=== PATIENT | female | born 1960 | race Caucasian/White ===

== ENCOUNTER → 2019-01-10 10:28 | Outpatient (CLI) | payer OTHER, SELFPAY ==
--- NOTE | 2019-01-10 10:30 | DI.RAD.S_ITS ---
PROCEDURE: XR LUMBAR SPINE 2-3V INDICATIONS: pain, numbness, tingling in l4-5 distribution TECHNIQUE: 3 views of the lumbar spine were acquired. COMPARISON: [facility], , XR LUMBAR SPINE 2 OR 3 VIEWS, 11/09/2017, 18:16. FINDINGS: Bones: 5 [id number] vertebrae are present. There is normal bony alignment. No vertebral body compression fractures. No suspicious bony lesions. There is degenerative disc disease throughout lumbar spine, most pronounced at T12-L1, L1-L2, L2-L3 and L3-L4. There is facet arthropathy at L4-L5 and L5-S1. Soft tissues: Overlying bowel gas pattern is normal. No suspicious soft tissue calcifications. IMPRESSION: Degenerative disc disease and facet arthropathy in lumbar spine. Dictated by: Shailesh Lazar M.D. on 01/10/2019 at 13:43 Approved by: Shailesh Lazar M.D. on 01/10/2019 at 13:46
== END ==
PROVIDERS: PCP Family Medicine; Visit Provider Physical Medicine & Rehabilitation
DX: M54.5 Low back pain (principal); M47.26 Other spondylosis with radiculopathy, lumbar region; M47.27 Other spondylosis with radiculopathy, lumbosacral region; M51.15 Intervertebral disc disorders with radiculopathy, thoracolumbar region; M51.16 Intervertebral disc disorders with radiculopathy, lumbar region; R20.0 Anesthesia of skin; R20.2 Paresthesia of skin
CPT/HCPCS: 72100

== ENCOUNTER → 2019-03-14 08:51 | Outpatient (CLI) | payer OTHER, SELFPAY ==
--- NOTE | 2019-03-14 08:52 | DI.RAD.S_ITS ---
PROCEDURE: XR KNEE RT 3V INDICATIONS: knee pain TECHNIQUE: A set of 3 views of the knee were acquired. COMPARISON: Located Within [facility], CR, XR KNEE LT 3V, 03/14/2019, 8:53. FINDINGS: Bones: No fractures or dislocations but there is severe right knee joint osteoarthritis virtually equivalent to that seen on the left same day. Nqlc-hq-[id number] articulation is present at the medial compartment. There is a possible intra-articular loose body at the superior margin of the patellofemoral joint seen on the lateral view.. No suspicious bony lesions. Soft tissues: No joint effusion. No suspicious soft tissue calcifications. IMPRESSION: Very severe medial compartment knee joint osteoarthritis, severe right knee joint osteoarthritis overall. Tricompartmental disease. Possible angular intra-articular loose body measuring up to approximately 1 point for centimeters seen on the lateral view at the upper margin of the patellofemoral joint. Dictated by: Mike Vázquez M.D. on 03/14/2019 at 9:41 Approved by: Mike Vázquez M.D. on 03/14/2019 at 9:43
--- NOTE | 2019-03-14 08:52 | DI.RAD.S_ITS ---
PROCEDURE: XR KNEE LT 3V INDICATIONS: knee pain TECHNIQUE: 3 views of the knee were acquired. COMPARISON: [facility], CR, XR KNEE STANDING BI, 03/14/2019, 9:08. [facility], CR, XR KNEE RT 3V, 03/14/2019, 9:01. [facility], CR, XR KNEE ARTHRITIC SERIES RT, 06/30/2018, 12:44. FINDINGS: Bones: No fractures or dislocations there is moderately severe patellofemoral joint and lateral compartment degenerative osteoarthritis and severe srjc-jf-rzpm articulation at the medial compartment, without visualized chronic or acute trauma. No suspicious bony lesions. Soft tissues: No joint effusion. No suspicious soft tissue calcifications. IMPRESSION: Overall there is quite severe knee joint osteoarthritis most pronounced at the medial compartment where ciil-fr-jeom articulation is present. No effusion or loose body seen. The degree of degenerative change is essentially equivalent to that on the left. Dictated by: Mike Vázquez M.D. on 03/14/2019 at 9:39 Approved by: Mike Vázquez M.D. on 03/14/2019 at 9:41
--- NOTE | 2019-03-14 08:52 | DI.RAD.S_ITS ---
PROCEDURE: XR KNEE STANDING BI INDICATIONS: knee pain TECHNIQUE: 4 views of the right knee, and 4 views of the left knee. COMPARISON: [facility], CR, XR KNEE RT 3V, 03/14/2019, 9:01. [facility], CR, XR KNEE LT 3V, 03/14/2019, 8:53. FINDINGS: Bones: No acute fractures or dislocations. Patellar alignment is mildly subluxed laterally on the sunrise view, bilaterally. No suspicious bony lesions but there is bilateral moderately severe knee joint osteoarthritis overall and severe medial compartment knee joint osteoarthritis at each knee to an equivalent agree with jmrw-ki-vnqy articulation. Joint spaces appear normal with weightbearing. Suspected intra-articular loose body at the superior margin of the right patellofemoral joint measures up to 1 point for centimeters in dimension craniocaudad. Soft tissues: No knee joint effusions. No suspicious soft tissue calcification. IMPRESSION: Moderately severe to severe knee joint osteoarthritis bilaterally most pronounced at the medial compartment of each knee were non-bone articulation is present. Suspected right suprapatellar fossa thin intra-articular loose body. No joint effusion is found, however. Dictated by: Mike Vázquez M.D. on 03/14/2019 at 9:59 Approved by: Mike Vázquez M.D. on 03/14/2019 at 10:01
== END ==
PROVIDERS: PCP Family Medicine; Visit Provider Registered Nurse
DX: M17.0 Bilateral primary osteoarthritis of knee (principal); M25.562 Pain in left knee; M25.561 Pain in right knee
CPT/HCPCS: 73562; 73565

== ENCOUNTER 2019-10-01 08:15 | Outpatient (RCR) | payer OTHER, SELFPAY ==
--- NOTE | 2019-02-05 14:52 | PT.OIE ---
Current Diagnoses Unilateral primary osteoarthritis, right knee (02/05/19) Unilateral primary osteoarthritis, left knee (02/05/19) Radiculopathy, lumbosacral region (02/05/19) Other abnormalities of gait and mobility (02/05/19) Abnormal posture (02/05/19) Weakness (02/05/19) Provider Visit Care Team Role Provider Type Kayleigh Magdaleno MD Primary Care Provider Non-Staff Specialty: Medical Address: [address] [place] [address], [id number] Email: COLEMAN Joseph Attending Provider Advanced Manager Medical Device Specialty: Pain Management Address: [address] [place] [address], [id number] Email: [email or web address] Physical Therapy Initial Evaluation PT-OP-A Visit Information Start: 02/05/19 08:10 Freq: Status: Active Protocol: Document 02/05/19 08:12 [facility] (Rec: 02/05/19 19:11 [facility] [id number]) Out-Patient Physical Therapy Visit Information Visit Information Visit Type Initial Evaluation Visit Start Time 08:15 Visit Stop Time 09:00 Total Visit Minutes 45 Visit Number 1 Number of TOOL WORKER Visits 0 PT-OP-B Current Condition Start: 02/05/19 08:10 Freq: Status: Active Protocol: Document 02/05/19 08:12 [facility] (Rec: 02/05/19 09:12 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 Pt reports when seeing a movie on the tuesday, she had bad back pain and then she had foot numbness. That Tuesday, she saw a chiropractor and that helped. Pt reports foot is numb and first 4 toes. Pt reports she gets shooting pain only through the foot . Pt reports it seems like when knees are bend and in PF. Prior Treatments and Tests Xrays on back and knees, shots in knees-cannot get surgery d /t weight Treatment Goals Patient/Caregiver Goals wants numbness to go away, be able to sit 1 hour, be able to walk with less pain PT-OP-C Subjective Start: 02/05/19 08:10 Freq: Status: Active Protocol: Document 02/05/19 08:12 [facility] (Rec: 02/05/19 09:12 [facility] [id number]) OP-PT Pain Assessment Location low back Pain Location Details LB & R foot and toes 1-4 Intensity 4 Scale Used Numeric (1 - 10) Description Shooting Tightness Description- Other pins & needles, searing Frequency Intermittent Radiating Location into foot & numbness Pain Aggravating Factors Sitting Other Pain Aggravating Factors bending knee, mowing on riding mower Other Pain Alleviating Factors reposition foot B knees Pain Location Details ant lat Intensity 2 Scale Used Numeric (1 - 10) Description Aching Description- Other worst 6/10 Frequency Intermittent Pain Duration a day or 2 Pain Aggravating Factors Walking Stair Climbing Bending Pain Alleviating Factors Cold PT-OP-G Mobility & Gait Start: 02/05/19 08:10 Freq: Status: Active Protocol: Document 02/05/19 08:12 [facility] (Rec: 02/05/19 09:12 [facility] [id number]) OP Gait Assessment Comments Gait Comments Pt amb with lat leaning side to side B with amb and amb with slow gait. PT-OP-J Posture/Palpation/Skin Start: 02/05/19 08:10 Freq: Status: Active Protocol: Document 02/05/19 08:12 [facility] (Rec: 02/05/19 09:12 [facility] [id number]) Posture Evaluation Jeri Postural Classification System Jeri Postural Classifications Anterior/Posterior Lumbar Protective Mechanism Left AP 3 Lumbar Protective Mechanism Right AP 2 Lumbar Protective Mechanism Left PA 3 Lumbar Protective Mechanism Right PA 1 PT-OP-K Range of Motion Start: 02/05/19 08:10 Freq: Status: Active Protocol: Document 02/05/19 08:12 [facility] (Rec: 02/05/19 09:12 [facility] [id number]) Lumbar Spine Range of Motion Lumbar Spine Active Degrees Flexion 60 Extension 22 Rotation Left 30 Rotation Right 29 Knee Goniometric Range of Motion Knee Right Flexion Active (degrees) 105 Extension Active (degrees) 6 Left Flexion Active (degrees) 101 Extension Active (degrees) 3 PT-OP-L Special Tests Start: 02/05/19 08:10 Freq: Status: Active Protocol: Document 02/05/19 08:12 [facility] (Rec: 02/05/19 09:12 [facility] [id number]) Special Tests Lumbar Spine Special Tests SLR Test Results WNL Slump Test Results neg B PT-OP-M Strength Start: 02/05/19 08:10 Freq: Status: Active Protocol: Document 02/05/19 08:12 [facility] (Rec: 02/05/19 09:12 [facility] [id number]) Hip Strength Hip Manual Muscle Testing Left Flexion (L2) 3+ Fair+ Extension (S1) 4- Good- Abduction 4- Good- External Rotation 4+ Good+ Internal Rotation 4 Good Right Flexion (L2) 4- Good- Extension (S1) 4 Good External Rotation 4- Good- Internal Rotation 4- Good- Knee Strength Knee Manual Muscle Testing Right Flexion (S2) 5 Normal Extension (L3) 4 Good Left Flexion (S2) 5 Normal Extension (L3) 4- Good- Ankle/Foot Strength Ankle and Foot Manual Muscle Testing Right Dorsiflexion (L4) 5 Normal Plantarflexion (S1) 5 Normal Inversion 4+ Good+ Eversion (S1) 4+ Good+ Left Dorsiflexion (L4) 5 Normal Plantarflexion (S1) 5 Normal Inversion 5 Normal Eversion (S1) 5 Normal PT-OP-Q Treatments Start: 02/05/19 08:10 Freq: Status: Active Protocol: Document 02/05/19 08:12 [facility] (Rec: 02/05/19 19:11 [facility] [id number]) Therapeutic Exercises Supine Exercises flex Supine Exercise Name marching altn w/TAbd contraction Side bilateral Reps/Minutes 10 bridge Side bilateral Reps/Minutes 10 Sidelying Exercises abd Sidelying Exercise Name hip Side bilateral Reps/Minutes 10 Comments cues for form PT-OP-T Assessment and Plan Start: 02/05/19 08:10 Freq: Status: Active Protocol: Document 02/05/19 08:12 [facility] (Rec: 02/05/19 19:11 [facility] [id number]) Physical Therapy Assessment Rehab Potential Rehabilitation Potential Good Evaluation Complexity Number of Personal Factors/Comorbidities 3 or More Number of Body Systems Impaired 4 or More Clinical Presentation at Evaluation Evolving Impairments Impairments Activity Tolerance Balance Functional Activities Functional Mobility Gait Pain Posture ROM Soft Tissue Mobility Strength Goals gait [facility] Goal (LTG) Pt will have improved gait mechanics allowing her to amb without pain during typical daily activties. LTG Duration 04/08/19 activity tolerance Custodial Goal (LTG) Pt will be able to sit for an hour without inc pain, allowing her to participate in full tutoring sessions without pain. LTG Duration 04/08/19 strength Short Term Goal (STG) Pt will be indep with HEP & gym program in order to work towards independence with strengthening program. STG Duration 03/08/19 [facility] Goal (LTG) Pt will have 5/5 LE strength and 3/5 LPM to show improvement in strength in order to allow her to return to typical activities without pain. LTG Duration 04/08/19 Assessment Summary Assessment Pt presents with chronic B knee pain and recent onset of LBP with R foot pain and numbness. Pt has largest complaint of foot pain that is limiting her and knees have limited her in her ability to walk, stand and sit for extended time. She is unable to participate in her daily activities without significant pain and would benefit from skilled PT in order to address her impairments and improve her activity tolerance. Physical Therapy Plan Frequency and Duration Frequency of Treatment 2x/Week Duration of Treatment 2 months Plan of Care Start Date 02/05/19 Plan of Care End Date 04/08/19 Therapeutic Interventions Therapeutic Interventions Aquatic Therapy Balance Training Gait Training Home Exercise Program Joint Mobilizations Manual Therapy Neuromuscular Re-education Patient/Caregiver Education Self-Care/Home Management Soft Tissue Mobilization Taping Therapeutic Activities Therapeutic Exercises Modalities Cold Pack/Ice Massage Electric Stimulation Hot Packs Infrared Therapy Iontophoresis Traction- Mechanical Ultrasound Next Visit Focus/Plan Next Note Type Treatment Note Next Visit Plan Advance core stability as tolerated & LE strength, STM to sciatic n pathway
--- NOTE | 2019-02-05 16:53 | PT.OPPOC ---
Current Diagnoses Unilateral primary osteoarthritis, right knee (02/05/19) Unilateral primary osteoarthritis, left knee (02/05/19) Radiculopathy, lumbosacral region (02/05/19) Other abnormalities of gait and mobility (02/05/19) Abnormal posture (02/05/19) Weakness (02/05/19) Provider Visit Care Team Role Provider Type Kayleigh Magdaleno MD Primary Care Provider Non-Staff Specialty: Medical Address: [address] [place] [address], [phone] Email: COLEMAN Jospeh Attending Provider Advanced House Father Specialty: Pain Management Address: [address] [place] [address], [id number] Email: [email or web address] Plan Of Care PT-OP-T Assessment and Plan Start: 02/05/19 08:10 Freq: Status: Active Protocol: Document 02/05/19 08:12 [facility] (Rec: 02/05/19 19:11 [facility] [id number]) Physical Therapy Assessment Rehab Potential Rehabilitation Potential Good Evaluation Complexity Number of Personal Factors/Comorbidities 3 or More Number of Body Systems Impaired 4 or More Clinical Presentation at Evaluation Evolving Impairments Impairments Activity Tolerance Balance Functional Activities Functional Mobility Gait Pain Posture ROM Soft Tissue Mobility Strength Goals gait Group Home Goal (LTG) Pt will have improved gait mechanics allowing her to amb without pain during typical daily activties. LTG Duration 04/08/19 activity tolerance Heat Treat Inspector Goal (LTG) Pt will be able to sit for an hour without inc pain, allowing her to participate in full tutoring sessions without pain. LTG Duration 04/08/19 strength Short Term Goal (STG) Pt will be indep with HEP & gym program in order to work towards independence with strengthening program. STG Duration 03/08/19 Heat Treat Inspector Goal (LTG) Pt will have 5/5 LE strength and 3/5 LPM to show improvement in strength in order to allow her to return to typical activities without pain. LTG Duration 04/08/19 Assessment Summary Assessment Pt presents with chronic B knee pain and recent onset of LBP with R foot pain and numbness. Pt has largest complaint of foot pain that is limiting her and knees have limited her in her ability to walk, stand and sit for extended time. She is unable to participate in her daily activities without significant pain and would benefit from skilled PT in order to address her impairments and improve her activity tolerance. Physical Therapy Plan Frequency and Duration Frequency of Treatment 2x/Week Duration of Treatment 2 months Plan of Care Start Date 02/05/19 Plan of Care End Date 04/08/19 Therapeutic Interventions Therapeutic Interventions Aquatic Therapy Balance Training Gait Training Home Exercise Program Joint Mobilizations Manual Therapy Neuromuscular Re-education Patient/Caregiver Education Self-Care/Home Management Soft Tissue Mobilization Taping Therapeutic Activities Therapeutic Exercises Modalities Cold Pack/Ice Massage Electric Stimulation Hot Packs Infrared Therapy Iontophoresis Traction- Mechanical Ultrasound Next Visit Focus/Plan Next Note Type Treatment Note Next Visit Plan Advance core stability as tolerated & LE strength, STM to sciatic n pathway Plan of Care Dates Plan of Care Start Date 02/05/19 Plan of Care End Date 04/08/19 Please Sign and Return: I have reviewed this Plan of Care and certify that the skilled therapy services above are required to meet the patient?s needs. Physician Signature Date Printed Name and Credentials Clinical Instructor Signature Printed Name and Credentials
--- NOTE | 2019-02-08 10:27 | PT.OTN ---
Current Diagnoses Unilateral primary osteoarthritis, right knee (02/08/19) Unilateral primary osteoarthritis, left knee (02/08/19) Radiculopathy, lumbosacral region (02/08/19) Other abnormalities of gait and mobility (02/08/19) Abnormal posture (02/08/19) Weakness (02/08/19) Physical Therapy Treatment Note PT-OP-A Visit Information Start: 02/05/19 08:10 Freq: Status: Active Protocol: Document 02/08/19 10:08 [facility] (Rec: 02/08/19 10:24 [facility] [id number]) Out-Patient Physical Therapy Visit Information Visit Information Visit Type Treatment Note Visit Start Time 09:45 Visit Stop Time 10:35 Total Visit Minutes 50 Visit Number 2 Number of EDUCATION AND TRAINING MANAGER Visits 0 PT-OP-B Current Condition Start: 02/05/19 08:10 Freq: Status: Active Protocol: Document 02/05/19 08:12 [facility] (Rec: 02/05/19 09:12 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 Pt reports when seeing a movie on the tuesday, she had bad back pain and then she had foot numbness. That Tuesday, she saw a chiropractor and that helped. Pt reports foot is numb and first 4 toes. Pt reports she gets shooting pain only through the foot . Pt reports it seems like when knees are bend and in PF. Prior Treatments and Tests Xrays on back and knees, shots in knees-cannot get surgery d /t weight Treatment Goals Patient/Caregiver Goals wants numbness to go away, be able to sit 1 hour, be able to walk with less pain PT-OP-C Subjective Start: 02/05/19 08:10 Freq: Status: Active Protocol: Document 02/08/19 10:08 [facility] (Rec: 02/08/19 10:24 [facility] [id number]) OP-PT Subjective Patient Comments Patient Comments pt reports doing exercises daily except yesterday. PT-OP-G Mobility & Gait Start: 02/05/19 08:10 Freq: Status: Active Protocol: Document 02/05/19 08:12 [facility] (Rec: 02/05/19 09:12 [facility] [id number]) OP Gait Assessment Comments Gait Comments Pt amb with lat leaning side to side B with amb and amb with slow gait. PT-OP-J Posture/Palpation/Skin Start: 02/05/19 08:10 Freq: Status: Active Protocol: Document 02/05/19 08:12 [facility] (Rec: 02/05/19 09:12 [facility] [id number]) Posture Evaluation Jeri Postural Classification System Jeri Postural Classifications Anterior/Posterior Lumbar Protective Mechanism Left AP 3 Lumbar Protective Mechanism Right AP 2 Lumbar Protective Mechanism Left PA 3 Lumbar Protective Mechanism Right PA 1 PT-OP-K Range of Motion Start: 02/05/19 08:10 Freq: Status: Active Protocol: Document 02/05/19 08:12 [facility] (Rec: 02/05/19 09:12 [facility] [id number]) Lumbar Spine Range of Motion Lumbar Spine Active Degrees Flexion 60 Extension 22 Rotation Left 30 Rotation Right 29 Knee Goniometric Range of Motion Knee Right Flexion Active (degrees) 105 Extension Active (degrees) 6 Left Flexion Active (degrees) 101 Extension Active (degrees) 3 PT-OP-L Special Tests Start: 02/05/19 08:10 Freq: Status: Active Protocol: Document 02/05/19 08:12 [facility] (Rec: 02/05/19 09:12 [facility] [id number]) Special Tests Lumbar Spine Special Tests SLR Test Results WNL Slump Test Results neg B PT-OP-M Strength Start: 02/05/19 08:10 Freq: Status: Active Protocol: Document 02/05/19 08:12 [facility] (Rec: 02/05/19 09:12 [facility] [id number]) Hip Strength Hip Manual Muscle Testing Left Flexion (L2) 3+ Fair+ Extension (S1) 4- Good- Abduction 4- Good- External Rotation 4+ Good+ Internal Rotation 4 Good Right Flexion (L2) 4- Good- Extension (S1) 4 Good External Rotation 4- Good- Internal Rotation 4- Good- Knee Strength Knee Manual Muscle Testing Right Flexion (S2) 5 Normal Extension (L3) 4 Good Left Flexion (S2) 5 Normal Extension (L3) 4- Good- Ankle/Foot Strength Ankle and Foot Manual Muscle Testing Right Dorsiflexion (L4) 5 Normal Plantarflexion (S1) 5 Normal Inversion 4+ Good+ Eversion (S1) 4+ Good+ Left Dorsiflexion (L4) 5 Normal Plantarflexion (S1) 5 Normal Inversion 5 Normal Eversion (S1) 5 Normal PT-OP-Q Treatments Start: 02/05/19 08:10 Freq: Status: Active Protocol: Document 02/08/19 10:08 [facility] (Rec: 02/08/19 10:24 [facility] [id number]) Cardio Equipment Recumbent Stepper (Sci-Fit) Duration (Minutes) 7 Resistance 3 Gym Equipment Cable Column (Body Solid) Hip Abduction Resistance 4 Reps/Time 3x15 Shuttle Recovery Bilateral Squats Resistance 100,125 Shuttle Recovery Platform Stable Reps/Time 2x20 Therapeutic Exercises Supine Exercises dying bugs Side bilateral Reps/Minutes 5x2 isometric Supine Exercise Name single limb flex Side bilateral Reps/Minutes 10 sec x2 flex Supine Exercise Name marching altn w/TAbd contraction Side bilateral Reps/Minutes 15 Comments arms in air bridge Supine Exercise Name arms in air Side bilateral Reps/Minutes 10 Sidelying Exercises abd Sidelying Exercise Name hip Side bilateral Reps/Minutes 15 Comments cues for form Standing Exercises hip ext Standing Exercise Name alt Side bilateral Reps/Minutes 10 PT-OP-R Modalities Start: 02/05/19 08:10 Freq: Status: Active Protocol: Document 02/08/19 10:08 [facility] (Rec: 02/08/19 10:26 [facility] [id number]) Hot Pack/Cold Pack Treatment Cold Pack Location B knees Patient Position Hooklying Treatment Duration (minutes) 10 PT-OP-T Assessment and Plan Start: 02/05/19 08:10 Freq: Status: Active Protocol: Document 02/08/19 10:08 [facility] (Rec: 02/08/19 10:24 [facility] [id number]) Physical Therapy Assessment Goals gait Timber Selector Goal (LTG) Pt will have improved gait mechanics allowing her to amb without pain during typical daily activties. LTG Duration 04/08/19 activity tolerance Timber Selector Goal (LTG) Pt will be able to sit for an hour without inc pain, allowing her to participate in full tutoring sessions without pain. LTG Duration 04/08/19 strength Short Term Goal (STG) Pt will be indep with HEP & gym program in order to work towards independence with strengthening program. STG Duration 03/08/19 Shelter Goal (LTG) Pt will have 5/5 LE strength and 3/5 LPM to show improvement in strength in order to allow her to return to typical activities without pain. LTG Duration 04/08/19 Assessment Summary Assessment Pt unable to set up into bike comfortably but was able to do stepper comfortably and leg press and hip abd exercise. She did well with home program with min cueing and tolerated exercising today well. CUeing required for hip abd in s/l. Physical Therapy Plan Frequency and Duration Frequency of Treatment 2x/Week Duration of Treatment 2 months Plan of Care Start Date 02/05/19 Plan of Care End Date 04/08/19 Next Visit Focus/Plan Next Note Type Treatment Note Next Visit Plan cont to progress hip and core strengthening for gym and HEP and work on STM
--- NOTE | 2019-02-19 13:00 | PT.OTN ---
Current Diagnoses Unilateral primary osteoarthritis, right knee (02/19/19) Unilateral primary osteoarthritis, left knee (02/19/19) Radiculopathy, lumbosacral region (02/19/19) Other abnormalities of gait and mobility (02/19/19) Abnormal posture (02/19/19) Weakness (02/19/19) Physical Therapy Treatment Note PT-OP-A Visit Information Start: 02/05/19 08:10 Freq: Status: Active Protocol: Document 02/21/19 07:24 [facility] (Rec: 02/21/19 07:33 [facility] [id number]) Out-Patient Physical Therapy Visit Information Visit Information Visit Type Aquatic Treatment Note Visit Start Time 13:00 Visit Stop Time 13:45 Total Visit Minutes 45 Visit Number 3 Number of FEED CRUSHER Visits 0 PT-OP-B Current Condition Start: 02/05/19 08:10 Freq: Status: Active Protocol: Document 02/05/19 08:12 [facility] (Rec: 02/05/19 09:12 [facility] [id number]) Current Condition History of Current Condition History of Current Condition Pt reports chronic knee pain of 3-4 years, 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 Pt reports when seeing a movie on the tuesday, she had bad back pain and then she had foot numbness. That Tuesday, she saw a chiropractor and that helped. Pt reports foot is numb and first 4 toes. Pt reports she gets shooting pain only through the foot . Pt reports it seems like when knees are bend and in PF. Prior Treatments and Tests Xrays on back and knees, shots in knees-cannot get surgery d /t weight Treatment Goals Patient/Caregiver Goals wants numbness to go away, be able to sit 1 hour, be able to walk with less pain PT-OP-C Subjective Start: 02/05/19 08:10 Freq: Status: Active Protocol: Document 02/21/19 07:24 [facility] (Rec: 02/21/19 07:33 [facility] [id number]) OP-PT Subjective Patient Comments Patient Comments No new c/o, excited to try aquatic exercise. Reports continued numbness in LE. PT-OP-G Mobility & Gait Start: 02/05/19 08:10 Freq: Status: Active Protocol: Document 02/05/19 08:12 [facility] (Rec: 02/05/19 09:12 [facility] [id number]) OP Gait Assessment Comments Gait Comments Pt amb with lat leaning side to side B with amb and amb with slow gait. PT-OP-J Posture/Palpation/Skin Start: 02/05/19 08:10 Freq: Status: Active Protocol: Document 02/05/19 08:12 [facility] (Rec: 02/05/19 09:12 [facility] [id number]) Posture Evaluation Jeri Postural Classification System Jeri Postural Classifications Anterior/Posterior Lumbar Protective Mechanism Left AP 3 Lumbar Protective Mechanism Right AP 2 Lumbar Protective Mechanism Left PA 3 Lumbar Protective Mechanism Right PA 1 PT-OP-K Range of Motion Start: 02/05/19 08:10 Freq: Status: Active Protocol: Document 02/05/19 08:12 [facility] (Rec: 02/05/19 09:12 [facility] [id number]) Lumbar Spine Range of Motion Lumbar Spine Active Degrees Flexion 60 Extension 22 Rotation Left 30 Rotation Right 29 Knee Goniometric Range of Motion Knee Right Flexion Active (degrees) 105 Extension Active (degrees) 6 Left Flexion Active (degrees) 101 Extension Active (degrees) 3 PT-OP-L Special Tests Start: 02/05/19 08:10 Freq: Status: Active Protocol: Document 02/05/19 08:12 [facility] (Rec: 02/05/19 09:12 [facility] [id number]) Special Tests Lumbar Spine Special Tests SLR Test Results WNL Slump Test Results neg B PT-OP-M Strength Start: 02/05/19 08:10 Freq: Status: Active Protocol: Document 02/05/19 08:12 [facility] (Rec: 02/05/19 09:12 [facility] [id number]) Hip Strength Hip Manual Muscle Testing Left Flexion (L2) 3+ Fair+ Extension (S1) 4- Good- Abduction 4- Good- External Rotation 4+ Good+ Internal Rotation 4 Good Right Flexion (L2) 4- Good- Extension (S1) 4 Good External Rotation 4- Good- Internal Rotation 4- Good- Knee Strength Knee Manual Muscle Testing Right Flexion (S2) 5 Normal Extension (L3) 4 Good Left Flexion (S2) 5 Normal Extension (L3) 4- Good- Ankle/Foot Strength Ankle and Foot Manual Muscle Testing Right Dorsiflexion (L4) 5 Normal Plantarflexion (S1) 5 Normal Inversion 4+ Good+ Eversion (S1) 4+ Good+ Left Dorsiflexion (L4) 5 Normal Plantarflexion (S1) 5 Normal Inversion 5 Normal Eversion (S1) 5 Normal PT-OP-Q Treatments Start: 02/05/19 08:10 Freq: Status: Active Protocol: Document 02/08/19 10:08 [facility] (Rec: 02/08/19 10:24 [facility] [id number]) Cardio Equipment Recumbent Stepper (Sci-Fit) Duration (Minutes) 7 Resistance 3 Gym Equipment Cable Column (Body Solid) Hip Abduction Resistance 4 Reps/Time 3x15 Shuttle Recovery Bilateral Squats Resistance 100,125 Shuttle Recovery Platform Stable Reps/Time 2x20 Therapeutic Exercises Supine Exercises dying bugs Side bilateral Reps/Minutes 5x2 isometric Supine Exercise Name single limb flex Side bilateral Reps/Minutes 10 sec x2 flex Supine Exercise Name marching altn w/TAbd contraction Side bilateral Reps/Minutes 15 Comments arms in air bridge Supine Exercise Name arms in air Side bilateral Reps/Minutes 10 Sidelying Exercises abd Sidelying Exercise Name hip Side bilateral Reps/Minutes 15 Comments cues for form Standing Exercises hip ext Standing Exercise Name alt Side bilateral Reps/Minutes 10 PT-OP-R Modalities Start: 02/05/19 08:10 Freq: Status: Active Protocol: Document 02/08/19 10:08 [facility] (Rec: 02/08/19 10:26 [facility] [id number]) Hot Pack/Cold Pack Treatment Cold Pack Location B knees Patient Position Hooklying Treatment Duration (minutes) 10 PT-OP-S Aquatic Treatment Start: 02/21/19 07:23 Freq: Status: Active Protocol: Document 02/21/19 07:24 [facility] (Rec: 02/21/19 07:33 [facility] [id number]) Aquatics Treatment Pool Entry/Exit Pool Entry/Exit Method Stairs Assistance Standby Assistance Water Walking september Water Level Chest Level Level of Assistance Verbal Cues Sideways Water Level Chest Level Level of Assistance Verbal Cues backward Water Level Chest Level Level of Assistance Verbal Cues forward Water Level Chest Level Level of Assistance Verbal Cues Lower Extremity Exercises hip circles Body Position Standing Reps/Duration 10x ea hip ab/ad Body Position Standing Reps/Duration 10x ea hip flex/ext Body Position Standing Reps/Duration 10xea Upper Extremity Exercises shoulder flex/ext Details radha together, alternating Body Position Standing Reps/Duration 10x ea shoulder hor ab/ad Details radha and unil with emphasis on core stab Body Position Standing Water Level Chest Level Reps/Duration 10x ea [place] Activities [place] Activities Bicycle Running Other Activities Deep water traction with 5# radha, [place] float, neck float Comments no flotation devices required except with traction PT-OP-T Assessment and Plan Start: 02/05/19 08:10 Freq: Status: Active Protocol: Document 02/21/19 07:24 [facility] (Rec: 02/21/19 07:33 [facility] [id number]) Physical Therapy Assessment Goals gait Chronometer Repairer Goal (LTG) Pt will have improved gait mechanics allowing her to amb without pain during typical daily activties. LTG Duration 04/08/19 activity tolerance Fdc Goal (LTG) Pt will be able to sit for an hour without inc pain, allowing her to participate in full tutoring sessions without pain. LTG Duration 04/08/19 strength Short Term Goal (STG) Pt will be indep with HEP & gym program in order to work towards independence with strengthening program. STG Duration 03/08/19 Fdc Goal (LTG) Pt will have 5/5 LE strength and 3/5 LPM to show improvement in strength in order to allow her to return to typical activities without pain. LTG Duration 04/08/19 Assessment Summary Assessment Good tolerance for aquatic exercises, required moderate cues for postural alignment and core stabilization. Reported sensation of tingling right foot instead of numbness following deep water traction. Physical Therapy Plan Frequency and Duration Frequency of Treatment 2x/Week Duration of Treatment 2 months Plan of Care Start Date 02/05/19 Plan of Care End Date 04/08/19 Therapeutic Interventions Therapeutic Interventions Aquatic Therapy Balance Training Gait Training Home Exercise Program Joint Mobilizations Manual Therapy Neuromuscular Re-education Patient/Caregiver Education Self-Care/Home Management Soft Tissue Mobilization Taping Therapeutic Activities Therapeutic Exercises Modalities Cold Pack/Ice Massage Electric Stimulation Hot Packs Infrared Therapy Iontophoresis Traction- Mechanical Ultrasound Next Visit Focus/Plan Next Note Type Treatment Note Next Visit Plan Progress aquatic exercise program with emphasis on core stabilization, general strengthening, deep water traction with possibly increased weight with deep water traction, add deep water stabilization ex
--- NOTE | 2019-02-21 15:00 | PT.OTN ---
Current Diagnoses Unilateral primary osteoarthritis, right knee (02/19/19) Unilateral primary osteoarthritis, left knee (02/19/19) Radiculopathy, lumbosacral region (02/19/19) Other abnormalities of gait and mobility (02/19/19) Abnormal posture (02/19/19) Weakness (02/19/19) Physical Therapy Treatment Note PT-OP-A Visit Information Start: 02/05/19 08:10 Freq: Status: Active Protocol: Document 02/21/19 11:30 [facility] (Rec: 02/21/19 15:00 [facility] [id number]) Out-Patient Physical Therapy Visit Information Visit Information Visit Type Aquatic Treatment Note Visit Start Time 11:30 Visit Stop Time 12:15 Total Visit Minutes 45 Visit Number 4 Number of GOVERNMENT AFFAIRS SPECIALIST Visits 1 PT-OP-B Current Condition Start: 02/05/19 08:10 Freq: Status: Active Protocol: Document 02/05/19 08:12 [facility] (Rec: 02/05/19 09:12 [facility] [id number]) Current Condition History of Current Condition History of Current Condition Pt reports chronic knee pain of 3-4 years, 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 Pt reports when seeing a movie on the tuesday, she had bad back pain and then she had foot numbness. That Tuesday, she saw a chiropractor and that helped. Pt reports foot is numb and first 4 toes. Pt reports she gets shooting pain only through the foot . Pt reports it seems like when knees are bend and in PF. Prior Treatments and Tests Xrays on back and knees, shots in knees-cannot get surgery d /t weight Treatment Goals Patient/Caregiver Goals wants numbness to go away, be able to sit 1 hour, be able to walk with less pain PT-OP-C Subjective Start: 02/05/19 08:10 Freq: Status: Active Protocol: Document 02/21/19 11:30 [facility] (Rec: 02/21/19 15:00 [facility] [id number]) OP-PT Subjective Patient Comments Patient Comments Pt states she feels aquatic therapy will help with her health issues. Enjoyed the first session and has no new complaints. PT-OP-G Mobility & Gait Start: 02/05/19 08:10 Freq: Status: Active Protocol: Document 02/05/19 08:12 [facility] (Rec: 02/05/19 09:12 [facility] [id number]) OP Gait Assessment Comments Gait Comments Pt amb with lat leaning side to side B with amb and amb with slow gait. PT-OP-J Posture/Palpation/Skin Start: 02/05/19 08:10 Freq: Status: Active Protocol: Document 02/05/19 08:12 [facility] (Rec: 02/05/19 09:12 [facility] [id number]) Posture Evaluation Jeri Postural Classification System Jeri Postural Classifications Anterior/Posterior Lumbar Protective Mechanism Left AP 3 Lumbar Protective Mechanism Right AP 2 Lumbar Protective Mechanism Left PA 3 Lumbar Protective Mechanism Right PA 1 PT-OP-K Range of Motion Start: 02/05/19 08:10 Freq: Status: Active Protocol: Document 02/05/19 08:12 [facility] (Rec: 02/05/19 09:12 [facility] [id number]) Lumbar Spine Range of Motion Lumbar Spine Active Degrees Flexion 60 Extension 22 Rotation Left 30 Rotation Right 29 Knee Goniometric Range of Motion Knee Right Flexion Active (degrees) 105 Extension Active (degrees) 6 Left Flexion Active (degrees) 101 Extension Active (degrees) 3 PT-OP-L Special Tests Start: 02/05/19 08:10 Freq: Status: Active Protocol: Document 02/05/19 08:12 [facility] (Rec: 02/05/19 09:12 [facility] [id number]) Special Tests Lumbar Spine Special Tests SLR Test Results WNL Slump Test Results neg B PT-OP-M Strength Start: 02/05/19 08:10 Freq: Status: Active Protocol: Document 02/05/19 08:12 [facility] (Rec: 02/05/19 09:12 [facility] [id number]) Hip Strength Hip Manual Muscle Testing Left Flexion (L2) 3+ Fair+ Extension (S1) 4- Good- Abduction 4- Good- External Rotation 4+ Good+ Internal Rotation 4 Good Right Flexion (L2) 4- Good- Extension (S1) 4 Good External Rotation 4- Good- Internal Rotation 4- Good- Knee Strength Knee Manual Muscle Testing Right Flexion (S2) 5 Normal Extension (L3) 4 Good Left Flexion (S2) 5 Normal Extension (L3) 4- Good- Ankle/Foot Strength Ankle and Foot Manual Muscle Testing Right Dorsiflexion (L4) 5 Normal Plantarflexion (S1) 5 Normal Inversion 4+ Good+ Eversion (S1) 4+ Good+ Left Dorsiflexion (L4) 5 Normal Plantarflexion (S1) 5 Normal Inversion 5 Normal Eversion (S1) 5 Normal PT-OP-Q Treatments Start: 02/05/19 08:10 Freq: Status: Active Protocol: Document 02/08/19 10:08 [facility] (Rec: 02/08/19 10:24 [facility] [id number]) Cardio Equipment Recumbent Stepper (Sci-Fit) Duration (Minutes) 7 Resistance 3 Gym Equipment Cable Column (Body Solid) Hip Abduction Resistance 4 Reps/Time 3x15 Shuttle Recovery Bilateral Squats Resistance 100,125 Shuttle Recovery Platform Stable Reps/Time 2x20 Therapeutic Exercises Supine Exercises dying bugs Side bilateral Reps/Minutes 5x2 isometric Supine Exercise Name single limb flex Side bilateral Reps/Minutes 10 sec x2 flex Supine Exercise Name marching altn w/TAbd contraction Side bilateral Reps/Minutes 15 Comments arms in air bridge Supine Exercise Name arms in air Side bilateral Reps/Minutes 10 Sidelying Exercises abd Sidelying Exercise Name hip Side bilateral Reps/Minutes 15 Comments cues for form Standing Exercises hip ext Standing Exercise Name alt Side bilateral Reps/Minutes 10 PT-OP-R Modalities Start: 02/05/19 08:10 Freq: Status: Active Protocol: Document 02/08/19 10:08 [facility] (Rec: 02/08/19 10:26 [facility] [id number]) Hot Pack/Cold Pack Treatment Cold Pack Location B knees Patient Position Hooklying Treatment Duration (minutes) 10 PT-OP-S Aquatic Treatment Start: 02/21/19 07:23 Freq: Status: Active Protocol: Document 02/21/19 11:30 (Rec: 02/21/19 15:00 [facility] [id number]) Aquatics Treatment Pool Entry/Exit Pool Entry/Exit Method Stairs Assistance Standby Assistance Water Walking september Water Level Chest Level Level of Assistance Verbal Cues Sideways Water Level Chest Level Level of Assistance Verbal Cues backward Water Level Chest Level Level of Assistance Verbal Cues forward Water Level Chest Level Level of Assistance Verbal Cues Lower Extremity Exercises hip circles Body Position Standing Reps/Duration 10x ea hip ab/ad Body Position Standing Reps/Duration 10x ea hip flex/ext Body Position Standing Reps/Duration 10xea Upper Extremity Exercises shoulder flex/ext Details radha together, alternating Body Position Standing Reps/Duration 10x ea shoulder hor ab/ad Details radha and unil with emphasis on core stab Body Position Standing Water Level Chest Level Reps/Duration 10x ea [place] Activities [place] Activities Bicycle Running Other Activities Deep water traction with 5# radha, [place] float, neck float Comments no flotation devices required except with traction PT-OP-T Assessment and Plan Start: 02/05/19 08:10 Freq: Status: Active Protocol: Document 02/21/19 11:30 [facility] (Rec: 02/21/19 15:00 [facility] [id number]) Physical Therapy Assessment Goals gait Halfway Goal (LTG) Pt will have improved gait mechanics allowing her to amb without pain during typical daily activties. LTG Duration 04/08/19 activity tolerance Racket Stringer Goal (LTG) Pt will be able to sit for an hour without inc pain, allowing her to participate in full tutoring sessions without pain. LTG Duration 04/08/19 strength Short Term Goal (STG) Pt will be indep with HEP & gym program in order to work towards independence with strengthening program. STG Duration 03/08/19 Halfway Goal (LTG) Pt will have 5/5 LE strength and 3/5 LPM to show improvement in strength in order to allow her to return to typical activities without pain. LTG Duration 04/08/19 Assessment Summary Assessment Good tolerance for aquatic exercises, required moderate cues for postural alignment and core stabilization. Physical Therapy Plan Frequency and Duration Frequency of Treatment 2x/Week Duration of Treatment 2 months Plan of Care Start Date 02/05/19 Plan of Care End Date 04/08/19 Therapeutic Interventions Therapeutic Interventions Aquatic Therapy Balance Training Gait Training Home Exercise Program Joint Mobilizations Manual Therapy Neuromuscular Re-education Patient/Caregiver Education Self-Care/Home Management Soft Tissue Mobilization Taping Therapeutic Activities Therapeutic Exercises Modalities Cold Pack/Ice Massage Electric Stimulation Hot Packs Infrared Therapy Iontophoresis Traction- Mechanical Ultrasound Next Visit Focus/Plan Next Note Type Treatment Note Next Visit Plan Progress aquatic exercise program with emphasis on core stabilization, general strengthening, deep water traction with possibly increased weight with deep water traction, add deep water stabilization ex
--- NOTE | 2019-02-28 14:56 | PT.OTN ---
Current Diagnoses Unilateral primary osteoarthritis, right knee (02/28/19) Unilateral primary osteoarthritis, left knee (02/28/19) Radiculopathy, lumbosacral region (02/28/19) Other abnormalities of gait and mobility (02/28/19) Abnormal posture (02/28/19) Weakness (02/28/19) Physical Therapy Treatment Note PT-OP-A Visit Information Start: 02/05/19 08:10 Freq: Status: Active Protocol: Document 02/28/19 11:30 LJ (Rec: 02/28/19 14:55 LJ [email or web address]) Out-Patient Physical Therapy Visit Information Visit Information Visit Type Aquatic Treatment Note Visit Start Time 11:30 Visit Stop Time 12:15 Total Visit Minutes 45 Visit Number 5 Number of SEASONAL CLERK Visits 2 PT-OP-B Current Condition Start: 02/05/19 08:10 Freq: Status: Active Protocol: Document 02/05/19 08:12 [facility] (Rec: 02/05/19 09:12 [facility] [id number]) Current Condition History of Current Condition History of Current Condition Pt reports chronic knee pain of 3-4 years, 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 Pt reports when seeing a movie on the tuesday, she had bad back pain and then she had foot numbness. That Tuesday, she saw a chiropractor and that helped. Pt reports foot is numb and first 4 toes. Pt reports she gets shooting pain only through the foot . Pt reports it seems like when knees are bend and in PF. Prior Treatments and Tests Xrays on back and knees, shots in knees-cannot get surgery d /t weight Treatment Goals Patient/Caregiver Goals wants numbness to go away, be able to sit 1 hour, be able to walk with less pain PT-OP-C Subjective Start: 02/05/19 08:10 Freq: Status: Active Protocol: Document 02/28/19 11:30 LJ (Rec: 02/28/19 14:55 LJ [email or web address]) OP-PT Subjective Patient Comments Patient Comments Pt still having neuropathy of Right foot. Had an MRI on lumbar region to ascertain status of pathology. PT-OP-G Mobility & Gait Start: 02/05/19 08:10 Freq: Status: Active Protocol: Document 02/05/19 08:12 [facility] (Rec: 02/05/19 09:12 [facility] [id number]) OP Gait Assessment Comments Gait Comments Pt amb with lat leaning side to side B with amb and amb with slow gait. PT-OP-J Posture/Palpation/Skin Start: 02/05/19 08:10 Freq: Status: Active Protocol: Document 02/05/19 08:12 [facility] (Rec: 02/05/19 09:12 [facility] [id number]) Posture Evaluation Jeri Postural Classification System Jeri Postural Classifications Anterior/Posterior Lumbar Protective Mechanism Left AP 3 Lumbar Protective Mechanism Right AP 2 Lumbar Protective Mechanism Left PA 3 Lumbar Protective Mechanism Right PA 1 PT-OP-K Range of Motion Start: 02/05/19 08:10 Freq: Status: Active Protocol: Document 02/05/19 08:12 [facility] (Rec: 02/05/19 09:12 [facility] [id number]) Lumbar Spine Range of Motion Lumbar Spine Active Degrees Flexion 60 Extension 22 Rotation Left 30 Rotation Right 29 Knee Goniometric Range of Motion Knee Right Flexion Active (degrees) 105 Extension Active (degrees) 6 Left Flexion Active (degrees) 101 Extension Active (degrees) 3 PT-OP-L Special Tests Start: 02/05/19 08:10 Freq: Status: Active Protocol: Document 02/05/19 08:12 [facility] (Rec: 02/05/19 09:12 [facility] [id number]) Special Tests Lumbar Spine Special Tests SLR Test Results WNL Slump Test Results neg B PT-OP-M Strength Start: 02/05/19 08:10 Freq: Status: Active Protocol: Document 02/05/19 08:12 [facility] (Rec: 02/05/19 09:12 [facility] [id number]) Hip Strength Hip Manual Muscle Testing Left Flexion (L2) 3+ Fair+ Extension (S1) 4- Good- Abduction 4- Good- External Rotation 4+ Good+ Internal Rotation 4 Good Right Flexion (L2) 4- Good- Extension (S1) 4 Good External Rotation 4- Good- Internal Rotation 4- Good- Knee Strength Knee Manual Muscle Testing Right Flexion (S2) 5 Normal Extension (L3) 4 Good Left Flexion (S2) 5 Normal Extension (L3) 4- Good- Ankle/Foot Strength Ankle and Foot Manual Muscle Testing Right Dorsiflexion (L4) 5 Normal Plantarflexion (S1) 5 Normal Inversion 4+ Good+ Eversion (S1) 4+ Good+ Left Dorsiflexion (L4) 5 Normal Plantarflexion (S1) 5 Normal Inversion 5 Normal Eversion (S1) 5 Normal PT-OP-Q Treatments Start: 02/05/19 08:10 Freq: Status: Active Protocol: Document 02/08/19 10:08 [facility] (Rec: 02/08/19 10:24 [facility] [id number]) Cardio Equipment Recumbent Stepper (Sci-Fit) Duration (Minutes) 7 Resistance 3 Gym Equipment Cable Column (Body Solid) Hip Abduction Resistance 4 Reps/Time 3x15 Shuttle Recovery Bilateral Squats Resistance 100,125 Shuttle Recovery Platform Stable Reps/Time 2x20 Therapeutic Exercises Supine Exercises dying bugs Side bilateral Reps/Minutes 5x2 isometric Supine Exercise Name single limb flex Side bilateral Reps/Minutes 10 sec x2 flex Supine Exercise Name marching altn w/TAbd contraction Side bilateral Reps/Minutes 15 Comments arms in air bridge Supine Exercise Name arms in air Side bilateral Reps/Minutes 10 Sidelying Exercises abd Sidelying Exercise Name hip Side bilateral Reps/Minutes 15 Comments cues for form Standing Exercises hip ext Standing Exercise Name alt Side bilateral Reps/Minutes 10 PT-OP-R Modalities Start: 02/05/19 08:10 Freq: Status: Active Protocol: Document 02/08/19 10:08 [facility] (Rec: 02/08/19 10:26 [facility] [id number]) Hot Pack/Cold Pack Treatment Cold Pack Location B knees Patient Position Hooklying Treatment Duration (minutes) 10 PT-OP-S Aquatic Treatment Start: 02/21/19 07:23 Freq: Status: Active Protocol: Document 02/28/19 11:30 LJ (Rec: 02/28/19 14:55 LJ [email or web address]) Aquatics Treatment Pool Entry/Exit Pool Entry/Exit Method Stairs Assistance Standby Assistance Water Walking toes and heels Water Level Chest Level Walking Equipment Ankle Weight- 5.0# Level of Assistance Verbal Cues march Water Level Chest Level Level of Assistance Verbal Cues Comments recrip hand to knee Sideways Water Level Chest Level Level of Assistance Verbal Cues backward Water Level Chest Level Level of Assistance Verbal Cues Comments recrip hand to knee forward Water Level Chest Level Level of Assistance Verbal Cues Comments recrip hand to knee Lower Extremity Stretches nerve flossing HS and glute Details right LE Body Position Standing Water Level Chest Level Equipment Small Noodle Reps/Duration 2 min Comments neutral, AB, AD Upper Extremity Exercises shoulder flex/ext Details radha together, alternating Body Position Standing Reps/Duration 10x ea shoulder hor ab/ad Details radha and unil with emphasis on core stab Body Position Standing Water Level Chest Level Reps/Duration 10x ea Bowden Activities Bowden Activities Bicycle Running Other Activities Deep water traction with 5# radha, [place] float, neck float 8 min Comments no flotation devices required except with traction Manual Techniques Aquatic Massage R calf and peroneals during HS stretch PT-OP-T Assessment and Plan Start: 02/05/19 08:10 Freq: Status: Active Protocol: Document 02/28/19 11:30 LJ (Rec: 02/28/19 14:55 LJ [email or web address]) Physical Therapy Assessment Rehab Potential Rehabilitation Potential Good Evaluation Complexity Number of Personal Factors/Comorbidities 3 or More Number of Body Systems Impaired 4 or More Clinical Presentation at Evaluation Evolving Impairments Impairments Activity Tolerance Balance Functional Activities Functional Mobility Gait Pain Posture ROM Soft Tissue Mobility Strength Goals gait Detention Goal (LTG) Pt will have improved gait mechanics allowing her to amb without pain during typical daily activties. LTG Duration 04/08/19 activity tolerance Detention Goal (LTG) Pt will be able to sit for an hour without inc pain, allowing her to participate in full tutoring sessions without pain. LTG Duration 04/08/19 strength Short Term Goal (STG) Pt will be indep with HEP & gym program in order to work towards independence with strengthening program. STG Duration 03/08/19 Detention Goal (LTG) Pt will have 5/5 LE strength and 3/5 LPM to show improvement in strength in order to allow her to return to typical activities without pain. LTG Duration 04/08/19 Assessment Summary Assessment Good tolerance for aquatic exercises, required moderate cues for postural alignment and core stabilization. Pt reported increased sensation and greater flexibility post massage. Physical Therapy Plan Frequency and Duration Frequency of Treatment 2x/Week Duration of Treatment 2 months Plan of Care Start Date 02/05/19 Plan of Care End Date 04/08/19 Therapeutic Interventions Therapeutic Interventions Aquatic Therapy Balance Training Gait Training Home Exercise Program Joint Mobilizations Manual Therapy Neuromuscular Re-education Patient/Caregiver Education Self-Care/Home Management Soft Tissue Mobilization Taping Therapeutic Activities Therapeutic Exercises Modalities Cold Pack/Ice Massage Electric Stimulation Hot Packs Infrared Therapy Iontophoresis Traction- Mechanical Ultrasound Next Visit Focus/Plan Next Note Type Treatment Note Next Visit Plan Continue aquatic exercise with deep water traction and massage of right foot and peroneals as needed.
--- NOTE | 2019-03-05 15:52 | PT.OTN ---
Current Diagnoses Unilateral primary osteoarthritis, right knee (03/05/19) Unilateral primary osteoarthritis, left knee (03/05/19) Radiculopathy, lumbosacral region (03/05/19) Other abnormalities of gait and mobility (03/05/19) Abnormal posture (03/05/19) Weakness (03/05/19) Physical Therapy Treatment Note PT-OP-A Visit Information Start: 02/05/19 08:10 Freq: Status: Active Protocol: Document 03/05/19 13:58 [facility] (Rec: 03/05/19 14:10 [facility] [email or web address]) Out-Patient Physical Therapy Visit Information Visit Information Visit Type Treatment Note Visit Start Time 08:15 Visit Stop Time 09:15 Total Visit Minutes 60 Visit Number 6 Number of PROCESS OWNER Visits 0 PT-OP-B Current Condition Start: 02/05/19 08:10 Freq: Status: Active Protocol: Document 02/05/19 08:12 [facility] (Rec: 02/05/19 09:12 [facility] [id number]) Current Condition History of Current Condition History of Current Condition Pt reports chronic knee pain of 3-4 years, 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 Pt reports when seeing a movie on the tuesday, she had bad back pain and then she had foot numbness. That Tuesday, she saw a chiropractor and that helped. Pt reports foot is numb and first 4 toes. Pt reports she gets shooting pain only through the foot . Pt reports it seems like when knees are bend and in PF. Prior Treatments and Tests Xrays on back and knees, shots in knees-cannot get surgery d /t weight Treatment Goals Patient/Caregiver Goals wants numbness to go away, be able to sit 1 hour, be able to walk with less pain PT-OP-C Subjective Start: 02/05/19 08:10 Freq: Status: Active Protocol: Document 03/05/19 13:58 [facility] (Rec: 03/05/19 14:10 [facility] [email or web address]) OP-PT Subjective Patient Comments Patient Comments Pt reports she is having a lot of foot and knee pain today. She is getting concerned that she has not seen significant changes in the numbness of her R foot. MRI of lumbar region done at [facility]. PT-OP-G Mobility & Gait Start: 02/05/19 08:10 Freq: Status: Active Protocol: Document 02/05/19 08:12 [facility] (Rec: 02/05/19 09:12 [facility] [id number]) OP Gait Assessment Comments Gait Comments Pt amb with lat leaning side to side B with amb and amb with slow gait. PT-OP-J Posture/Palpation/Skin Start: 02/05/19 08:10 Freq: Status: Active Protocol: Document 02/05/19 08:12 [facility] (Rec: 02/05/19 09:12 [facility] [id number]) Posture Evaluation Jeri Postural Classification System Jeri Postural Classifications Anterior/Posterior Lumbar Protective Mechanism Left AP 3 Lumbar Protective Mechanism Right AP 2 Lumbar Protective Mechanism Left PA 3 Lumbar Protective Mechanism Right PA 1 PT-OP-K Range of Motion Start: 02/05/19 08:10 Freq: Status: Active Protocol: Document 02/05/19 08:12 [facility] (Rec: 02/05/19 09:12 [facility] [id number]) Lumbar Spine Range of Motion Lumbar Spine Active Degrees Flexion 60 Extension 22 Rotation Left 30 Rotation Right 29 Knee Goniometric Range of Motion Knee Right Flexion Active (degrees) 105 Extension Active (degrees) 6 Left Flexion Active (degrees) 101 Extension Active (degrees) 3 PT-OP-L Special Tests Start: 02/05/19 08:10 Freq: Status: Active Protocol: Document 02/05/19 08:12 [facility] (Rec: 02/05/19 09:12 [facility] [id number]) Special Tests Lumbar Spine Special Tests SLR Test Results WNL Slump Test Results neg B PT-OP-M Strength Start: 02/05/19 08:10 Freq: Status: Active Protocol: Document 02/05/19 08:12 [facility] (Rec: 02/05/19 09:12 [facility] [id number]) Hip Strength Hip Manual Muscle Testing Left Flexion (L2) 3+ Fair+ Extension (S1) 4- Good- Abduction 4- Good- External Rotation 4+ Good+ Internal Rotation 4 Good Right Flexion (L2) 4- Good- Extension (S1) 4 Good External Rotation 4- Good- Internal Rotation 4- Good- Knee Strength Knee Manual Muscle Testing Right Flexion (S2) 5 Normal Extension (L3) 4 Good Left Flexion (S2) 5 Normal Extension (L3) 4- Good- Ankle/Foot Strength Ankle and Foot Manual Muscle Testing Right Dorsiflexion (L4) 5 Normal Plantarflexion (S1) 5 Normal Inversion 4+ Good+ Eversion (S1) 4+ Good+ Left Dorsiflexion (L4) 5 Normal Plantarflexion (S1) 5 Normal Inversion 5 Normal Eversion (S1) 5 Normal PT-OP-Q Treatments Start: 02/05/19 08:10 Freq: Status: Active Protocol: Document 03/05/19 13:58 [facility] (Rec: 03/05/19 14:10 AR [email or web address]) Therapeutic Exercises Supine Exercises HS stretch, dynamic Supine Exercise Name DF & inversion nerve glides Side right Reps/Minutes 15 reps dying bugs Side bilateral Reps/Minutes 10 reps isometric Supine Exercise Name single limb flex Side bilateral Reps/Minutes 4x 10 sec holds bridge Supine Exercise Name bridging Reps/Minutes 20 reps Sitting Exercises plantar fascia stretch Sitting Exercise Name plantar fascia stretch Side right Reps/Minutes 2x 30 sec holds Comments added to HEP, advised to use tennis ball at home, roll under foot ankle inversion stretch Sitting Exercise Name ankle inversion stretch Side right Reps/Minutes 3x30 sec holds Standing Exercises Gastroc/Soleus stretch Standing Exercise Name calf stretch Side right Reps/Minutes 2x30 sec holds hip ext Standing Exercise Name standing hip ext Side right Reps/Minutes 15 reps Manual Therapy Treatment Soft Tissue Mobilization Peroneals Body Location peroneals Mobilization Type Myofascial Release Rolling Sustained Pressure Trigger Point Release Intensity/Depth Moderate Body Position Supine Comments pt reported nerve symptoms into foot during massage, relieved after PT-OP-R Modalities Start: 02/05/19 08:10 Freq: Status: Active Protocol: Document 03/05/19 13:58 [facility] (Rec: 03/05/19 14:10 [facility] [email or web address]) Hot Pack/Cold Pack Treatment Cold Pack Location R leg, L/S Patient Position Hooklying Treatment Duration (minutes) 15 PT-OP-S Aquatic Treatment Start: 02/21/19 07:23 Freq: Status: Active Protocol: Document 02/28/19 11:30 LJ (Rec: 02/28/19 14:55 LJ [email or web address]) Aquatics Treatment Pool Entry/Exit Pool Entry/Exit Method Stairs Assistance Standby Assistance Water Walking toes and heels Water Level Chest Level Walking Equipment Ankle Weight- 5.0# Level of Assistance Verbal Cues [facility] Water Level Chest Level Level of Assistance Verbal Cues Comments recrip hand to knee Sideways Water Level Chest Level Level of Assistance Verbal Cues backward Water Level Chest Level Level of Assistance Verbal Cues Comments recrip hand to knee forward Water Level Chest Level Level of Assistance Verbal Cues Comments recrip hand to knee Lower Extremity Stretches nerve flossing HS and glute Details right LE Body Position Standing Water Level Chest Level Equipment Small Noodle Reps/Duration 2 min Comments neutral, AB, AD Upper Extremity Exercises shoulder flex/ext Details radha together, alternating Body Position Standing Reps/Duration 10x ea shoulder hor ab/ad Details radha and unil with emphasis on core stab Body Position Standing Water Level Chest Level Reps/Duration 10x ea [place] Activities Horton Activities Bicycle Running Other Activities Deep water traction with 5# radha, osage float, neck float 8 min Comments no flotation devices required except with traction Manual Techniques Aquatic Massage R calf and peroneals during HS stretch PT-OP-T Assessment and Plan Start: 02/05/19 08:10 Freq: Status: Active Protocol: Document 03/05/19 13:58 [facility] (Rec: 03/05/19 14:10 [facility] [email or web address]) Physical Therapy Assessment Goals gait Mineral Resources Inspector Goal (LTG) Pt will have improved gait mechanics allowing her to amb without pain during typical daily activties. LTG Duration 04/08/19 activity tolerance Mineral Resources Inspector Goal (LTG) Pt will be able to sit for an hour without inc pain, allowing her to participate in full tutoring sessions without pain. LTG Duration 04/08/19 strength Short Term Goal (STG) Pt will be indep with HEP & gym program in order to work towards independence with strengthening program. STG Duration 03/08/19 Care Home Goal (LTG) Pt will have 5/5 LE strength and 3/5 LPM to show improvement in strength in order to allow her to return to typical activities without pain. LTG Duration 04/08/19 Assessment Summary Assessment Pt presents with myofascial restrictions in lateral leg that may be contributing to neural symptoms in foot. Pt responded well to manual therapy and reported that pain was abolished but numbness was still present. Pt was educated on self massage and nerve gliding techniques to address possible distal nerve entrapment. Physical Therapy Plan Frequency and Duration Frequency of Treatment 2x/Week Duration of Treatment 2 months Plan of Care Start Date 02/05/19 Plan of Care End Date 04/08/19 Next Visit Focus/Plan Next Note Type Treatment Note Next Visit Plan cont to address peroneals manually. progress core stabilization exercises as necessary
--- NOTE | 2019-03-12 11:12 | PT.OTN ---
Current Diagnoses Unilateral primary osteoarthritis, right knee (03/12/19) Unilateral primary osteoarthritis, left knee (03/12/19) Radiculopathy, lumbosacral region (03/12/19) Other abnormalities of gait and mobility (03/12/19) Abnormal posture (03/12/19) Weakness (03/12/19) Physical Therapy Treatment Note PT-OP-A Visit Information Start: 02/05/19 08:10 Freq: Status: Active Protocol: Document 03/12/19 08:15 AR (Rec: 03/12/19 09:16 AR [email or web address]) Out-Patient Physical Therapy Visit Information Visit Information Visit Type Treatment Note Visit Start Time 08:15 Visit Stop Time 09:00 Total Visit Minutes 45 Visit Number 7 Number of AUTO AIR CONDITIONING APPRENTICE Visits 0 PT-OP-B Current Condition Start: 02/05/19 08:10 Freq: Status: Active Protocol: Document 02/05/19 08:12 [facility] (Rec: 02/05/19 09:12 [facility] [id number]) Current Condition History of Current Condition History of Current Condition Pt reports chronic knee pain of 3-4 years, 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 Pt reports when seeing a movie on the tuesday, she had bad back pain and then she had foot numbness. That Tuesday, she saw a chiropractor and that helped. Pt reports foot is numb and first 4 toes. Pt reports she gets shooting pain only through the foot . Pt reports it seems like when knees are bend and in PF. Prior Treatments and Tests Xrays on back and knees, shots in knees-cannot get surgery d /t weight Treatment Goals Patient/Caregiver Goals wants numbness to go away, be able to sit 1 hour, be able to walk with less pain PT-OP-C Subjective Start: 02/05/19 08:10 Freq: Status: Active Protocol: Document 03/12/19 08:15 AR (Rec: 03/12/19 09:16 AR [email or web address]) OP-PT Subjective Patient Comments Patient Comments Pt reports continued pain and numbness into foot. She is still having knee pain and did not want to start on the stepper. Pt reports that PT is helping and she had relief for multiple days after the last session, but she is still very concerned about the numbness. Pt is also seeing a chiropractor for manipulation and decompression every week. Pt was encouraged to discuss residential caregiver with those providers, as she was torn about the amount of decompression therapy she should be doing. PT-OP-G Mobility & Gait Start: 02/05/19 08:10 Freq: Status: Active Protocol: Document 02/05/19 08:12 [facility] (Rec: 02/05/19 09:12 [facility] [id number]) OP Gait Assessment Comments Gait Comments Pt amb with lat leaning side to side B with amb and amb with slow gait. PT-OP-J Posture/Palpation/Skin Start: 02/05/19 08:10 Freq: Status: Active Protocol: Document 02/05/19 08:12 [facility] (Rec: 02/05/19 09:12 [facility] [id number]) Posture Evaluation Jeri Postural Classification System Jeri Postural Classifications Anterior/Posterior Lumbar Protective Mechanism Left AP 3 Lumbar Protective Mechanism Right AP 2 Lumbar Protective Mechanism Left PA 3 Lumbar Protective Mechanism Right PA 1 PT-OP-K Range of Motion Start: 02/05/19 08:10 Freq: Status: Active Protocol: Document 02/05/19 08:12 [facility] (Rec: 02/05/19 09:12 [facility] [id number]) Lumbar Spine Range of Motion Lumbar Spine Active Degrees Flexion 60 Extension 22 Rotation Left 30 Rotation Right 29 Knee Goniometric Range of Motion Knee Right Flexion Active (degrees) 105 Extension Active (degrees) 6 Left Flexion Active (degrees) 101 Extension Active (degrees) 3 PT-OP-L Special Tests Start: 02/05/19 08:10 Freq: Status: Active Protocol: Document 02/05/19 08:12 [facility] (Rec: 02/05/19 09:12 [facility] [id number]) Special Tests Lumbar Spine Special Tests SLR Test Results WNL Slump Test Results neg B PT-OP-M Strength Start: 02/05/19 08:10 Freq: Status: Active Protocol: Document 02/05/19 08:12 [facility] (Rec: 02/05/19 09:12 [facility] [id number]) Hip Strength Hip Manual Muscle Testing Left Flexion (L2) 3+ Fair+ Extension (S1) 4- Good- Abduction 4- Good- External Rotation 4+ Good+ Internal Rotation 4 Good Right Flexion (L2) 4- Good- Extension (S1) 4 Good External Rotation 4- Good- Internal Rotation 4- Good- Knee Strength Knee Manual Muscle Testing Right Flexion (S2) 5 Normal Extension (L3) 4 Good Left Flexion (S2) 5 Normal Extension (L3) 4- Good- Ankle/Foot Strength Ankle and Foot Manual Muscle Testing Right Dorsiflexion (L4) 5 Normal Plantarflexion (S1) 5 Normal Inversion 4+ Good+ Eversion (S1) 4+ Good+ Left Dorsiflexion (L4) 5 Normal Plantarflexion (S1) 5 Normal Inversion 5 Normal Eversion (S1) 5 Normal PT-OP-Q Treatments Start: 02/05/19 08:10 Freq: Status: Active Protocol: Document 03/12/19 08:15 AR (Rec: 03/12/19 09:16 AR [email or web address]) Gym Equipment Shuttle Recovery Bilateral Squats Details B squats w core focus Resistance 75 lbs Reps/Time 2x20 reps Therapeutic Exercises Supine Exercises bridge feet on ball Supine Exercise Name knees in extension Side bilateral Reps/Minutes 2x15 reps Comments pt reported pain in foot gone (w knee ext and no pressure in foot) HS stretch, dynamic Supine Exercise Name 5 reps hip, knee, ankle flexion Side right Reps/Minutes 1 round, 5 reps each joint dying bugs Side bilateral Reps/Minutes 20 reps isometric Supine Exercise Name single limb flex Side bilateral Reps/Minutes 20x5 sec holds Comments with pt manual resistance bridge Supine Exercise Name bridging Reps/Minutes 20 reps Comments arms in air. pt reports pain in foot Manual Therapy Treatment Soft Tissue Mobilization medial HS Body Location medial HS Mobilization Type Strumming Sustained Pressure Intensity/Depth Deep Body Position Sidelying Comments pt reports pain in between 1st and 2nd toe, no pain when pressure removed. Peroneals Body Location peroneals Mobilization Type Strumming Sustained Pressure Intensity/Depth Deep Body Position Supine PT-OP-R Modalities Start: 02/05/19 08:10 Freq: Status: Active Protocol: Document 03/05/19 13:58 AR (Rec: 03/05/19 14:10 AR [email or web address]) Hot Pack/Cold Pack Treatment Cold Pack Location R leg, L/S Patient Position Hooklying Treatment Duration (minutes) 15 PT-OP-S Aquatic Treatment Start: 02/21/19 07:23 Freq: Status: Active Protocol: Document 02/28/19 11:30 LJ (Rec: 02/28/19 14:55 LJ [email or web address]) Aquatics Treatment Pool Entry/Exit Pool Entry/Exit Method Stairs Assistance Standby Assistance Water Walking toes and heels Water Level Chest Level Walking Equipment Ankle Weight- 5.0# Level of Assistance Verbal Cues march Water Level Chest Level Level of Assistance Verbal Cues Comments recrip hand to knee Sideways Water Level Chest Level Level of Assistance Verbal Cues backward Water Level Chest Level Level of Assistance Verbal Cues Comments recrip hand to knee forward Water Level Chest Level Level of Assistance Verbal Cues Comments recrip hand to knee Lower Extremity Stretches nerve flossing HS and glute Details right LE Body Position Standing Water Level Chest Level Equipment Small Noodle Reps/Duration 2 min Comments neutral, AB, AD Upper Extremity Exercises shoulder flex/ext Details radha together, alternating Body Position Standing Reps/Duration 10x ea shoulder hor ab/ad Details radha and unil with emphasis on core stab Body Position Standing Water Level Chest Level Reps/Duration 10x ea [place] Activities Whitetail Activities Bicycle Running Other Activities Deep water traction with 5# radha, [place] float, neck float 8 min Comments no flotation devices required except with traction Manual Techniques Aquatic Massage R calf and peroneals during HS stretch PT-OP-T Assessment and Plan Start: 02/05/19 08:10 Freq: Status: Active Protocol: Document 03/12/19 08:15 AR (Rec: 03/12/19 09:16 AR [email or web address]) Physical Therapy Assessment Goals gait Bias Machine Operator Helper Goal (LTG) Pt will have improved gait mechanics allowing her to amb without pain during typical daily activties. LTG Duration 04/08/19 activity tolerance Fci Goal (LTG) Pt will be able to sit for an hour without inc pain, allowing her to participate in full tutoring sessions without pain. LTG Duration 04/08/19 strength Short Term Goal (STG) Pt will be indep with HEP & gym program in order to work towards independence with strengthening program. STG Duration 03/08/19 Bias Machine Operator Helper Goal (LTG) Pt will have 5/5 LE strength and 3/5 LPM to show improvement in strength in order to allow her to return to typical activities without pain. LTG Duration 04/08/19 Assessment Summary Assessment Pt presents with myofascial restrictions along sciatic nerve pathway that are related to neural symptoms in R foot. Restrictions in medial HS responded well to manual therapy. Pt was educated on importance of movement for nerves and was encouraged to make a habit of going to the gym. Physical Therapy Plan Frequency and Duration Frequency of Treatment 2x/Week Duration of Treatment 2 months Plan of Care Start Date 02/05/19 Plan of Care End Date 04/08/19 Next Visit Focus/Plan Next Note Type Treatment Note Next Visit Plan address restrictions along sciatic n pathway manually. progress core stabilization
--- NOTE | 2019-03-14 19:10 | PT.OTN ---
Current Diagnoses Unilateral primary osteoarthritis, right knee (03/14/19) Unilateral primary osteoarthritis, left knee (03/14/19) Radiculopathy, lumbosacral region (03/14/19) Other abnormalities of gait and mobility (03/14/19) Abnormal posture (03/14/19) Weakness (03/14/19) Physical Therapy Treatment Note PT-OP-A Visit Information Start: 02/05/19 08:10 Freq: Status: Active Protocol: Document 03/14/19 18:52 AR (Rec: 03/14/19 19:05 AR [email or web address]) Out-Patient Physical Therapy Visit Information Visit Information Visit Type Treatment Note Visit Start Time 13:45 Visit Stop Time 14:30 Total Visit Minutes 45 Visit Number 8 Number of ELECTRONICS SPECIALIST Visits 0 PT-OP-B Current Condition Start: 02/05/19 08:10 Freq: Status: Active Protocol: Document 02/05/19 08:12 [facility] (Rec: 02/05/19 09:12 [facility] [id number]) Current Condition History of Current Condition History of Current Condition Pt reports chronic knee pain of 3-4 years, 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 Pt reports when seeing a movie on the tuesday, she had bad back pain and then she had foot numbness. That Tuesday, she saw a chiropractor and that helped. Pt reports foot is numb and first 4 toes. Pt reports she gets shooting pain only through the foot . Pt reports it seems like when knees are bend and in PF. Prior Treatments and Tests Xrays on back and knees, shots in knees-cannot get surgery d /t weight Treatment Goals Patient/Caregiver Goals wants numbness to go away, be able to sit 1 hour, be able to walk with less pain PT-OP-C Subjective Start: 02/05/19 08:10 Freq: Status: Active Protocol: Document 03/14/19 18:52 AR (Rec: 03/14/19 19:05 AR [email or web address]) OP-PT Subjective Patient Comments Patient Comments Pt reports her knee is hurting a lot today and her foot is still numb. She has not had any stabbing pain in her foot since her last visit, just tingling, numbness and some brief shooting pain. She saw her nurse practioner and is planning on getting a steroid shot into her R knee soon. PT-OP-G Mobility & Gait Start: 02/05/19 08:10 Freq: Status: Active Protocol: Document 02/05/19 08:12 [facility] (Rec: 02/05/19 09:12 [facility] [id number]) OP Gait Assessment Comments Gait Comments Pt amb with lat leaning side to side B with amb and amb with slow gait. PT-OP-J Posture/Palpation/Skin Start: 02/05/19 08:10 Freq: Status: Active Protocol: Document 02/05/19 08:12 [facility] (Rec: 02/05/19 09:12 [facility] [id number]) Posture Evaluation Jeri Postural Classification System Jeri Postural Classifications Anterior/Posterior Lumbar Protective Mechanism Left AP 3 Lumbar Protective Mechanism Right AP 2 Lumbar Protective Mechanism Left PA 3 Lumbar Protective Mechanism Right PA 1 PT-OP-K Range of Motion Start: 02/05/19 08:10 Freq: Status: Active Protocol: Document 02/05/19 08:12 [facility] (Rec: 02/05/19 09:12 [facility] [id number]) Lumbar Spine Range of Motion Lumbar Spine Active Degrees Flexion 60 Extension 22 Rotation Left 30 Rotation Right 29 Knee Goniometric Range of Motion Knee Right Flexion Active (degrees) 105 Extension Active (degrees) 6 Left Flexion Active (degrees) 101 Extension Active (degrees) 3 PT-OP-L Special Tests Start: 02/05/19 08:10 Freq: Status: Active Protocol: Document 02/05/19 08:12 [facility] (Rec: 02/05/19 09:12 [facility] [id number]) Special Tests Lumbar Spine Special Tests SLR Test Results WNL Slump Test Results neg B PT-OP-M Strength Start: 02/05/19 08:10 Freq: Status: Active Protocol: Document 02/05/19 08:12 [facility] (Rec: 02/05/19 09:12 [facility] [id number]) Hip Strength Hip Manual Muscle Testing Left Flexion (L2) 3+ Fair+ Extension (S1) 4- Good- Abduction 4- Good- External Rotation 4+ Good+ Internal Rotation 4 Good Right Flexion (L2) 4- Good- Extension (S1) 4 Good External Rotation 4- Good- Internal Rotation 4- Good- Knee Strength Knee Manual Muscle Testing Right Flexion (S2) 5 Normal Extension (L3) 4 Good Left Flexion (S2) 5 Normal Extension (L3) 4- Good- Ankle/Foot Strength Ankle and Foot Manual Muscle Testing Right Dorsiflexion (L4) 5 Normal Plantarflexion (S1) 5 Normal Inversion 4+ Good+ Eversion (S1) 4+ Good+ Left Dorsiflexion (L4) 5 Normal Plantarflexion (S1) 5 Normal Inversion 5 Normal Eversion (S1) 5 Normal PT-OP-Q Treatments Start: 02/05/19 08:10 Freq: Status: Active Protocol: Document 03/14/19 18:52 AR (Rec: 03/14/19 19:05 AR [email or web address]) Cardio Equipment Recumbent Elliptical (Sansan) Duration (Minutes) 5 Resistance 4 Other did not bother knees Therapeutic Exercises Supine Exercises bridge feet on ball Supine Exercise Name knees in extension Side bilateral Reps/Minutes 2x10 reps HS stretch, dynamic Supine Exercise Name 5 reps hip, knee, ankle flexion Side right Reps/Minutes 1 round, 5 reps each joint Comments reviewed HEP, prescribed 10x/ hr. pt did nto remember specifics of exercise. isometric Supine Exercise Name single limb flex Side bilateral Reps/Minutes 20x5 sec holds Comments with pt manual resistance Prone Exercises Prone press up Prone Exercise Name prone press up Reps/Minutes 2x10 reps Comments added to HEP. 10x/hr Sitting Exercises nerve flossing Sitting Exercise Name sciatic n flossing Side right Reps/Minutes 15 reps Comments added to HEP. 10x/every hr daily Manual Therapy Treatment Soft Tissue Mobilization medial HS Body Location medial & lateral HS Mobilization Type Strumming Sustained Pressure Intensity/Depth Deep Body Position Sidelying Comments pt reported nerve pain in foot with STM, relieved when pressure released Peroneals Body Location peroneals Mobilization Type Strumming Sustained Pressure Intensity/Depth Deep Body Position Supine Comments not tender today PT-OP-R Modalities Start: 02/05/19 08:10 Freq: Status: Active Protocol: Document 03/05/19 13:58 AR (Rec: 03/05/19 14:10 AR [email or web address]) Hot Pack/Cold Pack Treatment Cold Pack Location R leg, L/S Patient Position Hooklying Treatment Duration (minutes) 15 PT-OP-S Aquatic Treatment Start: 02/21/19 07:23 Freq: Status: Active Protocol: Document 02/28/19 11:30 LJ (Rec: 02/28/19 14:55 LJ [email or web address]) Aquatics Treatment Pool Entry/Exit Pool Entry/Exit Method Stairs Assistance Standby Assistance Water Walking toes and heels Water Level Chest Level Walking Equipment Ankle Weight- 5.0# Level of Assistance Verbal Cues march Water Level Chest Level Level of Assistance Verbal Cues Comments recrip hand to knee Sideways Water Level Chest Level Level of Assistance Verbal Cues backward Water Level Chest Level Level of Assistance Verbal Cues Comments recrip hand to knee forward Water Level Chest Level Level of Assistance Verbal Cues Comments recrip hand to knee Lower Extremity Stretches nerve flossing HS and glute Details right LE Body Position Standing Water Level Chest Level Equipment Small Noodle Reps/Duration 2 min Comments neutral, AB, AD Upper Extremity Exercises shoulder flex/ext Details radha together, alternating Body Position Standing Reps/Duration 10x ea shoulder hor ab/ad Details radha and unil with emphasis on core stab Body Position Standing Water Level Chest Level Reps/Duration 10x ea [place] Activities [place] Activities Bicycle Running Other Activities Deep water traction with 5# radha, match-e-be-[employer]ish [employer] float, neck float 8 min Comments no flotation devices required except with traction Manual Techniques Aquatic Massage R calf and peroneals during HS stretch PT-OP-T Assessment and Plan Start: 02/05/19 08:10 Freq: Status: Active Protocol: Document 03/14/19 18:52 AR (Rec: 03/14/19 19:05 AR [email or web address]) Physical Therapy Assessment Goals gait Graphic Design Assistant Goal (LTG) Pt will have improved gait mechanics allowing her to amb without pain during typical daily activties. LTG Duration 04/08/19 activity tolerance Graphic Design Assistant Goal (LTG) Pt will be able to sit for an hour without inc pain, allowing her to participate in full tutoring sessions without pain. LTG Duration 04/08/19 strength Short Term Goal (STG) Pt will be indep with HEP & gym program in order to work towards independence with strengthening program. STG Duration 03/08/19 Detention Goal (LTG) Pt will have 5/5 LE strength and 3/5 LPM to show improvement in strength in order to allow her to return to typical activities without pain. LTG Duration 04/08/19 Assessment Summary Assessment Pt presents with no pain in foot since last session but still has persistant numbness. Pt is responding well to manual therapy and nerve glides. Myofascial restrictions were found in posterior thigh and responded well to manual therapy. A small, superficial wound was noted in the skin folds in popliteal fossa and pt was notified to keep an eye on it. Physical Therapy Plan Frequency and Duration Frequency of Treatment 2x/Week Duration of Treatment 2 months Plan of Care Start Date 02/05/19 Plan of Care End Date 04/08/19 Next Visit Focus/Plan Next Note Type Treatment Note Next Visit Plan progress core stabilization. address gait mechanics in front of mirror
--- NOTE | 2019-03-19 18:07 | PT.OTN ---
Current Diagnoses Unilateral primary osteoarthritis, right knee (03/19/19) Unilateral primary osteoarthritis, left knee (03/19/19) Radiculopathy, lumbosacral region (03/19/19) Other abnormalities of gait and mobility (03/19/19) Abnormal posture (03/19/19) Weakness (03/19/19) Physical Therapy Treatment Note PT-OP-A Visit Information Start: 02/05/19 08:10 Freq: Status: Active Protocol: Document 03/19/19 09:00 AR (Rec: 03/19/19 10:57 AR [id number]) Out-Patient Physical Therapy Visit Information Visit Information Visit Type Treatment Note Visit Start Time 09:00 Visit Stop Time 09:55 Total Visit Minutes 55 Visit Number 9 Number of ASSEMBLY INSTRUCTIONS WRITER Visits 0 PT-OP-B Current Condition Start: 02/05/19 08:10 Freq: Status: Active Protocol: Document 02/05/19 08:12 [facility] (Rec: 02/05/19 09:12 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 Pt reports when seeing a movie on the tuesday, she had bad back pain and then she had foot numbness. That Tuesday, she saw a chiropractor and that helped. Pt reports foot is numb and first 4 toes. Pt reports she gets shooting pain only through the foot . Pt reports it seems like when knees are bend and in PF. Prior Treatments and Tests Xrays on back and knees, shots in knees-cannot get surgery d /t weight Treatment Goals Patient/Caregiver Goals wants numbness to go away, be able to sit 1 hour, be able to walk with less pain PT-OP-C Subjective Start: 02/05/19 08:10 Freq: Status: Active Protocol: Document 03/19/19 09:00 AR (Rec: 03/19/19 10:57 AR [id number]) OP-PT Subjective Patient Comments Patient Comments Pt reports she had done very well after treatment last week and decompression at the chiropractor on . She drove for 4 hours on Tuesday, however and she has been in a lot of pain since then. She has a trip to [place] on Apr 17 and is concerned about the long drive flaring up her foot. She states that she was able to perform exercises during her drive and that they are helpful. She is getting a cortisone shot in her L knee before therapy on Tue. PT-OP-G Mobility & Gait Start: 02/05/19 08:10 Freq: Status: Active Protocol: Document 02/05/19 08:12 [facility] (Rec: 02/05/19 09:12 [facility] [id number]) OP Gait Assessment Comments Gait Comments Pt amb with lat leaning side to side B with amb and amb with slow gait. PT-OP-J Posture/Palpation/Skin Start: 02/05/19 08:10 Freq: Status: Active Protocol: Document 02/05/19 08:12 [facility] (Rec: 02/05/19 09:12 [facility] [id number]) Posture Evaluation Jeri Postural Classification System Jeri Postural Classifications Anterior/Posterior Lumbar Protective Mechanism Left AP 3 Lumbar Protective Mechanism Right AP 2 Lumbar Protective Mechanism Left PA 3 Lumbar Protective Mechanism Right PA 1 PT-OP-K Range of Motion Start: 02/05/19 08:10 Freq: Status: Active Protocol: Document 02/05/19 08:12 [facility] (Rec: 02/05/19 09:12 [facility] [id number]) Lumbar Spine Range of Motion Lumbar Spine Active Degrees Flexion 60 Extension 22 Rotation Left 30 Rotation Right 29 Knee Goniometric Range of Motion Knee Right Flexion Active (degrees) 105 Extension Active (degrees) 6 Left Flexion Active (degrees) 101 Extension Active (degrees) 3 PT-OP-L Special Tests Start: 02/05/19 08:10 Freq: Status: Active Protocol: Document 02/05/19 08:12 [facility] (Rec: 02/05/19 09:12 [facility] [id number]) Special Tests Lumbar Spine Special Tests SLR Test Results WNL Slump Test Results neg B PT-OP-M Strength Start: 02/05/19 08:10 Freq: Status: Active Protocol: Document 02/05/19 08:12 [facility] (Rec: 02/05/19 09:12 [facility] [id number]) Hip Strength Hip Manual Muscle Testing Left Flexion (L2) 3+ Fair+ Extension (S1) 4- Good- Abduction 4- Good- External Rotation 4+ Good+ Internal Rotation 4 Good Right Flexion (L2) 4- Good- Extension (S1) 4 Good External Rotation 4- Good- Internal Rotation 4- Good- Knee Strength Knee Manual Muscle Testing Right Flexion (S2) 5 Normal Extension (L3) 4 Good Left Flexion (S2) 5 Normal Extension (L3) 4- Good- Ankle/Foot Strength Ankle and Foot Manual Muscle Testing Right Dorsiflexion (L4) 5 Normal Plantarflexion (S1) 5 Normal Inversion 4+ Good+ Eversion (S1) 4+ Good+ Left Dorsiflexion (L4) 5 Normal Plantarflexion (S1) 5 Normal Inversion 5 Normal Eversion (S1) 5 Normal PT-OP-Q Treatments Start: 02/05/19 08:10 Freq: Status: Active Protocol: Document 03/19/19 09:00 AR (Rec: 03/19/19 10:57 AR [id number]) Cardio Equipment Recumbent Elliptical (BiodMaicoin) Duration (Minutes) 6 Resistance 4 Other did not bother knees Therapeutic Exercises Supine Exercises HS stretch, dynamic Supine Exercise Name 5 reps hip, knee, ankle flexion Side right Reps/Minutes 1 round, 5 reps each joint Comments reviewed HEP, prescribed 10x/ hr. pt did nto remember specifics of exercise. Sitting Exercises nerve flossing Sitting Exercise Name sciatic n flossing Side right Reps/Minutes 15 reps Comments reviewed HEP. Therapeutic Activity Therapeutic Activity weight acceptance Name wt acceptance Reps/Minutes 10 min Comments began with gait in mirror, pt was aware of her large lateral lean and believes it has become a habit to offload L knee. pt unable to shift weight w/o pelvic rotation and lateral trunk movement Manual Therapy Treatment Soft Tissue Mobilization Lateral gastroc Body Location lateral gastroc Mobilization Type Myofascial Release Sustained Pressure Intensity/Depth Deep Body Position Prone PT-OP-R Modalities Start: 02/05/19 08:10 Freq: Status: Active Protocol: Document 03/19/19 09:00 AR (Rec: 03/19/19 10:57 AR [id number]) Hot Pack/Cold Pack Treatment Cold Pack Location R leg, Patient Position Hooklying Treatment Duration (minutes) 10 PT-OP-S Aquatic Treatment Start: 02/21/19 07:23 Freq: Status: Active Protocol: Document 02/28/19 11:30 LJ (Rec: 02/28/19 14:55 LJ [email or web address]) Aquatics Treatment Pool Entry/Exit Pool Entry/Exit Method Stairs Assistance Standby Assistance Water Walking toes and heels Water Level Chest Level Walking Equipment Ankle Weight- 5.0# Level of Assistance Verbal Cues march Water Level Chest Level Level of Assistance Verbal Cues Comments recrip hand to knee Sideways Water Level Chest Level Level of Assistance Verbal Cues backward Water Level Chest Level Level of Assistance Verbal Cues Comments recrip hand to knee forward Water Level Chest Level Level of Assistance Verbal Cues Comments recrip hand to knee Lower Extremity Stretches nerve flossing HS and glute Details right LE Body Position Standing Water Level Chest Level Equipment Small Noodle Reps/Duration 2 min Comments neutral, AB, AD Upper Extremity Exercises shoulder flex/ext Details radha together, alternating Body Position Standing Reps/Duration 10x ea shoulder hor ab/ad Details radha and unil with emphasis on core stab Body Position Standing Water Level Chest Level Reps/Duration 10x ea [place] Activities [place] Activities Bicycle Running Other Activities Deep water traction with 5# radha, redding float, neck float 8 min Comments no flotation devices required except with traction Manual Techniques Aquatic Massage R calf and peroneals during HS stretch PT-OP-T Assessment and Plan Start: 02/05/19 08:10 Freq: Status: Active Protocol: Document 03/19/19 09:00 AR (Rec: 03/19/19 10:57 AR [email or web address]) Physical Therapy Assessment Goals gait Retirement Goal (LTG) Pt will have improved gait mechanics allowing her to amb without pain during typical daily activties. LTG Duration 04/08/19 activity tolerance Central [employer]uler Goal (LTG) Pt will be able to sit for an hour without inc pain, allowing her to participate in full tutoring sessions without pain. LTG Duration 04/08/19 strength Short Term Goal (STG) Pt will be indep with HEP & gym program in order to work towards independence with strengthening program. STG Duration 03/08/19 Retirement Goal (LTG) Pt will have 5/5 LE strength and 3/5 LPM to show improvement in strength in order to allow her to return to typical activities without pain. LTG Duration 04/08/19 Assessment Summary Assessment Pt presents with inc pain in foot as well as typical numb sensation. Pt is still responding well to manual therapy and prescibed exercises. Pt presents with significant gait deviations which may be contributing to L /S instability and knee pain. Pt was unable to accept weight onto R LE w/o lateral trunk shift and pelvic rotation. PT to continue to address gait deviations. Physical Therapy Plan Frequency and Duration Frequency of Treatment 2x/Week Duration of Treatment 2 months Plan of Care Start Date 02/05/19 Plan of Care End Date 04/08/19 Next Visit Focus/Plan Next Note Type Treatment Note Next Visit Plan wt acceptance. review LE stretches as appropriate to address HS and gastroc tightness
--- NOTE | 2019-03-21 15:51 | PT.OTN ---
Current Diagnoses Unilateral primary osteoarthritis, right knee (03/21/19) Unilateral primary osteoarthritis, left knee (03/21/19) Radiculopathy, lumbosacral region (03/21/19) Other abnormalities of gait and mobility (03/21/19) Abnormal posture (03/21/19) Weakness (03/21/19) Physical Therapy Treatment Note PT-OP-A Visit Information Start: 02/05/19 08:10 Freq: Status: Active Protocol: Document 03/21/19 13:51 AR (Rec: 03/21/19 14:03 AR [id number]) Out-Patient Physical Therapy Visit Information Visit Information Visit Type Treatment Note Visit Start Time 09:45 Visit Stop Time 10:40 Total Visit Minutes 55 Visit Number 10 Number of TERRITORY OUTSIDE SALES MANAGER Visits 0 PT-OP-B Current Condition Start: 02/05/19 08:10 Freq: Status: Active Protocol: Document 02/05/19 08:12 [facility] (Rec: 02/05/19 09:12 [facility] [id number]) Current Condition History of Current Condition History of Current Condition Pt reports chronic knee pain of 3-4 years, 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 Pt reports when seeing a movie on the tuesday, she had bad back pain and then she had foot numbness. That Tuesday, she saw a chiropractor and that helped. Pt reports foot is numb and first 4 toes. Pt reports she gets shooting pain only through the foot . Pt reports it seems like when knees are bend and in PF. Prior Treatments and Tests Xrays on back and knees, shots in knees-cannot get surgery d /t weight Treatment Goals Patient/Caregiver Goals wants numbness to go away, be able to sit 1 hour, be able to walk with less pain PT-OP-C Subjective Start: 02/05/19 08:10 Freq: Status: Active Protocol: Document 03/21/19 13:51 AR (Rec: 03/21/19 14:03 AR [id number]) OP-PT Subjective Patient Comments Patient Comments Pt did not get a cortisone shot into her L knee today as nurse practioner did not reccommend it unless pain was severely impacting her life. Pt has been compliant with HEP . Foot has still been numb and some pain in sole of foot. PT-OP-G Mobility & Gait Start: 02/05/19 08:10 Freq: Status: Active Protocol: Document 02/05/19 08:12 [facility] (Rec: 02/05/19 09:12 [facility] [id number]) OP Gait Assessment Comments Gait Comments Pt amb with lat leaning side to side B with amb and amb with slow gait. PT-OP-J Posture/Palpation/Skin Start: 02/05/19 08:10 Freq: Status: Active Protocol: Document 02/05/19 08:12 [facility] (Rec: 02/05/19 09:12 [facility] [id number]) Posture Evaluation Jeri Postural Classification System Jeri Postural Classifications Anterior/Posterior Lumbar Protective Mechanism Left AP 3 Lumbar Protective Mechanism Right AP 2 Lumbar Protective Mechanism Left PA 3 Lumbar Protective Mechanism Right PA 1 PT-OP-K Range of Motion Start: 02/05/19 08:10 Freq: Status: Active Protocol: Document 02/05/19 08:12 [facility] (Rec: 02/05/19 09:12 [facility] [id number]) Lumbar Spine Range of Motion Lumbar Spine Active Degrees Flexion 60 Extension 22 Rotation Left 30 Rotation Right 29 Knee Goniometric Range of Motion Knee Right Flexion Active (degrees) 105 Extension Active (degrees) 6 Left Flexion Active (degrees) 101 Extension Active (degrees) 3 PT-OP-L Special Tests Start: 02/05/19 08:10 Freq: Status: Active Protocol: Document 02/05/19 08:12 [facility] (Rec: 02/05/19 09:12 [facility] [id number]) Special Tests Lumbar Spine Special Tests SLR Test Results WNL Slump Test Results neg B PT-OP-M Strength Start: 02/05/19 08:10 Freq: Status: Active Protocol: Document 02/05/19 08:12 [facility] (Rec: 02/05/19 09:12 [facility] [id number]) Hip Strength Hip Manual Muscle Testing Left Flexion (L2) 3+ Fair+ Extension (S1) 4- Good- Abduction 4- Good- External Rotation 4+ Good+ Internal Rotation 4 Good Right Flexion (L2) 4- Good- Extension (S1) 4 Good External Rotation 4- Good- Internal Rotation 4- Good- Knee Strength Knee Manual Muscle Testing Right Flexion (S2) 5 Normal Extension (L3) 4 Good Left Flexion (S2) 5 Normal Extension (L3) 4- Good- Ankle/Foot Strength Ankle and Foot Manual Muscle Testing Right Dorsiflexion (L4) 5 Normal Plantarflexion (S1) 5 Normal Inversion 4+ Good+ Eversion (S1) 4+ Good+ Left Dorsiflexion (L4) 5 Normal Plantarflexion (S1) 5 Normal Inversion 5 Normal Eversion (S1) 5 Normal PT-OP-Q Treatments Start: 02/05/19 08:10 Freq: Status: Active Protocol: Document 03/21/19 13:51 AR (Rec: 03/21/19 14:03 AR [id number]) Cardio Equipment Recumbent Elliptical (BiodBrandkids) Duration (Minutes) 6 Resistance 4 Other bothered L knee Therapeutic Exercises Supine Exercises HS & gastroc stretch Supine Exercise Name supine HS and gastroc stretch Side bilateral Equipment Used strap Reps/Minutes 2x30 sec holds bridge w glute squeeze Supine Exercise Name focus on glute squeeze Side bilateral Reps/Minutes 10 reps Comments pain in big toe resolved HS curl on ball Supine Exercise Name supine HS curl, feet on ball Side bilateral Resistance none Equipment Used red tball Reps/Minutes 15 reps Comments caused pain in big toe Standing Exercises Gastroc/Soleus stretch Standing Exercise Name calf stretch Side right Reps/Minutes 30 sec Comments painful in knees when WB Therapeutic Activity Therapeutic Activity weight acceptance Name wt acceptance Reps/Minutes 10 min Comments pt able to accept weight onto L LE with less trunk lean. max manual and verbal cueing for dec pelvic rotation and trunk lean Manual Therapy Treatment Soft Tissue Mobilization TL junction Body Location parapsinals Mobilization Type Myofascial Release Sustained Pressure Intensity/Depth Moderate Body Position Sidelying Peroneals Body Location peroneals Mobilization Type Strumming Sustained Pressure Intensity/Depth Deep Body Position Supine PT-OP-R Modalities Start: 02/05/19 08:10 Freq: Status: Active Protocol: Document 03/21/19 13:51 AR (Rec: 03/21/19 14:17 AR [id number]) Hot Pack/Cold Pack Treatment Cold Pack Location R leg, Patient Position Sidelying Treatment Duration (minutes) 15 PT-OP-S Aquatic Treatment Start: 02/21/19 07:23 Freq: Status: Active Protocol: Document 02/28/19 11:30 LJ (Rec: 02/28/19 14:55 LJ [email or web address]) Aquatics Treatment Pool Entry/Exit Pool Entry/Exit Method Stairs Assistance Standby Assistance Water Walking toes and heels Water Level Chest Level Walking Equipment Ankle Weight- 5.0# Level of Assistance Verbal Cues march Water Level Chest Level Level of Assistance Verbal Cues Comments recrip hand to knee Sideways Water Level Chest Level Level of Assistance Verbal Cues backward Water Level Chest Level Level of Assistance Verbal Cues Comments recrip hand to knee forward Water Level Chest Level Level of Assistance Verbal Cues Comments recrip hand to knee Lower Extremity Stretches nerve flossing HS and glute Details right LE Body Position Standing Water Level Chest Level Equipment Small Noodle Reps/Duration 2 min Comments neutral, AB, AD Upper Extremity Exercises shoulder flex/ext Details radha together, alternating Body Position Standing Reps/Duration 10x ea shoulder hor ab/ad Details radha and unil with emphasis on core stab Body Position Standing Water Level Chest Level Reps/Duration 10x ea [place] Activities [place] Activities Bicycle Running Other Activities Deep water traction with 5# radha, [place] float, neck float 8 min Comments no flotation devices required except with traction Manual Techniques Aquatic Massage R calf and peroneals during HS stretch PT-OP-T Assessment and Plan Start: 02/05/19 08:10 Freq: Status: Active Protocol: Document 03/21/19 13:51 AR (Rec: 03/21/19 14:17 AR [id number]) Physical Therapy Assessment Goals gait [facility] Goal (LTG) Pt will have improved gait mechanics allowing her to amb without pain during typical daily activties. LTG Duration 04/08/19 activity tolerance [facility] Goal (LTG) Pt will be able to sit for an hour without inc pain, allowing her to participate in full tutoring sessions without pain. LTG Duration 04/08/19 strength Short Term Goal (STG) Pt will be indep with HEP & gym program in order to work towards independence with strengthening program. STG Duration 03/08/19 [facility] Goal (LTG) Pt will have 5/5 LE strength and 3/5 LPM to show improvement in strength in order to allow her to return to typical activities without pain. LTG Duration 04/08/19 Assessment Summary Assessment Pt's presents with R foot numbness and some pain across the bottom of her foot. Pt has been more aware of her gait deviations but still presents with large lateral trunk lean, salomon when weightbearing on LLE (lean to L). Therapy focused on weight acceptance and pt was able to accept weight into LLE w/o large trunk lean with use of counter for support. Activation of HS during exercises inc pain in foot/ toes so pt was cued to activate glutes which resolved pain. Physical Therapy Plan Frequency and Duration Frequency of Treatment 2x/Week Duration of Treatment 2 months Plan of Care Start Date 02/05/19 Plan of Care End Date 04/08/19 Next Visit Focus/Plan Next Note Type Treatment Note Next Visit Plan cont wt acceptance and progress to gait if appropriate. review home management techniques for HS tightness
--- NOTE | 2019-03-26 11:14 | PT.OTN ---
Current Diagnoses Unilateral primary osteoarthritis, right knee (03/26/19) Unilateral primary osteoarthritis, left knee (03/26/19) Radiculopathy, lumbosacral region (03/26/19) Other abnormalities of gait and mobility (03/26/19) Abnormal posture (03/26/19) Weakness (03/26/19) Physical Therapy Treatment Note PT-OP-A Visit Information Start: 02/05/19 08:10 Freq: Status: Active Protocol: Document 03/26/19 10:00 AR (Rec: 03/26/19 10:16 AR [id number]) Out-Patient Physical Therapy Visit Information Visit Information Visit Type Treatment Note Visit Start Time 09:00 Visit Stop Time 09:43 Total Visit Minutes 43 Visit Number 11 Number of CAR HIKER Visits 0 PT-OP-B Current Condition Start: 02/05/19 08:10 Freq: Status: Active Protocol: Document 02/05/19 08:12 [facility] (Rec: 02/05/19 09:12 [facility] [id number]) Current Condition History of Current Condition History of Current Condition Pt reports chronic knee pain of 3-4 years, 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 Pt reports when seeing a movie on the tuesday, she had bad back pain and then she had foot numbness. That Tuesday, she saw a chiropractor and that helped. Pt reports foot is numb and first 4 toes. Pt reports she gets shooting pain only through the foot . Pt reports it seems like when knees are bend and in PF. Prior Treatments and Tests Xrays on back and knees, shots in knees-cannot get surgery d /t weight Treatment Goals Patient/Caregiver Goals wants numbness to go away, be able to sit 1 hour, be able to walk with less pain PT-OP-C Subjective Start: 02/05/19 08:10 Freq: Status: Active Protocol: Document 03/26/19 10:00 AR (Rec: 03/26/19 10:16 AR [id number]) OP-PT Subjective Patient Comments Patient Comments Pt had a lot of pain in her foot this weekend and was not able to do a lot w/o pain. Self manual release was helpful for pain, but no exercises were helpful. Pt reported decompression makes her feel as if she's had a BM. She also reported a hx of bowel and bladder incontinence which she has had for some time (not related to decompression and occured before neural symptoms.) PT-OP-G Mobility & Gait Start: 02/05/19 08:10 Freq: Status: Active Protocol: Document 02/05/19 08:12 [facility] (Rec: 02/05/19 09:12 [facility] [id number]) OP Gait Assessment Comments Gait Comments Pt amb with lat leaning side to side B with amb and amb with slow gait. PT-OP-J Posture/Palpation/Skin Start: 02/05/19 08:10 Freq: Status: Active Protocol: Document 02/05/19 08:12 [facility] (Rec: 02/05/19 09:12 [facility] [id number]) Posture Evaluation Jeri Postural Classification System Jeri Postural Classifications Anterior/Posterior Lumbar Protective Mechanism Left AP 3 Lumbar Protective Mechanism Right AP 2 Lumbar Protective Mechanism Left PA 3 Lumbar Protective Mechanism Right PA 1 PT-OP-K Range of Motion Start: 02/05/19 08:10 Freq: Status: Active Protocol: Document 02/05/19 08:12 [facility] (Rec: 02/05/19 09:12 [facility] [id number]) Lumbar Spine Range of Motion Lumbar Spine Active Degrees Flexion 60 Extension 22 Rotation Left 30 Rotation Right 29 Knee Goniometric Range of Motion Knee Right Flexion Active (degrees) 105 Extension Active (degrees) 6 Left Flexion Active (degrees) 101 Extension Active (degrees) 3 PT-OP-L Special Tests Start: 02/05/19 08:10 Freq: Status: Active Protocol: Document 02/05/19 08:12 [facility] (Rec: 02/05/19 09:12 [facility] [id number]) Special Tests Lumbar Spine Special Tests SLR Test Results WNL Slump Test Results neg B PT-OP-M Strength Start: 02/05/19 08:10 Freq: Status: Active Protocol: Document 02/05/19 08:12 [facility] (Rec: 02/05/19 09:12 [facility] [id number]) Hip Strength Hip Manual Muscle Testing Left Flexion (L2) 3+ Fair+ Extension (S1) 4- Good- Abduction 4- Good- External Rotation 4+ Good+ Internal Rotation 4 Good Right Flexion (L2) 4- Good- Extension (S1) 4 Good External Rotation 4- Good- Internal Rotation 4- Good- Knee Strength Knee Manual Muscle Testing Right Flexion (S2) 5 Normal Extension (L3) 4 Good Left Flexion (S2) 5 Normal Extension (L3) 4- Good- Ankle/Foot Strength Ankle and Foot Manual Muscle Testing Right Dorsiflexion (L4) 5 Normal Plantarflexion (S1) 5 Normal Inversion 4+ Good+ Eversion (S1) 4+ Good+ Left Dorsiflexion (L4) 5 Normal Plantarflexion (S1) 5 Normal Inversion 5 Normal Eversion (S1) 5 Normal PT-OP-Q Treatments Start: 02/05/19 08:10 Freq: Status: Active Protocol: Document 03/26/19 10:00 AR (Rec: 03/26/19 10:16 AR [email or web address]) Therapeutic Exercises Supine Exercises HS curl on ball Supine Exercise Name supine HS curl, feet on ball Side bilateral Resistance none Equipment Used red tball Reps/Minutes 15 reps Comments pain in L knee Sitting Exercises LAQ Sitting Exercise Name LAQ Side bilateral Resistance 1# Equipment Used ankle weights Reps/Minutes 2x10 reps each leg Comments cueing for trunk stability. arms across chest marches Sitting Exercise Name seated marches Side bilateral Reps/Minutes 2x10 reps each leg Comments cueing for trunk stability Therapeutic Activity Therapeutic Activity weight acceptance Name wt acceptance Reps/Minutes 6 min Comments pt able to accept weight onto L LE with less trunk lean than R. unable to progress to step w RLE w/o trunk lean. max manual and verbal cueing for dec pelvic rotation and trunk lean Manual Therapy Treatment Soft Tissue Mobilization Lateral gastroc Body Location lateral gastroc Mobilization Type Myofascial Release Sustained Pressure Intensity/Depth Deep Body Position Sidelying Comments with DF/PF medial HS Body Location medial & lateral HS Mobilization Type Strumming Sustained Pressure Intensity/Depth Deep Body Position Sidelying Self-Care/Home Management Treatment Education Other Education pt described urge incontinence and was encouraged to discuss pelvic floor PT with PCP. education on pelvic floor anatomy and it's relation to core stability w/spine model PT-OP-R Modalities Start: 02/05/19 08:10 Freq: Status: Active Protocol: Document 03/21/19 13:51 AR (Rec: 03/21/19 14:17 AR [id number]) Hot Pack/Cold Pack Treatment Cold Pack Location R leg, Patient Position Sidelying Treatment Duration (minutes) 15 PT-OP-S Aquatic Treatment Start: 02/21/19 07:23 Freq: Status: Active Protocol: Document 02/28/19 11:30 LJ (Rec: 02/28/19 14:55 LJ [id number]) Aquatics Treatment Pool Entry/Exit Pool Entry/Exit Method Stairs Assistance Standby Assistance Water Walking toes and heels Water Level Chest Level Walking Equipment Ankle Weight- 5.0# Level of Assistance Verbal Cues march Water Level Chest Level Level of Assistance Verbal Cues Comments recrip hand to knee Sideways Water Level Chest Level Level of Assistance Verbal Cues backward Water Level Chest Level Level of Assistance Verbal Cues Comments recrip hand to knee forward Water Level Chest Level Level of Assistance Verbal Cues Comments recrip hand to knee Lower Extremity Stretches nerve flossing HS and glute Details right LE Body Position Standing Water Level Chest Level Equipment Small Noodle Reps/Duration 2 min Comments neutral, AB, AD Upper Extremity Exercises shoulder flex/ext Details radha together, alternating Body Position Standing Reps/Duration 10x ea shoulder hor ab/ad Details radha and unil with emphasis on core stab Body Position Standing Water Level Chest Level Reps/Duration 10x ea [place] Activities [place] Activities Bicycle Running Other Activities Deep water traction with 5# radha, [place] float, neck float 8 min Comments no flotation devices required except with traction Manual Techniques Aquatic Massage R calf and peroneals during HS stretch PT-OP-T Assessment and Plan Start: 02/05/19 08:10 Freq: Status: Active Protocol: Document 03/26/19 10:00 AR (Rec: 03/26/19 10:16 AR [email or web address]) Physical Therapy Assessment Goals gait Pul[employer] D[employer] Firer Goal (LTG) Pt will have improved gait mechanics allowing her to amb without pain during typical daily activties. LTG Duration 04/08/19 activity tolerance Retirement Goal (LTG) Pt will be able to sit for an hour without inc pain, allowing her to participate in full tutoring sessions without pain. LTG Duration 04/08/19 strength Short Term Goal (STG) Pt will be indep with HEP & gym program in order to work towards independence with strengthening program. STG Duration 03/08/19 Retirement Goal (LTG) Pt will have 5/5 LE strength and 3/5 LPM to show improvement in strength in order to allow her to return to typical activities without pain. LTG Duration 04/08/19 Assessment Summary Assessment Treatment focused on core stability during LE movement/ strengthening and pt was challenged by seated exercises . Pt's neural symptoms continue to be consistant with myofascial restrictions along posterior LE and dec core stability. Bowel and bladder incontinence do not seem to be related to neural symptoms and imaging does not show cauda equina compression. Physical Therapy Plan Frequency and Duration Frequency of Treatment 2x/Week Duration of Treatment 2 months Plan of Care Start Date 02/05/19 Plan of Care End Date 04/08/19 Next Visit Focus/Plan Next Note Type Treatment Note Next Visit Plan inc core and LE strengthing in non WB positions. incorporate squats and lunges if not irritating to L knee.
--- NOTE | 2019-03-28 10:49 | PT.OTN ---
Current Diagnoses Unilateral primary osteoarthritis, right knee (03/28/19) Unilateral primary osteoarthritis, left knee (03/28/19) Radiculopathy, lumbosacral region (03/28/19) Other abnormalities of gait and mobility (03/28/19) Abnormal posture (03/28/19) Weakness (03/28/19) Physical Therapy Treatment Note PT-OP-A Visit Information Start: 02/05/19 08:10 Freq: Status: Active Protocol: Document 03/28/19 09:00 AR (Rec: 03/28/19 10:12 AR [id number]) Out-Patient Physical Therapy Visit Information Visit Information Visit Type Treatment Note Visit Start Time 09:00 Visit Stop Time 09:44 Total Visit Minutes 44 Visit Number 12 Number of [employer] TECHNICIAN Visits 0 PT-OP-B Current Condition Start: 02/05/19 08:10 Freq: Status: Active Protocol: Document 02/05/19 08:12 [facility] (Rec: 02/05/19 09:12 [facility] [id number]) Current Condition History of Current Condition History of Current Condition Pt reports chronic knee pain of 3-4 years, 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 Pt reports when seeing a movie on the tuesday, she had bad back pain and then she had foot numbness. That Tuesday, she saw a chiropractor and that helped. Pt reports foot is numb and first 4 toes. Pt reports she gets shooting pain only through the foot . Pt reports it seems like when knees are bend and in PF. Prior Treatments and Tests Xrays on back and knees, shots in knees-cannot get surgery d /t weight Treatment Goals Patient/Caregiver Goals wants numbness to go away, be able to sit 1 hour, be able to walk with less pain PT-OP-C Subjective Start: 02/05/19 08:10 Freq: Status: Active Protocol: Document 03/28/19 09:00 AR (Rec: 03/28/19 10:12 AR [id number]) OP-PT Subjective Patient Comments Patient Comments Pt's foot continues to be numb and occassionally have shooting pains. She plans on going to the pool this afternoon and did some walking in her back yard this morning . Her back yard is a little uneven so she has a fear of falling when walking in it. She reported having bruises from chiropractic treatment yesterday. Lidocaine patch was very helpful for knee and she was able to sleep through the night. PT-OP-G Mobility & Gait Start: 02/05/19 08:10 Freq: Status: Active Protocol: Document 02/05/19 08:12 [facility] (Rec: 02/05/19 09:12 [facility] [id number]) OP Gait Assessment Comments Gait Comments Pt amb with lat leaning side to side B with amb and amb with slow gait. PT-OP-J Posture/Palpation/Skin Start: 02/05/19 08:10 Freq: Status: Active Protocol: Document 02/05/19 08:12 [facility] (Rec: 02/05/19 09:12 [facility] [id number]) Posture Evaluation Jeri Postural Classification System Jeri Postural Classifications Anterior/Posterior Lumbar Protective Mechanism Left AP 3 Lumbar Protective Mechanism Right AP 2 Lumbar Protective Mechanism Left PA 3 Lumbar Protective Mechanism Right PA 1 PT-OP-K Range of Motion Start: 02/05/19 08:10 Freq: Status: Active Protocol: Document 02/05/19 08:12 [facility] (Rec: 02/05/19 09:12 [facility] [id number]) Lumbar Spine Range of Motion Lumbar Spine Active Degrees Flexion 60 Extension 22 Rotation Left 30 Rotation Right 29 Knee Goniometric Range of Motion Knee Right Flexion Active (degrees) 105 Extension Active (degrees) 6 Left Flexion Active (degrees) 101 Extension Active (degrees) 3 PT-OP-L Special Tests Start: 02/05/19 08:10 Freq: Status: Active Protocol: Document 02/05/19 08:12 [facility] (Rec: 02/05/19 09:12 [facility] [id number]) Special Tests Lumbar Spine Special Tests SLR Test Results WNL Slump Test Results neg B PT-OP-M Strength Start: 02/05/19 08:10 Freq: Status: Active Protocol: Document 02/05/19 08:12 [facility] (Rec: 02/05/19 09:12 [facility] [id number]) Hip Strength Hip Manual Muscle Testing Left Flexion (L2) 3+ Fair+ Extension (S1) 4- Good- Abduction 4- Good- External Rotation 4+ Good+ Internal Rotation 4 Good Right Flexion (L2) 4- Good- Extension (S1) 4 Good External Rotation 4- Good- Internal Rotation 4- Good- Knee Strength Knee Manual Muscle Testing Right Flexion (S2) 5 Normal Extension (L3) 4 Good Left Flexion (S2) 5 Normal Extension (L3) 4- Good- Ankle/Foot Strength Ankle and Foot Manual Muscle Testing Right Dorsiflexion (L4) 5 Normal Plantarflexion (S1) 5 Normal Inversion 4+ Good+ Eversion (S1) 4+ Good+ Left Dorsiflexion (L4) 5 Normal Plantarflexion (S1) 5 Normal Inversion 5 Normal Eversion (S1) 5 Normal PT-OP-Q Treatments Start: 02/05/19 08:10 Freq: Status: Active Protocol: Document 03/28/19 09:00 AR (Rec: 03/28/19 10:12 AR [id number]) Cardio Equipment Recumbent Elliptical (BiodiScreen Vision) Duration (Minutes) 7 Resistance 5 Other able to tolerate longer duration & inc resistance Gym Equipment Shuttle Recovery Bilateral Squats Details bilateral squats Resistance 50# Shuttle Recovery Platform Stable Reps/Time 2x20 reps Therapeutic Exercises Supine Exercises L/S rotation Supine Exercise Name with feet on tball Side bilateral Equipment Used orange tball Reps/Minutes 2x30 sec holds bridge Supine Exercise Name bridge w arms up Side bilateral Resistance none Reps/Minutes 2x15 reps Comments pt reported compliance with HEP Sidelying Exercises abd Sidelying Exercise Name hip abd Side bilateral Reps/Minutes 15 ea Comments reviewed form (HEP) Standing Exercises lunge Standing Exercise Name lunge Side right Equipment Used railing Reps/Minutes 10 reps Comments heavy cueing needed. not able to acheive proper form. pain in knees lateral stepping Standing Exercise Name lateral stepping Side bilateral Equipment Used railing Reps/Minutes 2x10 ft Comments heavy verbal and manual cueing for avoiding trunk lean Manual Therapy Treatment Soft Tissue Mobilization TL junction Body Location R parapsinals Mobilization Type Myofascial Release,Sustained Pressure Intensity/Depth Moderate Body Position Prone Joint Mobilizations [place]lium Direction caudal glide Body Position Prone Comments with knee bends Sacrum Direction caudal, lat gapping on L Body Position Prone Comments with knee bends PT-OP-R Modalities Start: 02/05/19 08:10 Freq: Status: Active Protocol: Document 03/21/19 13:51 AR (Rec: 03/21/19 14:17 AR [id number]) Hot Pack/Cold Pack Treatment Cold Pack Location R leg, Patient Position Sidelying Treatment Duration (minutes) 15 PT-OP-S Aquatic Treatment Start: 02/21/19 07:23 Freq: Status: Active Protocol: Document 02/28/19 11:30 LJ (Rec: 02/28/19 14:55 LJ [id number]) Aquatics Treatment Pool Entry/Exit Pool Entry/Exit Method Stairs Assistance Standby Assistance Water Walking toes and heels Water Level Chest Level Walking Equipment Ankle Weight- 5.0# Level of Assistance Verbal Cues march Water Level Chest Level Level of Assistance Verbal Cues Comments recrip hand to knee Sideways Water Level Chest Level Level of Assistance Verbal Cues backward Water Level Chest Level Level of Assistance Verbal Cues Comments recrip hand to knee forward Water Level Chest Level Level of Assistance Verbal Cues Comments recrip hand to knee Lower Extremity Stretches nerve flossing HS and glute Details right LE Body Position Standing Water Level Chest Level Equipment Small Noodle Reps/Duration 2 min Comments neutral, AB, AD Upper Extremity Exercises shoulder flex/ext Details radha together, alternating Body Position Standing Reps/Duration 10x ea shoulder hor ab/ad Details radha and unil with emphasis on core stab Body Position Standing Water Level Chest Level Reps/Duration 10x ea [place] Activities [place] Activities Bicycle,Running Other Activities Deep water traction with 5# radha, [place] float, neck float 8 min Comments no flotation devices required except with traction Manual Techniques Aquatic Massage R calf and peroneals during HS stretch PT-OP-T Assessment and Plan Start: 02/05/19 08:10 Freq: Status: Active Protocol: Document 03/28/19 09:00 AR (Rec: 03/28/19 10:12 AR [id number]) Physical Therapy Assessment Goals gait Education Intern Goal (LTG) Pt will have improved gait mechanics allowing her to amb without pain during typical daily activties. LTG Duration 04/08/19 activity tolerance Mcc Goal (LTG) Pt will be able to sit for an hour without inc pain, allowing her to participate in full tutoring sessions without pain. LTG Duration 04/08/19 strength Short Term Goal (STG) Pt will be indep with HEP & gym program in order to work towards independence with strengthening program. STG Duration 03/08/19 Mcc Goal (LTG) Pt will have 5/5 LE strength and 3/5 LPM to show improvement in strength in order to allow her to return to typical activities without pain. LTG Duration 04/08/19 Assessment Summary Assessment Pt presents with inc L/S lordosis and is unable to acheive L/S flexion without heavy cueing. Manual theray and exercises targeted flexion and core exercises to inc foramenal space and spinal stability. LE strengthening done in non-WB or modified WB position (shuttle squats) so as to avoid inc pressure on knees. Pt was unable to perform lunges with proper form and w/o pain in knees. Physical Therapy Plan Frequency and Duration Frequency of Treatment 2x/Week Duration of Treatment 2 months Plan of Care Start Date 02/05/19 Plan of Care End Date 04/08/19 Next Visit Focus/Plan Next Note Type Treatment Note Next Visit Plan inc core and LE strengthing in non WB positions. stretching for hip mobility. cont to address myofascial restrictions in L/S
--- NOTE | 2019-04-04 15:28 | PT.OTN ---
Current Diagnoses Unilateral primary osteoarthritis, right knee (04/04/19) Unilateral primary osteoarthritis, left knee (04/04/19) Radiculopathy, lumbosacral region (04/04/19) Other abnormalities of gait and mobility (04/04/19) Abnormal posture (04/04/19) Weakness (04/04/19) Physical Therapy Treatment Note PT-OP-A Visit Information Start: 02/05/19 08:10 Freq: Status: Active Protocol: Document 04/04/19 13:32 AR (Rec: 04/04/19 13:44 AR [id number]) Out-Patient Physical Therapy Visit Information Visit Information Visit Type Treatment Note Visit Start Time 10:30 Visit Stop Time 11:14 Total Visit Minutes 44 Visit Number 13 Number of KETTLE SKIMMER Visits 0 PT-OP-B Current Condition Start: 02/05/19 08:10 Freq: Status: Active Protocol: Document 02/05/19 08:12 [facility] (Rec: 02/05/19 09:12 [facility] [id number]) Current Condition History of Current Condition History of Current Condition Pt reports chronic knee pain of 3-4 years, 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 Pt reports when seeing a movie on the tuesday, she had bad back pain and then she had foot numbness. That Tuesday, she saw a chiropractor and that helped. Pt reports foot is numb and first 4 toes. Pt reports she gets shooting pain only through the foot . Pt reports it seems like when knees are bend and in PF. Prior Treatments and Tests Xrays on back and knees, shots in knees-cannot get surgery d /t weight Treatment Goals Patient/Caregiver Goals wants numbness to go away, be able to sit 1 hour, be able to walk with less pain PT-OP-C Subjective Start: 02/05/19 08:10 Freq: Status: Active Protocol: Document 04/04/19 13:32 AR (Rec: 04/04/19 13:44 AR [id number]) OP-PT Subjective Patient Comments Patient Comments My toes are starting to wake up! Pt reported her toes were warm last night around 3am when she woke up and then she began to get more sensation in them. She is now able to bend and wiggle them more. She has stopped doing prone press up exercise. PT-OP-G Mobility & Gait Start: 02/05/19 08:10 Freq: Status: Active Protocol: Document 02/05/19 08:12 [facility] (Rec: 02/05/19 09:12 [facility] [id number]) OP Gait Assessment Comments Gait Comments Pt amb with lat leaning side to side B with amb and amb with slow gait. PT-OP-J Posture/Palpation/Skin Start: 02/05/19 08:10 Freq: Status: Active Protocol: Document 02/05/19 08:12 [facility] (Rec: 02/05/19 09:12 [facility] [id number]) Posture Evaluation Jeri Postural Classification System Jeri Postural Classifications Anterior/Posterior Lumbar Protective Mechanism Left AP 3 Lumbar Protective Mechanism Right AP 2 Lumbar Protective Mechanism Left PA 3 Lumbar Protective Mechanism Right PA 1 PT-OP-K Range of Motion Start: 02/05/19 08:10 Freq: Status: Active Protocol: Document 02/05/19 08:12 [facility] (Rec: 02/05/19 09:12 [facility] [id number]) Lumbar Spine Range of Motion Lumbar Spine Active Degrees Flexion 60 Extension 22 Rotation Left 30 Rotation Right 29 Knee Goniometric Range of Motion Knee Right Flexion Active (degrees) 105 Extension Active (degrees) 6 Left Flexion Active (degrees) 101 Extension Active (degrees) 3 PT-OP-L Special Tests Start: 02/05/19 08:10 Freq: Status: Active Protocol: Document 02/05/19 08:12 [facility] (Rec: 02/05/19 09:12 [facility] [id number]) Special Tests Lumbar Spine Special Tests SLR Test Results WNL Slump Test Results neg B PT-OP-M Strength Start: 02/05/19 08:10 Freq: Status: Active Protocol: Document 02/05/19 08:12 [facility] (Rec: 02/05/19 09:12 [facility] [id number]) Hip Strength Hip Manual Muscle Testing Left Flexion (L2) 3+ Fair+ Extension (S1) 4- Good- Abduction 4- Good- External Rotation 4+ Good+ Internal Rotation 4 Good Right Flexion (L2) 4- Good- Extension (S1) 4 Good External Rotation 4- Good- Internal Rotation 4- Good- Knee Strength Knee Manual Muscle Testing Right Flexion (S2) 5 Normal Extension (L3) 4 Good Left Flexion (S2) 5 Normal Extension (L3) 4- Good- Ankle/Foot Strength Ankle and Foot Manual Muscle Testing Right Dorsiflexion (L4) 5 Normal Plantarflexion (S1) 5 Normal Inversion 4+ Good+ Eversion (S1) 4+ Good+ Left Dorsiflexion (L4) 5 Normal Plantarflexion (S1) 5 Normal Inversion 5 Normal Eversion (S1) 5 Normal PT-OP-Q Treatments Start: 02/05/19 08:10 Freq: Status: Active Protocol: Document 04/04/19 13:32 AR (Rec: 04/04/19 13:44 AR [id number]) Cardio Equipment Recumbent Stepper (Sci-Fit) Duration (Minutes) 8 Resistance 3 Other 45+ mph Therapeutic Exercises Supine Exercises HS curl on ball Supine Exercise Name supine HS curl, feet on ball for L/S flexion Side bilateral Resistance none Equipment Used red tball Reps/Minutes 20 reps Sidelying Exercises clamshells Sidelying Exercise Name clamshells Side bilateral Reps/Minutes 15 ea abd Sidelying Exercise Name hip abd Side bilateral Reps/Minutes 15 ea Comments reviewed form (HEP) Sitting Exercises L/S flexion Sitting Exercise Name L/S flexion Reps/Minutes 3x30 sec holds Comments added to HEP Standing Exercises lunge Standing Exercise Name lunge Side right Equipment Used railing Reps/Minutes 10 reps Comments not able to acheive proper form. pain in knees. exercise stopped early Manual Therapy Treatment Soft Tissue Mobilization TL junction Body Location R parapsinals Mobilization Type Myofascial Release,Sustained Pressure Intensity/Depth Moderate Body Position Sidelying Comments pt reported her back hurt after mowing recently. felt better after manual therapy Other Other Manual Treatments desensitization - pillow case and towel at varying pressures added to HEP PT-OP-R Modalities Start: 02/05/19 08:10 Freq: Status: Active Protocol: Document 03/21/19 13:51 AR (Rec: 03/21/19 14:17 AR [id number]) Hot Pack/Cold Pack Treatment Cold Pack Location R leg, Patient Position Sidelying Treatment Duration (minutes) 15 PT-OP-S Aquatic Treatment Start: 02/21/19 07:23 Freq: Status: Active Protocol: Document 02/28/19 11:30 LJ (Rec: 02/28/19 14:55 LJ [id number]) Aquatics Treatment Pool Entry/Exit Pool Entry/Exit Method Stairs Assistance Standby Assistance Water Walking toes and heels Water Level Chest Level Walking Equipment Ankle Weight- 5.0# Level of Assistance Verbal Cues march Water Level Chest Level Level of Assistance Verbal Cues Comments recrip hand to knee Sideways Water Level Chest Level Level of Assistance Verbal Cues backward Water Level Chest Level Level of Assistance Verbal Cues Comments recrip hand to knee forward Water Level Chest Level Level of Assistance Verbal Cues Comments recrip hand to knee Lower Extremity Stretches nerve flossing HS and glute Details right LE Body Position Standing Water Level Chest Level Equipment Small Noodle Reps/Duration 2 min Comments neutral, AB, AD Upper Extremity Exercises shoulder flex/ext Details radha together, alternating Body Position Standing Reps/Duration 10x ea shoulder hor ab/ad Details radha and unil with emphasis on core stab Body Position Standing Water Level Chest Level Reps/Duration 10x ea [place] Activities [place] Activities Bicycle,Running Other Activities Deep water traction with 5# radha, [place] float, neck float 8 min Comments no flotation devices required except with traction Manual Techniques Aquatic Massage R calf and peroneals during HS stretch PT-OP-T Assessment and Plan Start: 02/05/19 08:10 Freq: Status: Active Protocol: Document 04/04/19 13:32 AR (Rec: 04/04/19 13:44 AR [id number]) Physical Therapy Assessment Goals gait [facility] Goal (LTG) Pt will have improved gait mechanics allowing her to amb without pain during typical daily activties. LTG Duration 04/08/19 activity tolerance Coke Burner Goal (LTG) Pt will be able to sit for an hour without inc pain, allowing her to participate in full tutoring sessions without pain. LTG Duration 04/08/19 strength Short Term Goal (STG) Pt will be indep with HEP & gym program in order to work towards independence with strengthening program. STG Duration 03/08/19 Coke Burner Goal (LTG) Pt will have 5/5 LE strength and 3/5 LPM to show improvement in strength in order to allow her to return to typical activities without pain. LTG Duration 04/08/19 Assessment Summary Assessment Pt responded well to manual therapy. Exercises today focus on pelvic stability and L/S flexion. Pt was educated to stop bridges and other L/S extension exerices at home, as they seem to be inc her symptoms. Pt was not able to tolerate standing exercises d/ t knee pain. Physical Therapy Plan Frequency and Duration Frequency of Treatment 2x/Week Duration of Treatment 2 months Plan of Care Start Date 02/05/19 Plan of Care End Date 04/08/19 Next Visit Focus/Plan Next Note Type Progress Note Next Visit Plan core ex in non-WB. inc L/S flexion ex.
--- NOTE | 2019-04-06 15:47 | PT.OTN ---
Current Diagnoses Unilateral primary osteoarthritis, right knee (04/06/19) Unilateral primary osteoarthritis, left knee (04/06/19) Radiculopathy, lumbosacral region (04/06/19) Other abnormalities of gait and mobility (04/06/19) Abnormal posture (04/06/19) Weakness (04/06/19) Physical Therapy Treatment Note PT-OP-A Visit Information Start: 02/05/19 08:10 Freq: Status: Active Protocol: Document 04/06/19 12:30 LJ (Rec: 04/06/19 15:47 LJ [id number]) Out-Patient Physical Therapy Visit Information Visit Information Visit Type Progress Note Visit Start Time 12:30 Visit Stop Time 13:15 Total Visit Minutes 45 Visit Number 14 Number of [employer] DEVELOPER Visits 1 PT-OP-B Current Condition Start: 02/05/19 08:10 Freq: Status: Active Protocol: Document 02/05/19 08:12 [facility] (Rec: 02/05/19 09:12 [facility] [id number]) Current Condition History of Current Condition History of Current Condition Pt reports chronic knee pain of 3-4 years, 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 Pt reports when seeing a movie on the tuesday, she had bad back pain and then she had foot numbness. That Tuesday, she saw a chiropractor and that helped. Pt reports foot is numb and first 4 toes. Pt reports she gets shooting pain only through the foot . Pt reports it seems like when knees are bend and in PF. Prior Treatments and Tests Xrays on back and knees, shots in knees-cannot get surgery d /t weight Treatment Goals Patient/Caregiver Goals wants numbness to go away, be able to sit 1 hour, be able to walk with less pain PT-OP-C Subjective Start: 02/05/19 08:10 Freq: Status: Active Protocol: Document 04/06/19 12:30 LJ (Rec: 04/06/19 15:47 LJ [id number]) OP-PT Subjective Patient Comments Patient Comments Pt able to move 1st and 2nd toe nearly normally and the other toes are beginning to move more. Able to flex and extend toes and wiggle them. PT-OP-G Mobility & Gait Start: 02/05/19 08:10 Freq: Status: Active Protocol: Document 02/05/19 08:12 [facility] (Rec: 02/05/19 09:12 [facility] [id number]) OP Gait Assessment Comments Gait Comments Pt amb with lat leaning side to side B with amb and amb with slow gait. PT-OP-J Posture/Palpation/Skin Start: 02/05/19 08:10 Freq: Status: Active Protocol: Document 02/05/19 08:12 [facility] (Rec: 02/05/19 09:12 [facility] [id number]) Posture Evaluation [facility] Postural Classification System Jeri Postural Classifications Anterior/Posterior Lumbar Protective Mechanism Left AP 3 Lumbar Protective Mechanism Right AP 2 Lumbar Protective Mechanism Left PA 3 Lumbar Protective Mechanism Right PA 1 PT-OP-K Range of Motion Start: 02/05/19 08:10 Freq: Status: Active Protocol: Document 02/05/19 08:12 [facility] (Rec: 02/05/19 09:12 [facility] [id number]) Lumbar Spine Range of Motion Lumbar Spine Active Degrees Flexion 60 Extension 22 Rotation Left 30 Rotation Right 29 Knee Goniometric Range of Motion Knee Right Flexion Active (degrees) 105 Extension Active (degrees) 6 Left Flexion Active (degrees) 101 Extension Active (degrees) 3 PT-OP-L Special Tests Start: 02/05/19 08:10 Freq: Status: Active Protocol: Document 02/05/19 08:12 [facility] (Rec: 02/05/19 09:12 [facility] [id number]) Special Tests Lumbar Spine Special Tests SLR Test Results WNL Slump Test Results neg B PT-OP-M Strength Start: 02/05/19 08:10 Freq: Status: Active Protocol: Document 02/05/19 08:12 [facility] (Rec: 02/05/19 09:12 [facility] [id number]) Hip Strength Hip Manual Muscle Testing Left Flexion (L2) 3+ Fair+ Extension (S1) 4- Good- Abduction 4- Good- External Rotation 4+ Good+ Internal Rotation 4 Good Right Flexion (L2) 4- Good- Extension (S1) 4 Good External Rotation 4- Good- Internal Rotation 4- Good- Knee Strength Knee Manual Muscle Testing Right Flexion (S2) 5 Normal Extension (L3) 4 Good Left Flexion (S2) 5 Normal Extension (L3) 4- Good- Ankle/Foot Strength Ankle and Foot Manual Muscle Testing Right Dorsiflexion (L4) 5 Normal Plantarflexion (S1) 5 Normal Inversion 4+ Good+ Eversion (S1) 4+ Good+ Left Dorsiflexion (L4) 5 Normal Plantarflexion (S1) 5 Normal Inversion 5 Normal Eversion (S1) 5 Normal PT-OP-Q Treatments Start: 02/05/19 08:10 Freq: Status: Active Protocol: Document 04/04/19 13:32 AR (Rec: 04/04/19 13:44 AR [id number]) Cardio Equipment Recumbent Stepper (Sci-Fit) Duration (Minutes) 8 Resistance 3 Other 45+ mph Therapeutic Exercises Supine Exercises HS curl on ball Supine Exercise Name supine HS curl, feet on ball for L/S flexion Side bilateral Resistance none Equipment Used red tball Reps/Minutes 20 reps Sidelying Exercises clamshells Sidelying Exercise Name clamshells Side bilateral Reps/Minutes 15 ea abd Sidelying Exercise Name hip abd Side bilateral Reps/Minutes 15 ea Comments reviewed form (HEP) Sitting Exercises L/S flexion Sitting Exercise Name L/S flexion Reps/Minutes 3x30 sec holds Comments added to HEP Standing Exercises lunge Standing Exercise Name lunge Side right Equipment Used railing Reps/Minutes 10 reps Comments not able to acheive proper form. pain in knees. exercise stopped early Manual Therapy Treatment Soft Tissue Mobilization TL junction Body Location R parapsinals Mobilization Type Myofascial Release,Sustained Pressure Intensity/Depth Moderate Body Position Sidelying Comments pt reported her back hurt after mowing recently. felt better after manual therapy Other Other Manual Treatments desensitization - pillow case and towel at varying pressures added to HEP PT-OP-R Modalities Start: 02/05/19 08:10 Freq: Status: Active Protocol: Document 03/21/19 13:51 AR (Rec: 03/21/19 14:17 AR [id number]) Hot Pack/Cold Pack Treatment Cold Pack Location R leg, Patient Position Sidelying Treatment Duration (minutes) 15 PT-OP-S Aquatic Treatment Start: 02/21/19 07:23 Freq: Status: Active Protocol: Document 04/06/19 12:30 LJ (Rec: 04/06/19 15:47 LJ [email or web address]) Aquatics Treatment Pool Entry/Exit Pool Entry/Exit Method Stairs Assistance Standby Assistance Water Walking toes and heels Water Level Chest Level Walking Equipment Ankle Weight- 5.0# Level of Assistance Verbal Cues march Water Level Chest Level Level of Assistance Verbal Cues Comments recrip hand to knee Sideways Water Level Chest Level Level of Assistance Verbal Cues backward Water Level Chest Level Level of Assistance Verbal Cues Comments recrip hand to knee forward Water Level Chest Level Level of Assistance Verbal Cues Comments recrip hand to knee Lower Extremity Exercises HS curls Body Position Standing Water Level Chest Level Equipment Ankle Weight- 5.0# hip circles Body Position Standing Reps/Duration 10x ea hip ab/ad Body Position Standing Reps/Duration 10x ea hip flex/ext Body Position Standing Reps/Duration 10xea Lower Extremity Stretches nerve flossing HS and glute Details right LE Body Position Standing Water Level Chest Level Equipment Small Noodle Reps/Duration 2 min Comments neutral, AB, AD Upper Extremity Exercises shoulder flex/ext Details radha together, alternating Body Position Standing Reps/Duration 10x ea shoulder hor ab/ad Details radha and unil with emphasis on core stab Body Position Standing Water Level Chest Level Reps/Duration 10x ea [place] Activities [place] Activities Bicycle,Running Other Activities Deep water traction with 5# radha, [place] float, neck float 8 min Comments no flotation devices required except with traction PT-OP-T Assessment and Plan Start: 02/05/19 08:10 Freq: Status: Active Protocol: Document 04/06/19 12:30 LJ (Rec: 04/06/19 15:47 LJ [email or web address]) Physical Therapy Assessment Goals gait [employer] Work[employer] Goal (LTG) Pt will have improved gait mechanics allowing her to amb without pain during typical daily activties. LTG Duration 04/08/19 activity tolerance General Lithographic Worker Goal (LTG) Pt will be able to sit for an hour without inc pain, allowing her to participate in full tutoring sessions without pain. LTG Duration 04/08/19 strength Short Term Goal (STG) Pt will be indep with HEP & gym program in order to work towards independence with strengthening program. STG Duration 03/08/19 Shelter Goal (LTG) Pt will have 5/5 LE strength and 3/5 LPM to show improvement in strength in order to allow her to return to typical activities without pain. LTG Duration 04/08/19 Assessment Summary Assessment Pt tolerated therapy well with no complaints of pain. Physical Therapy Plan Frequency and Duration Frequency of Treatment 2x/Week Duration of Treatment 2 months Plan of Care Start Date 02/05/19 Plan of Care End Date 04/08/19 Next Visit Focus/Plan Next Note Type Treatment Note Next Visit Plan Progress core strengthening and intensity as tolerated
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
--- NOTE | 2019-04-11 16:14 | PT.OPPOC ---
Current Diagnoses Unilateral primary osteoarthritis, right knee (04/11/19) Unilateral primary osteoarthritis, left knee (04/11/19) Radiculopathy, lumbosacral region (04/11/19) Other abnormalities of gait and mobility (04/11/19) Abnormal posture (04/11/19) Weakness (04/11/19) Visit Care Team Role Provider Type Kayleigh Magdaleno MD Primary Care Provider Non-Staff Specialty: Medical Address: [address] [place] [address], [id number] Email: COLEMAN Joseph Attending Provider [employer] Certified Network Associate Specialty: Pain Management Address: [address] [place] [address], [id number] Email: [email or web address] Plan Of Care PT-OP-T Assessment and Plan Start: 02/05/19 08:10 Freq: Status: Active Protocol: Document 04/11/19 09:45 [facility] (Rec: 04/11/19 12:08 AR [id number]) Physical Therapy Assessment Goals gait [facility] Goal (LTG) Pt will have improved gait mechanics allowing her to amb without pain during typical daily activties. 04/11/19: improving, pt able to dec trunk lean when focusing on it LTG Duration 06/11/2019 activity tolerance Evaluation Assistant Goal (LTG) Pt will be able to sit for an hour without inc pain, allowing her to participate in full tutoring sessions without pain. 04/11/19: progress, pt able to sit 30 minutes w/o inc pain LTG Duration 06/11/2019 strength Short Term Goal (STG) Pt will be indep with HEP & gym program in order to work towards independence with strengthening program. 04/11/19: progressing, pt has been compliant with HEP and going to pool instead of gym STG Duration 05/11/2019 Evaluation Assistant Goal (LTG) Pt will have 5/5 LE strength and 3/5 LPM to show improvement in strength in order to allow her to return to typical activities without pain. 04/11/19: improving, pt's ankle and knee strength have improved to nearly 5/5. LPM 1/ 5. LTG Duration 06/11/2019 Assessment Summary Assessment Pt's strength has improved and pt reports positive changes in foot pain and numbness. LPM has not progressed but this may be d/t inability to work on core strengthening in weight bearing position d/t knee pain. Therapy to continue to work on gait mechanics as well as balance activities to engage core. Physical Therapy Plan Frequency and Duration Frequency of Treatment 2x/Week Duration of Treatment 2 months Plan of Care Start Date 04/11/19 Plan of Care End Date 06/11/19 Therapeutic Interventions Therapeutic Interventions Aquatic Therapy,Balance Training,Gait Training,Home Exercise Program,Joint Mobilizations,Manual Therapy, Neuromuscular Re-education, Patient/Caregiver Education, Self-Care/Home Management,Soft Tissue Mobilization,Taping, Therapeutic Activities, Therapeutic Exercises Modalities Biofeedback,Cold Pack/Ice Massage,Electric Stimulation, Hot Packs,Infrared Therapy, Iontophoresis,Traction- Mechanical,Ultrasound Next Visit Focus/Plan Next Note Type Treatment Note Next Visit Plan review glute exercises. balance ex for core (seated on tball, unstable surface, SLS, tandem). seated stretch for QL, review bugs and check L/S posture. squats on shuttle. Plan of Care Dates Plan of Care Start Date 04/11/19 Plan of Care End Date 06/11/19 Please Sign and Return: I have reviewed this Plan of Care and certify that the skilled therapy services above are required to meet the patient?s needs. Physician Signature Date Printed Name and Credentials Clinical Instructor Signature Printed Name and Credentials
--- NOTE | 2019-04-16 14:59 | PT.OTN ---
Current Diagnoses Unilateral primary osteoarthritis, right knee (04/16/19) Unilateral primary osteoarthritis, left knee (04/16/19) Radiculopathy, lumbosacral region (04/16/19) Other abnormalities of gait and mobility (04/16/19) Abnormal posture (04/16/19) Weakness (04/16/19) Physical Therapy Treatment Note PT-OP-A Visit Information Start: 02/05/19 08:10 Freq: Status: Active Protocol: Document 04/16/19 14:54 [facility] (Rec: 04/16/19 14:59 [facility] [id number]) Out-Patient Physical Therapy Visit Information Visit Information Visit Type Treatment Note Visit Start Time 11:45 Visit Stop Time 12:30 Total Visit Minutes 45 Visit Number 17 Number of USER ACCEPTANCE TESTER Visits 0 PT-OP-B Current Condition Start: 02/05/19 08:10 Freq: Status: Active Protocol: Document 02/05/19 08:12 [facility] (Rec: 02/05/19 09:12 [facility] [id number]) Current Condition History of Current Condition History of Current Condition Pt reports chronic knee pain of 3-4 years, 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 Pt reports when seeing a movie on the tuesday, she had bad back pain and then she had foot numbness. That Tuesday, she saw a chiropractor and that helped. Pt reports foot is numb and first 4 toes. Pt reports she gets shooting pain only through the foot . Pt reports it seems like when knees are bend and in PF. Prior Treatments and Tests Xrays on back and knees, shots in knees-cannot get surgery d /t weight Treatment Goals Patient/Caregiver Goals wants numbness to go away, be able to sit 1 hour, be able to walk with less pain PT-OP-C Subjective Start: 02/05/19 08:10 Freq: Status: Active Protocol: Document 04/16/19 14:54 [facility] (Rec: 04/16/19 14:59 [facility] [id number]) OP-PT Subjective Patient Comments Patient Comments Patient reports foot very sore over the past few days, not sure why. Overall has been feeling better. PT-OP-G Mobility & Gait Start: 02/05/19 08:10 Freq: Status: Active Protocol: Document 02/05/19 08:12 [facility] (Rec: 02/05/19 09:12 [facility] [id number]) OP Gait Assessment Comments Gait Comments Pt amb with lat leaning side to side B with amb and amb with slow gait. PT-OP-J Posture/Palpation/Skin Start: 02/05/19 08:10 Freq: Status: Active Protocol: Document 04/11/19 09:45 [facility] (Rec: 04/11/19 10:07 [facility] [id number]) Posture Evaluation [facility] Postural Classification System Lumbar Protective Mechanism Left AP 1 Lumbar Protective Mechanism Right AP 1 Lumbar Protective Mechanism Left PA 2 Lumbar Protective Mechanism Right PA 1 PT-OP-K Range of Motion Start: 02/05/19 08:10 Freq: Status: Active Protocol: Document 02/05/19 08:12 [facility] (Rec: 02/05/19 09:12 [facility] [id number]) Lumbar Spine Range of Motion Lumbar Spine Active Degrees Flexion 60 Extension 22 Rotation Left 30 Rotation Right 29 Knee Goniometric Range of Motion Knee Right Flexion Active (degrees) 105 Extension Active (degrees) 6 Left Flexion Active (degrees) 101 Extension Active (degrees) 3 PT-OP-L Special Tests Start: 02/05/19 08:10 Freq: Status: Active Protocol: Document 02/05/19 08:12 [facility] (Rec: 02/05/19 09:12 [facility] [id number]) Special Tests Lumbar Spine Special Tests SLR Test Results WNL Slump Test Results neg B PT-OP-M Strength Start: 02/05/19 08:10 Freq: Status: Active Protocol: Document 04/11/19 09:45 [facility] (Rec: 04/11/19 10:07 [facility] [id number]) Hip Strength Hip Manual Muscle Testing Left Flexion (L2) 4 Good Extension (S1) 4 Good Abduction 5 Normal External Rotation 4- Good- Internal Rotation 4 Good Right Flexion (L2) 4 Good Extension (S1) 4- Good- Abduction 4+ Good+ External Rotation 4- Good- Internal Rotation 4 Good Knee Strength Knee Manual Muscle Testing Right Flexion (S2) 4+ Good+ Extension (L3) 4+ Good+ Left Flexion (S2) 5 Normal Extension (L3) 4+ Good+ Ankle/Foot Strength Ankle and Foot Manual Muscle Testing Right Inversion 5 Normal Eversion (S1) 5 Normal PT-OP-Q Treatments Start: 02/05/19 08:10 Freq: Status: Active Protocol: Document 04/11/19 09:45 [facility] (Rec: 04/11/19 12:08 [facility] [id number]) Cardio Equipment Recumbent Elliptical (Biodex) Duration (Minutes) 6 Resistance 5 Seat Position 5 Therapeutic Exercises Sidelying Exercises QL stretch Sidelying Exercise Name QL stretch, 1/2 foam roll under side, shoulder abd Side right Reps/Minutes 30 sec hold Comments added to HEP as needed Sitting Exercises glute sets Sitting Exercise Name glute sets, B, unilateral and alternating Side bilateral Reps/Minutes 6 min Comments added to HEP. pt educated on relevance to gait cycle Standing Exercises TKE Standing Exercise Name TKE Side right Resistance L2 Equipment Used theraband Reps/Minutes 15 reps Comments pt unable to get glut activation Therapeutic Activity Therapeutic Activity lifting Name lifting technique Reps/Minutes 5 min Comments pt ed on hip hinge and knee flexion but she had pain in L knee with flexion. may be appropriate to teach lift technique if pt able to demonstrate proper hip hinge rather than lumbar flexion Manual Therapy Treatment Soft Tissue Mobilization QL, paraspinals Body Location R QL, paraspinals Mobilization Type Rolling,Strumming,Sustained Pressure Intensity/Depth Deep Body Position Sidelying Comments pt shown stretch to perform at home to help LBP PT-OP-R Modalities Start: 02/05/19 08:10 Freq: Status: Active Protocol: Document 03/21/19 13:51 [facility] (Rec: 03/21/19 14:17 [facility] [id number]) Hot Pack/Cold Pack Treatment Cold Pack Location R leg, Patient Position Sidelying Treatment Duration (minutes) 15 PT-OP-S Aquatic Treatment Start: 02/21/19 07:23 Freq: Status: Active Protocol: Document 04/16/19 14:54 [facility] (Rec: 04/16/19 14:59 [facility] [id number]) Aquatics Treatment Pool Entry/Exit Pool Entry/Exit Method Stairs Assistance Independent Water Walking toes and heels Water Level Chest Level Walking Equipment Ankle Weight- 2.5# Level of Assistance Verbal Cues march Water Level Chest Level Walking Equipment Ankle Weight- 2.5# Level of Assistance Verbal Cues Comments recrip hand to knee Sideways Water Level Chest Level Walking Equipment Ankle Weight- 2.5# Level of Assistance Verbal Cues backward Water Level Chest Level Walking Equipment Ankle Weight- 2.5# Level of Assistance Verbal Cues Comments recrip hand to knee forward Water Level Chest Level Walking Equipment Ankle Weight- 2.5# Level of Assistance Verbal Cues Comments recrip hand to knee Lower Extremity Exercises heel raise, toe raise Body Position Standing Reps/Duration 10xea HS curls Body Position Standing Water Level Chest Level Equipment Ankle Weight- 2.5# hip circles Body Position Standing Reps/Duration 10x ea hip ab/ad Body Position Standing Reps/Duration 10x ea hip flex/ext Body Position Standing Reps/Duration 10xea Lower Extremity Stretches nerve flossing HS and glute Details right LE Body Position Standing Water Level Chest Level Equipment Small Noodle Reps/Duration 2 min Comments neutral, AB, AD Upper Extremity Exercises shoulder flex/ext Details radha together, alternating Body Position Standing Reps/Duration 10x ea shoulder hor ab/ad Details radha and unil with emphasis on core stab Body Position Standing Water Level Chest Level Reps/Duration 10x ea [place] Activities [place] Activities Bicycle,Running Other Activities 10 min Comments no flotation devices required PT-OP-T Assessment and Plan Start: 02/05/19 08:10 Freq: Status: Active Protocol: Document 04/16/19 14:54 [facility] (Rec: 04/16/19 14:59 [facility] [id number]) Physical Therapy Assessment Goals gait Elevator Conductor Goal (LTG) Pt will have improved gait mechanics allowing her to amb without pain during typical daily activties. 04/11/19: improving, pt able to dec trunk lean when focusing on it LTG Duration 06/11/2019 activity tolerance Shelter Goal (LTG) Pt will be able to sit for an hour without inc pain, allowing her to participate in full tutoring sessions without pain. 04/11/19: progress, pt able to sit 30 minutes w/o inc pain LTG Duration 06/11/2019 strength Short Term Goal (STG) Pt will be indep with HEP & gym program in order to work towards independence with strengthening program. 04/11/19: progressing, pt has been compliant with HEP and going to pool instead of gym STG Duration 05/11/2019 Shelter Goal (LTG) Pt will have 5/5 LE strength and 3/5 LPM to show improvement in strength in order to allow her to return to typical activities without pain. 04/11/19: improving, pt's ankle and knee strength have improved to nearly 5/5. LPM 1/ 5. LTG Duration 06/11/2019 Physical Therapy Plan Frequency and Duration Frequency of Treatment 2x/Week Duration of Treatment 2 months Plan of Care Start Date 04/11/19 Plan of Care End Date 06/11/19 Therapeutic Interventions Therapeutic Interventions Aquatic Therapy,Balance Training,Gait Training,Home Exercise Program,Joint Mobilizations,Manual Therapy, Neuromuscular Re-education, Patient/Caregiver Education, Self-Care/Home Management,Soft Tissue Mobilization,Taping, Therapeutic Activities, Therapeutic Exercises Modalities Biofeedback,Cold Pack/Ice Massage,Electric Stimulation, Hot Packs,Infrared Therapy, Iontophoresis,Traction- Mechanical,Ultrasound Next Visit Focus/Plan Next Note Type Treatment Note Next Visit Plan Progress aquatic ex as tolerated with emphasis on postural alignment and core stab. Deep water traction.
--- NOTE | 2019-04-17 17:45 | PT.OTN ---
Current Diagnoses Unilateral primary osteoarthritis, right knee (04/17/19) Unilateral primary osteoarthritis, left knee (04/17/19) Radiculopathy, lumbosacral region (04/17/19) Other abnormalities of gait and mobility (04/17/19) Abnormal posture (04/17/19) Weakness (04/17/19) Physical Therapy Treatment Note PT-OP-A Visit Information Start: 02/05/19 08:10 Freq: Status: Active Protocol: Document 04/17/19 10:30 [facility] (Rec: 04/17/19 12:07 [facility] [id number]) Out-Patient Physical Therapy Visit Information Visit Information Visit Type Treatment Note Visit Start Time 10:30 Visit Stop Time 11:28 Total Visit Minutes 57 Visit Number 18 Number of ASSIGNMENT EDITOR Visits 0 PT-OP-B Current Condition Start: 02/05/19 08:10 Freq: Status: Active Protocol: Document 02/05/19 08:12 [facility] (Rec: 02/05/19 09:12 [facility] [id number]) Current Condition History of Current Condition History of Current Condition Pt reports chronic knee pain of 3-4 years, 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 Pt reports when seeing a movie on the tuesday, she had bad back pain and then she had foot numbness. That Tuesday, she saw a chiropractor and that helped. Pt reports foot is numb and first 4 toes. Pt reports she gets shooting pain only through the foot . Pt reports it seems like when knees are bend and in PF. Prior Treatments and Tests Xrays on back and knees, shots in knees-cannot get surgery d /t weight Treatment Goals Patient/Caregiver Goals wants numbness to go away, be able to sit 1 hour, be able to walk with less pain PT-OP-C Subjective Start: 02/05/19 08:10 Freq: Status: Active Protocol: Document 04/17/19 10:30 [facility] (Rec: 04/17/19 12:07 [facility] [id number]) OP-PT Subjective Patient Comments Patient Comments Pt reports she had a lot of relief after being in the pool last week for about a day after. However, she had a lot of foot pain this weekend after doing laundry and her neighbors moving out of town. Pt acknowledges the effect of stress on her pain. PT-OP-G Mobility & Gait Start: 02/05/19 08:10 Freq: Status: Active Protocol: Document 02/05/19 08:12 [facility] (Rec: 02/05/19 09:12 [facility] [id number]) OP Gait Assessment Comments Gait Comments Pt amb with lat leaning side to side B with amb and amb with slow gait. PT-OP-J Posture/Palpation/Skin Start: 02/05/19 08:10 Freq: Status: Active Protocol: Document 04/11/19 09:45 [facility] (Rec: 04/11/19 10:07 [facility] [id number]) Posture Evaluation [facility] Postural Classification System Lumbar Protective Mechanism Left AP 1 Lumbar Protective Mechanism Right AP 1 Lumbar Protective Mechanism Left PA 2 Lumbar Protective Mechanism Right PA 1 PT-OP-K Range of Motion Start: 02/05/19 08:10 Freq: Status: Active Protocol: Document 02/05/19 08:12 [facility] (Rec: 02/05/19 09:12 [facility] [id number]) Lumbar Spine Range of Motion Lumbar Spine Active Degrees Flexion 60 Extension 22 Rotation Left 30 Rotation Right 29 Knee Goniometric Range of Motion Knee Right Flexion Active (degrees) 105 Extension Active (degrees) 6 Left Flexion Active (degrees) 101 Extension Active (degrees) 3 PT-OP-L Special Tests Start: 02/05/19 08:10 Freq: Status: Active Protocol: Document 02/05/19 08:12 [facility] (Rec: 02/05/19 09:12 [facility] [id number]) Special Tests Lumbar Spine Special Tests SLR Test Results WNL Slump Test Results neg B PT-OP-M Strength Start: 02/05/19 08:10 Freq: Status: Active Protocol: Document 04/11/19 09:45 [facility] (Rec: 04/11/19 10:07 [facility] [id number]) Hip Strength Hip Manual Muscle Testing Left Flexion (L2) 4 Good Extension (S1) 4 Good Abduction 5 Normal External Rotation 4- Good- Internal Rotation 4 Good Right Flexion (L2) 4 Good Extension (S1) 4- Good- Abduction 4+ Good+ External Rotation 4- Good- Internal Rotation 4 Good Knee Strength Knee Manual Muscle Testing Right Flexion (S2) 4+ Good+ Extension (L3) 4+ Good+ Left Flexion (S2) 5 Normal Extension (L3) 4+ Good+ Ankle/Foot Strength Ankle and Foot Manual Muscle Testing Right Inversion 5 Normal Eversion (S1) 5 Normal PT-OP-Q Treatments Start: 02/05/19 08:10 Freq: Status: Active Protocol: Document 04/17/19 10:30 [facility] (Rec: 04/17/19 12:07 [facility] [id number]) Cardio Equipment Recumbent Elliptical (Biodex) Duration (Minutes) 6 Resistance 6 Seat Position 5 Gym Equipment Shuttle Recovery Bilateral Squats Details B squat w ball between knees Resistance 75# Shuttle Recovery Platform Stable Reps/Time 2x15 reps Therapeutic Exercises Sitting Exercises glute sets Sitting Exercise Name alternating Side bilateral Standing Exercises lumbar decompression stretch Standing Exercise Name lumbar flexion with grabbing counter Reps/Minutes 2x30 sec Comments also ed on kneeling decompression position to do at home on bed Therapeutic Activity Therapeutic Activity lifting Name lifting technique Reps/Minutes 4 min Comments pt edu on hip hinge w/o lumbar flexion. pt was able to achieve today Gait Training Gait Activity gait Description wt shift and gait Device Used none Level of Assistance SBA Surface level Treatment Focus glute max engagement during push off Manual Therapy Treatment Soft Tissue Mobilization QL, paraspinals Body Location R QL, paraspinals Mobilization Type Rolling,Strumming,Sustained Pressure Intensity/Depth Deep Body Position Sidelying Neuro Re-Education Treatment Balance Activities seated on tball Details w marches, LAQ, trunk rotation Surface orange tball Equipment gait belt, seated next to low table Reps/Duration 6 min Comments pt was unable to maintain core stability with marches. PT-OP-R Modalities Start: 02/05/19 08:10 Freq: Status: Active Protocol: Document 04/17/19 10:30 [facility] (Rec: 04/17/19 17:32 [facility] [email or web address]) Hot Pack/Cold Pack Treatment Cold Pack Location Lumbar spine Patient Position Sidelying Treatment Duration (minutes) 15 PT-OP-S Aquatic Treatment Start: 02/21/19 07:23 Freq: Status: Active Protocol: Document 04/16/19 14:54 [facility] (Rec: 04/16/19 14:59 [facility] [id number]) Aquatics Treatment Pool Entry/Exit Pool Entry/Exit Method Stairs Assistance Independent Water Walking toes and heels Water Level Chest Level Walking Equipment Ankle Weight- 2.5# Level of Assistance Verbal Cues march Water Level Chest Level Walking Equipment Ankle Weight- 2.5# Level of Assistance Verbal Cues Comments recrip hand to knee Sideways Water Level Chest Level Walking Equipment Ankle Weight- 2.5# Level of Assistance Verbal Cues backward Water Level Chest Level Walking Equipment Ankle Weight- 2.5# Level of Assistance Verbal Cues Comments recrip hand to knee forward Water Level Chest Level Walking Equipment Ankle Weight- 2.5# Level of Assistance Verbal Cues Comments recrip hand to knee Lower Extremity Exercises heel raise, toe raise Body Position Standing Reps/Duration 10xea HS curls Body Position Standing Water Level Chest Level Equipment Ankle Weight- 2.5# hip circles Body Position Standing Reps/Duration 10x ea hip ab/ad Body Position Standing Reps/Duration 10x ea hip flex/ext Body Position Standing Reps/Duration 10xea Lower Extremity Stretches nerve flossing HS and glute Details right LE Body Position Standing Water Level Chest Level Equipment Small Noodle Reps/Duration 2 min Comments neutral, AB, AD Upper Extremity Exercises shoulder flex/ext Details radha together, alternating Body Position Standing Reps/Duration 10x ea shoulder hor ab/ad Details radha and unil with emphasis on core stab Body Position Standing Water Level Chest Level Reps/Duration 10x ea [place] Activities [place] Activities Bicycle,Running Other Activities 10 min Comments no flotation devices required PT-OP-T Assessment and Plan Start: 02/05/19 08:10 Freq: Status: Active Protocol: Document 04/17/19 10:30 [facility] (Rec: 04/17/19 12:07 [facility] [email or web address]) Physical Therapy Assessment Goals gait Fci Goal (LTG) Pt will have improved gait mechanics allowing her to amb without pain during typical daily activties. 04/11/19: improving, pt able to dec trunk lean when focusing on it LTG Duration 06/11/2019 activity tolerance Mail Room Clerk Goal (LTG) Pt will be able to sit for an hour without inc pain, allowing her to participate in full tutoring sessions without pain. 04/11/19: progress, pt able to sit 30 minutes w/o inc pain LTG Duration 06/11/2019 strength Short Term Goal (STG) Pt will be indep with HEP & gym program in order to work towards independence with strengthening program. 04/11/19: progressing, pt has been compliant with HEP and going to pool instead of gym STG Duration 05/11/2019 Mail Room Clerk Goal (LTG) Pt will have 5/5 LE strength and 3/5 LPM to show improvement in strength in order to allow her to return to typical activities without pain. 04/11/19: improving, pt's ankle and knee strength have improved to nearly 5/5. LPM 1/ 5. LTG Duration 06/11/2019 Assessment Summary Assessment Adding ball bt knees during squats decreased knee pain. Pt was able to demonstrate alternating glute squeezing, which was progressed to weight shifting with appropriate glute activation for push off. Pt was more challenged by R glute max activation with weight shifting, but was able to achieve after isometric contraction on stagger stance. Pt had trouble transitioning to gait training with correct glute activation and still had lateral trunk leaning. Pt also reported knee pain during amb which may be impacting mechanics. Pt was given a self -decompression stretch for lumbar spine as she has not been able to schedule an appt with her chiropractor recently . Physical Therapy Plan Frequency and Duration Frequency of Treatment 2x/Week Duration of Treatment 2 months Plan of Care Start Date 04/11/19 Plan of Care End Date 06/11/19 Next Visit Focus/Plan Next Note Type Treatment Note Next Visit Plan cont to incorportate balance ex for core stability. gait training w appropriate glute activation. review lifting mechanics
--- NOTE | 2019-04-23 12:30 | PT.OTN ---
Current Diagnoses Unilateral primary osteoarthritis, right knee (04/23/19) Unilateral primary osteoarthritis, left knee (04/23/19) Radiculopathy, lumbosacral region (04/23/19) Other abnormalities of gait and mobility (04/23/19) Abnormal posture (04/23/19) Weakness (04/23/19) Physical Therapy Treatment Note PT-OP-A Visit Information Start: 02/05/19 08:10 Freq: Status: Active Protocol: Document 04/23/19 11:45 [facility] (Rec: 04/23/19 15:38 [facility] [id number]) Out-Patient Physical Therapy Visit Information Visit Information Visit Type Aquatic Treatment Note Visit Start Time 11:45 Visit Stop Time 12:30 Total Visit Minutes 45 Visit Number 19 Number of RELEASE COORDINATOR Visits 1 PT-OP-B Current Condition Start: 02/05/19 08:10 Freq: Status: Active Protocol: Document 02/05/19 08:12 [facility] (Rec: 02/05/19 09:12 [facility] [id number]) Current Condition History of Current Condition History of Current Condition Pt reports chronic knee pain of 3-4 years, 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 Pt reports when seeing a movie on the tuesday, she had bad back pain and then she had foot numbness. That Tuesday, she saw a chiropractor and that helped. Pt reports foot is numb and first 4 toes. Pt reports she gets shooting pain only through the foot . Pt reports it seems like when knees are bend and in PF. Prior Treatments and Tests Xrays on back and knees, shots in knees-cannot get surgery d /t weight Treatment Goals Patient/Caregiver Goals wants numbness to go away, be able to sit 1 hour, be able to walk with less pain PT-OP-C Subjective Start: 02/05/19 08:10 Freq: Status: Active Protocol: Document 04/23/19 11:45 [facility] (Rec: 04/23/19 15:38 [facility] [id number]) OP-PT Subjective Patient Comments Patient Comments Pt reports continuous pain in foot with shooting pains into big toe. PT-OP-G Mobility & Gait Start: 02/05/19 08:10 Freq: Status: Active Protocol: Document 02/05/19 08:12 [facility] (Rec: 02/05/19 09:12 [facility] [id number]) OP Gait Assessment Comments Gait Comments Pt amb with lat leaning side to side B with amb and amb with slow gait. PT-OP-J Posture/Palpation/Skin Start: 02/05/19 08:10 Freq: Status: Active Protocol: Document 04/11/19 09:45 [facility] (Rec: 04/11/19 10:07 [facility] [id number]) Posture Evaluation [facility] Postural Classification System Lumbar Protective Mechanism Left AP 1 Lumbar Protective Mechanism Right AP 1 Lumbar Protective Mechanism Left PA 2 Lumbar Protective Mechanism Right PA 1 PT-OP-K Range of Motion Start: 02/05/19 08:10 Freq: Status: Active Protocol: Document 02/05/19 08:12 [facility] (Rec: 02/05/19 09:12 [facility] [id number]) Lumbar Spine Range of Motion Lumbar Spine Active Degrees Flexion 60 Extension 22 Rotation Left 30 Rotation Right 29 Knee Goniometric Range of Motion Knee Right Flexion Active (degrees) 105 Extension Active (degrees) 6 Left Flexion Active (degrees) 101 Extension Active (degrees) 3 PT-OP-L Special Tests Start: 02/05/19 08:10 Freq: Status: Active Protocol: Document 02/05/19 08:12 [facility] (Rec: 02/05/19 09:12 [facility] [id number]) Special Tests Lumbar Spine Special Tests SLR Test Results WNL Slump Test Results neg B PT-OP-M Strength Start: 02/05/19 08:10 Freq: Status: Active Protocol: Document 04/11/19 09:45 [facility] (Rec: 04/11/19 10:07 [facility] [id number]) Hip Strength Hip Manual Muscle Testing Left Flexion (L2) 4 Good Extension (S1) 4 Good Abduction 5 Normal External Rotation 4- Good- Internal Rotation 4 Good Right Flexion (L2) 4 Good Extension (S1) 4- Good- Abduction 4+ Good+ External Rotation 4- Good- Internal Rotation 4 Good Knee Strength Knee Manual Muscle Testing Right Flexion (S2) 4+ Good+ Extension (L3) 4+ Good+ Left Flexion (S2) 5 Normal Extension (L3) 4+ Good+ Ankle/Foot Strength Ankle and Foot Manual Muscle Testing Right Inversion 5 Normal Eversion (S1) 5 Normal PT-OP-Q Treatments Start: 02/05/19 08:10 Freq: Status: Active Protocol: Document 04/17/19 10:30 [facility] (Rec: 04/17/19 12:07 [facility] [id number]) Cardio Equipment Recumbent Elliptical (Biodex) Duration (Minutes) 6 Resistance 6 Seat Position 5 Gym Equipment Shuttle Recovery Bilateral Squats Details B squat w ball between knees Resistance 75# Shuttle Recovery Platform Stable Reps/Time 2x15 reps Therapeutic Exercises Sitting Exercises glute sets Sitting Exercise Name alternating Side bilateral Standing Exercises lumbar decompression stretch Standing Exercise Name lumbar flexion with grabbing counter Reps/Minutes 2x30 sec Comments also ed on kneeling decompression position to do at home on bed Therapeutic Activity Therapeutic Activity lifting Name lifting technique Reps/Minutes 4 min Comments pt edu on hip hinge w/o lumbar flexion. pt was able to achieve today Gait Training Gait Activity gait Description wt shift and gait Device Used none Level of Assistance SBA Surface level Treatment Focus glute max engagement during push off Manual Therapy Treatment Soft Tissue Mobilization QL, paraspinals Body Location R QL, paraspinals Mobilization Type Rolling,Strumming,Sustained Pressure Intensity/Depth Deep Body Position Sidelying Neuro Re-Education Treatment Balance Activities seated on tball Details w marches, LAQ, trunk rotation Surface orange tball Equipment gait belt, seated next to low table Reps/Duration 6 min Comments pt was unable to maintain core stability with marches. PT-OP-R Modalities Start: 02/05/19 08:10 Freq: Status: Active Protocol: Document 04/17/19 10:30 [facility] (Rec: 04/17/19 17:32 [facility] [id number]) Hot Pack/Cold Pack Treatment Cold Pack Location Lumbar spine Patient Position Sidelying Treatment Duration (minutes) 15 PT-OP-S Aquatic Treatment Start: 02/21/19 07:23 Freq: Status: Active Protocol: Document 04/23/19 11:45 [facility] (Rec: 04/23/19 15:38 [facility] [id number]) Aquatics Treatment Lower Extremity Exercises heel raise, toe raise Body Position Standing Reps/Duration 10xea HS curls Body Position Standing Water Level Chest Level Equipment Ankle Weight- 2.5# hip circles Body Position Standing Reps/Duration 10x ea hip ab/ad Body Position Standing Reps/Duration 10x ea hip flex/ext Body Position Standing Reps/Duration 10xea Upper Extremity Exercises shoulder flex/ext Details radha together, alternating Body Position Standing Reps/Duration 10x ea shoulder hor ab/ad Details radha and unil with emphasis on core stab Body Position Standing Water Level Chest Level Reps/Duration 10x ea [place] Activities Brooks Activities Bicycle,Running Other Activities 10 min Comments no flotation devices required for bicycle and running. Deep water traction with lg blue float and #5 wts. 10 minutes. PT-OP-T Assessment and Plan Start: 02/05/19 08:10 Freq: Status: Active Protocol: Document 04/23/19 11:45 [facility] (Rec: 04/23/19 15:38 [facility] [id number]) Physical Therapy Assessment Goals gait Wood Cabinet Finisher Goal (LTG) Pt will have improved gait mechanics allowing her to amb without pain during typical daily activties. 04/11/19: improving, pt able to dec trunk lean when focusing on it LTG Duration 06/11/2019 activity tolerance Correction Goal (LTG) Pt will be able to sit for an hour without inc pain, allowing her to participate in full tutoring sessions without pain. 04/11/19: progress, pt able to sit 30 minutes w/o inc pain LTG Duration 06/11/2019 strength Short Term Goal (STG) Pt will be indep with HEP & gym program in order to work towards independence with strengthening program. 04/11/19: progressing, pt has been compliant with HEP and going to pool instead of gym STG Duration 05/11/2019 Correction Goal (LTG) Pt will have 5/5 LE strength and 3/5 LPM to show improvement in strength in order to allow her to return to typical activities without pain. 04/11/19: improving, pt's ankle and knee strength have improved to nearly 5/5. LPM 1/ 5. LTG Duration 06/11/2019 Assessment Summary Assessment Pt able to perform SLS w/o support on LLE during hip exercises but unable to on RLE needing to hold onto pool edge. Pt needs cues for core activation and posture. Pt tolerated deep water traction well with #5 wts. Physical Therapy Plan Frequency and Duration Frequency of Treatment 2x/Week Duration of Treatment 2 months Plan of Care Start Date 04/11/19 Plan of Care End Date 06/11/19 Next Visit Focus/Plan Next Visit Plan Progress aquatic ex as tolerated with emphasis on postural alignment and core stab.
--- NOTE | 2019-04-25 12:03 | PT.OTN ---
Current Diagnoses Unilateral primary osteoarthritis, right knee (04/23/19) Unilateral primary osteoarthritis, left knee (04/23/19) Radiculopathy, lumbosacral region (04/23/19) Other abnormalities of gait and mobility (04/23/19) Abnormal posture (04/23/19) Weakness (04/23/19) Physical Therapy Treatment Note PT-OP-A Visit Information Start: 02/05/19 08:10 Freq: Status: Active Protocol: Document 04/25/19 11:23 [facility] (Rec: 04/25/19 12:03 [facility] [id number]) Out-Patient Physical Therapy Visit Information Visit Information Visit Type Treatment Note Visit Start Time 11:18 Visit Stop Time 11:59 Total Visit Minutes 41 Visit Number 20 Number of HISTOLOGICAL ILLUSTRATOR Visits 0 PT-OP-B Current Condition Start: 02/05/19 08:10 Freq: Status: Active Protocol: Document 02/05/19 08:12 [facility] (Rec: 02/05/19 09:12 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 Pt reports when seeing a movie on the tuesday, she had bad back pain and then she had foot numbness. That Tuesday, she saw a chiropractor and that helped. Pt reports foot is numb and first 4 toes. Pt reports she gets shooting pain only through the foot . Pt reports it seems like when knees are bend and in PF. Prior Treatments and Tests Xrays on back and knees, shots in knees-cannot get surgery d /t weight Treatment Goals Patient/Caregiver Goals wants numbness to go away, be able to sit 1 hour, be able to walk with less pain PT-OP-C Subjective Start: 02/05/19 08:10 Freq: Status: Active Protocol: Document 04/25/19 11:23 [facility] (Rec: 04/25/19 12:03 [facility] [id number]) OP-PT Subjective Patient Comments Patient Comments Pt reports shooting pain in foot which improved with chiro worked med on calf. Reports aggrevated her back when pulling on a hose last week PT-OP-G Mobility & Gait Start: 02/05/19 08:10 Freq: Status: Active Protocol: Document 02/05/19 08:12 [facility] (Rec: 02/05/19 09:12 [facility] [id number]) OP Gait Assessment Comments Gait Comments Pt amb with lat leaning side to side B with amb and amb with slow gait. PT-OP-J Posture/Palpation/Skin Start: 02/05/19 08:10 Freq: Status: Active Protocol: Document 04/11/19 09:45 [facility] (Rec: 04/11/19 10:07 [facility] [id number]) Posture Evaluation [facility] Postural Classification System Lumbar Protective Mechanism Left AP 1 Lumbar Protective Mechanism Right AP 1 Lumbar Protective Mechanism Left PA 2 Lumbar Protective Mechanism Right PA 1 PT-OP-K Range of Motion Start: 02/05/19 08:10 Freq: Status: Active Protocol: Document 02/05/19 08:12 [facility] (Rec: 02/05/19 09:12 [facility] [id number]) Lumbar Spine Range of Motion Lumbar Spine Active Degrees Flexion 60 Extension 22 Rotation Left 30 Rotation Right 29 Knee Goniometric Range of Motion Knee Right Flexion Active (degrees) 105 Extension Active (degrees) 6 Left Flexion Active (degrees) 101 Extension Active (degrees) 3 PT-OP-L Special Tests Start: 02/05/19 08:10 Freq: Status: Active Protocol: Document 02/05/19 08:12 [facility] (Rec: 02/05/19 09:12 [facility] [id number]) Special Tests Lumbar Spine Special Tests SLR Test Results WNL Slump Test Results neg B PT-OP-M Strength Start: 02/05/19 08:10 Freq: Status: Active Protocol: Document 04/11/19 09:45 [facility] (Rec: 04/11/19 10:07 [facility] [id number]) Hip Strength Hip Manual Muscle Testing Left Flexion (L2) 4 Good Extension (S1) 4 Good Abduction 5 Normal External Rotation 4- Good- Internal Rotation 4 Good Right Flexion (L2) 4 Good Extension (S1) 4- Good- Abduction 4+ Good+ External Rotation 4- Good- Internal Rotation 4 Good Knee Strength Knee Manual Muscle Testing Right Flexion (S2) 4+ Good+ Extension (L3) 4+ Good+ Left Flexion (S2) 5 Normal Extension (L3) 4+ Good+ Ankle/Foot Strength Ankle and Foot Manual Muscle Testing Right Inversion 5 Normal Eversion (S1) 5 Normal PT-OP-Q Treatments Start: 02/05/19 08:10 Freq: Status: Active Protocol: Document 04/25/19 11:23 [facility] (Rec: 04/25/19 12:03 [facility] [id number]) Cardio Equipment Recumbent Elliptical (Biodex) Duration (Minutes) 6 Resistance 6 Seat Position 5 Gym Equipment Shuttle Recovery Bilateral Squats Details B squat w ball between knees Resistance 100# Shuttle Recovery Platform Stable Reps/Time 2x15 reps Therapeutic Exercises Standing Exercises abd Standing Exercise Name hip Side bilateral Reps/Minutes 15 Comments focus on core, glutes and quads Manual Therapy Treatment Soft Tissue Mobilization piriformis Body Location R Mobilization Type Sustained Pressure Comments w/sciaitic n glide QL, paraspinals Body Location R QL, paraspinals Mobilization Type Rolling,Strumming,Sustained Pressure Intensity/Depth Moderate Body Position Sidelying Lateral gastroc Body Location lat and med gastroc Comments w/n glide medial HS Body Location med & lat HS Mobilization Type Rolling,Strumming Comments w/ kne flex & ext PT-OP-R Modalities Start: 02/05/19 08:10 Freq: Status: Active Protocol: Document 04/17/19 10:30 [facility] (Rec: 04/17/19 17:32 [facility] [id number]) Hot Pack/Cold Pack Treatment Cold Pack Location Lumbar spine Patient Position Sidelying Treatment Duration (minutes) 15 PT-OP-S Aquatic Treatment Start: 02/21/19 07:23 Freq: Status: Active Protocol: Document 04/23/19 11:45 [facility] (Rec: 04/23/19 15:38 [facility] [id number]) Aquatics Treatment Lower Extremity Exercises heel raise, toe raise Body Position Standing Reps/Duration 10xea HS curls Body Position Standing Water Level Chest Level Equipment Ankle Weight- 2.5# hip circles Body Position Standing Reps/Duration 10x ea hip ab/ad Body Position Standing Reps/Duration 10x ea hip flex/ext Body Position Standing Reps/Duration 10xea Upper Extremity Exercises shoulder flex/ext Details radha together, alternating Body Position Standing Reps/Duration 10x ea shoulder hor ab/ad Details radha and unil with emphasis on core stab Body Position Standing Water Level Chest Level Reps/Duration 10x ea [place] Activities [place] Activities Bicycle,Running Other Activities 10 min Comments no flotation devices required for bicycle and running. Deep water traction with lg blue float and #5 wts. 10 minutes. PT-OP-T Assessment and Plan Start: 02/05/19 08:10 Freq: Status: Active Protocol: Document 04/25/19 11:23 [facility] (Rec: 04/25/19 12:03 [facility] [id number]) Physical Therapy Assessment Goals gait Osteopathic Medicine Teacher Goal (LTG) Pt will have improved gait mechanics allowing her to amb without pain during typical daily activties. 04/11/19: improving, pt able to dec trunk lean when focusing on it LTG Duration 06/11/2019 activity tolerance Osteopathic Medicine Teacher Goal (LTG) Pt will be able to sit for an hour without inc pain, allowing her to participate in full tutoring sessions without pain. 04/11/19: progress, pt able to sit 30 minutes w/o inc pain LTG Duration 06/11/2019 strength Short Term Goal (STG) Pt will be indep with HEP & gym program in order to work towards independence with strengthening program. 04/11/19: progressing, pt has been compliant with HEP and going to pool instead of gym STG Duration 05/11/2019 Penitentiary Goal (LTG) Pt will have 5/5 LE strength and 3/5 LPM to show improvement in strength in order to allow her to return to typical activities without pain. 04/11/19: improving, pt's ankle and knee strength have improved to nearly 5/5. LPM 1/ 5. LTG Duration 06/11/2019 Assessment Summary Assessment Pt able to inc in wt with leg press and was able to do standing abd but required significant cueing for stability. Improved foot symptoms with n glides with STM Physical Therapy Plan Frequency and Duration Frequency of Treatment 2x/Week Duration of Treatment 2 months Plan of Care Start Date 04/11/19 Plan of Care End Date 06/11/19 Next Visit Focus/Plan Next Note Type Treatment Note Next Visit Plan cont to incorportate balance ex for core stability. gait training w appropriate glute activation. review lifting mechanics
--- NOTE | 2019-04-30 12:34 | PT.OTN ---
Current Diagnoses Unilateral primary osteoarthritis, right knee (04/30/19) Unilateral primary osteoarthritis, left knee (04/30/19) Radiculopathy, lumbosacral region (04/30/19) Other abnormalities of gait and mobility (04/30/19) Abnormal posture (04/30/19) Weakness (04/30/19) Physical Therapy Treatment Note PT-OP-A Visit Information Start: 02/05/19 08:10 Freq: Status: Active Protocol: Document 04/30/19 11:45 [facility] (Rec: 04/30/19 14:28 [facility] [id number]) Out-Patient Physical Therapy Visit Information Visit Information Visit Type Aquatic Treatment Note Visit Start Time 11:45 Visit Stop Time 12:34 Total Visit Minutes 49 Visit Number 21 Number of TESTER ROCKET ENGINE Visits 1 PT-OP-B Current Condition Start: 02/05/19 08:10 Freq: Status: Active Protocol: Document 02/05/19 08:12 [facility] (Rec: 02/05/19 09:12 [facility] [id number]) Current Condition History of Current Condition History of Current Condition Pt reports chronic knee pain of 3-4 years, 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 Pt reports when seeing a movie on the tuesday, she had bad back pain and then she had foot numbness. That Tuesday, she saw a chiropractor and that helped. Pt reports foot is numb and first 4 toes. Pt reports she gets shooting pain only through the foot . Pt reports it seems like when knees are bend and in PF. 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 PT-OP-G Mobility & Gait Start: 02/05/19 08:10 Freq: Status: Active Protocol: Document 02/05/19 08:12 [facility] (Rec: 02/05/19 09:12 [facility] [id number]) OP Gait Assessment Comments Gait Comments Pt amb with lat leaning side to side B with amb and amb with slow gait. PT-OP-J Posture/Palpation/Skin Start: 02/05/19 08:10 Freq: Status: Active Protocol: Document 04/11/19 09:45 [facility] (Rec: 04/11/19 10:07 [facility] [id number]) Posture Evaluation [facility] Postural Classification System Lumbar Protective Mechanism Left AP 1 Lumbar Protective Mechanism Right AP 1 Lumbar Protective Mechanism Left PA 2 Lumbar Protective Mechanism Right PA 1 PT-OP-K Range of Motion Start: 02/05/19 08:10 Freq: Status: Active Protocol: Document 02/05/19 08:12 [facility] (Rec: 02/05/19 09:12 [facility] [id number]) Lumbar Spine Range of Motion Lumbar Spine Active Degrees Flexion 60 Extension 22 Rotation Left 30 Rotation Right 29 Knee Goniometric Range of Motion Knee Right Flexion Active (degrees) 105 Extension Active (degrees) 6 Left Flexion Active (degrees) 101 Extension Active (degrees) 3 PT-OP-L Special Tests Start: 02/05/19 08:10 Freq: Status: Active Protocol: Document 02/05/19 08:12 [facility] (Rec: 02/05/19 09:12 [facility] [id number]) Special Tests Lumbar Spine Special Tests SLR Test Results WNL Slump Test Results neg B PT-OP-M Strength Start: 02/05/19 08:10 Freq: Status: Active Protocol: Document 04/11/19 09:45 [facility] (Rec: 04/11/19 10:07 [facility] [id number]) Hip Strength Hip Manual Muscle Testing Left Flexion (L2) 4 Good Extension (S1) 4 Good Abduction 5 Normal External Rotation 4- Good- Internal Rotation 4 Good Right Flexion (L2) 4 Good Extension (S1) 4- Good- Abduction 4+ Good+ External Rotation 4- Good- Internal Rotation 4 Good Knee Strength Knee Manual Muscle Testing Right Flexion (S2) 4+ Good+ Extension (L3) 4+ Good+ Left Flexion (S2) 5 Normal Extension (L3) 4+ Good+ Ankle/Foot Strength Ankle and Foot Manual Muscle Testing Right Inversion 5 Normal Eversion (S1) 5 Normal PT-OP-Q Treatments Start: 02/05/19 08:10 Freq: Status: Active Protocol: Document 04/25/19 11:23 [facility] (Rec: 04/25/19 12:03 [facility] [id number]) Cardio Equipment Recumbent Elliptical (Biodex) Duration (Minutes) 6 Resistance 6 Seat Position 5 Gym Equipment Shuttle Recovery Bilateral Squats Details B squat w ball between knees Resistance 100# Shuttle Recovery Platform Stable Reps/Time 2x15 reps Therapeutic Exercises Standing Exercises abd Standing Exercise Name hip Side bilateral Reps/Minutes 15 Comments focus on core, glutes and quads Manual Therapy Treatment Soft Tissue Mobilization piriformis Body Location R Mobilization Type Sustained Pressure Comments w/sciaitic n glide QL, paraspinals Body Location R QL, paraspinals Mobilization Type Rolling,Strumming,Sustained Pressure Intensity/Depth Moderate Body Position Sidelying Lateral gastroc Body Location lat and med gastroc Comments w/n glide medial HS Body Location med & lat HS Mobilization Type Rolling,Strumming Comments w/ kne flex & ext PT-OP-R Modalities Start: 02/05/19 08:10 Freq: Status: Active Protocol: Document 04/17/19 10:30 [facility] (Rec: 04/17/19 17:32 [facility] [id number]) Hot Pack/Cold Pack Treatment Cold Pack Location Lumbar spine Patient Position Sidelying Treatment Duration (minutes) 15 PT-OP-S Aquatic Treatment Start: 02/21/19 07:23 Freq: Status: Active Protocol: Document 04/30/19 11:45 [facility] (Rec: 04/30/19 14:28 [facility] [id number]) Aquatics Treatment Pool Entry/Exit Pool Entry/Exit Method Stairs Assistance Independent Water Walking toes and heels Water Level Chest Level Walking Equipment Ankle Weight- 2.5# Level of Assistance Verbal Cues march Water Level Chest Level Walking Equipment Ankle Weight- 2.5# Level of Assistance Verbal Cues Comments recrip hand to knee Sideways Water Level Chest Level Walking Equipment Ankle Weight- 2.5# Level of Assistance Verbal Cues backward Water Level Chest Level Walking Equipment Ankle Weight- 2.5# Level of Assistance Verbal Cues Comments recrip hand to knee forward Water Level Chest Level Walking Equipment Ankle Weight- 2.5# Level of Assistance Verbal Cues Comments recrip hand to knee Lower Extremity Exercises heel raise, toe raise Body Position Standing Reps/Duration 10xea HS curls Body Position Standing Water Level Chest Level Equipment Ankle Weight- 2.5# hip circles Body Position Standing Reps/Duration 10x ea hip ab/ad Body Position Standing Reps/Duration 10x ea hip flex/ext Body Position Standing Reps/Duration 10xea Balance SLS Body Position Standing Water Level Chest Level Equipment large ankle float to stand on Reps/Duration 2 Comments also used waves and pertubation [place] Activities [place] Activities Bicycle,Bicycle Backwards, Cross Country,Running Other Activities 10 min Comments no flotation devices required for bicycle and running. Deep water traction with lg blue float and #5 wts. 10 minutes. Other Wall Core stabilization Details wall angels, sh ext/flx, horizontal, clapping, heel/toe taps Body Position back against wall w/knees at 90 degrees Comments cues for core activation PT-OP-T Assessment and Plan Start: 02/05/19 08:10 Freq: Status: Active Protocol: Document 04/30/19 11:45 [facility] (Rec: 04/30/19 14:28 [facility] [id number]) Physical Therapy Assessment Assessment Summary Assessment Pt progressed SLS able to perform w/o wall assist and able to stand on large float. Physical Therapy Plan Frequency and Duration Frequency of Treatment 2x/Week Duration of Treatment 2 months Plan of Care Start Date 04/11/19 Plan of Care End Date 06/11/19 Next Visit Focus/Plan Next Note Type Treatment Note Next Visit Plan Progress core stabilization and balance per POC.
--- NOTE | 2019-05-09 18:57 | PT.OTN ---
Current Diagnoses Radiculopathy, lumbosacral region (05/09/19) Other abnormalities of gait and mobility (05/09/19) Abnormal posture (05/09/19) Weakness (05/09/19) Physical Therapy Treatment Note PT-OP-A Visit Information Start: 02/05/19 08:10 Freq: Status: Active Protocol: Document 05/09/19 16:07 [facility] (Rec: 05/09/19 18:57 [facility] [id number]) Out-Patient Physical Therapy Visit Information Visit Information Visit Type Treatment Note Visit Start Time 16:00 Visit Stop Time 16:43 Total Visit Minutes 43 Visit Number 22 Number of BRIDGE MANAGER Visits 0 PT-OP-B Current Condition Start: 02/05/19 08:10 Freq: Status: Active Protocol: Document 02/05/19 08:12 [facility] (Rec: 02/05/19 09:12 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 Pt reports when seeing a movie on the tuesday, she had bad back pain and then she had foot numbness. That Tuesday, she saw a chiropractor and that helped. Pt reports foot is numb and first 4 toes. Pt reports she gets shooting pain only through the foot . Pt reports it seems like when knees are bend and in PF. Prior Treatments and Tests Xrays on back and knees, shots in knees-cannot get surgery d /t weight Treatment Goals Patient/Caregiver Goals wants numbness to go away, be able to sit 1 hour, be able to walk with less pain PT-OP-C Subjective Start: 02/05/19 08:10 Freq: Status: Active Protocol: Document 05/09/19 16:07 [facility] (Rec: 05/09/19 18:57 [facility] [id number]) OP-PT Subjective Patient Comments Patient Comments Pt reports at decompression last Tuesday and was feeling good. She went to a movie in [place] on Tuesday and since then she has been feeling awful. PT-OP-G Mobility & Gait Start: 02/05/19 08:10 Freq: Status: Active Protocol: Document 02/05/19 08:12 [facility] (Rec: 02/05/19 09:12 [facility] [id number]) OP Gait Assessment Comments Gait Comments Pt amb with lat leaning side to side B with amb and amb with slow gait. PT-OP-J Posture/Palpation/Skin Start: 02/05/19 08:10 Freq: Status: Active Protocol: Document 04/11/19 09:45 [facility] (Rec: 04/11/19 10:07 [facility] [id number]) Posture Evaluation [facility] Postural Classification System Lumbar Protective Mechanism Left AP 1 Lumbar Protective Mechanism Right AP 1 Lumbar Protective Mechanism Left PA 2 Lumbar Protective Mechanism Right PA 1 PT-OP-K Range of Motion Start: 02/05/19 08:10 Freq: Status: Active Protocol: Document 02/05/19 08:12 [facility] (Rec: 02/05/19 09:12 [facility] [id number]) Lumbar Spine Range of Motion Lumbar Spine Active Degrees Flexion 60 Extension 22 Rotation Left 30 Rotation Right 29 Knee Goniometric Range of Motion Knee Right Flexion Active (degrees) 105 Extension Active (degrees) 6 Left Flexion Active (degrees) 101 Extension Active (degrees) 3 PT-OP-L Special Tests Start: 02/05/19 08:10 Freq: Status: Active Protocol: Document 02/05/19 08:12 [facility] (Rec: 02/05/19 09:12 [facility] [id number]) Special Tests Lumbar Spine Special Tests SLR Test Results WNL Slump Test Results neg B PT-OP-M Strength Start: 02/05/19 08:10 Freq: Status: Active Protocol: Document 04/11/19 09:45 [facility] (Rec: 04/11/19 10:07 [facility] [id number]) Hip Strength Hip Manual Muscle Testing Left Flexion (L2) 4 Good Extension (S1) 4 Good Abduction 5 Normal External Rotation 4- Good- Internal Rotation 4 Good Right Flexion (L2) 4 Good Extension (S1) 4- Good- Abduction 4+ Good+ External Rotation 4- Good- Internal Rotation 4 Good Knee Strength Knee Manual Muscle Testing Right Flexion (S2) 4+ Good+ Extension (L3) 4+ Good+ Left Flexion (S2) 5 Normal Extension (L3) 4+ Good+ Ankle/Foot Strength Ankle and Foot Manual Muscle Testing Right Inversion 5 Normal Eversion (S1) 5 Normal PT-OP-Q Treatments Start: 02/05/19 08:10 Freq: Status: Active Protocol: Document 05/09/19 16:07 [facility] (Rec: 05/09/19 18:57 [facility] [id number]) Cardio Equipment Recumbent Elliptical (Biodex) Duration (Minutes) 5 Resistance 6 Seat Position 5 Therapeutic Exercises Supine Exercises L/S rotation Supine Exercise Name LTR Side bilateral Reps/Minutes 8 Comments focus on semental control flex Supine Exercise Name TAbd contraciton with march & SLR Side bilateral Reps/Minutes 10 ea Sitting Exercises stretch Sitting Exercise Name HS w/ankle pumps Side right Reps/Minutes 30 sec x2 plantar fascia stretch Side right Reps/Minutes 30 sec Standing Exercises Gastroc/Soleus stretch Side right Reps/Minutes 30 sec Gait Training Gait Activity wt shifts Description wt shifts along rail with mirror Comments progressed to wt acceptance to step Manual Therapy Treatment Soft Tissue Mobilization QL, paraspinals Body Location R QL, paraspinals Mobilization Type Rolling,Strumming,Sustained Pressure Intensity/Depth Moderate Body Position Sidelying Lateral gastroc Body Location lat and med gastroc Comments w/n glide Joint Mobilizations Tibfib Joint R proximal Direction PA FM Neuro Re-Education Treatment Other Activities PNF Details post depression Comments rhythmic intiation & COI w/ pelvis R PT-OP-R Modalities Start: 02/05/19 08:10 Freq: Status: Active Protocol: Document 04/17/19 10:30 [facility] (Rec: 04/17/19 17:32 [facility] [id number]) Hot Pack/Cold Pack Treatment Cold Pack Location Lumbar spine Patient Position Sidelying Treatment Duration (minutes) 15 PT-OP-S Aquatic Treatment Start: 02/21/19 07:23 Freq: Status: Active Protocol: Document 04/30/19 11:45 [facility] (Rec: 04/30/19 14:28 [facility] [id number]) Aquatics Treatment Pool Entry/Exit Pool Entry/Exit Method Stairs Assistance Independent Water Walking toes and heels Water Level Chest Level Walking Equipment Ankle Weight- 2.5# Level of Assistance Verbal Cues march Water Level Chest Level Walking Equipment Ankle Weight- 2.5# Level of Assistance Verbal Cues Comments recrip hand to knee Sideways Water Level Chest Level Walking Equipment Ankle Weight- 2.5# Level of Assistance Verbal Cues backward Water Level Chest Level Walking Equipment Ankle Weight- 2.5# Level of Assistance Verbal Cues Comments recrip hand to knee forward Water Level Chest Level Walking Equipment Ankle Weight- 2.5# Level of Assistance Verbal Cues Comments recrip hand to knee Lower Extremity Exercises heel raise, toe raise Body Position Standing Reps/Duration 10xea HS curls Body Position Standing Water Level Chest Level Equipment Ankle Weight- 2.5# hip circles Body Position Standing Reps/Duration 10x ea hip ab/ad Body Position Standing Reps/Duration 10x ea hip flex/ext Body Position Standing Reps/Duration 10xea Balance SLS Body Position Standing Water Level Chest Level Equipment large ankle float to stand on Reps/Duration 2 Comments also used waves and pertubation [place] Activities [place] Activities Bicycle,Bicycle Backwards, Cross [place],Running Other Activities 10 min Comments no flotation devices required for bicycle and running. Deep water traction with lg blue float and #5 wts. 10 minutes. Other Wall Core stabilization Details wall angels, sh ext/flx, horizontal, clapping, heel/toe taps Body Position back against wall w/knees at 90 degrees Comments cues for core activation PT-OP-T Assessment and Plan Start: 02/05/19 08:10 Freq: Status: Active Protocol: Document 05/09/19 16:07 [facility] (Rec: 05/09/19 18:57 [facility] [id number]) Physical Therapy Assessment Goals gait [facility] Goal (LTG) Pt will have improved gait mechanics allowing her to amb without pain during typical daily activties. 04/11/19: improving, pt able to dec trunk lean when focusing on it LTG Duration 06/11/2019 activity tolerance [facility] Goal (LTG) Pt will be able to sit for an hour without inc pain, allowing her to participate in full tutoring sessions without pain. 04/11/19: progress, pt able to sit 30 minutes w/o inc pain LTG Duration 06/11/2019 strength Short Term Goal (STG) Pt will be indep with HEP & gym program in order to work towards independence with strengthening program. 04/11/19: progressing, pt has been compliant with HEP and going to pool instead of gym STG Duration 05/11/2019 [employer] Goal (LTG) Pt will have 5/5 LE strength and 3/5 LPM to show improvement in strength in order to allow her to return to typical activities without pain. 04/11/19: improving, pt's ankle and knee strength have improved to nearly 5/5. LPM 1/ 5. LTG Duration 06/11/2019 Assessment Summary Assessment Pt reported improvement with session. Pt encouraged on importance of going to the gym and given goal of 2x/week and was instructed on need to stretch daily and do her core exercises Physical Therapy Plan Frequency and Duration Frequency of Treatment 2x/Week Duration of Treatment 2 months Plan of Care Start Date 04/11/19 Plan of Care End Date 06/11/19 Next Visit Focus/Plan Next Note Type Treatment Note Next Visit Plan PNF post depression, glute contraciton in staggered stance
--- NOTE | 2019-05-11 14:54 | PT.OTN ---
Current Diagnoses Radiculopathy, lumbosacral region (05/11/19) Other abnormalities of gait and mobility (05/11/19) Abnormal posture (05/11/19) Weakness (05/11/19) Physical Therapy Treatment Note PT-OP-A Visit Information Start: 02/05/19 08:10 Freq: Status: Active Protocol: Document 05/11/19 12:30 LJ (Rec: 05/11/19 14:54 LJ [id number]) Out-Patient Physical Therapy Visit Information Visit Information Visit Type Aquatic Treatment Note Visit Start Time 12:30 Visit Stop Time 13:20 Total Visit Minutes 50 Visit Number 23 Number of INDUSTRIAL ACCOUNTANT Visits 1 PT-OP-B Current Condition Start: 02/05/19 08:10 Freq: Status: Active Protocol: Document 02/05/19 08:12 [facility] (Rec: 02/05/19 09:12 [facility] [id number]) Current Condition History of Current Condition History of Current Condition Pt reports chronic knee pain of 3-4 years, 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 Pt reports when seeing a movie on the tuesday, she had bad back pain and then she had foot numbness. That Tuesday, she saw a chiropractor and that helped. Pt reports foot is numb and first 4 toes. Pt reports she gets shooting pain only through the foot . Pt reports it seems like when knees are bend and in PF. Prior Treatments and Tests Xrays on back and knees, shots in knees-cannot get surgery d /t weight Treatment Goals Patient/Caregiver Goals wants numbness to go away, be able to sit 1 hour, be able to walk with less pain PT-OP-C Subjective Start: 02/05/19 08:10 Freq: Status: Active Protocol: Document 05/11/19 12:30 LJ (Rec: 05/11/19 14:54 LJ [id number]) OP-PT Subjective Patient Comments Patient Comments Pt states she went to the pool in and did exercises. Also states whe is feeling better after last PT treatment. States she has no back pain right now. The bottom of her foot feels tight. PT-OP-G Mobility & Gait Start: 02/05/19 08:10 Freq: Status: Active Protocol: Document 02/05/19 08:12 [facility] (Rec: 02/05/19 09:12 [facility] [id number]) OP Gait Assessment Comments Gait Comments Pt amb with lat leaning side to side B with amb and amb with slow gait. PT-OP-J Posture/Palpation/Skin Start: 02/05/19 08:10 Freq: Status: Active Protocol: Document 04/11/19 09:45 [facility] (Rec: 04/11/19 10:07 [facility] [id number]) Posture Evaluation [facility] Postural Classification System Lumbar Protective Mechanism Left AP 1 Lumbar Protective Mechanism Right AP 1 Lumbar Protective Mechanism Left PA 2 Lumbar Protective Mechanism Right PA 1 PT-OP-K Range of Motion Start: 02/05/19 08:10 Freq: Status: Active Protocol: Document 02/05/19 08:12 [facility] (Rec: 02/05/19 09:12 [facility] [id number]) Lumbar Spine Range of Motion Lumbar Spine Active Degrees Flexion 60 Extension 22 Rotation Left 30 Rotation Right 29 Knee Goniometric Range of Motion Knee Right Flexion Active (degrees) 105 Extension Active (degrees) 6 Left Flexion Active (degrees) 101 Extension Active (degrees) 3 PT-OP-L Special Tests Start: 02/05/19 08:10 Freq: Status: Active Protocol: Document 02/05/19 08:12 [facility] (Rec: 02/05/19 09:12 [facility] [id number]) Special Tests Lumbar Spine Special Tests SLR Test Results WNL Slump Test Results neg B PT-OP-M Strength Start: 02/05/19 08:10 Freq: Status: Active Protocol: Document 04/11/19 09:45 [facility] (Rec: 04/11/19 10:07 [facility] [id number]) Hip Strength Hip Manual Muscle Testing Left Flexion (L2) 4 Good Extension (S1) 4 Good Abduction 5 Normal External Rotation 4- Good- Internal Rotation 4 Good Right Flexion (L2) 4 Good Extension (S1) 4- Good- Abduction 4+ Good+ External Rotation 4- Good- Internal Rotation 4 Good Knee Strength Knee Manual Muscle Testing Right Flexion (S2) 4+ Good+ Extension (L3) 4+ Good+ Left Flexion (S2) 5 Normal Extension (L3) 4+ Good+ Ankle/Foot Strength Ankle and Foot Manual Muscle Testing Right Inversion 5 Normal Eversion (S1) 5 Normal PT-OP-Q Treatments Start: 02/05/19 08:10 Freq: Status: Active Protocol: Document 05/09/19 16:07 LR (Rec: 05/09/19 18:57 [facility] [id number]) Cardio Equipment Recumbent Elliptical (Biodex) Duration (Minutes) 5 Resistance 6 Seat Position 5 Therapeutic Exercises Supine Exercises L/S rotation Supine Exercise Name LTR Side bilateral Reps/Minutes 8 Comments focus on semental control flex Supine Exercise Name TAbd contraciton with march & SLR Side bilateral Reps/Minutes 10 ea Sitting Exercises stretch Sitting Exercise Name HS w/ankle pumps Side right Reps/Minutes 30 sec x2 plantar fascia stretch Side right Reps/Minutes 30 sec Standing Exercises Gastroc/Soleus stretch Side right Reps/Minutes 30 sec Gait Training Gait Activity wt shifts Description wt shifts along rail with mirror Comments progressed to wt acceptance to step Manual Therapy Treatment Soft Tissue Mobilization QL, paraspinals Body Location R QL, paraspinals Mobilization Type Rolling,Strumming,Sustained Pressure Intensity/Depth Moderate Body Position Sidelying Lateral gastroc Body Location lat and med gastroc Comments w/n glide Joint Mobilizations Tibfib Joint R proximal Direction PA FM Neuro Re-Education Treatment Other Activities PNF Details post depression Comments rhythmic intiation & COI w/ pelvis R PT-OP-R Modalities Start: 02/05/19 08:10 Freq: Status: Active Protocol: Document 04/17/19 10:30 AR (Rec: 04/17/19 17:32 AR [id number]) Hot Pack/Cold Pack Treatment Cold Pack Location Lumbar spine Patient Position Sidelying Treatment Duration (minutes) 15 PT-OP-S Aquatic Treatment Start: 02/21/19 07:23 Freq: Status: Active Protocol: Document 05/11/19 12:30 LJ (Rec: 05/11/19 14:54 LJ [id number]) Aquatics Treatment Pool Entry/Exit Pool Entry/Exit Method Stairs Assistance Independent Water Walking soldier september w/trunk rotation Water Level Chest Level Level of Assistance Verbal Cues toes and heels Water Level Chest Level Walking Equipment Ankle Weight- 2.5# Level of Assistance Verbal Cues march Water Level Chest Level Walking Equipment Ankle Weight- 2.5# Level of Assistance Verbal Cues Comments recrip hand to knee Sideways Water Level Chest Level Walking Equipment Ankle Weight- 2.5# Level of Assistance Verbal Cues backward Water Level Chest Level Walking Equipment Ankle Weight- 2.5# Level of Assistance Verbal Cues Comments recrip hand to knee forward Water Level Chest Level Walking Equipment Ankle Weight- 2.5# Level of Assistance Verbal Cues Comments recrip hand to knee Lower Extremity Exercises heel raise, toe raise Body Position Standing Reps/Duration 10xea HS curls Body Position Standing Water Level Chest Level Equipment Ankle Weight- 2.5# hip circles Body Position Standing Reps/Duration 10x ea hip ab/ad Body Position Standing Reps/Duration 10x ea Lower Extremity Stretches ball rolling with right foot Details standing on ball Equipment tennis ball Reps/Duration 2 min quads Details at wall Body Position Standing Water Level Chest Level Equipment Small Noodle Reps/Duration 2x45 HC, HS Details at wall Body Position Standing Water Level Chest Level Equipment Small Noodle Reps/Duration 2x45 Upper Extremity Exercises forward walking with UE paddles Reps/Duration 30 m shoulder flex/ext Details radha together, alternating Body Position Sitting Equipment UE paddles Reps/Duration 10x ea Comments braced at wall shoulder hor ab/ad Details radha and unil with emphasis on core stab Body Position Sitting Water Level Chest Level Equipment UE paddles Reps/Duration 10x ea Comments braced at wall [place] [facility] [place] Activities Bicycle,Bicycle Backwards, Cross Country,Running Other Activities 10 min Comments no flotation devices required for bicycle and running. Deep water traction with lg blue float and #5 wts. 10 minutes. PT-OP-T Assessment and Plan Start: 02/05/19 08:10 Freq: Status: Active Protocol: Document 05/11/19 12:30 MOHAN (Rec: 05/11/19 14:54 MOHAN [id number]) Physical Therapy Assessment Goals gait Analytical Chemist Goal (LTG) Pt will have improved gait mechanics allowing her to amb without pain during typical daily activties. 04/11/19: improving, pt able to dec trunk lean when focusing on it LTG Duration 06/11/2019 activity tolerance Analytical Chemist Goal (LTG) Pt will be able to sit for an hour without inc pain, allowing her to participate in full tutoring sessions without pain. 04/11/19: progress, pt able to sit 30 minutes w/o inc pain LTG Duration 06/11/2019 strength Short Term Goal (STG) Pt will be indep with HEP & gym program in order to work towards independence with strengthening program. 04/11/19: progressing, pt has been compliant with HEP and going to pool instead of gym STG Duration 05/11/2019 Correction Goal (LTG) Pt will have 5/5 LE strength and 3/5 LPM to show improvement in strength in order to allow her to return to typical activities without pain. 04/11/19: improving, pt's ankle and knee strength have improved to nearly 5/5. LPM 1/ 5. LTG Duration 06/11/2019 Assessment Summary Assessment Pt had a productive session w/ o complaints of pain or fatigue. She is improving with endurance. Physical Therapy Plan Frequency and Duration Frequency of Treatment 2x/Week Duration of Treatment 2 months Plan of Care Start Date 04/11/19 Plan of Care End Date 06/11/19 Next Visit Focus/Plan Next Note Type Treatment Note Next Visit Plan Progress exercises with resistance and increase in inensity as tolerated.
--- NOTE | 2019-05-14 16:01 | PT.OTN ---
Current Diagnoses Radiculopathy, lumbosacral region (05/14/19) Other abnormalities of gait and mobility (05/14/19) Abnormal posture (05/14/19) Weakness (05/14/19) Physical Therapy Treatment Note PT-OP-A Visit Information Start: 02/05/19 08:10 Freq: Status: Active Protocol: Document 05/14/19 15:44 [facility] (Rec: 05/14/19 16:01 [facility] [id number]) Out-Patient Physical Therapy Visit Information Visit Information Visit Type Treatment Note Visit Start Time 14:34 Visit Stop Time 15:12 Total Visit Minutes 38 Visit Number 24 Number of ACCOUNTS ADJUSTABLE CLERK Visits 0 PT-OP-B Current Condition Start: 02/05/19 08:10 Freq: Status: Active Protocol: Document 02/05/19 08:12 [facility] (Rec: 02/05/19 09:12 [facility] [id number]) Current Condition History of Current Condition History of Current Condition Pt reports chronic knee pain of 3-4 years, 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 Pt reports when seeing a movie on the tuesday, she had bad back pain and then she had foot numbness. That Tuesday, she saw a chiropractor and that helped. Pt reports foot is numb and first 4 toes. Pt reports she gets shooting pain only through the foot . Pt reports it seems like when knees are bend and in PF. Prior Treatments and Tests Xrays on back and knees, shots in knees-cannot get surgery d /t weight Treatment Goals Patient/Caregiver Goals wants numbness to go away, be able to sit 1 hour, be able to walk with less pain PT-OP-C Subjective Start: 02/05/19 08:10 Freq: Status: Active Protocol: Document 05/14/19 15:44 [facility] (Rec: 05/14/19 16:01 [facility] [id number]) OP-PT Subjective Patient Comments Patient Comments Pt reports she did go ot the pool once this weekend. PT-OP-G Mobility & Gait Start: 02/05/19 08:10 Freq: Status: Active Protocol: Document 02/05/19 08:12 [facility] (Rec: 02/05/19 09:12 [facility] [id number]) OP Gait Assessment Comments Gait Comments Pt amb with lat leaning side to side B with amb and amb with slow gait. PT-OP-J Posture/Palpation/Skin Start: 02/05/19 08:10 Freq: Status: Active Protocol: Document 04/11/19 09:45 [facility] (Rec: 04/11/19 10:07 [facility] [id number]) Posture Evaluation [facility] Postural Classification System Lumbar Protective Mechanism Left AP 1 Lumbar Protective Mechanism Right AP 1 Lumbar Protective Mechanism Left PA 2 Lumbar Protective Mechanism Right PA 1 PT-OP-K Range of Motion Start: 02/05/19 08:10 Freq: Status: Active Protocol: Document 02/05/19 08:12 [facility] (Rec: 02/05/19 09:12 [facility] [id number]) Lumbar Spine Range of Motion Lumbar Spine Active Degrees Flexion 60 Extension 22 Rotation Left 30 Rotation Right 29 Knee Goniometric Range of Motion Knee Right Flexion Active (degrees) 105 Extension Active (degrees) 6 Left Flexion Active (degrees) 101 Extension Active (degrees) 3 PT-OP-L Special Tests Start: 02/05/19 08:10 Freq: Status: Active Protocol: Document 02/05/19 08:12 [facility] (Rec: 02/05/19 09:12 [facility] [id number]) Special Tests Lumbar Spine Special Tests SLR Test Results WNL Slump Test Results neg B PT-OP-M Strength Start: 02/05/19 08:10 Freq: Status: Active Protocol: Document 04/11/19 09:45 [facility] (Rec: 04/11/19 10:07 [facility] [id number]) Hip Strength Hip Manual Muscle Testing Left Flexion (L2) 4 Good Extension (S1) 4 Good Abduction 5 Normal External Rotation 4- Good- Internal Rotation 4 Good Right Flexion (L2) 4 Good Extension (S1) 4- Good- Abduction 4+ Good+ External Rotation 4- Good- Internal Rotation 4 Good Knee Strength Knee Manual Muscle Testing Right Flexion (S2) 4+ Good+ Extension (L3) 4+ Good+ Left Flexion (S2) 5 Normal Extension (L3) 4+ Good+ Ankle/Foot Strength Ankle and Foot Manual Muscle Testing Right Inversion 5 Normal Eversion (S1) 5 Normal PT-OP-Q Treatments Start: 02/05/19 08:10 Freq: Status: Active Protocol: Document 05/14/19 15:44 [facility] (Rec: 05/14/19 16:01 [facility] [id number]) Therapeutic Exercises Sitting Exercises stretch Sitting Exercise Name calf Side right Reps/Minutes 30 sec Standing Exercises lateral stepping Side bilateral Reps/Minutes 25ft Comments focus on core & dec lat leaning Therapeutic Activity Therapeutic Activity posture Name standing Comments wt even btwn feet, unlock knees, slight post tilt Manual Therapy Treatment Soft Tissue Mobilization piriformis Body Location R Mobilization Type Sustained Pressure Body Position Sidelying Lateral gastroc Body Location lat and med gastroc Comments w/n glide PT-OP-R Modalities Start: 02/05/19 08:10 Freq: Status: Active Protocol: Document 04/17/19 10:30 AR (Rec: 04/17/19 17:32 AR [id number]) Hot Pack/Cold Pack Treatment Cold Pack Location Lumbar spine Patient Position Sidelying Treatment Duration (minutes) 15 PT-OP-S Aquatic Treatment Start: 02/21/19 07:23 Freq: Status: Active Protocol: Document 05/11/19 12:30 LJ (Rec: 05/11/19 14:54 LJ [id number]) Aquatics Treatment Pool Entry/Exit Pool Entry/Exit Method Stairs Assistance Independent Water Walking soldier september w/trunk rotation Water Level Chest Level Level of Assistance Verbal Cues toes and heels Water Level Chest Level Walking Equipment Ankle Weight- 2.5# Level of Assistance Verbal Cues march Water Level Chest Level Walking Equipment Ankle Weight- 2.5# Level of Assistance Verbal Cues Comments recrip hand to knee Sideways Water Level Chest Level Walking Equipment Ankle Weight- 2.5# Level of Assistance Verbal Cues backward Water Level Chest Level Walking Equipment Ankle Weight- 2.5# Level of Assistance Verbal Cues Comments recrip hand to knee forward Water Level Chest Level Walking Equipment Ankle Weight- 2.5# Level of Assistance Verbal Cues Comments recrip hand to knee Lower Extremity Exercises heel raise, toe raise Body Position Standing Reps/Duration 10xea HS curls Body Position Standing Water Level Chest Level Equipment Ankle Weight- 2.5# hip circles Body Position Standing Reps/Duration 10x ea hip ab/ad Body Position Standing Reps/Duration 10x ea Lower Extremity Stretches ball rolling with right foot Details standing on ball Equipment tennis ball Reps/Duration 2 min quads Details at wall Body Position Standing Water Level Chest Level Equipment Small Noodle Reps/Duration 2x45 HC, HS Details at wall Body Position Standing Water Level Chest Level Equipment Small Noodle Reps/Duration 2x45 Upper Extremity Exercises forward walking with UE paddles Reps/Duration 30 m shoulder flex/ext Details radha together, alternating Body Position Sitting Equipment UE paddles Reps/Duration 10x ea Comments braced at wall shoulder hor ab/ad Details radha and unil with emphasis on core stab Body Position Sitting Water Level Chest Level Equipment UE paddles Reps/Duration 10x ea Comments braced at wall [place] Activities [place] Activities Bicycle,Bicycle Backwards, Cross Country,Running Other Activities 10 min Comments no flotation devices required for bicycle and running. Deep water traction with lg blue float and #5 wts. 10 minutes. PT-OP-T Assessment and Plan Start: 02/05/19 08:10 Freq: Status: Active Protocol: Document 05/14/19 15:44 [facility] (Rec: 05/14/19 16:01 [facility] [id number]) Physical Therapy Assessment Goals gait Nursing Home Goal (LTG) Pt will have improved gait mechanics allowing her to amb without pain during typical daily activties. 04/11/19: improving, pt able to dec trunk lean when focusing on it LTG Duration 06/11/2019 activity tolerance Prepress Stripper Goal (LTG) Pt will be able to sit for an hour without inc pain, allowing her to participate in full tutoring sessions without pain. 04/11/19: progress, pt able to sit 30 minutes w/o inc pain LTG Duration 06/11/2019 strength Short Term Goal (STG) Pt will be indep with HEP & gym program in order to work towards independence with strengthening program. 04/11/19: progressing, pt has been compliant with HEP and going to pool instead of gym STG Duration 05/11/2019 Nursing Home Goal (LTG) Pt will have 5/5 LE strength and 3/5 LPM to show improvement in strength in order to allow her to return to typical activities without pain. 04/11/19: improving, pt's ankle and knee strength have improved to nearly 5/5. LPM 1/ 5. LTG Duration 06/11/2019 Assessment Summary Assessment Pt reported improved sensation in big toe and 2nd toe especially. Pt educated on importane of good posturae and pt verbailized understanding of posture. Physical Therapy Plan Frequency and Duration Frequency of Treatment 2x/Week Duration of Treatment 2 months Plan of Care Start Date 04/11/19 Plan of Care End Date 06/11/19 Next Visit Focus/Plan Next Note Type Treatment Note Next Visit Plan PNF post depression, glute contraciton in staggered stance
--- NOTE | 2019-05-18 14:18 | PT.OTN ---
Current Diagnoses Radiculopathy, lumbosacral region (05/14/19) Other abnormalities of gait and mobility (05/14/19) Abnormal posture (05/14/19) Weakness (05/14/19) Physical Therapy Treatment Note PT-OP-A Visit Information Start: 02/05/19 08:10 Freq: Status: Active Protocol: Document 05/18/19 12:33 LJ (Rec: 05/18/19 14:18 LJ [id number]) Out-Patient Physical Therapy Visit Information Visit Information Visit Type Aquatic Treatment Note Visit Start Time 12:33 Visit Stop Time 13:15 Total Visit Minutes 42 Visit Number 25 Number of TUBING OILER Visits 1 PT-OP-B Current Condition Start: 02/05/19 08:10 Freq: Status: Active Protocol: Document 02/05/19 08:12 [facility] (Rec: 02/05/19 09:12 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 Pt reports when seeing a movie on the tuesday, she had bad back pain and then she had foot numbness. That Tuesday, she saw a chiropractor and that helped. Pt reports foot is numb and first 4 toes. Pt reports she gets shooting pain only through the foot . Pt reports it seems like when knees are bend and in PF. Prior Treatments and Tests Xrays on back and knees, shots in knees-cannot get surgery d /t weight Treatment Goals Patient/Caregiver Goals wants numbness to go away, be able to sit 1 hour, be able to walk with less pain PT-OP-C Subjective Start: 02/05/19 08:10 Freq: Status: Active Protocol: Document 05/18/19 12:33 LJ (Rec: 05/18/19 14:18 LJ [id number]) OP-PT Subjective Patient Comments Patient Comments Pt reports that her foot is feeling less tense after last PT session. She has some feeling back in medial side of midfoot PT-OP-G Mobility & Gait Start: 02/05/19 08:10 Freq: Status: Active Protocol: Document 02/05/19 08:12 [facility] (Rec: 02/05/19 09:12 [facility] [id number]) OP Gait Assessment Comments Gait Comments Pt amb with lat leaning side to side B with amb and amb with slow gait. PT-OP-J Posture/Palpation/Skin Start: 02/05/19 08:10 Freq: Status: Active Protocol: Document 04/11/19 09:45 [facility] (Rec: 04/11/19 10:07 [facility] [id number]) Posture Evaluation [facility] Postural Classification System Lumbar Protective Mechanism Left AP 1 Lumbar Protective Mechanism Right AP 1 Lumbar Protective Mechanism Left PA 2 Lumbar Protective Mechanism Right PA 1 PT-OP-K Range of Motion Start: 02/05/19 08:10 Freq: Status: Active Protocol: Document 02/05/19 08:12 [facility] (Rec: 02/05/19 09:12 [facility] [id number]) Lumbar Spine Range of Motion Lumbar Spine Active Degrees Flexion 60 Extension 22 Rotation Left 30 Rotation Right 29 Knee Goniometric Range of Motion Knee Right Flexion Active (degrees) 105 Extension Active (degrees) 6 Left Flexion Active (degrees) 101 Extension Active (degrees) 3 PT-OP-L Special Tests Start: 02/05/19 08:10 Freq: Status: Active Protocol: Document 02/05/19 08:12 [facility] (Rec: 02/05/19 09:12 [facility] [id number]) Special Tests Lumbar Spine Special Tests SLR Test Results WNL Slump Test Results neg B PT-OP-M Strength Start: 02/05/19 08:10 Freq: Status: Active Protocol: Document 04/11/19 09:45 [facility] (Rec: 04/11/19 10:07 [facility] [id number]) Hip Strength Hip Manual Muscle Testing Left Flexion (L2) 4 Good Extension (S1) 4 Good Abduction 5 Normal External Rotation 4- Good- Internal Rotation 4 Good Right Flexion (L2) 4 Good Extension (S1) 4- Good- Abduction 4+ Good+ External Rotation 4- Good- Internal Rotation 4 Good Knee Strength Knee Manual Muscle Testing Right Flexion (S2) 4+ Good+ Extension (L3) 4+ Good+ Left Flexion (S2) 5 Normal Extension (L3) 4+ Good+ Ankle/Foot Strength Ankle and Foot Manual Muscle Testing Right Inversion 5 Normal Eversion (S1) 5 Normal PT-OP-Q Treatments Start: 02/05/19 08:10 Freq: Status: Active Protocol: Document 05/14/19 15:44 [facility] (Rec: 05/14/19 16:01 [facility] [id number]) Therapeutic Exercises Sitting Exercises stretch Sitting Exercise Name calf Side right Reps/Minutes 30 sec Standing Exercises lateral stepping Side bilateral Reps/Minutes 25ft Comments focus on core & dec lat leaning Therapeutic Activity Therapeutic Activity posture Name standing Comments wt even btwn feet, unlock knees, slight post tilt Manual Therapy Treatment Soft Tissue Mobilization piriformis Body Location R Mobilization Type Sustained Pressure Body Position Sidelying Lateral gastroc Body Location lat and med gastroc Comments w/n glide PT-OP-R Modalities Start: 02/05/19 08:10 Freq: Status: Active Protocol: Document 04/17/19 10:30 AR (Rec: 04/17/19 17:32 AR [id number]) Hot Pack/Cold Pack Treatment Cold Pack Location Lumbar spine Patient Position Sidelying Treatment Duration (minutes) 15 PT-OP-S Aquatic Treatment Start: 02/21/19 07:23 Freq: Status: Active Protocol: Document 05/18/19 12:33 LJ (Rec: 05/18/19 14:18 LJ [id number]) Aquatics Treatment Pool Entry/Exit Pool Entry/Exit Method Stairs Assistance Independent Lower Extremity Exercises heel raise, toe raise Body Position Standing Reps/Duration 10xea HS curls Body Position Standing Water Level Chest Level Equipment Ankle Weight- 2.5# hip circles Body Position Standing Reps/Duration 10x ea hip ab/ad Body Position Standing Reps/Duration 10x ea hip flex/ext Body Position Standing Reps/Duration 10xea Lower Extremity Stretches HC, HS Details at wall Body Position Standing Water Level Chest Level Equipment Large Noodle Reps/Duration 2x45 nerve flossing HS and glute Details right LE Body Position Standing Water Level Chest Level Equipment Large Noodle Reps/Duration 2 min Comments neutral, AB, AD Upper Extremity Exercises shoulder flex/ext Details radha together, alternating Body Position Sitting Reps/Duration 10x ea Comments braced at wall shoulder hor ab/ad Details radha and unil with emphasis on core stab Body Position Sitting Water Level Chest Level Reps/Duration 10x ea Comments braced at wall [place] Activities [place] Activities Bicycle,[place] Other Activities 10 min Comments no flotation devices required for bicycle and running. Deep water traction with lg blue float and #5 wts. 10 minutes. PT-OP-T Assessment and Plan Start: 02/05/19 08:10 Freq: Status: Active Protocol: Document 05/18/19 12:33 LJ (Rec: 05/18/19 14:18 LJ [id number]) Physical Therapy Assessment Goals gait Guest Service Representative Goal (LTG) Pt will have improved gait mechanics allowing her to amb without pain during typical daily activties. 04/11/19: improving, pt able to dec trunk lean when focusing on it LTG Duration 06/11/2019 activity tolerance [facility] Goal (LTG) Pt will be able to sit for an hour without inc pain, allowing her to participate in full tutoring sessions without pain. 04/11/19: progress, pt able to sit 30 minutes w/o inc pain LTG Duration 06/11/2019 strength Short Term Goal (STG) Pt will be indep with HEP & gym program in order to work towards independence with strengthening program. 04/11/19: progressing, pt has been compliant with HEP and going to pool instead of gym STG Duration 05/11/2019 Guest Service Representative Goal (LTG) Pt will have 5/5 LE strength and 3/5 LPM to show improvement in strength in order to allow her to return to typical activities without pain. 04/11/19: improving, pt's ankle and knee strength have improved to nearly 5/5. LPM 1/ 5. LTG Duration 06/11/2019 Assessment Summary Assessment Pt reports less pain and more feeling in toes after PT. Combination of land and water apparently working to keep pt on path to recovery. Pt tolerates exercises and stretches well and is ready to increase intensity of deep water exercises. Physical Therapy Plan Frequency and Duration Frequency of Treatment 2x/Week Duration of Treatment 2 months Plan of Care Start Date 04/11/19 Plan of Care End Date 06/11/19 Next Visit Focus/Plan Next Visit Plan Progress exercises with resistance and increase in intensity as tolerated.
--- NOTE | 2019-05-21 11:17 | PT.OTN ---
Current Diagnoses Radiculopathy, lumbosacral region (05/21/19) Other abnormalities of gait and mobility (05/21/19) Abnormal posture (05/21/19) Weakness (05/21/19) Physical Therapy Treatment Note PT-OP-A Visit Information Start: 02/05/19 08:10 Freq: Status: Active Protocol: Document 05/21/19 09:00 [facility] (Rec: 05/21/19 11:17 [facility] [id number]) Out-Patient Physical Therapy Visit Information Visit Information Visit Type Treatment Note Visit Start Time 09:00 Visit Stop Time 09:40 Total Visit Minutes 40 Visit Number 26 Number of FARM HELPER Visits 0 PT-OP-B Current Condition Start: 02/05/19 08:10 Freq: Status: Active Protocol: Document 02/05/19 08:12 [facility] (Rec: 02/05/19 09:12 [facility] [id number]) Current Condition History of Current Condition History of Current Condition Pt reports chronic knee pain of 3-4 years, 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 Pt reports when seeing a movie on the tuesday, she had bad back pain and then she had foot numbness. That Tuesday, she saw a chiropractor and that helped. Pt reports foot is numb and first 4 toes. Pt reports she gets shooting pain only through the foot . Pt reports it seems like when knees are bend and in PF. Prior Treatments and Tests Xrays on back and knees, shots in knees-cannot get surgery d /t weight Treatment Goals Patient/Caregiver Goals wants numbness to go away, be able to sit 1 hour, be able to walk with less pain PT-OP-C Subjective Start: 02/05/19 08:10 Freq: Status: Active Protocol: Document 05/21/19 09:00 [facility] (Rec: 05/21/19 11:17 [facility] [id number]) OP-PT Subjective Patient Comments Patient Comments Pt reports going to the gym 2x ove the weekend. Pt reports pain has not been good this weekend. Numbness to her heel now. Pt had flu and shingles shot this weekend. Back and hips have been feeling good. After decompression her foot felt better for only a short time. PT-OP-G Mobility & Gait Start: 02/05/19 08:10 Freq: Status: Active Protocol: Document 02/05/19 08:12 [facility] (Rec: 02/05/19 09:12 [facility] [id number]) OP Gait Assessment Comments Gait Comments Pt amb with lat leaning side to side B with amb and amb with slow gait. PT-OP-J Posture/Palpation/Skin Start: 02/05/19 08:10 Freq: Status: Active Protocol: Document 04/11/19 09:45 [facility] (Rec: 04/11/19 10:07 [facility] [id number]) Posture Evaluation [facility] Postural Classification System Lumbar Protective Mechanism Left AP 1 Lumbar Protective Mechanism Right AP 1 Lumbar Protective Mechanism Left PA 2 Lumbar Protective Mechanism Right PA 1 PT-OP-K Range of Motion Start: 02/05/19 08:10 Freq: Status: Active Protocol: Document 02/05/19 08:12 [facility] (Rec: 02/05/19 09:12 [facility] [id number]) Lumbar Spine Range of Motion Lumbar Spine Active Degrees Flexion 60 Extension 22 Rotation Left 30 Rotation Right 29 Knee Goniometric Range of Motion Knee Right Flexion Active (degrees) 105 Extension Active (degrees) 6 Left Flexion Active (degrees) 101 Extension Active (degrees) 3 PT-OP-L Special Tests Start: 02/05/19 08:10 Freq: Status: Active Protocol: Document 02/05/19 08:12 [facility] (Rec: 02/05/19 09:12 [facility] [id number]) Special Tests Lumbar Spine Special Tests SLR Test Results WNL Slump Test Results neg B PT-OP-M Strength Start: 02/05/19 08:10 Freq: Status: Active Protocol: Document 04/11/19 09:45 [facility] (Rec: 04/11/19 10:07 [facility] [id number]) Hip Strength Hip Manual Muscle Testing Left Flexion (L2) 4 Good Extension (S1) 4 Good Abduction 5 Normal External Rotation 4- Good- Internal Rotation 4 Good Right Flexion (L2) 4 Good Extension (S1) 4- Good- Abduction 4+ Good+ External Rotation 4- Good- Internal Rotation 4 Good Knee Strength Knee Manual Muscle Testing Right Flexion (S2) 4+ Good+ Extension (L3) 4+ Good+ Left Flexion (S2) 5 Normal Extension (L3) 4+ Good+ Ankle/Foot Strength Ankle and Foot Manual Muscle Testing Right Inversion 5 Normal Eversion (S1) 5 Normal PT-OP-Q Treatments Start: 02/05/19 08:10 Freq: Status: Active Protocol: Document 05/21/19 09:00 [facility] (Rec: 05/21/19 11:17 [facility] [id number]) Cardio Equipment Recumbent Elliptical (Biodex) Duration (Minutes) 5 Resistance 7 Therapeutic Exercises Standing Exercises wt shift Standing Exercise Name glute squeeze w/post leg w/wt shift Side bilateral Reps/Minutes 10 heel raises Side bilateral Reps/Minutes 15 Manual Therapy Treatment Soft Tissue Mobilization Lateral gastroc Body Location lat and med gastroc Comments w/n glide medial HS Body Location lat HS border Mobilization Type Strumming Intensity/Depth Moderate Body Position Sidelying Neuro Re-Education Treatment Other Activities PNF Details post depression Comments rhythmic initiation, combo of isotonics with pelvic girdle progressed to also working into LE patterns PT-OP-R Modalities Start: 02/05/19 08:10 Freq: Status: Active Protocol: Document 05/21/19 09:00 [facility] (Rec: 05/21/19 11:17 [facility] [id number]) Hot Pack/Cold Pack Treatment Cold Pack Location lumbar spine & R calf Patient Position Hooklying Treatment Duration (minutes) 10 PT-OP-S Aquatic Treatment Start: 02/21/19 07:23 Freq: Status: Active Protocol: Document 05/18/19 12:33 [facility] (Rec: 05/18/19 14:18 [id number]) Aquatics Treatment Pool Entry/Exit Pool Entry/Exit Method Stairs Assistance Independent Lower Extremity Exercises heel raise, toe raise Body Position Standing Reps/Duration 10xea HS curls Body Position Standing Water Level Chest Level Equipment Ankle Weight- 2.5# hip circles Body Position Standing Reps/Duration 10x ea hip ab/ad Body Position Standing Reps/Duration 10x ea hip flex/ext Body Position Standing Reps/Duration 10xea Lower Extremity Stretches HC, HS Details at wall Body Position Standing Water Level Chest Level Equipment Large Noodle Reps/Duration 2x45 nerve flossing HS and glute Details right LE Body Position Standing Water Level Chest Level Equipment Large Noodle Reps/Duration 2 min Comments neutral, AB, AD Upper Extremity Exercises shoulder flex/ext Details radha together, alternating Body Position Sitting Reps/Duration 10x ea Comments braced at wall shoulder hor ab/ad Details radha and unil with emphasis on core stab Body Position Sitting Water Level Chest Level Reps/Duration 10x ea Comments braced at wall [place] Activities [place] Activities Bicycle,[place] Other Activities 10 min Comments no flotation devices required for bicycle and running. Deep water traction with lg blue float and #5 wts. 10 minutes. PT-OP-T Assessment and Plan Start: 02/05/19 08:10 Freq: Status: Active Protocol: Document 05/21/19 09:00 [facility] (Rec: 05/21/19 11:17 [facility] [id number]) Physical Therapy Assessment Goals gait Metallurgical Specialist Goal (LTG) Pt will have improved gait mechanics allowing her to amb without pain during typical daily activties. 04/11/19: improving, pt able to dec trunk lean when focusing on it LTG Duration 06/11/2019 activity tolerance Metallurgical Specialist Goal (LTG) Pt will be able to sit for an hour without inc pain, allowing her to participate in full tutoring sessions without pain. 04/11/19: progress, pt able to sit 30 minutes w/o inc pain LTG Duration 06/11/2019 strength Short Term Goal (STG) Pt will be indep with HEP & gym program in order to work towards independence with strengthening program. 04/11/19: progressing, pt has been compliant with HEP and going to pool instead of gym STG Duration 05/11/2019 Metallurgical Specialist Goal (LTG) Pt will have 5/5 LE strength and 3/5 LPM to show improvement in strength in order to allow her to return to typical activities without pain. 04/11/19: improving, pt's ankle and knee strength have improved to nearly 5/5. LPM 1/ 5. LTG Duration 06/11/2019 Assessment Summary Assessment Pt able to do wt shift with focus on glute squeeze with no knee painw hen cued not to lock knees. Pt able to do heel raises without knee painw ehn cued not to lock knees. Pt was able to feel pain in foot during STM of HS and calf which improved with inc soft tissue work. Physical Therapy Plan Frequency and Duration Frequency of Treatment 2x/Week Duration of Treatment 2 months Plan of Care Start Date 04/11/19 Plan of Care End Date 06/11/19 Next Visit Focus/Plan Next Note Type Treatment Note Next Visit Plan cont to work on push off
--- NOTE | 2019-05-28 14:01 | PT.OTN ---
Current Diagnoses Radiculopathy, lumbosacral region (05/28/19) Other abnormalities of gait and mobility (05/28/19) Abnormal posture (05/28/19) Weakness (05/28/19) Physical Therapy Treatment Note PT-OP-A Visit Information Start: 02/05/19 08:10 Freq: Status: Active Protocol: Document 05/28/19 09:00 MT (Rec: 05/28/19 13:27 MT [id number]) Out-Patient Physical Therapy Visit Information Visit Information Visit Type Treatment Note Visit Start Time 09:00 Visit Stop Time 10:02 Total Visit Minutes 62 Visit Number 27 Number of ACCOUNT GROUP SUPERVISOR Visits 0 PT-OP-B Current Condition Start: 02/05/19 08:10 Freq: Status: Active Protocol: Document 02/05/19 08:12 [facility] (Rec: 02/05/19 09:12 [facility] [id number]) Current Condition History of Current Condition History of Current Condition Pt reports chronic knee pain of 3-4 years, 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 Pt reports when seeing a movie on the tuesday, she had bad back pain and then she had foot numbness. That Tuesday, she saw a chiropractor and that helped. Pt reports foot is numb and first 4 toes. Pt reports she gets shooting pain only through the foot . Pt reports it seems like when knees are bend and in PF. Prior Treatments and Tests Xrays on back and knees, shots in knees-cannot get surgery d /t weight Treatment Goals Patient/Caregiver Goals wants numbness to go away, be able to sit 1 hour, be able to walk with less pain PT-OP-C Subjective Start: 02/05/19 08:10 Freq: Status: Active Protocol: Document 05/28/19 09:00 MT (Rec: 05/28/19 13:27 MT [id number]) OP-PT Subjective Patient Comments Patient Comments Pt reports that she was only able to get to the gym once over the weekend. She reported that her low back had experienced some soreness. She reported that she still had some pain and shootring down to her R foot but that it was not as severe as it can be and she did a lot of self- nerve gliding to alleviate it. PT-OP-G Mobility & Gait Start: 02/05/19 08:10 Freq: Status: Active Protocol: Document 02/05/19 08:12 [facility] (Rec: 02/05/19 09:12 [facility] [id number]) OP Gait Assessment Comments Gait Comments Pt amb with lat leaning side to side B with amb and amb with slow gait. PT-OP-J Posture/Palpation/Skin Start: 02/05/19 08:10 Freq: Status: Active Protocol: Document 04/11/19 09:45 [facility] (Rec: 04/11/19 10:07 [facility] [id number]) Posture Evaluation [facility] Postural Classification System Lumbar Protective Mechanism Left AP 1 Lumbar Protective Mechanism Right AP 1 Lumbar Protective Mechanism Left PA 2 Lumbar Protective Mechanism Right PA 1 PT-OP-K Range of Motion Start: 02/05/19 08:10 Freq: Status: Active Protocol: Document 02/05/19 08:12 [facility] (Rec: 02/05/19 09:12 [facility] [id number]) Lumbar Spine Range of Motion Lumbar Spine Active Degrees Flexion 60 Extension 22 Rotation Left 30 Rotation Right 29 Knee Goniometric Range of Motion Knee Right Flexion Active (degrees) 105 Extension Active (degrees) 6 Left Flexion Active (degrees) 101 Extension Active (degrees) 3 PT-OP-L Special Tests Start: 02/05/19 08:10 Freq: Status: Active Protocol: Document 02/05/19 08:12 [facility] (Rec: 02/05/19 09:12 [facility] [id number]) Special Tests Lumbar Spine Special Tests SLR Test Results WNL Slump Test Results neg B PT-OP-M Strength Start: 02/05/19 08:10 Freq: Status: Active Protocol: Document 04/11/19 09:45 [facility] (Rec: 04/11/19 10:07 [facility] [id number]) Hip Strength Hip Manual Muscle Testing Left Flexion (L2) 4 Good Extension (S1) 4 Good Abduction 5 Normal External Rotation 4- Good- Internal Rotation 4 Good Right Flexion (L2) 4 Good Extension (S1) 4- Good- Abduction 4+ Good+ External Rotation 4- Good- Internal Rotation 4 Good Knee Strength Knee Manual Muscle Testing Right Flexion (S2) 4+ Good+ Extension (L3) 4+ Good+ Left Flexion (S2) 5 Normal Extension (L3) 4+ Good+ Ankle/Foot Strength Ankle and Foot Manual Muscle Testing Right Inversion 5 Normal Eversion (S1) 5 Normal PT-OP-Q Treatments Start: 02/05/19 08:10 Freq: Status: Active Protocol: Document 05/28/19 09:00 MT (Rec: 05/28/19 13:27 MT [id number]) Cardio Equipment Recumbent Elliptical (Biodex) Duration (Minutes) 6 Resistance 6 Seat Position 3 Therapeutic Exercises Supine Exercises HS & gastroc stretch Supine Exercise Name supine nerve glide Side right Reps/Minutes 5 Comments helps to alleviate pt back stiffness and leg symptoms Standing Exercises wt shift Side bilateral heel raises Side bilateral Reps/Minutes 15 Comments cueing for avoiding back extension and locking knees Gastroc/Soleus stretch Standing Exercise Name calf stretch on slanted platform Side bilateral Reps/Minutes 30 seconds per side Gait Training Gait Activity wt shifts Description glut aqueeze with post leg w/ wt shift and progression to stepping forward Level of Assistance sup Surface firm even Distance/Duration 20 steps each side x 2 sets Comments use of mirror and VC to avoid lateral trunk lean to put weight onto leg and to avoid knee locking Manual Therapy Treatment Soft Tissue Mobilization piriformis Body Location R piriformis/glut Mobilization Type Strumming,Sustained Pressure Intensity/Depth Moderate Body Position Sidelying Lateral gastroc Body Location lat and med gastroc Mobilization Type Myofascial Release,Rolling, Strumming,Sustained Pressure Intensity/Depth Moderate Body Position Sidelying Comments w/ ankle pumps for n glide medial HS Body Location lat HS Mobilization Type Strumming,Sustained Pressure Intensity/Depth Moderate Body Position Sidelying Comments w ankle pumps for n glide PT-OP-R Modalities Start: 02/05/19 08:10 Freq: Status: Active Protocol: Document 05/28/19 09:00 MT (Rec: 05/28/19 13:27 MT [id number]) Hot Pack/Cold Pack Treatment Cold Pack Location lumbar spine & R calf Patient Position Hooklying Treatment Duration (minutes) 15 Patient Tolerance Good PT-OP-S Aquatic Treatment Start: 02/21/19 07:23 Freq: Status: Active Protocol: Document 05/18/19 12:33 LJ (Rec: 05/18/19 14:18 LJ [id number]) Aquatics Treatment Pool Entry/Exit Pool Entry/Exit Method Stairs Assistance Independent Lower Extremity Exercises heel raise, toe raise Body Position Standing Reps/Duration 10xea HS curls Body Position Standing Water Level Chest Level Equipment Ankle Weight- 2.5# hip circles Body Position Standing Reps/Duration 10x ea hip ab/ad Body Position Standing Reps/Duration 10x ea hip flex/ext Body Position Standing Reps/Duration 10xea Lower Extremity Stretches HC, HS Details at wall Body Position Standing Water Level Chest Level Equipment Large Noodle Reps/Duration 2x45 nerve flossing HS and glute Details right LE Body Position Standing Water Level Chest Level Equipment Large Noodle Reps/Duration 2 min Comments neutral, AB, AD Upper Extremity Exercises shoulder flex/ext Details radha together, alternating Body Position Sitting Reps/Duration 10x ea Comments braced at wall shoulder hor ab/ad Details radha and unil with emphasis on core stab Body Position Sitting Water Level Chest Level Reps/Duration 10x ea Comments braced at wall [place] Activities Bicycle,[place] Other Activities 10 min Comments no flotation devices required for bicycle and running. Deep water traction with lg blue float and #5 wts. 10 minutes. PT-OP-T Assessment and Plan Start: 02/05/19 08:10 Freq: Status: Active Protocol: Document 05/28/19 09:00 MT (Rec: 05/28/19 13:27 MT [id number]) Physical Therapy Assessment Goals gait Half-Way Goal (LTG) Pt will have improved gait mechanics allowing her to amb without pain during typical daily activties. 04/11/19: improving, pt able to dec trunk lean when focusing on it LTG Duration 06/11/2019 activity tolerance Process Coach Goal (LTG) Pt will be able to sit for an hour without inc pain, allowing her to participate in full tutoring sessions without pain. 04/11/19: progress, pt able to sit 30 minutes w/o inc pain LTG Duration 06/11/2019 strength Short Term Goal (STG) Pt will be indep with HEP & gym program in order to work towards independence with strengthening program. 04/11/19: progressing, pt has been compliant with HEP and going to pool instead of gym STG Duration 05/11/2019 Half-Way Goal (LTG) Pt will have 5/5 LE strength and 3/5 LPM to show improvement in strength in order to allow her to return to typical activities without pain. 04/11/19: improving, pt's ankle and knee strength have improved to nearly 5/5. LPM 1/ 5. LTG Duration 06/11/2019 Assessment Summary Assessment Pt was able to perform the weight shifting exercise with much better form today. She experienced no knee pain or popping when she activated her glute on the weight accepted limb and avoid locking out her R knee. Pt responded well to STM of R piriformis, HS, and calf with improved symptom relief down to her foot and increased tissue mobility. Physical Therapy Plan Next Visit Focus/Plan Next Note Type Treatment Note Next Visit Plan continue to work on weight shift and puish off and translation into pt's gait using mirror for visual feedback.
--- NOTE | 2019-05-31 14:33 | PT.OTN ---
Current Diagnoses Radiculopathy, lumbosacral region (05/31/19) Other abnormalities of gait and mobility (05/31/19) Abnormal posture (05/31/19) Weakness (05/31/19) Physical Therapy Treatment Note PT-OP-A Visit Information Start: 02/05/19 08:10 Freq: Status: Active Protocol: Document 05/31/19 13:51 [facility] (Rec: 05/31/19 14:33 [facility] [id number]) Out-Patient Physical Therapy Visit Information Visit Information Visit Type Treatment Note Visit Start Time 13:48 Visit Stop Time 14:28 Total Visit Minutes 40 Visit Number 28 Number of CAR PICK UP DRIVER Visits 0 PT-OP-B Current Condition Start: 02/05/19 08:10 Freq: Status: Active Protocol: Document 02/05/19 08:12 [facility] (Rec: 02/05/19 09:12 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 Pt reports when seeing a movie on the tuesday, she had bad back pain and then she had foot numbness. That Tuesday, she saw a chiropractor and that helped. Pt reports foot is numb and first 4 toes. Pt reports she gets shooting pain only through the foot . Pt reports it seems like when knees are bend and in PF. Prior Treatments and Tests Xrays on back and knees, shots in knees-cannot get surgery d /t weight Treatment Goals Patient/Caregiver Goals wants numbness to go away, be able to sit 1 hour, be able to walk with less pain PT-OP-C Subjective Start: 02/05/19 08:10 Freq: Status: Active Protocol: Document 05/31/19 13:51 [facility] (Rec: 05/31/19 14:33 [facility] [id number]) OP-PT Subjective Patient Comments Patient Comments Foot and back are better. Notes yesterday at choir her foot was bad. Patient Reported Progress Improving PT-OP-G Mobility & Gait Start: 02/05/19 08:10 Freq: Status: Active Protocol: Document 02/05/19 08:12 [facility] (Rec: 02/05/19 09:12 [facility] [id number]) OP Gait Assessment Comments Gait Comments Pt amb with lat leaning side to side B with amb and amb with slow gait. PT-OP-J Posture/Palpation/Skin Start: 02/05/19 08:10 Freq: Status: Active Protocol: Document 04/11/19 09:45 [facility] (Rec: 04/11/19 10:07 [facility] [id number]) Posture Evaluation [facility] Postural Classification System Lumbar Protective Mechanism Left AP 1 Lumbar Protective Mechanism Right AP 1 Lumbar Protective Mechanism Left PA 2 Lumbar Protective Mechanism Right PA 1 PT-OP-K Range of Motion Start: 02/05/19 08:10 Freq: Status: Active Protocol: Document 02/05/19 08:12 [facility] (Rec: 02/05/19 09:12 [facility] [id number]) Lumbar Spine Range of Motion Lumbar Spine Active Degrees Flexion 60 Extension 22 Rotation Left 30 Rotation Right 29 Knee Goniometric Range of Motion Knee Right Flexion Active (degrees) 105 Extension Active (degrees) 6 Left Flexion Active (degrees) 101 Extension Active (degrees) 3 PT-OP-L Special Tests Start: 02/05/19 08:10 Freq: Status: Active Protocol: Document 02/05/19 08:12 [facility] (Rec: 02/05/19 09:12 [facility] [id number]) Special Tests Lumbar Spine Special Tests SLR Test Results WNL Slump Test Results neg B PT-OP-M Strength Start: 02/05/19 08:10 Freq: Status: Active Protocol: Document 04/11/19 09:45 [facility] (Rec: 04/11/19 10:07 [facility] [id number]) Hip Strength Hip Manual Muscle Testing Left Flexion (L2) 4 Good Extension (S1) 4 Good Abduction 5 Normal External Rotation 4- Good- Internal Rotation 4 Good Right Flexion (L2) 4 Good Extension (S1) 4- Good- Abduction 4+ Good+ External Rotation 4- Good- Internal Rotation 4 Good Knee Strength Knee Manual Muscle Testing Right Flexion (S2) 4+ Good+ Extension (L3) 4+ Good+ Left Flexion (S2) 5 Normal Extension (L3) 4+ Good+ Ankle/Foot Strength Ankle and Foot Manual Muscle Testing Right Inversion 5 Normal Eversion (S1) 5 Normal PT-OP-Q Treatments Start: 02/05/19 08:10 Freq: Status: Active Protocol: Document 05/31/19 13:51 LR (Rec: 05/31/19 14:33 [facility] [id number]) Cardio Equipment Recumbent Elliptical (Biodex) Duration (Minutes) 5 Resistance 7 Seat Position 3 Therapeutic Exercises Supine Exercises core Supine Exercise Name heel slides & BKFO & march Side bilateral Reps/Minutes 15 Comments focus on TAbd engagment dying bugs Supine Exercise Name bent knee Side bilateral Reps/Minutes 10 Gait Training Gait Activity wt shifts Description glut aqueeze with post leg w/ wt shift and progression to stepping forward Level of Assistance sup Surface firm even Comments use of mirror and VC to avoid lateral trunk lean to put weight onto leg and to avoid knee locking progressed to walking in mirror Manual Therapy Treatment Soft Tissue Mobilization piriformis Body Location R piriformis/glut Mobilization Type Strumming,Sustained Pressure Intensity/Depth Moderate Body Position Sidelying Lateral gastroc Body Location lat and med gastroc Mobilization Type Myofascial Release,Rolling, Strumming,Sustained Pressure Intensity/Depth Moderate Body Position Sidelying Comments w/ ankle pumps for n glide PT-OP-R Modalities Start: 02/05/19 08:10 Freq: Status: Active Protocol: Document 05/28/19 09:00 MT (Rec: 05/28/19 13:27 MT [id number]) Hot Pack/Cold Pack Treatment Cold Pack Location lumbar spine & R calf Patient Position Hooklying Treatment Duration (minutes) 15 Patient Tolerance Good PT-OP-S Aquatic Treatment Start: 02/21/19 07:23 Freq: Status: Active Protocol: Document 05/18/19 12:33 LJ (Rec: 05/18/19 14:18 LJ [id number]) Aquatics Treatment Pool Entry/Exit Pool Entry/Exit Method Stairs Assistance Independent Lower Extremity Exercises heel raise, toe raise Body Position Standing Reps/Duration 10xea HS curls Body Position Standing Water Level Chest Level Equipment Ankle Weight- 2.5# hip circles Body Position Standing Reps/Duration 10x ea hip ab/ad Body Position Standing Reps/Duration 10x ea hip flex/ext Body Position Standing Reps/Duration 10xea Lower Extremity Stretches HC, HS Details at wall Body Position Standing Water Level Chest Level Equipment Large Noodle Reps/Duration 2x45 nerve flossing HS and glute Details right LE Body Position Standing Water Level Chest Level Equipment Large Noodle Reps/Duration 2 min Comments neutral, AB, AD Upper Extremity Exercises shoulder flex/ext Details radha together, alternating Body Position Sitting Reps/Duration 10x ea Comments braced at wall shoulder hor ab/ad Details radha and unil with emphasis on core stab Body Position Sitting Water Level Chest Level Reps/Duration 10x ea Comments braced at wall [place] Activities [place] Activities Bicycle,[place] Other Activities 10 min Comments no flotation devices required for bicycle and running. Deep water traction with lg blue float and #5 wts. 10 minutes. PT-OP-T Assessment and Plan Start: 02/05/19 08:10 Freq: Status: Active Protocol: Document 05/31/19 13:51 [facility] (Rec: 05/31/19 14:33 [facility] [id number]) Physical Therapy Assessment Goals gait Intermediate Goal (LTG) Pt will have improved gait mechanics allowing her to amb without pain during typical daily activties. 04/11/19: improving, pt able to dec trunk lean when focusing on it LTG Duration 06/11/2019 activity tolerance Intermediate Goal (LTG) Pt will be able to sit for an hour without inc pain, allowing her to participate in full tutoring sessions without pain. 04/11/19: progress, pt able to sit 30 minutes w/o inc pain LTG Duration 06/11/2019 strength Short Term Goal (STG) Pt will be indep with HEP & gym program in order to work towards independence with strengthening program. 04/11/19: progressing, pt has been compliant with HEP and going to pool instead of gym STG Duration 05/11/2019 Sales Planner Goal (LTG) Pt will have 5/5 LE strength and 3/5 LPM to show improvement in strength in order to allow her to return to typical activities without pain. 04/11/19: improving, pt's ankle and knee strength have improved to nearly 5/5. LPM 1/ 5. LTG Duration 06/11/2019 Assessment Summary Assessment Pt did much better with gait pattern today and was able to progress to amb further towards a mirror with improved form. Significant difficulty with core exercises. Physical Therapy Plan Frequency and Duration Frequency of Treatment 2x/Week Duration of Treatment 2 months Plan of Care Start Date 04/11/19 Plan of Care End Date 06/11/19 Next Visit Focus/Plan Next Note Type Treatment Note Next Visit Plan cont to work on core and gait
--- NOTE | 2019-06-05 15:46 | PT.OTN ---
Current Diagnoses Radiculopathy, lumbosacral region (06/05/19) Other abnormalities of gait and mobility (06/05/19) Abnormal posture (06/05/19) Weakness (06/05/19) Physical Therapy Treatment Note PT-OP-A Visit Information Start: 02/05/19 08:10 Freq: Status: Active Protocol: Document 06/05/19 09:00 MT (Rec: 06/05/19 11:31 MT [id number]) Out-Patient Physical Therapy Visit Information Visit Information Visit Type Treatment Note Visit Start Time 09:00 Visit Stop Time 09:55 Total Visit Minutes 55 Visit Number 29 Number of CARPENTRY SPECIALIST Visits 0 PT-OP-B Current Condition Start: 02/05/19 08:10 Freq: Status: Active Protocol: Document 02/05/19 08:12 [facility] (Rec: 02/05/19 09:12 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 Pt reports when seeing a movie on the tuesday, she had bad back pain and then she had foot numbness. That Tuesday, she saw a chiropractor and that helped. Pt reports foot is numb and first 4 toes. Pt reports she gets shooting pain only through the foot . Pt reports it seems like when knees are bend and in PF. Prior Treatments and Tests Xrays on back and knees, shots in knees-cannot get surgery d /t weight Treatment Goals Patient/Caregiver Goals wants numbness to go away, be able to sit 1 hour, be able to walk with less pain PT-OP-C Subjective Start: 02/05/19 08:10 Freq: Status: Active Protocol: Document 06/05/19 09:00 MT (Rec: 06/05/19 11:31 MT [id number]) OP-PT Subjective Patient Comments Patient Comments pt reports that she was able to do pool therapy yesterday and was able to participate in deep water activities. She did not do much of her core exercises for her HEP. SHe also made it to the gym 3 times this last week. Patient Reported Progress Improving PT-OP-G Mobility & Gait Start: 02/05/19 08:10 Freq: Status: Active Protocol: Document 02/05/19 08:12 [facility] (Rec: 02/05/19 09:12 [facility] [id number]) OP Gait Assessment Comments Gait Comments Pt amb with lat leaning side to side B with amb and amb with slow gait. PT-OP-J Posture/Palpation/Skin Start: 02/05/19 08:10 Freq: Status: Active Protocol: Document 04/11/19 09:45 [facility] (Rec: 04/11/19 10:07 [facility] [id number]) Posture Evaluation [facility] Postural Classification System Lumbar Protective Mechanism Left AP 1 Lumbar Protective Mechanism Right AP 1 Lumbar Protective Mechanism Left PA 2 Lumbar Protective Mechanism Right PA 1 PT-OP-K Range of Motion Start: 02/05/19 08:10 Freq: Status: Active Protocol: Document 02/05/19 08:12 [facility] (Rec: 02/05/19 09:12 [facility] [id number]) Lumbar Spine Range of Motion Lumbar Spine Active Degrees Flexion 60 Extension 22 Rotation Left 30 Rotation Right 29 Knee Goniometric Range of Motion Knee Right Flexion Active (degrees) 105 Extension Active (degrees) 6 Left Flexion Active (degrees) 101 Extension Active (degrees) 3 PT-OP-L Special Tests Start: 02/05/19 08:10 Freq: Status: Active Protocol: Document 02/05/19 08:12 [facility] (Rec: 02/05/19 09:12 [facility] [id number]) Special Tests Lumbar Spine Special Tests SLR Test Results WNL Slump Test Results neg B PT-OP-M Strength Start: 02/05/19 08:10 Freq: Status: Active Protocol: Document 04/11/19 09:45 [facility] (Rec: 04/11/19 10:07 [facility] [id number]) Hip Strength Hip Manual Muscle Testing Left Flexion (L2) 4 Good Extension (S1) 4 Good Abduction 5 Normal External Rotation 4- Good- Internal Rotation 4 Good Right Flexion (L2) 4 Good Extension (S1) 4- Good- Abduction 4+ Good+ External Rotation 4- Good- Internal Rotation 4 Good Knee Strength Knee Manual Muscle Testing Right Flexion (S2) 4+ Good+ Extension (L3) 4+ Good+ Left Flexion (S2) 5 Normal Extension (L3) 4+ Good+ Ankle/Foot Strength Ankle and Foot Manual Muscle Testing Right Inversion 5 Normal Eversion (S1) 5 Normal PT-OP-Q Treatments Start: 02/05/19 08:10 Freq: Status: Active Protocol: Document 06/05/19 09:00 MT (Rec: 06/05/19 11:31 MT [id number]) Cardio Equipment Recumbent Elliptical (Biodex) Duration (Minutes) 5 Resistance 7 Seat Position 3 Gym Equipment Sport Cord red Exercise Details walking Cord/Resistance red Reps/Duration 10 Comments focused on push off and forwaqrd momentum to avoid lateral leaning and cueing to avoid locking out knees into extension. Use of mirror for visual cueing. Therapeutic Exercises Supine Exercises core Supine Exercise Name heel slides & BKFO & march Side bilateral Reps/Minutes 15 Comments focus on TAbd engagment L/S rotation Supine Exercise Name trunk and LE rotation Side bilateral Reps/Minutes 15 Comments core and segmental spine activation dying bugs Supine Exercise Name bent knee Side bilateral Reps/Minutes 10 Standing Exercises TKE Standing Exercise Name TKE Side bilateral Resistance L1 Reps/Minutes 20 each side Comments cueing to avoid pelvis rotation compensation Gastroc/Soleus stretch Standing Exercise Name calf stretch on slanted platform Side bilateral Reps/Minutes 30 seconds per side Gait Training Gait Activity wt shifts Description glut aqueeze with post leg w/ wt shift and progression to stepping forward Level of Assistance sup Surface firm even Distance/Duration 20 steps each side Comments use of mirror and VC to avoid lateral trunk lean to put weight onto leg and to avoid knee locking progressed to walking in mirror Manual Therapy Treatment Soft Tissue Mobilization lateral HS/IT Body Location R Mobilization Type Myofascial Release, Oscillations,Rolling,Strumming ,Sustained Pressure Intensity/Depth Deep Body Position Sidelying Comments pt performing R ankle pumps during technique for nerve glide PT-OP-R Modalities Start: 02/05/19 08:10 Freq: Status: Active Protocol: Document 06/05/19 09:00 MT (Rec: 06/05/19 11:31 MT [id number]) Hot Pack/Cold Pack Treatment Cold Pack Location R lateral/posterior thigh Patient Position Sidelying Treatment Duration (minutes) 10 Patient Tolerance Good PT-OP-S Aquatic Treatment Start: 02/21/19 07:23 Freq: Status: Active Protocol: Document 05/18/19 12:33 LJ (Rec: 05/18/19 14:18 LJ [id number]) Aquatics Treatment Pool Entry/Exit Pool Entry/Exit Method Stairs Assistance Independent Lower Extremity Exercises heel raise, toe raise Body Position Standing Reps/Duration 10xea HS curls Body Position Standing Water Level Chest Level Equipment Ankle Weight- 2.5# hip circles Body Position Standing Reps/Duration 10x ea hip ab/ad Body Position Standing Reps/Duration 10x ea hip flex/ext Body Position Standing Reps/Duration 10xea Lower Extremity Stretches HC, HS Details at wall Body Position Standing Water Level Chest Level Equipment Large Noodle Reps/Duration 2x45 nerve flossing HS and glute Details right LE Body Position Standing Water Level Chest Level Equipment Large Noodle Reps/Duration 2 min Comments neutral, AB, AD Upper Extremity Exercises shoulder flex/ext Details radha together, alternating Body Position Sitting Reps/Duration 10x ea Comments braced at wall shoulder hor ab/ad Details radha and unil with emphasis on core stab Body Position Sitting Water Level Chest Level Reps/Duration 10x ea Comments braced at wall [place] Activities [place] Activities Bicycle,[place] Other Activities 10 min Comments no flotation devices required for bicycle and running. Deep water traction with lg blue float and #5 wts. 10 minutes. PT-OP-T Assessment and Plan Start: 02/05/19 08:10 Freq: Status: Active Protocol: Document 06/05/19 09:00 MT (Rec: 06/05/19 11:31 MT [id number]) Physical Therapy Assessment Goals gait Mcfp Goal (LTG) Pt will have improved gait mechanics allowing her to amb without pain during typical daily activties. 04/11/19: improving, pt able to dec trunk lean when focusing on it LTG Duration 06/11/2019 activity tolerance Farm Service Consultant Goal (LTG) Pt will be able to sit for an hour without inc pain, allowing her to participate in full tutoring sessions without pain. 04/11/19: progress, pt able to sit 30 minutes w/o inc pain LTG Duration 06/11/2019 strength Short Term Goal (STG) Pt will be indep with HEP & gym program in order to work towards independence with strengthening program. 04/11/19: progressing, pt has been compliant with HEP and going to pool instead of gym STG Duration 05/11/2019 Farm Service Consultant Goal (LTG) Pt will have 5/5 LE strength and 3/5 LPM to show improvement in strength in order to allow her to return to typical activities without pain. 04/11/19: improving, pt's ankle and knee strength have improved to nearly 5/5. LPM 1/ . LTG Duration 06/11/2019 Assessment Summary Assessment Pt demonstrated better gait with increased push off and less lateral leaning when walking into and around gym, but was unable to maintain corrections when not consciously focusing on walking. She did much better with her weight shift exercises focused on weight acceptance onto her stance leg . She was able to tolerate walking with the sport cord to emphasize forward momentum and push off. SHe was able to maintain the corrections after the sport cord for some time. She required frequent cueing with her gait activities to avoid locking her knees into full extension. Her IT band/lateral hamstring were very tight and caused a pulling snesatino in her neck and toe. STM was applied to the area. AFter STM, there was much greater tissue mobility and decreased reported pain. Pt continued to require cueing for her core exercises. Physical Therapy Plan Frequency and Duration Frequency of Treatment 2x/Week Duration of Treatment 2 months Plan of Care Start Date 04/11/19 Plan of Care End Date 06/11/19 Next Visit Focus/Plan Next Note Type Progress Note Next Visit Plan continue to work on core exercises and gait focused on push off and avoiding lateral leaning/knee lock out
--- NOTE | 2019-06-07 16:26 | PT.OTN ---
Current Diagnoses Radiculopathy, lumbosacral region (06/07/19) Other abnormalities of gait and mobility (06/07/19) Abnormal posture (06/07/19) Weakness (06/07/19) Physical Therapy Treatment Note PT-OP-A Visit Information Start: 02/05/19 08:10 Freq: Status: Active Protocol: Document 06/07/19 09:09 [facility] (Rec: 06/07/19 16:26 [facility] [id number]) Out-Patient Physical Therapy Visit Information Visit Information Visit Start Time 09:00 Visit Stop Time 09:41 Total Visit Minutes 41 Visit Number 30 Number of PUFF IRONER Visits 0 PT-OP-B Current Condition Start: 02/05/19 08:10 Freq: Status: Active Protocol: Document 02/05/19 08:12 [facility] (Rec: 02/05/19 09:12 [facility] [id number]) Current Condition History of Current Condition History of Current Condition Pt reports chronic knee pain of 3-4 years, 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 Pt reports when seeing a movie on the tuesday, she had bad back pain and then she had foot numbness. That Tuesday, she saw a chiropractor and that helped. Pt reports foot is numb and first 4 toes. Pt reports she gets shooting pain only through the foot . Pt reports it seems like when knees are bend and in PF. Prior Treatments and Tests Xrays on back and knees, shots in knees-cannot get surgery d /t weight Treatment Goals Patient/Caregiver Goals wants numbness to go away, be able to sit 1 hour, be able to walk with less pain PT-OP-C Subjective Start: 02/05/19 08:10 Freq: Status: Active Protocol: Document 06/07/19 09:09 [facility] (Rec: 06/07/19 16:26 [facility] [id number]) OP-PT Subjective Patient Comments Patient Comments Pt reports she felt better after decompression but heel hurts again. She left another message with pain medicine MD PT-OP-G Mobility & Gait Start: 02/05/19 08:10 Freq: Status: Active Protocol: Document 02/05/19 08:12 [facility] (Rec: 02/05/19 09:12 [facility] [id number]) OP Gait Assessment Comments Gait Comments Pt amb with lat leaning side to side B with amb and amb with slow gait. PT-OP-J Posture/Palpation/Skin Start: 02/05/19 08:10 Freq: Status: Active Protocol: Document 04/11/19 09:45 [facility] (Rec: 04/11/19 10:07 [facility] [id number]) Posture Evaluation [facility] Postural Classification System Lumbar Protective Mechanism Left AP 1 Lumbar Protective Mechanism Right AP 1 Lumbar Protective Mechanism Left PA 2 Lumbar Protective Mechanism Right PA 1 PT-OP-K Range of Motion Start: 02/05/19 08:10 Freq: Status: Active Protocol: Document 02/05/19 08:12 [facility] (Rec: 02/05/19 09:12 [facility] [id number]) Lumbar Spine Range of Motion Lumbar Spine Active Degrees Flexion 60 Extension 22 Rotation Left 30 Rotation Right 29 Knee Goniometric Range of Motion Knee Right Flexion Active (degrees) 105 Extension Active (degrees) 6 Left Flexion Active (degrees) 101 Extension Active (degrees) 3 PT-OP-L Special Tests Start: 02/05/19 08:10 Freq: Status: Active Protocol: Document 02/05/19 08:12 [facility] (Rec: 02/05/19 09:12 [facility] [id number]) Special Tests Lumbar Spine Special Tests SLR Test Results WNL Slump Test Results neg B PT-OP-M Strength Start: 02/05/19 08:10 Freq: Status: Active Protocol: Document 06/07/19 09:09 [facility] (Rec: 06/07/19 16:26 [facility] [id number]) Hip Strength Hip Manual Muscle Testing Left Flexion (L2) 5 Normal Extension (S1) 4- Good- Abduction 4- Good- External Rotation 5 Normal Internal Rotation 5 Normal Right Flexion (L2) 5 Normal Extension (S1) 4- Good- Abduction 4 Good External Rotation 4 Good Internal Rotation 4+ Good+ Knee Strength Knee Manual Muscle Testing Right Flexion (S2) 5 Normal Extension (L3) 4+ Good+ Left Flexion (S2) 5 Normal Extension (L3) 4+ Good+ Ankle/Foot Strength Ankle and Foot Manual Muscle Testing Right Dorsiflexion (L4) 5 Normal Plantarflexion (S1) 5 Normal Inversion 5 Normal Eversion (S1) 5 Normal Comments seated PF testing B Left Dorsiflexion (L4) 5 Normal Plantarflexion (S1) 5 Normal Inversion 5 Normal Toe Strength Toe Manual Muscle Testing Left Great Toe Flexion 5 Normal Extension 4 Good Right Great Toe Flexion 3+ Fair+ Extension 4- Good- PT-OP-Q Treatments Start: 02/05/19 08:10 Freq: Status: Active Protocol: Document 06/07/19 09:09 [facility] (Rec: 06/07/19 16:26 [facility] [id number]) Therapeutic Exercises Prone Exercises ext Prone Exercise Name tried alt ext but pain so worked on alt glute squeeze Side bilateral Reps/Minutes 15 Comments 2 pillows under abdomen Sitting Exercises foot strength Sitting Exercise Name towel scrunches & marble pickup Other Exercises nanda pose Reps/Minutes 30 sec Manual Therapy Treatment Soft Tissue Mobilization hip flexor Body Location R Mobilization Type Sustained Pressure PT-OP-R Modalities Start: 02/05/19 08:10 Freq: Status: Active Protocol: Document 06/05/19 09:00 MT (Rec: 06/05/19 11:31 MT [id number]) Hot Pack/Cold Pack Treatment Cold Pack Location R lateral/posterior thigh Patient Position Sidelying Treatment Duration (minutes) 10 Patient Tolerance Good PT-OP-S Aquatic Treatment Start: 02/21/19 07:23 Freq: Status: Active Protocol: Document 05/18/19 12:33 LJ (Rec: 05/18/19 14:18 LJ [id number]) Aquatics Treatment Pool Entry/Exit Pool Entry/Exit Method Stairs Assistance Independent Lower Extremity Exercises heel raise, toe raise Body Position Standing Reps/Duration 10xea HS curls Body Position Standing Water Level Chest Level Equipment Ankle Weight- 2.5# hip circles Body Position Standing Reps/Duration 10x ea hip ab/ad Body Position Standing Reps/Duration 10x ea hip flex/ext Body Position Standing Reps/Duration 10xea Lower Extremity Stretches HC, HS Details at wall Body Position Standing Water Level Chest Level Equipment Large Noodle Reps/Duration 2x45 nerve flossing HS and glute Details right LE Body Position Standing Water Level Chest Level Equipment Large Noodle Reps/Duration 2 min Comments neutral, AB, AD Upper Extremity Exercises shoulder flex/ext Details radha together, alternating Body Position Sitting Reps/Duration 10x ea Comments braced at wall shoulder hor ab/ad Details radha and unil with emphasis on core stab Body Position Sitting Water Level Chest Level Reps/Duration 10x ea Comments braced at wall Jesse Activities Jesse Activities Bicycle,Cross [place] Other Activities 10 min Comments no flotation devices required for bicycle and running. Deep water traction with lg blue float and #5 wts. 10 minutes. PT-OP-T Assessment and Plan Start: 02/05/19 08:10 Freq: Status: Active Protocol: Document 06/07/19 09:09 [facility] (Rec: 06/07/19 16:26 [facility] [id number]) Physical Therapy Assessment Goals lifting Silk Trimmer Goal (LTG) Pt will have improved lifting mechanics in order to dec strain on LB LTG Duration 08/07/19 gait Silk Trimmer Goal (LTG) Pt will have improved gait mechanics allowing her to amb without pain during typical daily activties. 04/11/19: improving, pt able to dec trunk lean when focusing on it 06/07- improved w/ cont work and cueing, knees can be limiting towards this LTG Duration 08/07/19 activity tolerance Detention Goal (LTG) Pt will be able to sit for an hour without inc pain, allowing her to participate in full tutoring sessions without pain. 04/11/19: progress, pt able to sit 30 minutes w/o inc pain 06/07-Pt able to sit fulll sessions at this time but feels stiff after. Improved LTG Duration 08/07/19 strength Short Term Goal (STG) Pt will be indep with HEP & gym program in order to work towards independence with strengthening program. 04/11/19: progressing, pt has been compliant with HEP and going to pool instead of gym STG Duration achieved Silk Trimmer Goal (LTG) Pt will have 5/5 LE strength and 3/5 LPM to show improvement in strength in order to allow her to return to typical activities without pain. 04/11/19: improving, pt's ankle and knee strength have improved to nearly 5/5. LPM / 5. 06/07-significantly improved, toe strength limited. Improved LPM today LTG Duration 06/11/2019 Assessment Summary Assessment Pt is making slow but steady progress. She has improved ability to sit, improved gait and improved LE and core stability. With evaluation today, it was noted that pt has signfiicantly dec foot strength although ankle strength has improved. Physical Therapy Plan Frequency and Duration Frequency of Treatment 1-2x/week Duration of Treatment 2 months Plan of Care Start Date 06/07/19 Plan of Care End Date 08/07/19 Therapeutic Interventions Therapeutic Interventions Aquatic Therapy,Balance Training,Gait Training,Home Exercise Program,Joint Mobilizations,Manual Therapy, Neuromuscular Re-education, Patient/Caregiver Education, Self-Care/Home Management,Soft Tissue Mobilization,Taping, Therapeutic Activities, Therapeutic Exercises Modalities Biofeedback,Cold Pack/Ice Massage,Electric Stimulation, Hot Packs,Infrared Therapy, Iontophoresis,Traction- Mechanical,Ultrasound Next Visit Focus/Plan Next Note Type Treatment Note Next Visit Plan continue to work on core exercises and gait focused on push off and avoiding lateral leaning/knee lock out; foot stability exercises
--- NOTE | 2019-06-07 16:26 | PT.OPPOC ---
Current Diagnoses Radiculopathy, lumbosacral region (06/07/19) Other abnormalities of gait and mobility (06/07/19) Abnormal posture (06/07/19) Weakness (06/07/19) Visit Care Team Role Provider Type Kayleigh Magdaleno MD Primary Care Provider Non-Staff Specialty: Medical Address: [address] [place] [address], [place], [address] Email: COLEMAN Joseph Attending Provider Advanced Recoater Specialty: Pain Management Address: [address] [place] [address], [id number] Email: [email or web address] Plan Of Care PT-OP-T Assessment and Plan Start: 02/05/19 08:10 Freq: Status: Active Protocol: Document 06/07/19 09:09 [facility] (Rec: 06/07/19 16:26 [facility] [id number]) Physical Therapy Assessment Goals lifting Sheet Metal Worker Apprentice Goal (LTG) Pt will have improved lifting mechanics in order to dec strain on LB LTG Duration 08/07/19 gait Sheet Metal Worker Apprentice Goal (LTG) Pt will have improved gait mechanics allowing her to amb without pain during typical daily activties. 04/11/19: improving, pt able to dec trunk lean when focusing on it 06/07- improved w/ cont work and cueing, knees can be limiting towards this LTG Duration 08/07/19 activity tolerance Sheet Metal Worker Apprentice Goal (LTG) Pt will be able to sit for an hour without inc pain, allowing her to participate in full tutoring sessions without pain. 04/11/19: progress, pt able to sit 30 minutes w/o inc pain 06/07-Pt able to sit fulll sessions at this time but feels stiff after. Improved LTG Duration 08/07/19 strength Short Term Goal (STG) Pt will be indep with HEP & gym program in order to work towards independence with strengthening program. 04/11/19: progressing, pt has been compliant with HEP and going to pool instead of gym STG Duration achieved Sheet Metal Worker Apprentice Goal (LTG) Pt will have 5/5 LE strength and 3/5 LPM to show improvement in strength in order to allow her to return to typical activities without pain. 04/11/19: improving, pt's ankle and knee strength have improved to nearly 5/5. LPM 08/05. 06/07-significantly improved, toe strength limited. Improved LPM today LTG Duration 06/11/2019 Assessment Summary Assessment Pt is making slow but steady progress. She has improved ability to sit, improved gait and improved LE and core stability. With evaluation today, it was noted that pt has signfiicantly dec foot strength although ankle strength has improved. Physical Therapy Plan Frequency and Duration Frequency of Treatment 1-2x/week Duration of Treatment 2 months Plan of Care Start Date 06/07/19 Plan of Care End Date 08/07/19 Therapeutic Interventions Therapeutic Interventions Aquatic Therapy,Balance Training,Gait Training,Home Exercise Program,Joint Mobilizations,Manual Therapy, Neuromuscular Re-education, Patient/Caregiver Education, Self-Care/Home Management,Soft Tissue Mobilization,Taping, Therapeutic Activities, Therapeutic Exercises Modalities Biofeedback,Cold Pack/Ice Massage,Electric Stimulation, Hot Packs,Infrared Therapy, Iontophoresis,Traction- Mechanical,Ultrasound Next Visit Focus/Plan Next Note Type Treatment Note Next Visit Plan continue to work on core exercises and gait focused on push off and avoiding lateral leaning/knee lock out; foot stability exercises Plan of Care Dates Plan of Care Start Date 06/07/19 Plan of Care End Date 08/07/19
--- NOTE | 2019-06-11 18:41 | PT.OTN ---
Current Diagnoses Radiculopathy, lumbosacral region (06/11/19) Other abnormalities of gait and mobility (06/11/19) Abnormal posture (06/11/19) Weakness (06/11/19) Physical Therapy Treatment Note PT-OP-A Visit Information Start: 02/05/19 08:10 Freq: Status: Active Protocol: Document 06/11/19 09:00 MT (Rec: 06/11/19 11:14 MT [id number]) Out-Patient Physical Therapy Visit Information Visit Information Visit Type Treatment Note Visit Start Time 09:00 Visit Stop Time 09:47 Total Visit Minutes 47 Visit Number 31 Number of GOLF CART MAKER Visits 0 PT-OP-B Current Condition Start: 02/05/19 08:10 Freq: Status: Active Protocol: Document 02/05/19 08:12 [facility] (Rec: 02/05/19 09:12 [facility] [id number]) Current Condition History of Current Condition History of Current Condition Pt reports chronic knee pain of 3-4 years, 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 Pt reports when seeing a movie on the tuesday, she had bad back pain and then she had foot numbness. That Tuesday, she saw a chiropractor and that helped. Pt reports foot is numb and first 4 toes. Pt reports she gets shooting pain only through the foot . Pt reports it seems like when knees are bend and in PF. Prior Treatments and Tests Xrays on back and knees, shots in knees-cannot get surgery d /t weight Treatment Goals Patient/Caregiver Goals wants numbness to go away, be able to sit 1 hour, be able to walk with less pain PT-OP-C Subjective Start: 02/05/19 08:10 Freq: Status: Active Protocol: Document 06/11/19 09:00 MT (Rec: 06/11/19 11:14 MT [id number]) OP-PT Subjective Patient Comments Patient Comments Pt reported that she has not been able to make it to the gym or the pool and was not compliant with her exercises since the last session. She reports less overall symptoms shooting down through her leg. SHe reported that she has been having increased pain in the arch of her R foot. PT-OP-G Mobility & Gait Start: 02/05/19 08:10 Freq: Status: Active Protocol: Document 02/05/19 08:12 [facility] (Rec: 02/05/19 09:12 [facility] [id number]) OP Gait Assessment Comments Gait Comments Pt amb with lat leaning side to side B with amb and amb with slow gait. PT-OP-J Posture/Palpation/Skin Start: 02/05/19 08:10 Freq: Status: Active Protocol: Document 04/11/19 09:45 [facility] (Rec: 04/11/19 10:07 [facility] [id number]) Posture Evaluation [facility] Postural Classification System Lumbar Protective Mechanism Left AP 1 Lumbar Protective Mechanism Right AP 1 Lumbar Protective Mechanism Left PA 2 Lumbar Protective Mechanism Right PA 1 PT-OP-K Range of Motion Start: 02/05/19 08:10 Freq: Status: Active Protocol: Document 02/05/19 08:12 [facility] (Rec: 02/05/19 09:12 [facility] [id number]) Lumbar Spine Range of Motion Lumbar Spine Active Degrees Flexion 60 Extension 22 Rotation Left 30 Rotation Right 29 Knee Goniometric Range of Motion Knee Right Flexion Active (degrees) 105 Extension Active (degrees) 6 Left Flexion Active (degrees) 101 Extension Active (degrees) 3 PT-OP-L Special Tests Start: 02/05/19 08:10 Freq: Status: Active Protocol: Document 02/05/19 08:12 [facility] (Rec: 02/05/19 09:12 [facility] [id number]) Special Tests Lumbar Spine Special Tests SLR Test Results WNL Slump Test Results neg B PT-OP-M Strength Start: 02/05/19 08:10 Freq: Status: Active Protocol: Document 06/07/19 09:09 [facility] (Rec: 06/07/19 16:26 [facility] [id number]) Hip Strength Hip Manual Muscle Testing Left Flexion (L2) 5 Normal Extension (S1) 4- Good- Abduction 4- Good- External Rotation 5 Normal Internal Rotation 5 Normal Right Flexion (L2) 5 Normal Extension (S1) 4- Good- Abduction 4 Good External Rotation 4 Good Internal Rotation 4+ Good+ Knee Strength Knee Manual Muscle Testing Right Flexion (S2) 5 Normal Extension (L3) 4+ Good+ Left Flexion (S2) 5 Normal Extension (L3) 4+ Good+ Ankle/Foot Strength Ankle and Foot Manual Muscle Testing Right Dorsiflexion (L4) 5 Normal Plantarflexion (S1) 5 Normal Inversion 5 Normal Eversion (S1) 5 Normal Comments seated PF testing B Left Dorsiflexion (L4) 5 Normal Plantarflexion (S1) 5 Normal Inversion 5 Normal Toe Strength Toe Manual Muscle Testing Left Great Toe Flexion 5 Normal Extension 4 Good Right Great Toe Flexion 3+ Fair+ Extension 4- Good- PT-OP-Q Treatments Start: 02/05/19 08:10 Freq: Status: Active Protocol: Document 06/11/19 09:00 MT (Rec: 06/11/19 11:14 MT [id number]) Cardio Equipment Recumbent Stepper (Sci-Fit) Duration (Minutes) 6 Resistance 5 Gym Equipment Sport Cord red Exercise Details walking Cord/Resistance red Reps/Duration 10 Comments focused on push off and forwaqrd momentum to avoid lateral leaning and cueing to avoid locking out knees into extension. Use of mirror for visual cueing. Therapeutic Exercises Supine Exercises core Supine Exercise Name heel slides & SLR Side bilateral Reps/Minutes 15 Comments focus on TAbd engagment L/S rotation Supine Exercise Name trunk and LE rotation Side bilateral Reps/Minutes 15 Comments core and segmental spine activation dying bugs Supine Exercise Name bent knee Side bilateral Reps/Minutes 10 Sitting Exercises foot strength Sitting Exercise Name towel scrunch Side right Comments attempted on linoleum floor for less friction: still difficult for pt Standing Exercises TKE Standing Exercise Name TKE Side bilateral Resistance L1 Reps/Minutes 20 each side Comments cueing to avoid pelvis rotation compensation Gait Training Gait Activity wt shifts Description glut aqueeze with post leg w/ wt shift and progression to stepping forward Level of Assistance sup Surface firm even Distance/Duration 20 steps each side Comments use of mirror and VC to avoid lateral trunk lean to put weight onto leg and to avoid knee locking progressed to walking in mirror Manual Therapy Treatment Soft Tissue Mobilization foot Body Location R foot, medial arch Mobilization Type Myofascial Release,Rolling, Strumming,Sustained Pressure Intensity/Depth Moderate Body Position Sidelying Comments with pt performing ankle pumps and toe extension PT-OP-R Modalities Start: 02/05/19 08:10 Freq: Status: Active Protocol: Document 06/05/19 09:00 MT (Rec: 06/05/19 11:31 MT [id number]) Hot Pack/Cold Pack Treatment Cold Pack Location R lateral/posterior thigh Patient Position Sidelying Treatment Duration (minutes) 10 Patient Tolerance Good PT-OP-S Aquatic Treatment Start: 02/21/19 07:23 Freq: Status: Active Protocol: Document 05/18/19 12:33 LJ (Rec: 05/18/19 14:18 LJ [id number]) Aquatics Treatment Pool Entry/Exit Pool Entry/Exit Method Stairs Assistance Independent Lower Extremity Exercises heel raise, toe raise Body Position Standing Reps/Duration 10xea HS curls Body Position Standing Water Level Chest Level Equipment Ankle Weight- 2.5# hip circles Body Position Standing Reps/Duration 10x ea hip ab/ad Body Position Standing Reps/Duration 10x ea hip flex/ext Body Position Standing Reps/Duration 10xea Lower Extremity Stretches HC, HS Details at wall Body Position Standing Water Level Chest Level Equipment Large Noodle Reps/Duration 2x45 nerve flossing HS and glute Details right LE Body Position Standing Water Level Chest Level Equipment Large Noodle Reps/Duration 2 min Comments neutral, AB, AD Upper Extremity Exercises shoulder flex/ext Details radha together, alternating Body Position Sitting Reps/Duration 10x ea Comments braced at wall shoulder hor ab/ad Details radha and unil with emphasis on core stab Body Position Sitting Water Level Chest Level Reps/Duration 10x ea Comments braced at wall [place] Activities [place] Activities Bicycle,[place] Other Activities 10 min Comments no flotation devices required for bicycle and running. Deep water traction with lg blue float and #5 wts. 10 minutes. PT-OP-T Assessment and Plan Start: 02/05/19 08:10 Freq: Status: Active Protocol: Document 06/11/19 09:00 MT (Rec: 06/11/19 11:14 MT [id number]) Physical Therapy Assessment Goals lifting Skilled Nursing Goal (LTG) Pt will have improved lifting mechanics in order to dec strain on LB LTG Duration 08/07/19 gait Skilled Nursing Goal (LTG) Pt will have improved gait mechanics allowing her to amb without pain during typical daily activties. 04/11/19: improving, pt able to dec trunk lean when focusing on it 06/07- improved w/ cont work and cueing, knees can be limiting towards this LTG Duration 08/07/19 activity tolerance Skilled Nursing Goal (LTG) Pt will be able to sit for an hour without inc pain, allowing her to participate in full tutoring sessions without pain. 04/11/19: progress, pt able to sit 30 minutes w/o inc pain 06/07-Pt able to sit fulll sessions at this time but feels stiff after. Improved LTG Duration 08/07/19 strength Short Term Goal (STG) Pt will be indep with HEP & gym program in order to work towards independence with strengthening program. 04/11/19: progressing, pt has been compliant with HEP and going to pool instead of gym STG Duration achieved Grocery Stock Clerk Goal (LTG) Pt will have 5/5 LE strength and 3/5 LPM to show improvement in strength in order to allow her to return to typical activities without pain. 04/11/19: improving, pt's ankle and knee strength have improved to nearly 5/5. LPM 08/05. 06/07-significantly improved, toe strength limited. Improved LPM today LTG Duration 06/11/2019 Assessment Summary Assessment Pt is making slow but steady progress. She is improving the motion of her gait, but continues to require cueing with avoiding locking out her knees into extension and avoid lateral lean for weight acceptance onto stance leg. Pt reported that she has not been compliant with HEP, so reviewed core exercises with her and discussed importance of adhering to HEP and general exercise for progress. Attempted towel scrunches with R foot on linoleum floor to make it easier. Pt continued to sturggle with this exercise but was able to get some movement. Pt enocuraged to use dog toys at home for foot strength. Pt reported pain and stiffness in R foot arch. STM was applied to arch up through 1st and 2nd toes. Pt reported decreased pain and stiffness following STM. Physical Therapy Plan Frequency and Duration Frequency of Treatment 1-2x/week Duration of Treatment 2 months Plan of Care Start Date 06/07/19 Plan of Care End Date 08/07/19 Next Visit Focus/Plan Next Note Type Treatment Note Next Visit Plan continue to work on and progress core strengthening, work on push off and weight acceptance for gait to avoiud lateral lean and knee lock out , foot stability exercises
--- NOTE | 2019-06-18 13:11 | PT.OTN ---
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 (Rec: 02/05/19 09:12 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 Pt reports when seeing a movie on the tuesday, she had bad back pain and then she had foot numbness. That Tuesday, she saw a chiropractor and that helped. Pt reports foot is numb and first 4 toes. Pt reports she gets shooting pain only through the foot . Pt reports it seems like when knees are bend and in PF. Prior Treatments and Tests Xrays on back and knees, shots in knees-cannot get surgery d /t weight Treatment Goals Patient/Caregiver Goals wants numbness to go away, be able to sit 1 hour, be able to walk with less pain PT-OP-C Subjective Start: 02/05/19 08:10 Freq: Status: Active Protocol: Document 06/18/19 09:01 MT (Rec: 06/18/19 10:58 MT [id number]) OP-PT Subjective Patient Comments Patient Comments Pt reported that she has been compliant with her HEP. She is still struggling with picking up objects with her feet. She was made it to the pool twice this last week. She reports that her symptoms are feeling about the same. PT-OP-G Mobility & Gait Start: 02/05/19 08:10 Freq: Status: Active Protocol: Document 02/05/19 08:12 [facility] (Rec: 02/05/19 09:12 [facility] [id number]) OP Gait Assessment Comments Gait Comments Pt amb with lat leaning side to side B with amb and amb with slow gait. PT-OP-J Posture/Palpation/Skin Start: 02/05/19 08:10 Freq: Status: Active Protocol: Document 04/11/19 09:45 [facility] (Rec: 04/11/19 10:07 [facility] [id number]) Posture Evaluation [facility] Postural Classification System Lumbar Protective Mechanism Left AP 1 Lumbar Protective Mechanism Right AP 1 Lumbar Protective Mechanism Left PA 2 Lumbar Protective Mechanism Right PA 1 PT-OP-K Range of Motion Start: 02/05/19 08:10 Freq: Status: Active Protocol: Document 02/05/19 08:12 [facility] (Rec: 02/05/19 09:12 [facility] [id number]) Lumbar Spine Range of Motion Lumbar Spine Active Degrees Flexion 60 Extension 22 Rotation Left 30 Rotation Right 29 Knee Goniometric Range of Motion Knee Right Flexion Active (degrees) 105 Extension Active (degrees) 6 Left Flexion Active (degrees) 101 Extension Active (degrees) 3 PT-OP-L Special Tests Start: 02/05/19 08:10 Freq: Status: Active Protocol: Document 02/05/19 08:12 [facility] (Rec: 02/05/19 09:12 [facility] [id number]) Special Tests Lumbar Spine Special Tests SLR Test Results WNL Slump Test Results neg B PT-OP-M Strength Start: 02/05/19 08:10 Freq: Status: Active Protocol: Document 06/07/19 09:09 [facility] (Rec: 06/07/19 16:26 [facility] [id number]) Hip Strength Hip Manual Muscle Testing Left Flexion (L2) 5 Normal Extension (S1) 4- Good- Abduction 4- Good- External Rotation 5 Normal Internal Rotation 5 Normal Right Flexion (L2) 5 Normal Extension (S1) 4- Good- Abduction 4 Good External Rotation 4 Good Internal Rotation 4+ Good+ Knee Strength Knee Manual Muscle Testing Right Flexion (S2) 5 Normal Extension (L3) 4+ Good+ Left Flexion (S2) 5 Normal Extension (L3) 4+ Good+ Ankle/Foot Strength Ankle and Foot Manual Muscle Testing Right Dorsiflexion (L4) 5 Normal Plantarflexion (S1) 5 Normal Inversion 5 Normal Eversion (S1) 5 Normal Comments seated PF testing B Left Dorsiflexion (L4) 5 Normal Plantarflexion (S1) 5 Normal Inversion 5 Normal Toe Strength Toe Manual Muscle Testing Left Great Toe Flexion 5 Normal Extension 4 Good Right Great Toe Flexion 3+ Fair+ Extension 4- Good- PT-OP-Q Treatments Start: 02/05/19 08:10 Freq: Status: Active Protocol: Document 06/18/19 09:01 MT (Rec: 06/18/19 10:58 MT [id number]) Cardio Equipment Recumbent Elliptical (Biodex) Duration (Minutes) 6 Resistance 7 Gym Equipment Sport Cord red Exercise Details walking Cord/Resistance red Reps/Duration 10 Comments cueing for taking smaller steps and more forward contact on foot to avoid knee hyperextension. focused on push off and forward momentum to avoid lateral leaning and cueing to avoid locking out knees into extension. Use of mirror for visual cueing. Therapeutic Exercises Sitting Exercises foot strength Sitting Exercise Name towel scrunch Side right Reps/Minutes 3 x 1/2 towel lengths Comments attempted on linoleum floor for less friction: still difficult for pt Standing Exercises TKE Standing Exercise Name TKE Side bilateral Resistance L1 Reps/Minutes 20 each side Comments band around calf for cueing of solueus lateral stepping Side bilateral Reps/Minutes 20 per side Manual Therapy Treatment Soft Tissue Mobilization foot Body Location R foot, medial arch Mobilization Type Myofascial Release,Rolling, Strumming,Sustained Pressure Intensity/Depth Moderate Body Position Sidelying Comments with pt performing ankle pumps and toe extension Joint Mobilizations calcaneus Joint R calcaneus Direction distraction w/ eversion bias Grade III Comments with pt pulling foot into DF w / mob belt PT-OP-R Modalities Start: 02/05/19 08:10 Freq: Status: Active Protocol: Document 06/05/19 09:00 MT (Rec: 06/05/19 11:31 MT [id number]) Hot Pack/Cold Pack Treatment Cold Pack Location R lateral/posterior thigh Patient Position Sidelying Treatment Duration (minutes) 10 Patient Tolerance Good PT-OP-S Aquatic Treatment Start: 02/21/19 07:23 Freq: Status: Active Protocol: Document 05/18/19 12:33 LJ (Rec: 05/18/19 14:18 LJ [id number]) Aquatics Treatment Pool Entry/Exit Pool Entry/Exit Method Stairs Assistance Independent Lower Extremity Exercises heel raise, toe raise Body Position Standing Reps/Duration 10xea HS curls Body Position Standing Water Level Chest Level Equipment Ankle Weight- 2.5# hip circles Body Position Standing Reps/Duration 10x ea hip ab/ad Body Position Standing Reps/Duration 10x ea hip flex/ext Body Position Standing Reps/Duration 10xea Lower Extremity Stretches HC, HS Details at wall Body Position Standing Water Level Chest Level Equipment Large Noodle Reps/Duration 2x45 nerve flossing HS and glute Details right LE Body Position Standing Water Level Chest Level Equipment Large Noodle Reps/Duration 2 min Comments neutral, AB, AD Upper Extremity Exercises shoulder flex/ext Details radha together, alternating Body Position Sitting Reps/Duration 10x ea Comments braced at wall shoulder hor ab/ad Details radha and unil with emphasis on core stab Body Position Sitting Water Level Chest Level Reps/Duration 10x ea Comments braced at wall [place] Activities [place] Activities Bicycle,[place] Other Activities 10 min Comments no flotation devices required for bicycle and running. Deep water traction with lg blue float and #5 wts. 10 minutes. PT-OP-T Assessment and Plan Start: 02/05/19 08:10 Freq: Status: Active Protocol: Document 06/18/19 09:01 MT (Rec: 06/18/19 10:58 MT [id number]) Physical Therapy Assessment Goals lifting Dry Curer Goal (LTG) Pt will have improved lifting mechanics in order to dec strain on LB LTG Duration 08/07/19 gait Dry Curer Goal (LTG) Pt will have improved gait mechanics allowing her to amb without pain during typical daily activties. 04/11/19: improving, pt able to dec trunk lean when focusing on it 06/07- improved w/ cont work and cueing, knees can be limiting towards this LTG Duration 08/07/19 activity tolerance Care Home Goal (LTG) Pt will be able to sit for an hour without inc pain, allowing her to participate in full tutoring sessions without pain. 04/11/19: progress, pt able to sit 30 minutes w/o inc pain 06/07-Pt able to sit fulll sessions at this time but feels stiff after. Improved LTG Duration 08/07/19 strength Short Term Goal (STG) Pt will be indep with HEP & gym program in order to work towards independence with strengthening program. 04/11/19: progressing, pt has been compliant with HEP and going to pool instead of gym STG Duration achieved Care Home Goal (LTG) Pt will have 5/5 LE strength and 3/5 LPM to show improvement in strength in order to allow her to return to typical activities without pain. 04/11/19: improving, pt's ankle and knee strength have improved to nearly 5/5. LPM / . 06/07-significantly improved, toe strength limited. Improved LPM today LTG Duration 06/11/2019 Assessment Summary Assessment Pt improved in her foot strength and is able to perform towel scrunches for exercise. Cueing during gait training to heel strike more forward on her heel to avoid knee hyperextension, which worked. Pt required cueing when walking to different activities to maintain gait corrections. Pt tolerated calcaneal mobilizations well and had increased mobility in her ankle following the mobilzation. Physical Therapy Plan Frequency and Duration Frequency of Treatment 1-2x/week Duration of Treatment 2 months Plan of Care Start Date 06/07/19 Plan of Care End Date 08/07/19 Next Visit Focus/Plan Next Note Type Treatment Note Next Visit Plan continue to progress core strengthening exercises, gait training focused on weight acceptance and push off, calcaneal mobilizations, foot strengthening
--- NOTE | 2019-06-25 13:50 | PT.OTN ---
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 (Rec: 02/05/19 09:12 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 Pt reports when seeing a movie on the tuesday, she had bad back pain and then she had foot numbness. That Tuesday, she saw a chiropractor and that helped. Pt reports foot is numb and first 4 toes. Pt reports she gets shooting pain only through the foot . Pt reports it seems like when knees are bend and in PF. Prior Treatments and Tests Xrays on back and knees, shots in knees-cannot get surgery d /t weight Treatment Goals Patient/Caregiver Goals wants numbness to go away, be able to sit 1 hour, be able to walk with less pain PT-OP-C Subjective Start: 02/05/19 08:10 Freq: Status: Active Protocol: Document 06/25/19 09:03 MT (Rec: 06/25/19 10:39 MT [id number]) OP-PT Subjective Patient Comments Patient Comments Pt reports that she has made it to the pool 3 times in the past week. Her foot was especially sore today. She reports it's easier to tack picker dog toys with her foot. She reports that her foot felt really god for the rest of the day after her last session with the foot mobilizations. PT-OP-G Mobility & Gait Start: 02/05/19 08:10 Freq: Status: Active Protocol: Document 02/05/19 08:12 [facility] (Rec: 02/05/19 09:12 [facility] [id number]) OP Gait Assessment Comments Gait Comments Pt amb with lat leaning side to side B with amb and amb with slow gait. PT-OP-J Posture/Palpation/Skin Start: 02/05/19 08:10 Freq: Status: Active Protocol: Document 04/11/19 09:45 [facility] (Rec: 04/11/19 10:07 [facility] [id number]) Posture Evaluation [facility] Postural Classification System Lumbar Protective Mechanism Left AP 1 Lumbar Protective Mechanism Right AP 1 Lumbar Protective Mechanism Left PA 2 Lumbar Protective Mechanism Right PA 1 PT-OP-K Range of Motion Start: 02/05/19 08:10 Freq: Status: Active Protocol: Document 02/05/19 08:12 [facility] (Rec: 02/05/19 09:12 [facility] [id number]) Lumbar Spine Range of Motion Lumbar Spine Active Degrees Flexion 60 Extension 22 Rotation Left 30 Rotation Right 29 Knee Goniometric Range of Motion Knee Right Flexion Active (degrees) 105 Extension Active (degrees) 6 Left Flexion Active (degrees) 101 Extension Active (degrees) 3 PT-OP-L Special Tests Start: 02/05/19 08:10 Freq: Status: Active Protocol: Document 02/05/19 08:12 [facility] (Rec: 02/05/19 09:12 [facility] [id number]) Special Tests Lumbar Spine Special Tests SLR Test Results WNL Slump Test Results neg B PT-OP-M Strength Start: 02/05/19 08:10 Freq: Status: Active Protocol: Document 06/07/19 09:09 [facility] (Rec: 06/07/19 16:26 [facility] [id number]) Hip Strength Hip Manual Muscle Testing Left Flexion (L2) 5 Normal Extension (S1) 4- Good- Abduction 4- Good- External Rotation 5 Normal Internal Rotation 5 Normal Right Flexion (L2) 5 Normal Extension (S1) 4- Good- Abduction 4 Good External Rotation 4 Good Internal Rotation 4+ Good+ Knee Strength Knee Manual Muscle Testing Right Flexion (S2) 5 Normal Extension (L3) 4+ Good+ Left Flexion (S2) 5 Normal Extension (L3) 4+ Good+ Ankle/Foot Strength Ankle and Foot Manual Muscle Testing Right Dorsiflexion (L4) 5 Normal Plantarflexion (S1) 5 Normal Inversion 5 Normal Eversion (S1) 5 Normal Comments seated PF testing B Left Dorsiflexion (L4) 5 Normal Plantarflexion (S1) 5 Normal Inversion 5 Normal Toe Strength Toe Manual Muscle Testing Left Great Toe Flexion 5 Normal Extension 4 Good Right Great Toe Flexion 3+ Fair+ Extension 4- Good- PT-OP-Q Treatments Start: 02/05/19 08:10 Freq: Status: Active Protocol: Document 06/25/19 09:03 MT (Rec: 06/25/19 10:39 MT [id number]) Cardio Equipment Recumbent Elliptical (Biodex) Duration (Minutes) 6 Resistance 8 Gym Equipment Sport Cord red Exercise Details walking Cord/Resistance red Reps/Duration 15 Comments cueing for taking smaller steps and more forward contact on foot to avoid knee hyperextension. focused on push off and forward momentum to avoid lateral leaning and cueing to avoid locking out knees into extension. Use of mirror for visual cueing. Therapeutic Exercises Sitting Exercises foot strength Sitting Exercise Name towel scrunch Side right Reps/Minutes 2 towel lengths Comments attempted on linoleum floor for less friction: still difficult for pt Standing Exercises TKE Standing Exercise Name TKE Side bilateral Resistance L2 Reps/Minutes 20 each side Comments band around calf for cueing of solueus Manual Therapy Treatment Soft Tissue Mobilization foot Body Location R foot, medial arch Mobilization Type Myofascial Release,Rolling, Strumming,Sustained Pressure Intensity/Depth Moderate Body Position Sidelying Comments with pt performing ankle pumps and toe extension Joint Mobilizations calcaneus Joint R calcaneus Direction distraction, inversion, eversion, DF Grade III Comments with pt pulling foot into DF w / mob belt PT-OP-R Modalities Start: 02/05/19 08:10 Freq: Status: Active Protocol: Document 06/05/19 09:00 MT (Rec: 06/05/19 11:31 MT [id number]) Hot Pack/Cold Pack Treatment Cold Pack Location R lateral/posterior thigh Patient Position Sidelying Treatment Duration (minutes) 10 Patient Tolerance Good PT-OP-S Aquatic Treatment Start: 02/21/19 07:23 Freq: Status: Active Protocol: Document 05/18/19 12:33 LJ (Rec: 05/18/19 14:18 LJ [id number]) Aquatics Treatment Pool Entry/Exit Pool Entry/Exit Method Stairs Assistance Independent Lower Extremity Exercises heel raise, toe raise Body Position Standing Reps/Duration 10xea HS curls Body Position Standing Water Level Chest Level Equipment Ankle Weight- 2.5# hip circles Body Position Standing Reps/Duration 10x ea hip ab/ad Body Position Standing Reps/Duration 10x ea hip flex/ext Body Position Standing Reps/Duration 10xea Lower Extremity Stretches HC, HS Details at wall Body Position Standing Water Level Chest Level Equipment Large Noodle Reps/Duration 2x45 nerve flossing HS and glute Details right LE Body Position Standing Water Level Chest Level Equipment Large Noodle Reps/Duration 2 min Comments neutral, AB, AD Upper Extremity Exercises shoulder flex/ext Details radha together, alternating Body Position Sitting Reps/Duration 10x ea Comments braced at wall shoulder hor ab/ad Details radha and unil with emphasis on core stab Body Position Sitting Water Level Chest Level Reps/Duration 10x ea Comments braced at wall [place] Bicycle,[place] Other Activities 10 min Comments no flotation devices required for bicycle and running. Deep water traction with lg blue float and #5 wts. 10 minutes. PT-OP-T Assessment and Plan Start: 02/05/19 08:10 Freq: Status: Active Protocol: Document 06/25/19 09:03 MT (Rec: 06/25/19 10:39 MT [id number]) Physical Therapy Assessment Goals lifting [facility] Goal (LTG) Pt will have improved lifting mechanics in order to dec strain on LB LTG Duration 08/07/19 gait Tape Machine Tailer Goal (LTG) Pt will have improved gait mechanics allowing her to amb without pain during typical daily activties. 04/11/19: improving, pt able to dec trunk lean when focusing on it 06/07- improved w/ cont work and cueing, knees can be limiting towards this LTG Duration 08/07/19 activity tolerance [facility] Goal (LTG) Pt will be able to sit for an hour without inc pain, allowing her to participate in full tutoring sessions without pain. 04/11/19: progress, pt able to sit 30 minutes w/o inc pain 06/07-Pt able to sit fulll sessions at this time but feels stiff after. Improved LTG Duration 08/07/19 strength Short Term Goal (STG) Pt will be indep with HEP & gym program in order to work towards independence with strengthening program. 04/11/19: progressing, pt has been compliant with HEP and going to pool instead of gym STG Duration achieved Tape Machine Tailer Goal (LTG) Pt will have 5/5 LE strength and 3/5 LPM to show improvement in strength in order to allow her to return to typical activities without pain. 04/11/19: improving, pt's ankle and knee strength have improved to nearly 5/5. LPM 08/05. 06/07-significantly improved, toe strength limited. Improved LPM today LTG Duration 06/11/2019 Assessment Summary Assessment Pt demonstrates improved strength and neuromuscular control of her R foot evidenced by her increased ability to perform towel scrunch exercise. She required much less cueing for not locking out her knees during gait training, but still requires cueing when walking from different activities and not focusing on gait to keep her momentum forward instead of lateral leaning. She tolerated calcaneal and talar mobs and foot STM today and reported increased mobility and decreased pain in R foot. Physical Therapy Plan Frequency and Duration Frequency of Treatment 1-2x/week Duration of Treatment 2 months Plan of Care Start Date 06/07/19 Plan of Care End Date 08/07/19 Next Visit Focus/Plan Next Note Type Treatment Note Next Visit Plan continue to progress core strengthening exercises, gait training focused on weight acceptance and push off, calcaneal mobilizations, foot strengthening - introduce arch exercise
--- NOTE | 2019-07-02 14:01 | PT.OTN ---
Current Diagnoses Radiculopathy, lumbosacral region (07/02/19) Other abnormalities of gait and mobility (07/02/19) Abnormal posture (07/02/19) Weakness (07/02/19) Physical Therapy Treatment Note PT-OP-A Visit Information Start: 02/05/19 08:10 Freq: Status: Active Protocol: Document 07/02/19 08:15 MT (Rec: 07/02/19 10:00 MT [id number]) Out-Patient Physical Therapy Visit Information Visit Information Visit Type Treatment Note Visit Start Time 08:15 Visit Stop Time 08:59 Total Visit Minutes 44 Visit Number 34 Number of RIDES SUPERVISOR Visits 0 PT-OP-B Current Condition Start: 02/05/19 08:10 Freq: Status: Active Protocol: Document 02/05/19 08:12 [facility] (Rec: 02/05/19 09:12 [facility] [id number]) Current Condition History of Current Condition History of Current Condition Pt reports chronic knee pain of 3-4 years, 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 Pt reports when seeing a movie on the tuesday, she had bad back pain and then she had foot numbness. That Tuesday, she saw a chiropractor and that helped. Pt reports foot is numb and first 4 toes. Pt reports she gets shooting pain only through the foot . Pt reports it seems like when knees are bend and in PF. Prior Treatments and Tests Xrays on back and knees, shots in knees-cannot get surgery d /t weight Treatment Goals Patient/Caregiver Goals wants numbness to go away, be able to sit 1 hour, be able to walk with less pain PT-OP-C Subjective Start: 02/05/19 08:10 Freq: Status: Active Protocol: Document 07/02/19 08:15 MT (Rec: 07/02/19 10:00 MT [id number]) OP-PT Subjective Patient Comments Patient Comments Pt reports that she has doen her exercises a couple times in the last week, but has not been overall compliant. She has not been able to go to the gym this week. She reports that after working on her foot in last PT her foot felt great for the rest of the day. She reports that it has become easier to do the dog toy pickup and towel scrunch exercises. PT-OP-G Mobility & Gait Start: 02/05/19 08:10 Freq: Status: Active Protocol: Document 02/05/19 08:12 [facility] (Rec: 02/05/19 09:12 [facility] [id number]) OP Gait Assessment Comments Gait Comments Pt amb with lat leaning side to side B with amb and amb with slow gait. PT-OP-J Posture/Palpation/Skin Start: 02/05/19 08:10 Freq: Status: Active Protocol: Document 04/11/19 09:45 [facility] (Rec: 04/11/19 10:07 [facility] [id number]) Posture Evaluation [facility] Postural Classification System Lumbar Protective Mechanism Left AP 1 Lumbar Protective Mechanism Right AP 1 Lumbar Protective Mechanism Left PA 2 Lumbar Protective Mechanism Right PA 1 PT-OP-K Range of Motion Start: 02/05/19 08:10 Freq: Status: Active Protocol: Document 02/05/19 08:12 [facility] (Rec: 02/05/19 09:12 [facility] [id number]) Lumbar Spine Range of Motion Lumbar Spine Active Degrees Flexion 60 Extension 22 Rotation Left 30 Rotation Right 29 Knee Goniometric Range of Motion Knee Right Flexion Active (degrees) 105 Extension Active (degrees) 6 Left Flexion Active (degrees) 101 Extension Active (degrees) 3 PT-OP-L Special Tests Start: 02/05/19 08:10 Freq: Status: Active Protocol: Document 02/05/19 08:12 [facility] (Rec: 02/05/19 09:12 [facility] [id number]) Special Tests Lumbar Spine Special Tests SLR Test Results WNL Slump Test Results neg B PT-OP-M Strength Start: 02/05/19 08:10 Freq: Status: Active Protocol: Document 06/07/19 09:09 [facility] (Rec: 06/07/19 16:26 [facility] [id number]) Hip Strength Hip Manual Muscle Testing Left Flexion (L2) 5 Normal Extension (S1) 4- Good- Abduction 4- Good- External Rotation 5 Normal Internal Rotation 5 Normal Right Flexion (L2) 5 Normal Extension (S1) 4- Good- Abduction 4 Good External Rotation 4 Good Internal Rotation 4+ Good+ Knee Strength Knee Manual Muscle Testing Right Flexion (S2) 5 Normal Extension (L3) 4+ Good+ Left Flexion (S2) 5 Normal Extension (L3) 4+ Good+ Ankle/Foot Strength Ankle and Foot Manual Muscle Testing Right Dorsiflexion (L4) 5 Normal Plantarflexion (S1) 5 Normal Inversion 5 Normal Eversion (S1) 5 Normal Comments seated PF testing B Left Dorsiflexion (L4) 5 Normal Plantarflexion (S1) 5 Normal Inversion 5 Normal Toe Strength Toe Manual Muscle Testing Left Great Toe Flexion 5 Normal Extension 4 Good Right Great Toe Flexion 3+ Fair+ Extension 4- Good- PT-OP-Q Treatments Start: 02/05/19 08:10 Freq: Status: Active Protocol: Document 07/02/19 08:15 MT (Rec: 07/02/19 10:00 MT [id number]) Cardio Equipment Recumbent Elliptical (Biodex) Duration (Minutes) 6 Resistance 8 Gym Equipment Sport Cord red Exercise Details walking Cord/Resistance red Reps/Duration 10 Comments cueing for taking smaller steps and more forward contact on foot to avoid knee hyperextension. focused on push off and forward momentum to avoid lateral leaning and cueing to avoid locking out knees into extension. Use of mirror for visual cueing. Therapeutic Exercises Standing Exercises short foot arch Side bilateral Reps/Minutes 25 each Comments required max cueing for keeping toe down mini squat Standing Exercise Name mini squat Side bilateral Equipment Used mirror for VC of left pelvis drop Reps/Minutes 20 TKE Standing Exercise Name TKE Side bilateral Resistance L2 Reps/Minutes 20 each side Comments band around calf for cueing of solueus Manual Therapy Treatment Soft Tissue Mobilization foot Body Location R foot, medial arch Mobilization Type Myofascial Release,Rolling, Strumming,Sustained Pressure Intensity/Depth Moderate Body Position Sidelying Comments with pt performing ankle pumps and toe extension Joint Mobilizations calcaneus Joint R calcaneus/talus Direction distraction, inversion, eversion, DF Grade III Comments with pt pulling foot into DF w / mob belt PT-OP-R Modalities Start: 02/05/19 08:10 Freq: Status: Active Protocol: Document 06/05/19 09:00 MT (Rec: 06/05/19 11:31 MT [id number]) Hot Pack/Cold Pack Treatment Cold Pack Location R lateral/posterior thigh Patient Position Sidelying Treatment Duration (minutes) 10 Patient Tolerance Good PT-OP-S Aquatic Treatment Start: 02/21/19 07:23 Freq: Status: Active Protocol: Document 05/18/19 12:33 LJ (Rec: 05/18/19 14:18 LJ [id number]) Aquatics Treatment Pool Entry/Exit Pool Entry/Exit Method Stairs Assistance Independent Lower Extremity Exercises heel raise, toe raise Body Position Standing Reps/Duration 10xea HS curls Body Position Standing Water Level Chest Level Equipment Ankle Weight- 2.5# hip circles Body Position Standing Reps/Duration 10x ea hip ab/ad Body Position Standing Reps/Duration 10x ea hip flex/ext Body Position Standing Reps/Duration 10xea Lower Extremity Stretches HC, HS Details at wall Body Position Standing Water Level Chest Level Equipment Large Noodle Reps/Duration 2x45 nerve flossing HS and glute Details right LE Body Position Standing Water Level Chest Level Equipment Large Noodle Reps/Duration 2 min Comments neutral, AB, AD Upper Extremity Exercises shoulder flex/ext Details radha together, alternating Body Position Sitting Reps/Duration 10x ea Comments braced at wall shoulder hor ab/ad Details radha and unil with emphasis on core stab Body Position Sitting Water Level Chest Level Reps/Duration 10x ea Comments braced at wall [place] [employer] [place] Bicycle,[place] Other Activities 10 min Comments no flotation devices required for bicycle and running. Deep water traction with lg blue float and #5 wts. 10 minutes. PT-OP-T Assessment and Plan Start: 02/05/19 08:10 Freq: Status: Active Protocol: Document 07/02/19 08:15 MT (Rec: 07/02/19 10:00 MT [id number]) Physical Therapy Assessment Goals lifting Acute Care Physician Goal (LTG) Pt will have improved lifting mechanics in order to dec strain on LB LTG Duration 08/07/19 gait Fdc Goal (LTG) Pt will have improved gait mechanics allowing her to amb without pain during typical daily activties. 04/11/19: improving, pt able to dec trunk lean when focusing on it 06/07- improved w/ cont work and cueing, knees can be limiting towards this LTG Duration 08/07/19 activity tolerance Acute Care Physician Goal (LTG) Pt will be able to sit for an hour without inc pain, allowing her to participate in full tutoring sessions without pain. 04/11/19: progress, pt able to sit 30 minutes w/o inc pain 06/07-Pt able to sit fulll sessions at this time but feels stiff after. Improved LTG Duration 08/07/19 strength Short Term Goal (STG) Pt will be indep with HEP & gym program in order to work towards independence with strengthening program. 04/11/19: progressing, pt has been compliant with HEP and going to pool instead of gym STG Duration achieved Fdc Goal (LTG) Pt will have 5/5 LE strength and 3/5 LPM to show improvement in strength in order to allow her to return to typical activities without pain. 04/11/19: improving, pt's ankle and knee strength have improved to nearly 5/5. LPM 08/05. 06/07-significantly improved, toe strength limited. Improved LPM today LTG Duration 06/11/2019 Assessment Summary Assessment Pt was instructed to use tennis ball to roll on foot and to keep compliance with her foot stretches, since she usually benefits so much from manual therapy. Pt is demonstrating better gait pattern with less cueing when using the sport cord, but continues to need cueing to avoid lateral lean and avoid heel slapping when not concentrating on gait. Pt struggled with coordination of short arch exercise and needed max cueing for executing exercise. Following STM to plantarfascia and calcaneal/talar joint mobilizations, pt had increased ROM and reported less discomfort in toes and feet. Physical Therapy Plan Frequency and Duration Frequency of Treatment 1-2x/week Duration of Treatment 2 months Plan of Care Start Date 06/07/19 Plan of Care End Date 08/07/19 Next Visit Focus/Plan Next Note Type Treatment Note Next Visit Plan continue to progress core strengthening exercises, gait training focused on weight acceptance and push off, calcaneal mobilizations, foot strengthening, check on foot arch exercise
--- NOTE | 2019-07-04 19:23 | PT.OTN ---
Current Diagnoses Radiculopathy, lumbosacral region (07/04/19) Other abnormalities of gait and mobility (07/04/19) Abnormal posture (07/04/19) Weakness (07/04/19) Physical Therapy Treatment Note PT-OP-A Visit Information Start: 02/05/19 08:10 Freq: Status: Active Protocol: Document 07/04/19 13:47 MT (Rec: 07/04/19 18:28 MT [id number]) Out-Patient Physical Therapy Visit Information Visit Information Visit Type Treatment Note Visit Start Time 13:47 Visit Stop Time 13:49 Total Visit Minutes 52 Visit Number 35 Number of SHADE CLASSIFIER Visits 0 PT-OP-B Current Condition Start: 02/05/19 08:10 Freq: Status: Active Protocol: Document 02/05/19 08:12 [facility] (Rec: 02/05/19 09:12 [facility] [id number]) Current Condition History of Current Condition History of Current Condition Pt reports chronic knee pain of 3-4 years, 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 Pt reports when seeing a movie on the tuesday, she had bad back pain and then she had foot numbness. That Tuesday, she saw a chiropractor and that helped. Pt reports foot is numb and first 4 toes. Pt reports she gets shooting pain only through the foot . Pt reports it seems like when knees are bend and in PF. Prior Treatments and Tests Xrays on back and knees, shots in knees-cannot get surgery d /t weight Treatment Goals Patient/Caregiver Goals wants numbness to go away, be able to sit 1 hour, be able to walk with less pain PT-OP-C Subjective Start: 02/05/19 08:10 Freq: Status: Active Protocol: Document 07/04/19 13:47 MT (Rec: 07/04/19 18:28 MT [id number]) OP-PT Subjective Patient Comments Patient Comments Pt reports that her foot felt good after last PT session. However, the foot got sore after prolonged sitting in the car when driving to [place] on Tuesday. Pt was able to get in the pool this morning. PT-OP-G Mobility & Gait Start: 02/05/19 08:10 Freq: Status: Active Protocol: Document 02/05/19 08:12 [facility] (Rec: 02/05/19 09:12 [facility] [id number]) OP Gait Assessment Comments Gait Comments Pt amb with lat leaning side to side B with amb and amb with slow gait. PT-OP-J Posture/Palpation/Skin Start: 02/05/19 08:10 Freq: Status: Active Protocol: Document 04/11/19 09:45 [facility] (Rec: 04/11/19 10:07 [facility] [id number]) Posture Evaluation [facility] Postural Classification System Lumbar Protective Mechanism Left AP 1 Lumbar Protective Mechanism Right AP 1 Lumbar Protective Mechanism Left PA 2 Lumbar Protective Mechanism Right PA 1 PT-OP-K Range of Motion Start: 02/05/19 08:10 Freq: Status: Active Protocol: Document 02/05/19 08:12 [facility] (Rec: 02/05/19 09:12 [facility] [id number]) Lumbar Spine Range of Motion Lumbar Spine Active Degrees Flexion 60 Extension 22 Rotation Left 30 Rotation Right 29 Knee Goniometric Range of Motion Knee Right Flexion Active (degrees) 105 Extension Active (degrees) 6 Left Flexion Active (degrees) 101 Extension Active (degrees) 3 PT-OP-L Special Tests Start: 02/05/19 08:10 Freq: Status: Active Protocol: Document 02/05/19 08:12 [facility] (Rec: 02/05/19 09:12 [facility] [id number]) Special Tests Lumbar Spine Special Tests SLR Test Results WNL Slump Test Results neg B PT-OP-M Strength Start: 02/05/19 08:10 Freq: Status: Active Protocol: Document 06/07/19 09:09 [facility] (Rec: 06/07/19 16:26 [facility] [id number]) Hip Strength Hip Manual Muscle Testing Left Flexion (L2) 5 Normal Extension (S1) 4- Good- Abduction 4- Good- External Rotation 5 Normal Internal Rotation 5 Normal Right Flexion (L2) 5 Normal Extension (S1) 4- Good- Abduction 4 Good External Rotation 4 Good Internal Rotation 4+ Good+ Knee Strength Knee Manual Muscle Testing Right Flexion (S2) 5 Normal Extension (L3) 4+ Good+ Left Flexion (S2) 5 Normal Extension (L3) 4+ Good+ Ankle/Foot Strength Ankle and Foot Manual Muscle Testing Right Dorsiflexion (L4) 5 Normal Plantarflexion (S1) 5 Normal Inversion 5 Normal Eversion (S1) 5 Normal Comments seated PF testing B Left Dorsiflexion (L4) 5 Normal Plantarflexion (S1) 5 Normal Inversion 5 Normal Toe Strength Toe Manual Muscle Testing Left Great Toe Flexion 5 Normal Extension 4 Good Right Great Toe Flexion 3+ Fair+ Extension 4- Good- PT-OP-Q Treatments Start: 02/05/19 08:10 Freq: Status: Active Protocol: Document 07/04/19 13:47 MT (Rec: 07/04/19 18:28 MT [id number]) Cardio Equipment Recumbent Elliptical ([employer]) Duration (Minutes) 6 Resistance 8 Therapeutic Exercises Standing Exercises short foot arch Side bilateral Reps/Minutes 25 each Comments required max cueing for keeping toe down TKE Standing Exercise Name TKE Side bilateral Resistance L2 Reps/Minutes 20 each side Comments band around calf for cueing of solueus Gait Training Gait Activity gait Comments pt pushing through tbar resisted by PT to improve push off and forward momentum Manual Therapy Treatment Joint Mobilizations calcaneus Joint R calcaneus/talus/cuneiforms/ cuboid Direction distraction, inversion, eversion, DF Grade III Comments with pt pulling foot into DF w / mob belt Neuro Re-Education Treatment Other Activities PNF Details anterior elevation/posterior depression pelvic girdle Comments 1. rhythmic initiation 2. combination of isotonics PT-OP-R Modalities Start: 02/05/19 08:10 Freq: Status: Active Protocol: Document 07/04/19 13:47 MT (Rec: 07/04/19 18:28 MT [id number]) Hot Pack/Cold Pack Treatment Cold Pack Location R ankle and L knee Patient Position Supine Treatment Duration (minutes) 10 Patient Tolerance Good PT-OP-S Aquatic Treatment Start: 02/21/19 07:23 Freq: Status: Active Protocol: Document 05/18/19 12:33 LJ (Rec: 05/18/19 14:18 LJ [id number]) Aquatics Treatment Pool Entry/Exit Pool Entry/Exit Method Stairs Assistance Independent Lower Extremity Exercises heel raise, toe raise Body Position Standing Reps/Duration 10xea HS curls Body Position Standing Water Level Chest Level Equipment Ankle Weight- 2.5# hip circles Body Position Standing Reps/Duration 10x ea hip ab/ad Body Position Standing Reps/Duration 10x ea hip flex/ext Body Position Standing Reps/Duration 10xea Lower Extremity Stretches HC, HS Details at wall Body Position Standing Water Level Chest Level Equipment Large Noodle Reps/Duration 2x45 nerve flossing HS and glute Details right LE Body Position Standing Water Level Chest Level Equipment Large Noodle Reps/Duration 2 min Comments neutral, AB, AD Upper Extremity Exercises shoulder flex/ext Details radha together, alternating Body Position Sitting Reps/Duration 10x ea Comments braced at wall shoulder hor ab/ad Details radha and unil with emphasis on core stab Body Position Sitting Water Level Chest Level Reps/Duration 10x ea Comments braced at wall [place] Activities [place] Activities Bicycle,[place] Other Activities 10 min Comments no flotation devices required for bicycle and running. Deep water traction with lg blue float and #5 wts. 10 minutes. PT-OP-T Assessment and Plan Start: 02/05/19 08:10 Freq: Status: Active Protocol: Document 07/04/19 13:47 MT (Rec: 07/04/19 18:28 MT [id number]) Physical Therapy Assessment Goals lifting Long-Term Goal (LTG) Pt will have improved lifting mechanics in order to dec strain on LB LTG Duration 08/07/19 gait Agricultural Research Engineer Goal (LTG) Pt will have improved gait mechanics allowing her to amb without pain during typical daily activties. 04/11/19: improving, pt able to dec trunk lean when focusing on it 06/07- improved w/ cont work and cueing, knees can be limiting towards this LTG Duration 08/07/19 activity tolerance Agricultural Research Engineer Goal (LTG) Pt will be able to sit for an hour without inc pain, allowing her to participate in full tutoring sessions without pain. 04/11/19: progress, pt able to sit 30 minutes w/o inc pain 06/07-Pt able to sit fulll sessions at this time but feels stiff after. Improved LTG Duration 08/07/19 strength Short Term Goal (STG) Pt will be indep with HEP & gym program in order to work towards independence with strengthening program. 04/11/19: progressing, pt has been compliant with HEP and going to pool instead of gym STG Duration achieved Long-Term Goal (LTG) Pt will have 5/5 LE strength and 3/5 LPM to show improvement in strength in order to allow her to return to typical activities without pain. 04/11/19: improving, pt's ankle and knee strength have improved to nearly 5/5. LPM 08/05. 06/07-significantly improved, toe strength limited. Improved LPM today LTG Duration 08/07/19 Assessment Summary Assessment Pt continued to struggle with isolating movement for schort foot arch exercise, but demonstartes overall improved foot strength and control. Pt had improved foot mobility following mobilizations to calcaneus, talus, and midfoot and reported decreased pain. Pt continues to need cueing for her gait in order to avoid lateral lean and increase forward momentum without hyperextension of knees or foot slap. Pt was able to sorrect this form better after using a dowel to resist walking during gait training. Pt was able to tolerate PNF and will continue to benefit from increasing motor control of PNF patterns for improved gait. Physical Therapy Plan Frequency and Duration Frequency of Treatment 1-2x/week Duration of Treatment 2 months Plan of Care Start Date 06/07/19 Plan of Care End Date 08/07/19 Next Visit Focus/Plan Next Note Type Treatment Note Next Visit Plan continue to progress core strengthening exercises, gait training focused on weight acceptance and push off, calcaneal mobilizations, foot strengthening, check on foot arch exercise
--- NOTE | 2019-07-09 10:58 | PT.OTN ---
Current Diagnoses Radiculopathy, lumbosacral region (07/09/19) Other abnormalities of gait and mobility (07/09/19) Abnormal posture (07/09/19) Weakness (07/09/19) Physical Therapy Treatment Note PT-OP-A Visit Information Start: 02/05/19 08:10 Freq: Status: Active Protocol: Document 07/09/19 08:15 MT (Rec: 07/09/19 10:04 MT [id number]) Out-Patient Physical Therapy Visit Information Visit Information Visit Type Treatment Note Visit Start Time 08:15 Visit Stop Time 09:03 Total Visit Minutes 48 Visit Number 36 Number of VP PACKAGING Visits 0 PT-OP-B Current Condition Start: 02/05/19 08:10 Freq: Status: Active Protocol: Document 02/05/19 08:12 [facility] (Rec: 02/05/19 09:12 [facility] [id number]) Current Condition History of Current Condition History of Current Condition Pt reports chronic knee pain of 3-4 years, 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 Pt reports when seeing a movie on the tuesday, she had bad back pain and then she had foot numbness. That Tuesday, she saw a chiropractor and that helped. Pt reports foot is numb and first 4 toes. Pt reports she gets shooting pain only through the foot . Pt reports it seems like when knees are bend and in PF. Prior Treatments and Tests Xrays on back and knees, shots in knees-cannot get surgery d /t weight Treatment Goals Patient/Caregiver Goals wants numbness to go away, be able to sit 1 hour, be able to walk with less pain PT-OP-C Subjective Start: 02/05/19 08:10 Freq: Status: Active Protocol: Document 07/09/19 08:15 MT (Rec: 07/09/19 10:04 MT [id number]) OP-PT Subjective Patient Comments Patient Comments Pt reported that she was able to tolerate durastions of standing and walking with her [employer] concert this weekend without much increase in pain. Her back only inconsistently gets pain, most of the pain that she has is in her foot now. Following PT her foot always feels better that day, but then becomes painful again in the following days, but pt has noted increased mobility and strength in the foot. PT-OP-G Mobility & Gait Start: 02/05/19 08:10 Freq: Status: Active Protocol: Document 02/05/19 08:12 [facility] (Rec: 02/05/19 09:12 [facility] [id number]) OP Gait Assessment Comments Gait Comments Pt amb with lat leaning side to side B with amb and amb with slow gait. PT-OP-J Posture/Palpation/Skin Start: 02/05/19 08:10 Freq: Status: Active Protocol: Document 04/11/19 09:45 [facility] (Rec: 04/11/19 10:07 [facility] [id number]) Posture Evaluation [facility] Postural Classification System Lumbar Protective Mechanism Left AP 1 Lumbar Protective Mechanism Right AP 1 Lumbar Protective Mechanism Left PA 2 Lumbar Protective Mechanism Right PA 1 PT-OP-K Range of Motion Start: 02/05/19 08:10 Freq: Status: Active Protocol: Document 02/05/19 08:12 [facility] (Rec: 02/05/19 09:12 [facility] [id number]) Lumbar Spine Range of Motion Lumbar Spine Active Degrees Flexion 60 Extension 22 Rotation Left 30 Rotation Right 29 Knee Goniometric Range of Motion Knee Right Flexion Active (degrees) 105 Extension Active (degrees) 6 Left Flexion Active (degrees) 101 Extension Active (degrees) 3 PT-OP-L Special Tests Start: 02/05/19 08:10 Freq: Status: Active Protocol: Document 02/05/19 08:12 [facility] (Rec: 02/05/19 09:12 [facility] [id number]) Special Tests Lumbar Spine Special Tests SLR Test Results WNL Slump Test Results neg B PT-OP-M Strength Start: 02/05/19 08:10 Freq: Status: Active Protocol: Document 06/07/19 09:09 [facility] (Rec: 06/07/19 16:26 [facility] [id number]) Hip Strength Hip Manual Muscle Testing Left Flexion (L2) 5 Normal Extension (S1) 4- Good- Abduction 4- Good- External Rotation 5 Normal Internal Rotation 5 Normal Right Flexion (L2) 5 Normal Extension (S1) 4- Good- Abduction 4 Good External Rotation 4 Good Internal Rotation 4+ Good+ Knee Strength Knee Manual Muscle Testing Right Flexion (S2) 5 Normal Extension (L3) 4+ Good+ Left Flexion (S2) 5 Normal Extension (L3) 4+ Good+ Ankle/Foot Strength Ankle and Foot Manual Muscle Testing Right Dorsiflexion (L4) 5 Normal Plantarflexion (S1) 5 Normal Inversion 5 Normal Eversion (S1) 5 Normal Comments seated PF testing B Left Dorsiflexion (L4) 5 Normal Plantarflexion (S1) 5 Normal Inversion 5 Normal Toe Strength Toe Manual Muscle Testing Left Great Toe Flexion 5 Normal Extension 4 Good Right Great Toe Flexion 3+ Fair+ Extension 4- Good- PT-OP-Q Treatments Start: 02/05/19 08:10 Freq: Status: Active Protocol: Document 07/09/19 08:15 MT (Rec: 07/09/19 10:04 MT [id number]) Cardio Equipment Recumbent Elliptical ([employer]) Duration (Minutes) 6 Resistance 8 Therapeutic Exercises Sitting Exercises foot strength Sitting Exercise Name towel scrunches, toe spreads Side right Standing Exercises short foot arch Side bilateral Reps/Minutes 25 each Comments required max cueing for keeping toe down Gait Training Gait Activity gait Comments pt pushing through tbar resisted by PT to improve push off and forward momentum Manual Therapy Treatment Soft Tissue Mobilization foot Body Location R foot, medial arch, between metatarsal 2-3 Mobilization Type Myofascial Release,Rolling, Strumming,Sustained Pressure Intensity/Depth Moderate Body Position Sidelying Comments with pt performing toe extension Joint Mobilizations calcaneus Joint midfoot mobs Direction gapping gliding Grade III Neuro Re-Education Treatment Other Activities PNF Details anterior elevation/posterior depression pelvic girdle Comments 1. rhythmic initiation 2. combination of isotonics 3. reverse concentrics with LE movement Self-Care/Home Management Treatment Education Other Education education to pt about selecting proper footwear and criteria to look for to pick out properly supportive shoes PT-OP-R Modalities Start: 02/05/19 08:10 Freq: Status: Active Protocol: Document 07/04/19 13:47 MT (Rec: 07/04/19 18:28 MT [id number]) Hot Pack/Cold Pack Treatment Cold Pack Location R ankle and L knee Patient Position Supine Treatment Duration (minutes) 10 Patient Tolerance Good PT-OP-S Aquatic Treatment Start: 02/21/19 07:23 Freq: Status: Active Protocol: Document 05/18/19 12:33 LJ (Rec: 05/18/19 14:18 LJ [id number]) Aquatics Treatment Pool Entry/Exit Pool Entry/Exit Method Stairs Assistance Independent Lower Extremity Exercises heel raise, toe raise Body Position Standing Reps/Duration 10xea HS curls Body Position Standing Water Level Chest Level Equipment Ankle Weight- 2.5# hip circles Body Position Standing Reps/Duration 10x ea hip ab/ad Body Position Standing Reps/Duration 10x ea hip flex/ext Body Position Standing Reps/Duration 10xea Lower Extremity Stretches HC, HS Details at wall Body Position Standing Water Level Chest Level Equipment Large Noodle Reps/Duration 2x45 nerve flossing HS and glute Details right LE Body Position Standing Water Level Chest Level Equipment Large Noodle Reps/Duration 2 min Comments neutral, AB, AD Upper Extremity Exercises shoulder flex/ext Details radha together, alternating Body Position Sitting Reps/Duration 10x ea Comments braced at wall shoulder hor ab/ad Details radha and unil with emphasis on core stab Body Position Sitting Water Level Chest Level Reps/Duration 10x ea Comments braced at wall [place] Activities [place] Activities Bicycle,[place] Other Activities 10 min Comments no flotation devices required for bicycle and running. Deep water traction with lg blue float and #5 wts. 10 minutes. PT-OP-T Assessment and Plan Start: 02/05/19 08:10 Freq: Status: Active Protocol: Document 07/09/19 08:15 MT (Rec: 07/09/19 10:04 MT [id number]) Physical Therapy Assessment Goals lifting Retirement Goal (LTG) Pt will have improved lifting mechanics in order to dec strain on LB LTG Duration 08/07/19 gait Machine Tool Technician Instructor Goal (LTG) Pt will have improved gait mechanics allowing her to amb without pain during typical daily activties. 04/11/19: improving, pt able to dec trunk lean when focusing on it 06/07- improved w/ cont work and cueing, knees can be limiting towards this LTG Duration 08/07/19 activity tolerance Retirement Goal (LTG) Pt will be able to sit for an hour without inc pain, allowing her to participate in full tutoring sessions without pain. 04/11/19: progress, pt able to sit 30 minutes w/o inc pain 06/07-Pt able to sit fulll sessions at this time but feels stiff after. Improved LTG Duration 08/07/19 strength Short Term Goal (STG) Pt will be indep with HEP & gym program in order to work towards independence with strengthening program. 04/11/19: progressing, pt has been compliant with HEP and going to pool instead of gym STG Duration achieved Retirement Goal (LTG) Pt will have 5/5 LE strength and 3/5 LPM to show improvement in strength in order to allow her to return to typical activities without pain. 04/11/19: improving, pt's ankle and knee strength have improved to nearly 5/5. LPM 08/05. 06/07-significantly improved, toe strength limited. Improved LPM today LTG Duration 08/07/19 Assessment Summary Assessment Pt improved with her ability to isolate arch movements with less cueing and less compensating movements. Pt is improving with her ability to push off and have forward momentum with her gait, but continues to require cueing for compensations and avoiding lateral and posterior trunk lean. Pt was able to tolerate PNF working on anterior elevation and posterior depression with incorporating LE movements. Pt had increased mobility in R foot following manual therapy with reported decrease in pain. Begin discussing discharge with pt, as she is hasving decreased pain and is beginning to plateua with her progress. Pt reported that she needs to get new shoes and asked for recommendations, so she was educated about criteria for selecting proper supportive footwear for her. Physical Therapy Plan Frequency and Duration Frequency of Treatment 1-2x/week Duration of Treatment 2 months Plan of Care Start Date 06/07/19 Plan of Care End Date 08/07/19 Next Visit Focus/Plan Next Note Type Treatment Note Next Visit Plan continue to progress core exercises, gait training focused on weight acceptance and push off, mid foot mobs, PNF focused on posterior depression
--- NOTE | 2019-07-11 15:10 | PT.OTN ---
Current Diagnoses Radiculopathy, lumbosacral region (07/11/19) Other abnormalities of gait and mobility (07/11/19) Abnormal posture (07/11/19) Weakness (07/11/19) Physical Therapy Treatment Note PT-OP-A Visit Information Start: 02/05/19 08:10 Freq: Status: Active Protocol: Document 07/11/19 09:45 MT (Rec: 07/11/19 12:33 MT [id number]) Out-Patient Physical Therapy Visit Information Visit Information Visit Type Treatment Note Visit Start Time 09:45 Visit Stop Time 10:30 Total Visit Minutes 45 Visit Number [id number] Number of HOG RAISER Visits 0 PT-OP-B Current Condition Start: 02/05/19 08:10 Freq: Status: Active Protocol: Document 02/05/19 08:12 [facility] (Rec: 02/05/19 09:12 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 Pt reports when seeing a movie on the tuesday, she had bad back pain and then she had foot numbness. That Tuesday, she saw a chiropractor and that helped. Pt reports foot is numb and first 4 toes. Pt reports she gets shooting pain only through the foot . Pt reports it seems like when knees are bend and in PF. Prior Treatments and Tests Xrays on back and knees, shots in knees-cannot get surgery d /t weight Treatment Goals Patient/Caregiver Goals wants numbness to go away, be able to sit 1 hour, be able to walk with less pain PT-OP-C Subjective Start: 02/05/19 08:10 Freq: Status: Active Protocol: Document 07/11/19 09:45 MT (Rec: 07/11/19 12:33 MT [id number]) OP-PT Subjective Patient Comments Patient Comments Pt reported that herfoot has been feeling about the same, but she has started having a new shooting pain on the top of her foot over her big toe. PT-OP-G Mobility & Gait Start: 02/05/19 08:10 Freq: Status: Active Protocol: Document 02/05/19 08:12 [facility] (Rec: 02/05/19 09:12 [facility] [id number]) OP Gait Assessment Comments Gait Comments Pt amb with lat leaning side to side B with amb and amb with slow gait. PT-OP-J Posture/Palpation/Skin Start: 02/05/19 08:10 Freq: Status: Active Protocol: Document 04/11/19 09:45 [facility] (Rec: 04/11/19 10:07 [facility] [id number]) Posture Evaluation [facility] Postural Classification System Lumbar Protective Mechanism Left AP 1 Lumbar Protective Mechanism Right AP 1 Lumbar Protective Mechanism Left PA 2 Lumbar Protective Mechanism Right PA 1 PT-OP-K Range of Motion Start: 02/05/19 08:10 Freq: Status: Active Protocol: Document 02/05/19 08:12 [facility] (Rec: 02/05/19 09:12 [facility] [id number]) Lumbar Spine Range of Motion Lumbar Spine Active Degrees Flexion 60 Extension 22 Rotation Left 30 Rotation Right 29 Knee Goniometric Range of Motion Knee Right Flexion Active (degrees) 105 Extension Active (degrees) 6 Left Flexion Active (degrees) 101 Extension Active (degrees) 3 PT-OP-L Special Tests Start: 02/05/19 08:10 Freq: Status: Active Protocol: Document 02/05/19 08:12 [facility] (Rec: 02/05/19 09:12 [facility] [id number]) Special Tests Lumbar Spine Special Tests SLR Test Results WNL Slump Test Results neg B PT-OP-M Strength Start: 02/05/19 08:10 Freq: Status: Active Protocol: Document 06/07/19 09:09 [facility] (Rec: 06/07/19 16:26 [facility] [id number]) Hip Strength Hip Manual Muscle Testing Left Flexion (L2) 5 Normal Extension (S1) 4- Good- Abduction 4- Good- External Rotation 5 Normal Internal Rotation 5 Normal Right Flexion (L2) 5 Normal Extension (S1) 4- Good- Abduction 4 Good External Rotation 4 Good Internal Rotation 4+ Good+ Knee Strength Knee Manual Muscle Testing Right Flexion (S2) 5 Normal Extension (L3) 4+ Good+ Left Flexion (S2) 5 Normal Extension (L3) 4+ Good+ Ankle/Foot Strength Ankle and Foot Manual Muscle Testing Right Dorsiflexion (L4) 5 Normal Plantarflexion (S1) 5 Normal Inversion 5 Normal Eversion (S1) 5 Normal Comments seated PF testing B Left Dorsiflexion (L4) 5 Normal Plantarflexion (S1) 5 Normal Inversion 5 Normal Toe Strength Toe Manual Muscle Testing Left Great Toe Flexion 5 Normal Extension 4 Good Right Great Toe Flexion 3+ Fair+ Extension 4- Good- PT-OP-Q Treatments Start: 02/05/19 08:10 Freq: Status: Active Protocol: Document 07/11/19 09:45 MT (Rec: 07/11/19 12:33 MT [id number]) Cardio Equipment Recumbent Elliptical (Biodex) Duration (Minutes) 6 Resistance 8 Therapeutic Exercises Sitting Exercises foot strength Sitting Exercise Name towel scrunches, toe spreads Side right Standing Exercises short foot arch Side bilateral Reps/Minutes 25 each Comments required max cueing for keeping toe down heel raises Side bilateral Reps/Minutes 20 TKE Standing Exercise Name TKE Side bilateral Resistance L2 Reps/Minutes 20 each side Comments band around calf for cueing of solueus Gait Training Gait Activity gait Comments pt pushing through tbar resisted by PT to improve push off and forward momentum Manual Therapy Treatment Soft Tissue Mobilization foot Body Location R dorsum of foot, medial arch, between metatarsal 2-3 Mobilization Type Myofascial Release,Rolling, Strumming,Sustained Pressure Intensity/Depth Moderate Body Position Sidelying Comments with pt performing toe extension Joint Mobilizations calcaneus Joint R calcaneus, midfoot mobs Direction gapping/gliding/distraction Grade III Comments with pt pulling foot into DF w / mob belt Neuro Re-Education Treatment Other Activities PNF Details anterior elevation/posterior depression pelvic girdle Comments 1. rhythmic initiation 2. combination of isotonics 3. reverse concentrics with LE movement PT-OP-R Modalities Start: 02/05/19 08:10 Freq: Status: Active Protocol: Document 07/04/19 13:47 MT (Rec: 07/04/19 18:28 MT [id number]) Hot Pack/Cold Pack Treatment Cold Pack Location R ankle and L knee Patient Position Supine Treatment Duration (minutes) 10 Patient Tolerance Good PT-OP-S Aquatic Treatment Start: 02/21/19 07:23 Freq: Status: Active Protocol: Document 05/18/19 12:33 LJ (Rec: 05/18/19 14:18 LJ [id number]) Aquatics Treatment Pool Entry/Exit Pool Entry/Exit Method Stairs Assistance Independent Lower Extremity Exercises heel raise, toe raise Body Position Standing Reps/Duration 10xea HS curls Body Position Standing Water Level Chest Level Equipment Ankle Weight- 2.5# hip circles Body Position Standing Reps/Duration 10x ea hip ab/ad Body Position Standing Reps/Duration 10x ea hip flex/ext Body Position Standing Reps/Duration 10xea Lower Extremity Stretches HC, HS Details at wall Body Position Standing Water Level Chest Level Equipment Large Noodle Reps/Duration 2x45 nerve flossing HS and glute Details right LE Body Position Standing Water Level Chest Level Equipment Large Noodle Reps/Duration 2 min Comments neutral, AB, AD Upper Extremity Exercises shoulder flex/ext Details radha together, alternating Body Position Sitting Reps/Duration 10x ea Comments braced at wall shoulder hor ab/ad Details radha and unil with emphasis on core stab Body Position Sitting Water Level Chest Level Reps/Duration 10x ea Comments braced at wall [place] Activities [place] Activities Bicycle,[place] Other Activities 10 min Comments no flotation devices required for bicycle and running. Deep water traction with lg blue float and #5 wts. 10 minutes. PT-OP-T Assessment and Plan Start: 02/05/19 08:10 Freq: Status: Active Protocol: Document 07/11/19 09:45 MT (Rec: 07/11/19 12:33 MT [id number]) Physical Therapy Assessment Goals lifting Closet Builder Goal (LTG) Pt will have improved lifting mechanics in order to dec strain on LB LTG Duration 08/07/19 gait Long-Term Goal (LTG) Pt will have improved gait mechanics allowing her to amb without pain during typical daily activties. 04/11/19: improving, pt able to dec trunk lean when focusing on it 06/07- improved w/ cont work and cueing, knees can be limiting towards this LTG Duration 08/07/19 activity tolerance Long-Term Goal (LTG) Pt will be able to sit for an hour without inc pain, allowing her to participate in full tutoring sessions without pain. 04/11/19: progress, pt able to sit 30 minutes w/o inc pain 06/07-Pt able to sit fulll sessions at this time but feels stiff after. Improved LTG Duration 08/07/19 strength Short Term Goal (STG) Pt will be indep with HEP & gym program in order to work towards independence with strengthening program. 04/11/19: progressing, pt has been compliant with HEP and going to pool instead of gym STG Duration achieved Long-Term Goal (LTG) Pt will have 5/5 LE strength and 3/5 LPM to show improvement in strength in order to allow her to return to typical activities without pain. 04/11/19: improving, pt's ankle and knee strength have improved to nearly 5/5. LPM 08/05. 06/07-significantly improved, toe strength limited. Improved LPM today LTG Duration 08/07/19 Assessment Summary Assessment Pt is demonstrating improved ability with foot strengthening exercises. She was able to tolerate standing heel raises and requires less cueing with her shot foot arch exercises. She was able to perform PNF with much less comensations. Pt reports less foot pain in dorsum of foot following STM. Physical Therapy Plan Frequency and Duration Frequency of Treatment 1-2x/week Duration of Treatment 2 months Plan of Care Start Date 06/07/19 Plan of Care End Date 08/07/19 Next Visit Focus/Plan Next Note Type Treatment Note Next Visit Plan continue to progress core exercises, gait training focused on weight acceptance and push off, mid foot mobs, PNF focused on posterior depression
--- NOTE | 2019-07-16 09:27 | PT.OTN ---
Current Diagnoses Radiculopathy, lumbosacral region (07/16/19) Other abnormalities of gait and mobility (07/16/19) Abnormal posture (07/16/19) Weakness (07/16/19) Physical Therapy Treatment Note PT-OP-A Visit Information Start: 02/05/19 08:10 Freq: Status: Active Protocol: Document 07/16/19 08:31 SAK (Rec: 07/16/19 09:27 SAK [id number]) Out-Patient Physical Therapy Visit Information Visit Information Visit Type Treatment Note Visit Start Time 08:30 Visit Stop Time 09:15 Total Visit Minutes 45 Visit Number 38 Number of WARPER FIXER Visits 0 PT-OP-B Current Condition Start: 02/05/19 08:10 Freq: Status: Active Protocol: Document 02/05/19 08:12 [facility] (Rec: 02/05/19 09:12 [facility] [id number]) Current Condition History of Current Condition History of Current Condition Pt reports chronic knee pain of 3-4 years, 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 Pt reports when seeing a movie on the tuesday, she had bad back pain and then she had foot numbness. That Tuesday, she saw a chiropractor and that helped. Pt reports foot is numb and first 4 toes. Pt reports she gets shooting pain only through the foot . Pt reports it seems like when knees are bend and in PF. Prior Treatments and Tests Xrays on back and knees, shots in knees-cannot get surgery d /t weight Treatment Goals Patient/Caregiver Goals wants numbness to go away, be able to sit 1 hour, be able to walk with less pain PT-OP-C Subjective Start: 02/05/19 08:10 Freq: Status: Active Protocol: Document 07/16/19 08:31 SAK (Rec: 07/16/19 09:27 SAK [id number]) OP-PT Subjective Patient Comments Patient Comments [place] better for a few hours after last PT treatment. Better after aquatic exercise. Foot still numb. PT-OP-G Mobility & Gait Start: 02/05/19 08:10 Freq: Status: Active Protocol: Document 02/05/19 08:12 [facility] (Rec: 02/05/19 09:12 [facility] [id number]) OP Gait Assessment Comments Gait Comments Pt amb with lat leaning side to side B with amb and amb with slow gait. PT-OP-J Posture/Palpation/Skin Start: 02/05/19 08:10 Freq: Status: Active Protocol: Document 04/11/19 09:45 [facility] (Rec: 04/11/19 10:07 [facility] [id number]) Posture Evaluation [facility] Postural Classification System Lumbar Protective Mechanism Left AP 1 Lumbar Protective Mechanism Right AP 1 Lumbar Protective Mechanism Left PA 2 Lumbar Protective Mechanism Right PA 1 PT-OP-K Range of Motion Start: 02/05/19 08:10 Freq: Status: Active Protocol: Document 02/05/19 08:12 [facility] (Rec: 02/05/19 09:12 [facility] [id number]) Lumbar Spine Range of Motion Lumbar Spine Active Degrees Flexion 60 Extension 22 Rotation Left 30 Rotation Right 29 Knee Goniometric Range of Motion Knee Right Flexion Active (degrees) 105 Extension Active (degrees) 6 Left Flexion Active (degrees) 101 Extension Active (degrees) 3 PT-OP-L Special Tests Start: 02/05/19 08:10 Freq: Status: Active Protocol: Document 02/05/19 08:12 [facility] (Rec: 02/05/19 09:12 [facility] [id number]) Special Tests Lumbar Spine Special Tests SLR Test Results WNL Slump Test Results neg B PT-OP-M Strength Start: 02/05/19 08:10 Freq: Status: Active Protocol: Document 06/07/19 09:09 [facility] (Rec: 06/07/19 16:26 [facility] [id number]) Hip Strength Hip Manual Muscle Testing Left Flexion (L2) 5 Normal Extension (S1) 4- Good- Abduction 4- Good- External Rotation 5 Normal Internal Rotation 5 Normal Right Flexion (L2) 5 Normal Extension (S1) 4- Good- Abduction 4 Good External Rotation 4 Good Internal Rotation 4+ Good+ Knee Strength Knee Manual Muscle Testing Right Flexion (S2) 5 Normal Extension (L3) 4+ Good+ Left Flexion (S2) 5 Normal Extension (L3) 4+ Good+ Ankle/Foot Strength Ankle and Foot Manual Muscle Testing Right Dorsiflexion (L4) 5 Normal Plantarflexion (S1) 5 Normal Inversion 5 Normal Eversion (S1) 5 Normal Comments seated PF testing B Left Dorsiflexion (L4) 5 Normal Plantarflexion (S1) 5 Normal Inversion 5 Normal Toe Strength Toe Manual Muscle Testing Left Great Toe Flexion 5 Normal Extension 4 Good Right Great Toe Flexion 3+ Fair+ Extension 4- Good- PT-OP-Q Treatments Start: 02/05/19 08:10 Freq: Status: Active Protocol: Document 07/16/19 08:31 SAK (Rec: 07/16/19 09:27 SAK [id number]) Cardio Equipment Recumbent Elliptical (Biodex) Duration (Minutes) 6 Resistance 8 Therapeutic Exercises Sitting Exercises foot strength Sitting Exercise Name towel scrunches, toe spreads Side right Standing Exercises short foot arch Side bilateral Reps/Minutes 25 each Comments required max cueing for keeping toe down heel raises Side bilateral Reps/Minutes 20 Comments mirror for visual feedback. TKE Standing Exercise Name TKE Side bilateral Resistance L2 Reps/Minutes 20 each side Comments band around calf for cueing of solueus Gait Training Gait Activity gait with visual feedback Treatment Focus correcting mechanics and muscle activation Comments slow gait with mirror for visual feedback, focus on gluteal activation, push-off, and decrease lateral sway gait Comments pt pushing through tbar resisted by PT to improve push off and forward momentum. Manual Therapy Treatment Soft Tissue Mobilization foot Body Location R dorsum of foot, medial arch, between metatarsal 2-3 Mobilization Type Myofascial Release,Rolling, Strumming,Sustained Pressure Intensity/Depth Moderate Body Position Sidelying Comments with pt performing toe extension Joint Mobilizations calcaneus Joint R calcaneus, midfoot mobs Direction gapping/gliding/distraction Grade III Comments with pt pulling foot into DF w / mob belt Taping right foot Body Location right foot Treatment Focus edema reduction and arch support Type of Tape kinesiotape Skin Inspection intact Self-Care/Home Management Treatment Education Other Education reviewed PT-OP-R Modalities Start: 02/05/19 08:10 Freq: Status: Active Protocol: Document 07/04/19 13:47 MT (Rec: 07/04/19 18:28 MT [id number]) Hot Pack/Cold Pack Treatment Cold Pack Location R ankle and L knee Patient Position Supine Treatment Duration (minutes) 10 Patient Tolerance Good PT-OP-S Aquatic Treatment Start: 02/21/19 07:23 Freq: Status: Active Protocol: Document 05/18/19 12:33 LJ (Rec: 05/18/19 14:18 LJ [id number]) Aquatics Treatment Pool Entry/Exit Pool Entry/Exit Method Stairs Assistance Independent Lower Extremity Exercises heel raise, toe raise Body Position Standing Reps/Duration 10xea HS curls Body Position Standing Water Level Chest Level Equipment Ankle Weight- 2.5# hip circles Body Position Standing Reps/Duration 10x ea hip ab/ad Body Position Standing Reps/Duration 10x ea hip flex/ext Body Position Standing Reps/Duration 10xea Lower Extremity Stretches HC, HS Details at wall Body Position Standing Water Level Chest Level Equipment Large Noodle Reps/Duration 2x45 nerve flossing HS and glute Details right LE Body Position Standing Water Level Chest Level Equipment Large Noodle Reps/Duration 2 min Comments neutral, AB, AD Upper Extremity Exercises shoulder flex/ext Details radha together, alternating Body Position Sitting Reps/Duration 10x ea Comments braced at wall shoulder hor ab/ad Details radha and unil with emphasis on core stab Body Position Sitting Water Level Chest Level Reps/Duration 10x ea Comments braced at wall [place] Activities [place] Activities Bicycle,[place] Other Activities 10 min Comments no flotation devices required for bicycle and running. Deep water traction with lg blue float and #5 wts. 10 minutes. PT-OP-T Assessment and Plan Start: 02/05/19 08:10 Freq: Status: Active Protocol: Document 07/16/19 08:31 [facility] (Rec: 07/16/19 09:27 [facility] [id number]) Physical Therapy Assessment Goals lifting Correction Goal (LTG) Pt will have improved lifting mechanics in order to dec strain on LB LTG Duration 08/07/19 gait Correction Goal (LTG) Pt will have improved gait mechanics allowing her to amb without pain during typical daily activties. 04/11/19: improving, pt able to dec trunk lean when focusing on it 06/07- improved w/ cont work and cueing, knees can be limiting towards this LTG Duration 08/07/19 activity tolerance Correction Goal (LTG) Pt will be able to sit for an hour without inc pain, allowing her to participate in full tutoring sessions without pain. 04/11/19: progress, pt able to sit 30 minutes w/o inc pain 06/07-Pt able to sit fulll sessions at this time but feels stiff after. Improved LTG Duration 08/07/19 strength Short Term Goal (STG) Pt will be indep with HEP & gym program in order to work towards independence with strengthening program. 04/11/19: progressing, pt has been compliant with HEP and going to pool instead of gym STG Duration achieved Correction Goal (LTG) Pt will have 5/5 LE strength and 3/5 LPM to show improvement in strength in order to allow her to return to typical activities without pain. 04/11/19: improving, pt's ankle and knee strength have improved to nearly 5/5. LPM 08/05. 06/07-significantly improved, toe strength limited. Improved LPM today LTG Duration 08/07/19 Assessment Summary Assessment Patient requires frequent cues for gait mechanics, muscle isolation. Good focus and improving ability during therapy activities and exercises, but functionally still demonstrating excess lateral sway with gait. Further discussion today of possible decreased PT frequency to 1x/wk. Trial kinesiotape today due to swelling dorsum right foot and for support and facil medial longitudinal arch. Physical Therapy Plan Frequency and Duration Frequency of Treatment 1-2x/week Duration of Treatment 2 months Plan of Care Start Date 06/07/19 Plan of Care End Date 08/07/19 Therapeutic Interventions Therapeutic Interventions Aquatic Therapy,Balance Training,Gait Training,Home Exercise Program,Joint Mobilizations,Manual Therapy, Neuromuscular Re-education, Patient/Caregiver Education, Self-Care/Home Management,Soft Tissue Mobilization,Taping, Therapeutic Activities, Therapeutic Exercises Modalities Biofeedback,Cold Pack/Ice Massage,Electric Stimulation, Hot Packs,Infrared Therapy, Iontophoresis,Traction- Mechanical,Ultrasound Next Visit Focus/Plan Next Note Type Treatment Note Next Visit Plan Sees osteopath today, will discuss POC next visit with primary PT. Patient reports she will obtain new footwear after Sveta.
--- NOTE | 2019-07-18 19:02 | PT.OTN ---
Current Diagnoses Radiculopathy, lumbosacral region (07/18/19) Other abnormalities of gait and mobility (07/18/19) Abnormal posture (07/18/19) Weakness (07/18/19) Physical Therapy Treatment Note PT-OP-A Visit Information Start: 02/05/19 08:10 Freq: Status: Active Protocol: Document 07/18/19 08:15 MT (Rec: 07/18/19 12:43 MT [id number]) Out-Patient Physical Therapy Visit Information Visit Information Visit Type Treatment Note Visit Start Time 08:15 Visit Stop Time 08:59 Total Visit Minutes 44 Visit Number 39 Number of MANAGER NEW PRODUCT Visits 0 PT-OP-B Current Condition Start: 02/05/19 08:10 Freq: Status: Active Protocol: Document 02/05/19 08:12 [facility] (Rec: 02/05/19 09:12 [facility] [id number]) Current Condition History of Current Condition History of Current Condition Pt reports chronic knee pain of 3-4 years, 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 Pt reports when seeing a movie on the tuesday, she had bad back pain and then she had foot numbness. That Tuesday, she saw a chiropractor and that helped. Pt reports foot is numb and first 4 toes. Pt reports she gets shooting pain only through the foot . Pt reports it seems like when knees are bend and in PF. Prior Treatments and Tests Xrays on back and knees, shots in knees-cannot get surgery d /t weight Treatment Goals Patient/Caregiver Goals wants numbness to go away, be able to sit 1 hour, be able to walk with less pain PT-OP-C Subjective Start: 02/05/19 08:10 Freq: Status: Active Protocol: Document 07/18/19 08:15 MT (Rec: 07/18/19 12:43 MT [id number]) OP-PT Subjective Patient Comments Patient Comments Pt said thatshe thought the tape helped her foot feel better. She only got the shooting pain a couple of times over the last couple of days. pt reports that she has been sleeping better over the last couple of days. Pt went to doctor to ask about getting a referrral for PT knee as well and doctor, which the doctor agreed to. PT-OP-G Mobility & Gait Start: 02/05/19 08:10 Freq: Status: Active Protocol: Document 02/05/19 08:12 [facility] (Rec: 02/05/19 09:12 [facility] [id number]) OP Gait Assessment Comments Gait Comments Pt amb with lat leaning side to side B with amb and amb with slow gait. PT-OP-J Posture/Palpation/Skin Start: 02/05/19 08:10 Freq: Status: Active Protocol: Document 04/11/19 09:45 [facility] (Rec: 04/11/19 10:07 [facility] [id number]) Posture Evaluation [facility] Postural Classification System Lumbar Protective Mechanism Left AP 1 Lumbar Protective Mechanism Right AP 1 Lumbar Protective Mechanism Left PA 2 Lumbar Protective Mechanism Right PA 1 PT-OP-K Range of Motion Start: 02/05/19 08:10 Freq: Status: Active Protocol: Document 02/05/19 08:12 [facility] (Rec: 02/05/19 09:12 [facility] [id number]) Lumbar Spine Range of Motion Lumbar Spine Active Degrees Flexion 60 Extension 22 Rotation Left 30 Rotation Right 29 Knee Goniometric Range of Motion Knee Right Flexion Active (degrees) 105 Extension Active (degrees) 6 Left Flexion Active (degrees) 101 Extension Active (degrees) 3 PT-OP-L Special Tests Start: 02/05/19 08:10 Freq: Status: Active Protocol: Document 02/05/19 08:12 [facility] (Rec: 02/05/19 09:12 [facility] [id number]) Special Tests Lumbar Spine Special Tests SLR Test Results WNL Slump Test Results neg B PT-OP-M Strength Start: 02/05/19 08:10 Freq: Status: Active Protocol: Document 06/07/19 09:09 [facility] (Rec: 06/07/19 16:26 [facility] [id number]) Hip Strength Hip Manual Muscle Testing Left Flexion (L2) 5 Normal Extension (S1) 4- Good- Abduction 4- Good- External Rotation 5 Normal Internal Rotation 5 Normal Right Flexion (L2) 5 Normal Extension (S1) 4- Good- Abduction 4 Good External Rotation 4 Good Internal Rotation 4+ Good+ Knee Strength Knee Manual Muscle Testing Right Flexion (S2) 5 Normal Extension (L3) 4+ Good+ Left Flexion (S2) 5 Normal Extension (L3) 4+ Good+ Ankle/Foot Strength Ankle and Foot Manual Muscle Testing Right Dorsiflexion (L4) 5 Normal Plantarflexion (S1) 5 Normal Inversion 5 Normal Eversion (S1) 5 Normal Comments seated PF testing B Left Dorsiflexion (L4) 5 Normal Plantarflexion (S1) 5 Normal Inversion 5 Normal Toe Strength Toe Manual Muscle Testing Left Great Toe Flexion 5 Normal Extension 4 Good Right Great Toe Flexion 3+ Fair+ Extension 4- Good- PT-OP-Q Treatments Start: 02/05/19 08:10 Freq: Status: Active Protocol: Document 07/18/19 08:15 MT (Rec: 07/18/19 12:43 MT [id number]) Cardio Equipment Recumbent Elliptical (Biodex) Duration (Minutes) 6 Resistance 8 Therapeutic Exercises Standing Exercises short foot arch Side bilateral Reps/Minutes 25 each Comments sitting and standing heel raises Side bilateral Reps/Minutes 20 Comments mirror for visual feedback. TKE Standing Exercise Name TKE Side bilateral Resistance L2 Reps/Minutes 20 each side Comments band around calf for cueing of solueus Gait Training Gait Activity gait Comments pt pushing through tbar resisted by PT to improve push off and forward momentum. Manual Therapy Treatment Soft Tissue Mobilization foot Body Location R dorsum of foot, medial arch, between metatarsal 2-3 Mobilization Type Myofascial Release,Rolling, Strumming,Sustained Pressure Intensity/Depth Moderate Body Position Sidelying Comments with pt performing toe extension Joint Mobilizations TMT/MTP Joint R 1st and 2nd TMT and MTP Direction distraction/glides Grade II Body Position Supine calcaneus Joint R calcaneus, midfoot mobs Direction gapping/gliding/distraction Grade III Comments with pt pulling foot into DF w / mob belt Taping right foot Body Location right foot Treatment Focus arch support Type of Tape kinesiotape Skin Inspection intact PT-OP-R Modalities Start: 02/05/19 08:10 Freq: Status: Active Protocol: Document 07/04/19 13:47 MT (Rec: 07/04/19 18:28 MT [id number]) Hot Pack/Cold Pack Treatment Cold Pack Location R ankle and L knee Patient Position Supine Treatment Duration (minutes) 10 Patient Tolerance Good PT-OP-S Aquatic Treatment Start: 02/21/19 07:23 Freq: Status: Active Protocol: Document 05/18/19 12:33 L[facility] (Rec: 05/18/19 14:18 [facility] [id number]) Aquatics Treatment Pool Entry/Exit Pool Entry/Exit Method Stairs Assistance Independent Lower Extremity Exercises heel raise, toe raise Body Position Standing Reps/Duration 10xea HS curls Body Position Standing Water Level Chest Level Equipment Ankle Weight- 2.5# hip circles Body Position Standing Reps/Duration 10x ea hip ab/ad Body Position Standing Reps/Duration 10x ea hip flex/ext Body Position Standing Reps/Duration 10xea Lower Extremity Stretches HC, HS Details at wall Body Position Standing Water Level Chest Level Equipment Large Noodle Reps/Duration 2x45 nerve flossing HS and glute Details right LE Body Position Standing Water Level Chest Level Equipment Large Noodle Reps/Duration 2 min Comments neutral, AB, AD Upper Extremity Exercises shoulder flex/ext Details radha together, alternating Body Position Sitting Reps/Duration 10x ea Comments braced at wall shoulder hor ab/ad Details radha and unil with emphasis on core stab Body Position Sitting Water Level Chest Level Reps/Duration 10x ea Comments braced at wall [place] Activities [place] Activities Bicycle,[place] Other Activities 10 min Comments no flotation devices required for bicycle and running. Deep water traction with lg blue float and #5 wts. 10 minutes. PT-OP-T Assessment and Plan Start: 02/05/19 08:10 Freq: Status: Active Protocol: Document 07/18/19 08:15 MT (Rec: 07/18/19 12:43 MT [id number]) Physical Therapy Assessment Goals lifting Jail Goal (LTG) Pt will have improved lifting mechanics in order to dec strain on LB LTG Duration 08/07/19 gait Jail Goal (LTG) Pt will have improved gait mechanics allowing her to amb without pain during typical daily activties. 04/11/19: improving, pt able to dec trunk lean when focusing on it 06/07- improved w/ cont work and cueing, knees can be limiting towards this LTG Duration 08/07/19 activity tolerance Drill Presser Goal (LTG) Pt will be able to sit for an hour without inc pain, allowing her to participate in full tutoring sessions without pain. 04/11/19: progress, pt able to sit 30 minutes w/o inc pain 06/07-Pt able to sit fulll sessions at this time but feels stiff after. Improved LTG Duration 08/07/19 strength Short Term Goal (STG) Pt will be indep with HEP & gym program in order to work towards independence with strengthening program. 04/11/19: progressing, pt has been compliant with HEP and going to pool instead of gym STG Duration achieved Jail Goal (LTG) Pt will have 5/5 LE strength and 3/5 LPM to show improvement in strength in order to allow her to return to typical activities without pain. 04/11/19: improving, pt's ankle and knee strength have improved to nearly 5/5. LPM 08/05. 06/07-significantly improved, toe strength limited. Improved LPM today LTG Duration 08/07/19 Assessment Summary Assessment Pt reported that the tape felt really good and upon inspection her R foot swelling was decreased, so reapplied tape job for arch support only . Pt is increasing in her foot strength, as she is now able to perform short arch exercises in standing vs. sitting. Pt continues to improve her gait following cueing from therapist, but struggles with maintaining corrections when not focused on gait task alone. Physical Therapy Plan Frequency and Duration Frequency of Treatment 1-2x/week Duration of Treatment 2 months Plan of Care Start Date 06/07/19 Plan of Care End Date 08/07/19 Therapeutic Interventions Therapeutic Interventions Aquatic Therapy,Balance Training,Gait Training,Home Exercise Program,Joint Mobilizations,Manual Therapy, Neuromuscular Re-education, Patient/Caregiver Education, Self-Care/Home Management,Soft Tissue Mobilization,Taping, Therapeutic Activities, Therapeutic Exercises Modalities Biofeedback,Cold Pack/Ice Massage,Electric Stimulation, Hot Packs,Infrared Therapy, Iontophoresis,Traction- Mechanical,Ultrasound Next Visit Focus/Plan Next Note Type Treatment Note Next Visit Plan Patient reports she will obtain new footwear after [place]. continue to progress core exercises, gait training, foot strengthening
--- NOTE | 2019-08-21 09:17 | PT-OP ANOTE ---
Pt had to cancel last min d/t falling at home.
--- NOTE | 2019-08-29 18:58 | PT.OTRE ---
Current Diagnoses Radiculopathy, lumbosacral region (08/29/19) Other abnormalities of gait and mobility (08/29/19) Abnormal posture (08/29/19) Weakness (08/29/19) Surgical History (Last Reviewed 07/16/19 @ 11:13 by COLEMAN Joseph) History of rhinoplasty (Acute) History of tonsillectomy (Acute) Hx of bilateral breast reduction surgery (Acute) Visit Care Team Role Provider Type Kayleigh Magdaleno MD Primary Care Provider Non-Staff Specialty: Medical Address: [address] [place] [address], [id number] Email: COLEMAN Joseph Attending Provider Advanced Draw End Hand Specialty: Pain Management Address: [address] [place] [address], [id number] Email: [email or web address] Physical Therapy Re-Evaluation PT-OP-A Visit Information Start: 02/05/19 08:10 Freq: Status: Active Protocol: Document 08/29/19 13:05 [facility] (Rec: 08/29/19 13:46 [facility] [id number]) Out-Patient Physical Therapy Visit Information Visit Information Visit Type Re-Evaluation Visit Start Time 13:00 Visit Stop Time 13:43 Total Visit Minutes 43 Visit Number 40 Number of NUCLEAR PLANT OPERATOR Visits 0 PT-OP-B Current Condition Start: 02/05/19 08:10 Freq: Status: Active Protocol: Document 08/29/19 13:05 [facility] (Rec: 08/29/19 13:46 [facility] [id number]) Current Condition History of Current Condition Onset Date chronic Current Complaints LBP & B Knee pain History of Current Condition 08/29/19- L>R knee pain that has gone on for years and has been bad the past decade. Pt reprots has occasional R lower lumbar pain that happens when she does too much outside. Pt has pain in arch and big toe and dorsal surface of toes and also numbness. Back pain has been better since starting initial treatment, unless she tries to do tgoo much then she can exasterbate it. 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 Pt reports when seeing a movie on the tuesday, she had bad back pain and then she had foot numbness. That Tuesday, she saw a chiropractor and that helped. Pt reports foot is numb and first 4 toes. Pt reports she gets shooting pain only through the foot . Pt reports it seems like when knees are bend and in PF. Prior Treatments and Tests Xrays on back and knees, shots in knees-cannot get surgery d /t weight Treatment Goals Patient/Caregiver Goals Dec pain, be able to work in yard/house for 2-3 hours without having incapacitating pain, stairs reciprocally PT-OP-C Subjective Start: 02/05/19 08:10 Freq: Status: Active Protocol: Document 08/29/19 13:05 [facility] (Rec: 08/29/19 13:46 [facility] [id number]) OP-PT Subjective Patient Comments Patient Comments Pt reprots she has been sick earlier this month and taking care of after surgery OP-PT Pain Assessment Location low back Pain Location Details LB & R foot Intensity 7 Pain Aggravating Factors Sitting Other Pain Aggravating Factors prone, driving Pain Alleviating Factors Lying Supine,Lying Prone B knees Intensity 4 Scale Used Numeric (1 - 10) Description With Movement Frequency Daily Pain Aggravating Factors Standing,Walking,Stair Climbing,Bending Pain Alleviating Factors Cold,Medication,Sitting,Rest PT-OP-G Mobility & Gait Start: 02/05/19 08:10 Freq: Status: Active Protocol: Document 02/05/19 08:12 [facility] (Rec: 02/05/19 09:12 [facility] [id number]) OP Gait Assessment Comments Gait Comments Pt amb with lat leaning side to side B with amb and amb with slow gait. PT-OP-J Posture/Palpation/Skin Start: 02/05/19 08:10 Freq: Status: Active Protocol: Document 08/29/19 13:05 [facility] (Rec: 08/29/19 13:46 [facility] [id number]) Posture Evaluation [facility] Postural Classification System Vertebral Compression Test 1 Elbow Flexion Test 1 Lumbar Protective Mechanism Left AP 1 Lumbar Protective Mechanism Right AP 1 Lumbar Protective Mechanism Left PA 3 Lumbar Protective Mechanism Right PA 3 PT-OP-K Range of Motion Start: 02/05/19 08:10 Freq: Status: Active Protocol: Document 08/29/19 13:05 [facility] (Rec: 08/29/19 13:46 [facility] [id number]) Lumbar Spine Range of Motion Lumbar Spine Active Degrees Flexion 62 Extension 20 Lateral Flexion Left 25 Lateral Flexion Right 24 Knee Goniometric Range of Motion Knee Measured in Degrees Right Flexion Active (degrees) 103 Extension Active (degrees) 3 Left Flexion Active (degrees) 97 Extension Active (degrees) 4 PT-OP-L Special Tests Start: 02/05/19 08:10 Freq: Status: Active Protocol: Document 08/29/19 13:05 [facility] (Rec: 08/29/19 13:46 [facility] [id number]) Special Tests Lumbar Spine Special Tests SLR Test Results neg B Slump Test Results mild L tension PT-OP-M Strength Start: 02/05/19 08:10 Freq: Status: Active Protocol: Document 08/29/19 13:05 [facility] (Rec: 08/29/19 13:46 [facility] [id number]) Hip Strength Hip Manual Muscle Testing Left Flexion (L2) 4+ Good+ Extension (S1) 3+ Fair+ Abduction 4- Good- External Rotation 4 Good Internal Rotation 4+ Good+ Right Flexion (L2) 4+ Good+ Extension (S1) 3+ Fair+ Abduction 4- Good- External Rotation 4 Good Internal Rotation 5 Normal Knee Strength Knee Manual Muscle Testing Right Flexion (S2) 5 Normal Extension (L3) 5 Normal Left Flexion (S2) 5 Normal Extension (L3) 4 Good Ankle/Foot Strength Ankle and Foot Manual Muscle Testing Right Dorsiflexion (L4) 5 Normal Plantarflexion (S1) 5 Normal Inversion 5 Normal Eversion (S1) 5 Normal Comments seated PF testing B Left Dorsiflexion (L4) 5 Normal Plantarflexion (S1) 5 Normal Inversion 5 Normal Eversion (S1) 5 Normal Toe Strength Toe Manual Muscle Testing Left Great Toe Flexion 5 Normal Extension 4+ Good+ Comments 5/5 flex/ext of 2-3 digits Right Great Toe Flexion 4- Good- Extension 4 Good Comments 4-/5 flex/ext of 2-3 digits PT-OP-Q Treatments Start: 02/05/19 08:10 Freq: Status: Active Protocol: Document 08/29/19 13:05 [facility] (Rec: 08/29/19 13:46 [facility] [id number]) Therapeutic Exercises Supine Exercises bridge w glute squeeze Supine Exercise Name w/pelvic tilt & glute squeeze Reps/Minutes 10 Sidelying Exercises clamshells Sidelying Exercise Name clamshells Side bilateral Reps/Minutes 15 ea abd Sidelying Exercise Name hip abd Side bilateral Reps/Minutes 15 ea Comments reviewed form (HEP) Standing Exercises mini squat Standing Exercise Name sit to stand with core & glute engagment Side bilateral Reps/Minutes 5 Self-Care/Home Management Treatment Education Patient Education Home Exercise Program,Posture Other Education edu of importance of returnign to home program, review of exercises PT-OP-R Modalities Start: 02/05/19 08:10 Freq: Status: Active Protocol: Document 07/04/19 13:47 MT (Rec: 07/04/19 18:28 MT [id number]) Hot Pack/Cold Pack Treatment Cold Pack Location R ankle and L knee Patient Position Supine Treatment Duration (minutes) 10 Patient Tolerance Good PT-OP-T Assessment and Plan Start: 02/05/19 08:10 Freq: Status: Active Protocol: Document 08/29/19 13:05 [facility] (Rec: 08/29/19 13:46 [facility] [id number]) Physical Therapy Assessment Rehab Potential Rehabilitation Potential Good Impairments Impairments Activity Tolerance,Balance, Functional Activities, Functional Mobility,Gait,Pain, Posture,ROM,Soft Tissue Mobility,Strength Goals stairs Drive In Teller Goal (LTG) pt will be able to ascend and descend 6 in stairs with rail reciprically with no greater than 2/10 pain. LTG Duration 10/28/[address] In Teller Goal (LTG) Pt will be able to participate in 2-3 hours of yard/ housework without excruciating pain. LTG Duration 10/28/[address] [place] Teller Goal (LTG) Pt will have improved lifting mechanics in order to dec strain on LB LTG Duration 10/28/19 gait Halfway Goal (LTG) Pt will have improved gait mechanics allowing her to amb without pain during typical daily activties. 04/11/19: improving, pt able to dec trunk lean when focusing on it 06/07- improved w/ cont work and cueing, knees can be limiting towards this LTG Duration 10/28/19 activity tolerance Halfway Goal (LTG) Pt will be able to sit for an hour without inc pain, allowing her to participate in full tutoring sessions without pain. 04/11/19: progress, pt able to sit 30 minutes w/o inc pain 06/07-Pt able to sit fulll sessions at this time but feels stiff after. Improved LTG Duration 10/28/19 strength Short Term Goal (STG) Pt will be indep with HEP & gym program in order to work towards independence with strengthening program. 04/11/19: progressing, pt has been compliant with HEP and going to pool instead of gym STG Duration achieved Halfway Goal (LTG) Pt will have 5/5 LE strength and 3/5 LPM to show improvement in strength in order to allow her to return to typical activities without pain. 04/11/19: improving, pt's ankle and knee strength have improved to nearly 5/5. LPM / . 06/07-significantly improved, toe strength limited. Improved LPM today LTG Duration 10/28/19 Assessment Summary Assessment Pt has had difficulty performing home programa nd has not been seen over last month d/t being sick, and helping recover from surgery. She has made limited progress since last reassessment likely d/t these complications. New referal for focus on knee and foot pain received. Pt appears to cont to have dec core control and overall hip and LE stability in order to allow her to particiapte in functional activities such as stairs and yard/house work. Knee pain appears to be from degeneration and improper gait patterns which likely contribute to LBP and foot pain. Pt would benefit from skilled PT to address gait, strength, posture, ROM and balance to improve her functional ability. Physical Therapy Plan Frequency and Duration Frequency of Treatment 1-2x/week Duration of Treatment 2 months Plan of Care Start Date 08/29/19 Plan of Care End Date 10/28/19 Therapeutic Interventions Therapeutic Interventions Aquatic Therapy,Balance Training,Gait Training,Home Exercise Program,Joint Mobilizations,Manual Therapy, Neuromuscular Re-education, Patient/Caregiver Education, Self-Care/Home Management,Soft Tissue Mobilization,Taping, Therapeutic Activities, Therapeutic Exercises Modalities Biofeedback,Cold Pack/Ice Massage,Electric Stimulation, Hot Packs,Infrared Therapy, Iontophoresis,Traction- Mechanical,Ultrasound Next Visit Focus/Plan Next Note Type Treatment Note Next Visit Plan review HEP, progress glute strength progress core exercises, gait training, foot strengthening
--- NOTE | 2019-08-29 18:58 | PT.OPPOC ---
Physical, Occupational & Speech Therapy At [facility] Current Diagnoses Radiculopathy, lumbosacral region (08/29/19) Other abnormalities of gait and mobility (08/29/19) Abnormal posture (08/29/19) Weakness (08/29/19) Visit Care Team Role Provider Type Kayleigh Magdaleno MD Primary Care Provider Non-Staff Specialty: Medical Address: [address] [place] [address], [place], [address] Email: COLEMAN Joseph Attending Provider Advanced Commercial Loan Closer Specialty: Pain Management Address: [address] [place] [address], [id number] Email: [email or web address] Plan Of Care PT-OP-T Assessment and Plan Start: 02/05/19 08:10 Freq: Status: Active Protocol: Document 08/29/19 13:05 [facility] (Rec: 08/29/19 13:46 [facility] [id number]) Physical Therapy Assessment Rehab Potential Rehabilitation Potential Good Impairments Impairments Activity Tolerance,Balance, Functional Activities, Functional Mobility,Gait,Pain, Posture,ROM,Soft Tissue Mobility,Strength Goals stairs Mcc Goal (LTG) pt will be able to ascend and descend 6 in stairs with rail reciprically with no greater than 2/10 pain. LTG Duration 10/28/19 fucntional activity Mcc Goal (LTG) Pt will be able to participate in 2-3 hours of yard/ housework without excruciating pain. LTG Duration 10/28/19 lifting Development Specialist Goal (LTG) Pt will have improved lifting mechanics in order to dec strain on LB LTG Duration 10/28/19 gait Development Specialist Goal (LTG) Pt will have improved gait mechanics allowing her to amb without pain during typical daily activties. 04/11/19: improving, pt able to dec trunk lean when focusing on it 06/07- improved w/ cont work and cueing, knees can be limiting towards this LTG Duration 10/28/19 activity tolerance Development Specialist Goal (LTG) Pt will be able to sit for an hour without inc pain, allowing her to participate in full tutoring sessions without pain. 04/11/19: progress, pt able to sit 30 minutes w/o inc pain 06/07-Pt able to sit fulll sessions at this time but feels stiff after. Improved LTG Duration 10/28/19 strength Short Term Goal (STG) Pt will be indep with HEP & gym program in order to work towards independence with strengthening program. 04/11/19: progressing, pt has been compliant with HEP and going to pool instead of gym STG Duration achieved Development Specialist Goal (LTG) Pt will have 5/5 LE strength and 3/5 LPM to show improvement in strength in order to allow her to return to typical activities without pain. 04/11/19: improving, pt's ankle and knee strength have improved to nearly 5/5. LPM 08/05. 06/07-significantly improved, toe strength limited. Improved LPM today LTG Duration 10/28/19 Assessment Summary Assessment Pt has had difficulty performing home programa nd has not been seen over last month d/t being sick, and helping recover from surgery. She has made limited progress since last reassessment likely d/t these complications. New referal for focus on knee and foot pain received. Pt appears to cont to have dec core control and overall hip and LE stability in order to allow her to particiapte in functional activities such as stairs and yard/house work. Knee pain appears to be from degeneration and improper gait patterns which likely contribute to LBP and foot pain. Pt would benefit from skilled PT to address gait, strength, posture, ROM and balance to improve her functional ability. Physical Therapy Plan Frequency and Duration Frequency of Treatment 1-2x/week Duration of Treatment 2 months Plan of Care Start Date 08/29/19 Plan of Care End Date 10/28/19 Therapeutic Interventions Therapeutic Interventions Aquatic Therapy,Balance Training,Gait Training,Home Exercise Program,Joint Mobilizations,Manual Therapy, Neuromuscular Re-education, Patient/Caregiver Education, Self-Care/Home Management,Soft Tissue Mobilization,Taping, Therapeutic Activities, Therapeutic Exercises Modalities Biofeedback,Cold Pack/Ice Massage,Electric Stimulation, Hot Packs,Infrared Therapy, Iontophoresis,Traction- Mechanical,Ultrasound Next Visit Focus/Plan Next Note Type Treatment Note Next Visit Plan review HEP, progress glute strength progress core exercises, gait training, foot strengthening Plan of Care Dates Plan of Care Start Date 08/29/19 Plan of Care End Date 10/28/19 Electronically Signed by: Leila Albert, PT 08/29/19 0111 Please Sign and Return: I have reviewed this Plan of Care and certify that the skilled therapy services above are required to meet the patient?s needs. Physician Signature Date Printed Name and Credentials Clinical Instructor Signature Printed Name and Credentials
--- NOTE | 2019-09-05 12:12 | PT.OTN ---
Current Diagnoses Radiculopathy, lumbosacral region (09/05/19) Other abnormalities of gait and mobility (09/05/19) Abnormal posture (09/05/19) Weakness (09/05/19) Physical Therapy Treatment Note PT-OP-A Visit Information Start: 02/05/19 08:10 Freq: Status: Active Protocol: Document 09/05/19 10:37 [facility] (Rec: 09/05/19 12:12 [facility] [id number]) Out-Patient Physical Therapy Visit Information Visit Information Visit Type Treatment Note Visit Start Time 10:32 Visit Stop Time 11:25 Total Visit Minutes 53 Visit Number 41 Number of SEWING MACHINE ATTACHMENT TESTER Visits 0 PT-OP-B Current Condition Start: 02/05/19 08:10 Freq: Status: Active Protocol: Document 08/29/19 13:05 [facility] (Rec: 08/29/19 13:46 [facility] [id number]) Current Condition History of Current Condition Onset Date chronic Current Complaints LBP & B Knee pain History of Current Condition 08/29/19- L>R knee pain that has gone on for years and has been bad the past decade. Pt reprots has occasional R lower lumbar pain that happens when she does too much outside. Pt has pain in arch and big toe and dorsal surface of toes and also numbness. Back pain has been better since starting initial treatment, unless she tries to do tgoo much then she can exasterbate it. 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 Pt reports when seeing a movie on the tuesday, she had bad back pain and then she had foot numbness. That Tuesday, she saw a chiropractor and that helped. Pt reports foot is numb and first 4 toes. Pt reports she gets shooting pain only through the foot . Pt reports it seems like when knees are bend and in PF. Prior Treatments and Tests Xrays on back and knees, shots in knees-cannot get surgery d /t weight Treatment Goals Patient/Caregiver Goals Dec pain, be able to work in yard/house for 2-3 hours without having incapacitating pain, stairs reciprocally PT-OP-C Subjective Start: 02/05/19 08:10 Freq: Status: Active Protocol: Document 09/05/19 10:37 [facility] (Rec: 09/05/19 12:12 [facility] [id number]) OP-PT Subjective Patient Comments Patient Comments Pt reports she has not done exercises or gone to gym PT-OP-G Mobility & Gait Start: 02/05/19 08:10 Freq: Status: Active Protocol: Document 02/05/19 08:12 [facility] (Rec: 02/05/19 09:12 [facility] [id number]) OP Gait Assessment Comments Gait Comments Pt amb with lat leaning side to side B with amb and amb with slow gait. PT-OP-J Posture/Palpation/Skin Start: 02/05/19 08:10 Freq: Status: Active Protocol: Document 08/29/19 13:05 [facility] (Rec: 08/29/19 13:46 [facility] [id number]) Posture Evaluation Jeri Postural Classification System Vertebral Compression Test 1 Elbow Flexion Test 1 Lumbar Protective Mechanism Left AP 1 Lumbar Protective Mechanism Right AP 1 Lumbar Protective Mechanism Left PA 3 Lumbar Protective Mechanism Right PA 3 PT-OP-K Range of Motion Start: 02/05/19 08:10 Freq: Status: Active Protocol: Document 08/29/19 13:05 [facility] (Rec: 08/29/19 13:46 [facility] [id number]) Lumbar Spine Range of Motion Lumbar Spine Active Degrees Flexion 62 Extension 20 Lateral Flexion Left 25 Lateral Flexion Right 24 Knee Goniometric Range of Motion Knee Right Flexion Active (degrees) 103 Extension Active (degrees) 3 Left Flexion Active (degrees) 97 Extension Active (degrees) 4 PT-OP-L Special Tests Start: 02/05/19 08:10 Freq: Status: Active Protocol: Document 08/29/19 13:05 [facility] (Rec: 08/29/19 13:46 [facility] [id number]) Special Tests Lumbar Spine Special Tests SLR Test Results neg B Slump Test Results mild L tension PT-OP-M Strength Start: 02/05/19 08:10 Freq: Status: Active Protocol: Document 08/29/19 13:05 [facility] (Rec: 08/29/19 13:46 [facility] [id number]) Hip Strength Hip Manual Muscle Testing Left Flexion (L2) 4+ Good+ Extension (S1) 3+ Fair+ Abduction 4- Good- External Rotation 4 Good Internal Rotation 4+ Good+ Right Flexion (L2) 4+ Good+ Extension (S1) 3+ Fair+ Abduction 4- Good- External Rotation 4 Good Internal Rotation 5 Normal Knee Strength Knee Manual Muscle Testing Right Flexion (S2) 5 Normal Extension (L3) 5 Normal Left Flexion (S2) 5 Normal Extension (L3) 4 Good Ankle/Foot Strength Ankle and Foot Manual Muscle Testing Right Dorsiflexion (L4) 5 Normal Plantarflexion (S1) 5 Normal Inversion 5 Normal Eversion (S1) 5 Normal Comments seated PF testing B Left Dorsiflexion (L4) 5 Normal Plantarflexion (S1) 5 Normal Inversion 5 Normal Eversion (S1) 5 Normal Toe Strength Toe Manual Muscle Testing Left Great Toe Flexion 5 Normal Extension 4+ Good+ Comments 5/5 flex/ext of 2-3 digits Right Great Toe Flexion 4- Good- Extension 4 Good Comments 4-/5 flex/ext of 2-3 digits PT-OP-Q Treatments Start: 02/05/19 08:10 Freq: Status: Active Protocol: Document 09/05/19 10:37 [facility] (Rec: 09/05/19 12:12 [facility] [id number]) Cardio Equipment Recumbent Elliptical (Biodex) Duration (Minutes) 6 Resistance 8 Seat Position 5 Gym Equipment Shuttle Recovery Unilateral Squats Resistance 50# Shuttle Recovery Platform Stable Reps/Time 20 Bilateral Squats Resistance 100# Shuttle Recovery Platform Stable Reps/Time 2x15 reps Therapeutic Exercises Sidelying Exercises clamshells Sidelying Exercise Name clamshells Side bilateral Reps/Minutes 15 ea abd Sidelying Exercise Name hip abd Side bilateral Reps/Minutes 15 ea Comments reviewed for (HEP) Standing Exercises step ups Standing Exercise Name 4in step Side bilateral Reps/Minutes 15 Comments in mirror rail PRN Manual Therapy Treatment Soft Tissue Mobilization quads Body Location VMO L Mobilization Type Rolling Intensity/Depth Moderate Joint Mobilizations hip Joint L Direction AP FM for IR patellofemoral Joint PF Direction sup, inf & med PT-OP-R Modalities Start: 02/05/19 08:10 Freq: Status: Active Protocol: Document 09/05/19 10:37 [facility] (Rec: 09/05/19 12:12 [facility] [id number]) Hot Pack/Cold Pack Treatment Cold Pack Location LB & B Knees Patient Position Hooklying Treatment Duration (minutes) 10 PT-OP-S Aquatic Treatment Start: 02/21/19 07:23 Freq: Status: Active Protocol: Document 05/18/19 12:33 [facility] (Rec: 05/18/19 14:18 [facility] [id number]) Aquatics Treatment Pool Entry/Exit Pool Entry/Exit Method Stairs Assistance Independent Lower Extremity Exercises heel raise, toe raise Body Position Standing Reps/Duration 10xea HS curls Body Position Standing Water Level Chest Level Equipment Ankle Weight- 2.5# hip circles Body Position Standing Reps/Duration 10x ea hip ab/ad Body Position Standing Reps/Duration 10x ea hip flex/ext Body Position Standing Reps/Duration 10xea Lower Extremity Stretches HC, HS Details at wall Body Position Standing Water Level Chest Level Equipment Large Noodle Reps/Duration 2x45 nerve flossing HS and glute Details right LE Body Position Standing Water Level Chest Level Equipment Large Noodle Reps/Duration 2 min Comments neutral, AB, AD Upper Extremity Exercises shoulder flex/ext Details radha together, alternating Body Position Sitting Reps/Duration 10x ea Comments braced at wall shoulder hor ab/ad Details radha and unil with emphasis on core stab Body Position Sitting Water Level Chest Level Reps/Duration 10x ea Comments braced at wall [place] Activities [place] Activities Bicycle,[place] Other Activities 10 min Comments no flotation devices required for bicycle and running. Deep water traction with lg blue float and #5 wts. 10 minutes. PT-OP-T Assessment and Plan Start: 02/05/19 08:10 Freq: Status: Active Protocol: Document 09/05/19 10:37 [facility] (Rec: 09/05/19 12:12 [facility] [id number]) Physical Therapy Assessment Goals stairs Mcc Goal (LTG) pt will be able to ascend and descend 6 in stairs with rail reciprically with no greater than 2/10 pain. LTG Duration 10/28/19 fucntional activity Mcc Goal (LTG) Pt will be able to participate in 2-3 hours of yard/ housework without excruciating pain. LTG Duration 10/28/19 lifting Mcc Goal (LTG) Pt will have improved lifting mechanics in order to dec strain on LB LTG Duration 10/28/19 gait Crate Maker Goal (LTG) Pt will have improved gait mechanics allowing her to amb without pain during typical daily activties. 04/11/19: improving, pt able to dec trunk lean when focusing on it 06/07- improved w/ cont work and cueing, knees can be limiting towards this LTG Duration 10/28/19 activity tolerance Mcc Goal (LTG) Pt will be able to sit for an hour without inc pain, allowing her to participate in full tutoring sessions without pain. 04/11/19: progress, pt able to sit 30 minutes w/o inc pain 06/07-Pt able to sit fulll sessions at this time but feels stiff after. Improved LTG Duration 10/28/19 strength Short Term Goal (STG) Pt will be indep with HEP & gym program in order to work towards independence with strengthening program. 04/11/19: progressing, pt has been compliant with HEP and going to pool instead of gym STG Duration achieved Mcc Goal (LTG) Pt will have 5/5 LE strength and 3/5 LPM to show improvement in strength in order to allow her to return to typical activities without pain. 04/11/19: improving, pt's ankle and knee strength have improved to nearly 5/5. LPM 1/ 5. 06/07-significantly improved, toe strength limited. Improved LPM today LTG Duration 10/28/19 Assessment Summary Assessment Pt requires cueing to slow down thorughout all of exercises. Encouraged to work on exercises at home. She had signficatn VMO tightness that improved with STM. Physical Therapy Plan Frequency and Duration Frequency of Treatment 1-2x/week Duration of Treatment 2 months Plan of Care Start Date 08/29/19 Plan of Care End Date 10/28/19 Next Visit Focus/Plan Next Note Type Treatment Note Next Visit Plan work on core & glute & leg strength
--- NOTE | 2019-09-10 12:59 | PT.OTN ---
Current Diagnoses Radiculopathy, lumbosacral region (09/10/19) Other abnormalities of gait and mobility (09/10/19) Abnormal posture (09/10/19) Weakness (09/10/19) Physical Therapy Treatment Note PT-OP-A Visit Information Start: 02/05/19 08:10 Freq: Status: Active Protocol: Document 09/10/19 10:40 [facility] (Rec: 09/10/19 12:12 [facility] [id number]) Out-Patient Physical Therapy Visit Information Visit Information Visit Type Treatment Note Visit Start Time 10:34 Visit Stop Time 11:15 Total Visit Minutes 41 Visit Number 42 Number of RELIGIOUS ACTIVITIES DIRECTOR Visits 0 PT-OP-B Current Condition Start: 02/05/19 08:10 Freq: Status: Active Protocol: Document 08/29/19 13:05 [facility] (Rec: 08/29/19 13:46 [facility] [id number]) Current Condition History of Current Condition Onset Date chronic Current Complaints LBP & B Knee pain History of Current Condition 08/29/19- L>R knee pain that has gone on for years and has been bad the past decade. Pt reprots has occasional R lower lumbar pain that happens when she does too much outside. Pt has pain in arch and big toe and dorsal surface of toes and also numbness. Back pain has been better since starting initial treatment, unless she tries to do tgoo much then she can exasterbate it. 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 Pt reports when seeing a movie on the tuesday, she had bad back pain and then she had foot numbness. That Tuesday, she saw a chiropractor and that helped. Pt reports foot is numb and first 4 toes. Pt reports she gets shooting pain only through the foot . Pt reports it seems like when knees are bend and in PF. Prior Treatments and Tests Xrays on back and knees, shots in knees-cannot get surgery d /t weight Treatment Goals Patient/Caregiver Goals Dec pain, be able to work in yard/house for 2-3 hours without having incapacitating pain, stairs reciprocally PT-OP-C Subjective Start: 02/05/19 08:10 Freq: Status: Active Protocol: Document 09/10/19 10:40 [facility] (Rec: 09/10/19 12:12 [facility] [id number]) OP-PT Subjective Patient Comments Patient Comments Pt has done clamshells and leg lifts on side but not gone to the gym PT-OP-G Mobility & Gait Start: 02/05/19 08:10 Freq: Status: Active Protocol: Document 02/05/19 08:12 [facility] (Rec: 02/05/19 09:12 [facility] [id number]) OP Gait Assessment Comments Gait Comments Pt amb with lat leaning side to side B with amb and amb with slow gait. PT-OP-J Posture/Palpation/Skin Start: 02/05/19 08:10 Freq: Status: Active Protocol: Document 08/29/19 13:05 [facility] (Rec: 08/29/19 13:46 [facility] [id number]) Posture Evaluation Jeri Postural Classification System Vertebral Compression Test 1 Elbow Flexion Test 1 Lumbar Protective Mechanism Left AP 1 Lumbar Protective Mechanism Right AP 1 Lumbar Protective Mechanism Left PA 3 Lumbar Protective Mechanism Right PA 3 PT-OP-K Range of Motion Start: 02/05/19 08:10 Freq: Status: Active Protocol: Document 08/29/19 13:05 [facility] (Rec: 08/29/19 13:46 [facility] [id number]) Lumbar Spine Range of Motion Lumbar Spine Active Degrees Flexion 62 Extension 20 Lateral Flexion Left 25 Lateral Flexion Right 24 Knee Goniometric Range of Motion Knee Right Flexion Active (degrees) 103 Extension Active (degrees) 3 Left Flexion Active (degrees) 97 Extension Active (degrees) 4 PT-OP-L Special Tests Start: 02/05/19 08:10 Freq: Status: Active Protocol: Document 08/29/19 13:05 [facility] (Rec: 08/29/19 13:46 [facility] [id number]) Special Tests Lumbar Spine Special Tests SLR Test Results neg B Slump Test Results mild L tension PT-OP-M Strength Start: 02/05/19 08:10 Freq: Status: Active Protocol: Document 08/29/19 13:05 [facility] (Rec: 08/29/19 13:46 [facility] [id number]) Hip Strength Hip Manual Muscle Testing Left Flexion (L2) 4+ Good+ Extension (S1) 3+ Fair+ Abduction 4- Good- External Rotation 4 Good Internal Rotation 4+ Good+ Right Flexion (L2) 4+ Good+ Extension (S1) 3+ Fair+ Abduction 4- Good- External Rotation 4 Good Internal Rotation 5 Normal Knee Strength Knee Manual Muscle Testing Right Flexion (S2) 5 Normal Extension (L3) 5 Normal Left Flexion (S2) 5 Normal Extension (L3) 4 Good Ankle/Foot Strength Ankle and Foot Manual Muscle Testing Right Dorsiflexion (L4) 5 Normal Plantarflexion (S1) 5 Normal Inversion 5 Normal Eversion (S1) 5 Normal Comments seated PF testing B Left Dorsiflexion (L4) 5 Normal Plantarflexion (S1) 5 Normal Inversion 5 Normal Eversion (S1) 5 Normal Toe Strength Toe Manual Muscle Testing Left Great Toe Flexion 5 Normal Extension 4+ Good+ Comments 5/5 flex/ext of 2-3 digits Right Great Toe Flexion 4- Good- Extension 4 Good Comments 4-/5 flex/ext of 2-3 digits PT-OP-Q Treatments Start: 02/05/19 08:10 Freq: Status: Active Protocol: Document 09/10/19 10:40 [facility] (Rec: 09/10/19 12:12 [facility] [id number]) Cardio Equipment Recumbent Elliptical (Qustodio) Duration (Minutes) 6 Resistance 9-10 Seat Position 5 Therapeutic Exercises Standing Exercises step ups Standing Exercise Name 4in step Side bilateral Reps/Minutes 20 Comments in mirror rail PRN short foot arch Side bilateral Reps/Minutes 25 each Comments standing TKE Standing Exercise Name TKE Side bilateral Resistance l3 Reps/Minutes 20 each side Comments band around calf for cueing of solueus Manual Therapy Treatment Soft Tissue Mobilization quads Comments circumfrential mobilization MFR of thigh and gutiérrez Joint Mobilizations patellofemoral Joint PF Direction sup, inf & med Taping R knee Treatment Focus med glide, tilt, rotation Type of Tape Karen PT-OP-R Modalities Start: 02/05/19 08:10 Freq: Status: Active Protocol: Document 09/05/19 10:37 [facility] (Rec: 09/05/19 12:12 [facility] [id number]) Hot Pack/Cold Pack Treatment Cold Pack Location LB & B Knees Patient Position Hooklying Treatment Duration (minutes) 10 PT-OP-S Aquatic Treatment Start: 02/21/19 07:23 Freq: Status: Active Protocol: Document 05/18/19 12:33 [facility] (Rec: 05/18/19 14:18 [facility] [id number]) Aquatics Treatment Pool Entry/Exit Pool Entry/Exit Method Stairs Assistance Independent Lower Extremity Exercises heel raise, toe raise Body Position Standing Reps/Duration 10xea HS curls Body Position Standing Water Level Chest Level Equipment Ankle Weight- 2.5# hip circles Body Position Standing Reps/Duration 10x ea hip ab/ad Body Position Standing Reps/Duration 10x ea hip flex/ext Body Position Standing Reps/Duration 10xea Lower Extremity Stretches HC, HS Details at wall Body Position Standing Water Level Chest Level Equipment Large Noodle Reps/Duration 2x45 nerve flossing HS and glute Details right LE Body Position Standing Water Level Chest Level Equipment Large Noodle Reps/Duration 2 min Comments neutral, AB, AD Upper Extremity Exercises shoulder flex/ext Details radha together, alternating Body Position Sitting Reps/Duration 10x ea Comments braced at wall shoulder hor ab/ad Details radha and unil with emphasis on core stab Body Position Sitting Water Level Chest Level Reps/Duration 10x ea Comments braced at wall [place] Activities [place] Activities Bicycle,[place] Other Activities 10 min Comments no flotation devices required for bicycle and running. Deep water traction with lg blue float and #5 wts. 10 minutes. PT-OP-T Assessment and Plan Start: 02/05/19 08:10 Freq: Status: Active Protocol: Document 09/10/19 10:40 [facility] (Rec: 09/10/19 12:12 [facility] [id number]) Physical Therapy Assessment Goals stairs Tire Mold Engraver Goal (LTG) pt will be able to ascend and descend 6 in stairs with rail reciprically with no greater than 2/10 pain. LTG Duration 10/28/19 fucntional activity Tire Mold Engraver Goal (LTG) Pt will be able to participate in 2-3 hours of yard/ housework without excruciating pain. LTG Duration 10/28/19 lifting Halfway Goal (LTG) Pt will have improved lifting mechanics in order to dec strain on LB LTG Duration 10/28/19 gait Halfway Goal (LTG) Pt will have improved gait mechanics allowing her to amb without pain during typical daily activties. 04/11/19: improving, pt able to dec trunk lean when focusing on it 06/07- improved w/ cont work and cueing, knees can be limiting towards this LTG Duration 10/28/19 activity tolerance Tire Mold Engraver Goal (LTG) Pt will be able to sit for an hour without inc pain, allowing her to participate in full tutoring sessions without pain. 04/11/19: progress, pt able to sit 30 minutes w/o inc pain 06/07-Pt able to sit fulll sessions at this time but feels stiff after. Improved LTG Duration 10/28/19 strength Short Term Goal (STG) Pt will be indep with HEP & gym program in order to work towards independence with strengthening program. 04/11/19: progressing, pt has been compliant with HEP and going to pool instead of gym STG Duration achieved Halfway Goal (LTG) Pt will have 5/5 LE strength and 3/5 LPM to show improvement in strength in order to allow her to return to typical activities without pain. 04/11/19: improving, pt's ankle and knee strength have improved to nearly 5/5. LPM / . 06/07-significantly improved, toe strength limited. Improved LPM today LTG Duration 10/28/19 Assessment Summary Assessment Pt able to work through exercises with less pain today when cued for form and core use. She was encouraged to get to the gym and pool this week and work o n her exercises daily. Improved knee pain after manual and taping Physical Therapy Plan Frequency and Duration Frequency of Treatment 1-2x/week Duration of Treatment 2 months Plan of Care Start Date 08/29/19 Plan of Care End Date 10/28/19 Next Visit Focus/Plan Next Note Type Treatment Note Next Visit Plan work on core & glute & leg strength
--- NOTE | 2019-09-17 12:03 | PT.OTN ---
Current Diagnoses Radiculopathy, lumbosacral region (09/17/19) Other abnormalities of gait and mobility (09/17/19) Abnormal posture (09/17/19) Weakness (09/17/19) Physical Therapy Treatment Note PT-OP-A Visit Information Start: 02/05/19 08:10 Freq: Status: Active Protocol: Document 09/17/19 10:38 [facility] (Rec: 09/17/19 12:03 [facility] [id number]) Out-Patient Physical Therapy Visit Information Visit Information Visit Type Treatment Note Visit Start Time 10:33 Visit Stop Time 11:15 Total Visit Minutes 42 Visit Number 43 Number of HIGH RISK CASE MANAGER Visits 0 PT-OP-B Current Condition Start: 02/05/19 08:10 Freq: Status: Active Protocol: Document 08/29/19 13:05 [facility] (Rec: 08/29/19 13:46 [facility] [id number]) Current Condition History of Current Condition Onset Date chronic Current Complaints LBP & B Knee pain History of Current Condition 08/29/19- L>R knee pain that has gone on for years and has been bad the past decade. Pt reprots has occasional R lower lumbar pain that happens when she does too much outside. Pt has pain in arch and big toe and dorsal surface of toes and also numbness. Back pain has been better since starting initial treatment, unless she tries to do tgoo much then she can exasterbate it. 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 Pt reports when seeing a movie on the tuesday, she had bad back pain and then she had foot numbness. That Tuesday, she saw a chiropractor and that helped. Pt reports foot is numb and first 4 toes. Pt reports she gets shooting pain only through the foot . Pt reports it seems like when knees are bend and in PF. Prior Treatments and Tests Xrays on back and knees, shots in knees-cannot get surgery d /t weight Treatment Goals Patient/Caregiver Goals Dec pain, be able to work in yard/house for 2-3 hours without having incapacitating pain, stairs reciprocally PT-OP-C Subjective Start: 02/05/19 08:10 Freq: Status: Active Protocol: Document 09/17/19 10:38 [facility] (Rec: 09/17/19 12:03 [facility] [id number]) OP-PT Subjective Patient Comments Patient Comments Pt reports she has not been to the gym but has done exercises about 3 times sicne last session. PT-OP-G Mobility & Gait Start: 02/05/19 08:10 Freq: Status: Active Protocol: Document 02/05/19 08:12 [facility] (Rec: 02/05/19 09:12 [facility] [id number]) OP Gait Assessment Comments Gait Comments Pt amb with lat leaning side to side B with amb and amb with slow gait. PT-OP-J Posture/Palpation/Skin Start: 02/05/19 08:10 Freq: Status: Active Protocol: Document 08/29/19 13:05 [facility] (Rec: 08/29/19 13:46 [facility] [id number]) Posture Evaluation Jeri Postural Classification System Vertebral Compression Test 1 Elbow Flexion Test 1 Lumbar Protective Mechanism Left AP 1 Lumbar Protective Mechanism Right AP 1 Lumbar Protective Mechanism Left PA 3 Lumbar Protective Mechanism Right PA 3 PT-OP-K Range of Motion Start: 02/05/19 08:10 Freq: Status: Active Protocol: Document 08/29/19 13:05 [facility] (Rec: 08/29/19 13:46 [facility] [id number]) Lumbar Spine Range of Motion Lumbar Spine Active Degrees Flexion 62 Extension 20 Lateral Flexion Left 25 Lateral Flexion Right 24 Knee Goniometric Range of Motion Knee Right Flexion Active (degrees) 103 Extension Active (degrees) 3 Left Flexion Active (degrees) 97 Extension Active (degrees) 4 PT-OP-L Special Tests Start: 02/05/19 08:10 Freq: Status: Active Protocol: Document 08/29/19 13:05 [facility] (Rec: 08/29/19 13:46 [facility] [id number]) Special Tests Lumbar Spine Special Tests SLR Test Results neg B Slump Test Results mild L tension PT-OP-M Strength Start: 02/05/19 08:10 Freq: Status: Active Protocol: Document 08/29/19 13:05 [facility] (Rec: 08/29/19 13:46 [facility] [id number]) Hip Strength Hip Manual Muscle Testing Left Flexion (L2) 4+ Good+ Extension (S1) 3+ Fair+ Abduction 4- Good- External Rotation 4 Good Internal Rotation 4+ Good+ Right Flexion (L2) 4+ Good+ Extension (S1) 3+ Fair+ Abduction 4- Good- External Rotation 4 Good Internal Rotation 5 Normal Knee Strength Knee Manual Muscle Testing Right Flexion (S2) 5 Normal Extension (L3) 5 Normal Left Flexion (S2) 5 Normal Extension (L3) 4 Good Ankle/Foot Strength Ankle and Foot Manual Muscle Testing Right Dorsiflexion (L4) 5 Normal Plantarflexion (S1) 5 Normal Inversion 5 Normal Eversion (S1) 5 Normal Comments seated PF testing B Left Dorsiflexion (L4) 5 Normal Plantarflexion (S1) 5 Normal Inversion 5 Normal Eversion (S1) 5 Normal Toe Strength Toe Manual Muscle Testing Left Great Toe Flexion 5 Normal Extension 4+ Good+ Comments 5/5 flex/ext of 2-3 digits Right Great Toe Flexion 4- Good- Extension 4 Good Comments 4-/5 flex/ext of 2-3 digits PT-OP-Q Treatments Start: 02/05/19 08:10 Freq: Status: Active Protocol: Document 09/17/19 10:38 [facility] (Rec: 09/17/19 12:03 [facility] [id number]) Cardio Equipment Recumbent Stepper (Sci-Fit) Duration (Minutes) 6 Resistance 7 Seat Position 7 Therapeutic Exercises Supine Exercises quad set Supine Exercise Name 1. quad set w/IR 2. IR of LE in knee ext Side left Reps/Minutes 2x10 Manual Therapy Treatment Soft Tissue Mobilization adductors Body Location L Mobilization Type Rolling Intensity/Depth Moderate Comments w/IR lateral HS/IT Body Location med HS L Mobilization Type Rolling,Strumming Joint Mobilizations hip Joint L Direction AP FM for IR PT-OP-R Modalities Start: 02/05/19 08:10 Freq: Status: Active Protocol: Document 09/05/19 10:37 [facility] (Rec: 09/05/19 12:12 [facility] [id number]) Hot Pack/Cold Pack Treatment Cold Pack Location LB & B Knees Patient Position Hooklying Treatment Duration (minutes) 10 PT-OP-S Aquatic Treatment Start: 02/21/19 07:23 Freq: Status: Active Protocol: Document 05/18/19 12:33 [facility] (Rec: 05/18/19 14:18 [facility] [id number]) Aquatics Treatment Pool Entry/Exit Pool Entry/Exit Method Stairs Assistance Independent Lower Extremity Exercises heel raise, toe raise Body Position Standing Reps/Duration 10xea HS curls Body Position Standing Water Level Chest Level Equipment Ankle Weight- 2.5# hip circles Body Position Standing Reps/Duration 10x ea hip ab/ad Body Position Standing Reps/Duration 10x ea hip flex/ext Body Position Standing Reps/Duration 10xea Lower Extremity Stretches HC, HS Details at wall Body Position Standing Water Level Chest Level Equipment Large Noodle Reps/Duration 2x45 nerve flossing HS and glute Details right LE Body Position Standing Water Level Chest Level Equipment Large Noodle Reps/Duration 2 min Comments neutral, AB, AD Upper Extremity Exercises shoulder flex/ext Details radha together, alternating Body Position Sitting Reps/Duration 10x ea Comments braced at wall shoulder hor ab/ad Details radha and unil with emphasis on core stab Body Position Sitting Water Level Chest Level Reps/Duration 10x ea Comments braced at wall [place] Activities Bicycle,[place] Other Activities 10 min Comments no flotation devices required for bicycle and running. Deep water traction with lg blue float and #5 wts. 10 minutes. PT-OP-T Assessment and Plan Start: 02/05/19 08:10 Freq: Status: Active Protocol: Document 09/17/19 10:38 [facility] (Rec: 09/17/19 12:03 [facility] [id number]) Physical Therapy Assessment Goals stairs Kineseologist Goal (LTG) pt will be able to ascend and descend 6 in stairs with rail reciprically with no greater than 2/10 pain. LTG Duration 10/28/19 fucntional activity Kineseologist Goal (LTG) Pt will be able to participate in 2-3 hours of yard/ housework without excruciating pain. LTG Duration 10/28/19 lifting Kineseologist Goal (LTG) Pt will have improved lifting mechanics in order to dec strain on LB LTG Duration 10/28/19 gait Kineseologist Goal (LTG) Pt will have improved gait mechanics allowing her to amb without pain during typical daily activties. 04/11/19: improving, pt able to dec trunk lean when focusing on it 06/07- improved w/ cont work and cueing, knees can be limiting towards this LTG Duration 10/28/19 activity tolerance Kineseologist Goal (LTG) Pt will be able to sit for an hour without inc pain, allowing her to participate in full tutoring sessions without pain. 04/11/19: progress, pt able to sit 30 minutes w/o inc pain 06/07-Pt able to sit fulll sessions at this time but feels stiff after. Improved LTG Duration 10/28/19 strength Short Term Goal (STG) Pt will be indep with HEP & gym program in order to work towards independence with strengthening program. 04/11/19: progressing, pt has been compliant with HEP and going to pool instead of gym STG Duration achieved [facility] Goal (LTG) Pt will have 5/5 LE strength and 3/5 LPM to show improvement in strength in order to allow her to return to typical activities without pain. 04/11/19: improving, pt's ankle and knee strength have improved to nearly 5/5. LPM 1/ 5. 06/07-significantly improved, toe strength limited. Improved LPM today LTG Duration 10/28/19 Assessment Summary Assessment Pt cont to requre signifcant cueing with irene xercises.S he difficulty with lunges but has difficulty with maintianing appropriate tracking of L knee. She has signficant ER of femure which likely causes some of the knee discomfort. She was given exercises to work on this. Physical Therapy Plan Frequency and Duration Frequency of Treatment 1-2x/week Duration of Treatment 2 months Plan of Care Start Date 08/29/19 Plan of Care End Date 10/28/19 Next Visit Focus/Plan Next Note Type Treatment Note Next Visit Plan work on core & glute & leg strength
--- NOTE | 2019-09-24 13:40 | PT.OTN ---
Current Diagnoses Radiculopathy, lumbosacral region (09/24/19) Other abnormalities of gait and mobility (09/24/19) Abnormal posture (09/24/19) Weakness (09/24/19) Physical Therapy Treatment Note PT-OP-A Visit Information Start: 02/05/19 08:10 Freq: Status: Active Protocol: Document 09/24/19 10:43 [facility] (Rec: 09/24/19 13:39 [facility] [id number]) Out-Patient Physical Therapy Visit Information Visit Information Visit Type Treatment Note Visit Start Time 10:35 Visit Stop Time 11:27 Total Visit Minutes 52 Visit Number 44 Number of CLOTH PICKER Visits 0 PT-OP-B Current Condition Start: 02/05/19 08:10 Freq: Status: Active Protocol: Document 08/29/19 13:05 [facility] (Rec: 08/29/19 13:46 [facility] [id number]) Current Condition History of Current Condition Onset Date chronic Current Complaints LBP & B Knee pain History of Current Condition 08/29/19- L>R knee pain that has gone on for years and has been bad the past decade. Pt reprots has occasional R lower lumbar pain that happens when she does too much outside. Pt has pain in arch and big toe and dorsal surface of toes and also numbness. Back pain has been better since starting initial treatment, unless she tries to do tgoo much then she can exasterbate it. 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 Pt reports when seeing a movie on the tuesday, she had bad back pain and then she had foot numbness. That Tuesday, she saw a chiropractor and that helped. Pt reports foot is numb and first 4 toes. Pt reports she gets shooting pain only through the foot . Pt reports it seems like when knees are bend and in PF. Prior Treatments and Tests Xrays on back and knees, shots in knees-cannot get surgery d /t weight Treatment Goals Patient/Caregiver Goals Dec pain, be able to work in yard/house for 2-3 hours without having incapacitating pain, stairs reciprocally PT-OP-C Subjective Start: 02/05/19 08:10 Freq: Status: Active Protocol: Document 09/24/19 10:43 [facility] (Rec: 09/24/19 13:39 [facility] [id number]) OP-PT Subjective Patient Comments Patient Comments Pt reports her quad sets with focus on neutral leg position cause some pain. She got her new shoes and wants PT to look at them PT-OP-G Mobility & Gait Start: 02/05/19 08:10 Freq: Status: Active Protocol: Document 02/05/19 08:12 [facility] (Rec: 02/05/19 09:12 [facility] [id number]) OP Gait Assessment Comments Gait Comments Pt amb with lat leaning side to side B with amb and amb with slow gait. PT-OP-J Posture/Palpation/Skin Start: 02/05/19 08:10 Freq: Status: Active Protocol: Document 08/29/19 13:05 [facility] (Rec: 08/29/19 13:46 [facility] [id number]) Posture Evaluation Jeri Postural Classification System Vertebral Compression Test 1 Elbow Flexion Test 1 Lumbar Protective Mechanism Left AP 1 Lumbar Protective Mechanism Right AP 1 Lumbar Protective Mechanism Left PA 3 Lumbar Protective Mechanism Right PA 3 PT-OP-K Range of Motion Start: 02/05/19 08:10 Freq: Status: Active Protocol: Document 08/29/19 13:05 [facility] (Rec: 08/29/19 13:46 [facility] [id number]) Lumbar Spine Range of Motion Lumbar Spine Active Degrees Flexion 62 Extension 20 Lateral Flexion Left 25 Lateral Flexion Right 24 Knee Goniometric Range of Motion Knee Right Flexion Active (degrees) 103 Extension Active (degrees) 3 Left Flexion Active (degrees) 97 Extension Active (degrees) 4 PT-OP-L Special Tests Start: 02/05/19 08:10 Freq: Status: Active Protocol: Document 08/29/19 13:05 [facility] (Rec: 08/29/19 13:46 [facility] [id number]) Special Tests Lumbar Spine Special Tests SLR Test Results neg B Slump Test Results mild L tension PT-OP-M Strength Start: 02/05/19 08:10 Freq: Status: Active Protocol: Document 08/29/19 13:05 [facility] (Rec: 08/29/19 13:46 [facility] [id number]) Hip Strength Hip Manual Muscle Testing Left Flexion (L2) 4+ Good+ Extension (S1) 3+ Fair+ Abduction 4- Good- External Rotation 4 Good Internal Rotation 4+ Good+ Right Flexion (L2) 4+ Good+ Extension (S1) 3+ Fair+ Abduction 4- Good- External Rotation 4 Good Internal Rotation 5 Normal Knee Strength Knee Manual Muscle Testing Right Flexion (S2) 5 Normal Extension (L3) 5 Normal Left Flexion (S2) 5 Normal Extension (L3) 4 Good Ankle/Foot Strength Ankle and Foot Manual Muscle Testing Right Dorsiflexion (L4) 5 Normal Plantarflexion (S1) 5 Normal Inversion 5 Normal Eversion (S1) 5 Normal Comments seated PF testing B Left Dorsiflexion (L4) 5 Normal Plantarflexion (S1) 5 Normal Inversion 5 Normal Eversion (S1) 5 Normal Toe Strength Toe Manual Muscle Testing Left Great Toe Flexion 5 Normal Extension 4+ Good+ Comments 5/5 flex/ext of 2-3 digits Right Great Toe Flexion 4- Good- Extension 4 Good Comments 4-/5 flex/ext of 2-3 digits PT-OP-Q Treatments Start: 02/05/19 08:10 Freq: Status: Active Protocol: Document 09/24/19 10:43 [facility] (Rec: 09/24/19 13:39 [facility] [id number]) Cardio Equipment Recumbent Elliptical ([employer]) Duration (Minutes) 5 Resistance 10 Seat Position 5 Therapeutic Exercises Supine Exercises quad set Supine Exercise Name 1. quad set w/IR 2. IR of LE in knee ext Side left Reps/Minutes 2x10 HS stretch, dynamic Supine Exercise Name hip, knee, ankle flexion Side right Reps/Minutes 10 Standing Exercises TKE Standing Exercise Name TKE Side bilateral Resistance l3 Reps/Minutes 20 each side Comments band around calf for cueing of solueus Manual Therapy Treatment Soft Tissue Mobilization QL, paraspinals Body Location L sacral paraspinasl Mobilization Type Rolling,Strumming,Sustained Pressure Joint Mobilizations innominate Joint L Direction gapping Grade I hip Joint L Direction AP FM for IR Sacrum Joint UPA L w/IR/ER LLE Self-Care/Home Management Treatment Education Other Education shoes assessed and have good arch support but are too small ; instructed to bring in sneakers next session PT-OP-R Modalities Start: 02/05/19 08:10 Freq: Status: Active Protocol: Document 09/24/19 10:43 [facility] (Rec: 09/24/19 13:39 [facility] [id number]) Hot Pack/Cold Pack Treatment Cold Pack Location LB & L Knee Patient Position Hooklying Treatment Duration (minutes) 10 PT-OP-S Aquatic Treatment Start: 02/21/19 07:23 Freq: Status: Active Protocol: Document 05/18/19 12:33 [facility] (Rec: 05/18/19 14:18 [facility] [id number]) Aquatics Treatment Pool Entry/Exit Pool Entry/Exit Method Stairs Assistance Independent Lower Extremity Exercises heel raise, toe raise Body Position Standing Reps/Duration 10xea HS curls Body Position Standing Water Level Chest Level Equipment Ankle Weight- 2.5# hip circles Body Position Standing Reps/Duration 10x ea hip ab/ad Body Position Standing Reps/Duration 10x ea hip flex/ext Body Position Standing Reps/Duration 10xea Lower Extremity Stretches HC, HS Details at wall Body Position Standing Water Level Chest Level Equipment Large Noodle Reps/Duration 2x45 nerve flossing HS and glute Details right LE Body Position Standing Water Level Chest Level Equipment Large Noodle Reps/Duration 2 min Comments neutral, AB, AD Upper Extremity Exercises shoulder flex/ext Details radha together, alternating Body Position Sitting Reps/Duration 10x ea Comments braced at wall shoulder hor ab/ad Details radha and unil with emphasis on core stab Body Position Sitting Water Level Chest Level Reps/Duration 10x ea Comments braced at wall [place] Activities [place] Activities Bicycle,[place] Other Activities 10 min Comments no flotation devices required for bicycle and running. Deep water traction with lg blue float and #5 wts. 10 minutes. PT-OP-T Assessment and Plan Start: 02/05/19 08:10 Freq: Status: Active Protocol: Document 09/24/19 10:43 [facility] (Rec: 09/24/19 13:39 [facility] [id number]) Physical Therapy Assessment Goals stairs Correction Goal (LTG) pt will be able to ascend and descend 6 in stairs with rail reciprically with no greater than 2/10 pain. LTG Duration 10/28/19 fucntional activity Correction Goal (LTG) Pt will be able to participate in 2-3 hours of yard/ housework without excruciating pain. LTG Duration 10/28/19 lifting Interior Design Professor Goal (LTG) Pt will have improved lifting mechanics in order to dec strain on LB LTG Duration 10/28/19 gait Correction Goal (LTG) Pt will have improved gait mechanics allowing her to amb without pain during typical daily activties. 04/11/19: improving, pt able to dec trunk lean when focusing on it 06/07- improved w/ cont work and cueing, knees can be limiting towards this LTG Duration 10/28/19 activity tolerance Correction Goal (LTG) Pt will be able to sit for an hour without inc pain, allowing her to participate in full tutoring sessions without pain. 04/11/19: progress, pt able to sit 30 minutes w/o inc pain 06/07-Pt able to sit fulll sessions at this time but feels stiff after. Improved LTG Duration 10/28/19 strength Short Term Goal (STG) Pt will be indep with HEP & gym program in order to work towards independence with strengthening program. 04/11/19: progressing, pt has been compliant with HEP and going to pool instead of gym STG Duration achieved Correction Goal (LTG) Pt will have 5/5 LE strength and 3/5 LPM to show improvement in strength in order to allow her to return to typical activities without pain. 04/11/19: improving, pt's ankle and knee strength have improved to nearly 5/5. LPM / 5. 06/07-significantly improved, toe strength limited. Improved LPM today LTG Duration 10/28/19 Assessment Summary Assessment Pt cont to require cueing for exercises. Dec pain with quad set with IR of femur with working on dec inversion of foot and putting towel under knee. Improved knee alignment with manual treatment. Physical Therapy Plan Frequency and Duration Frequency of Treatment 1-2x/week Duration of Treatment 2 months Plan of Care Start Date 08/29/19 Plan of Care End Date 10/28/19 Next Visit Focus/Plan Next Note Type Treatment Note Next Visit Plan work on core & glute & leg strength
--- NOTE | 2019-10-01 13:02 | PT.OTN ---
Current Diagnoses Radiculopathy, lumbosacral region (10/01/19) Other abnormalities of gait and mobility (10/01/19) Abnormal posture (10/01/19) Weakness (10/01/19) Physical Therapy Treatment Note PT-OP-A Visit Information Start: 02/05/19 08:10 Freq: Status: Active Protocol: Document 10/01/19 08:15 [facility] (Rec: 10/01/19 13:02 [facility] [id number]) Out-Patient Physical Therapy Visit Information Visit Information Visit Type Discharge Summary Visit Start Time 08:14 Visit Stop Time 09:00 Total Visit Minutes 46 Visit Number 45 Number of DESK REPRESENTATIVE Visits 0 PT-OP-B Current Condition Start: 02/05/19 08:10 Freq: Status: Active Protocol: Document 08/29/19 13:05 [facility] (Rec: 08/29/19 13:46 [facility] [id number]) Current Condition History of Current Condition Onset Date chronic Current Complaints LBP & B Knee pain History of Current Condition 08/29/19- L>R knee pain that has gone on for years and has been bad the past decade. Pt reprots has occasional R lower lumbar pain that happens when she does too much outside. Pt has pain in arch and big toe and dorsal surface of toes and also numbness. Back pain has been better since starting initial treatment, unless she tries to do tgoo much then she can exasterbate it. 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 Pt reports when seeing a movie on the tuesday, she had bad back pain and then she had foot numbness. That Tuesday, she saw a chiropractor and that helped. Pt reports foot is numb and first 4 toes. Pt reports she gets shooting pain only through the foot . Pt reports it seems like when knees are bend and in PF. Prior Treatments and Tests Xrays on back and knees, shots in knees-cannot get surgery d /t weight Treatment Goals Patient/Caregiver Goals Dec pain, be able to work in yard/house for 2-3 hours without having incapacitating pain, stairs reciprocally PT-OP-C Subjective Start: 02/05/19 08:10 Freq: Status: Active Protocol: Document 10/01/19 08:15 [facility] (Rec: 10/01/19 13:02 [facility] [id number]) OP-PT Subjective Patient Comments Patient Comments Pt reports noncompliance iwth HEP. THinks she is ready for d /c to try to work on things indep. Patient Reported Progress Same PT-OP-G Mobility & Gait Start: 02/05/19 08:10 Freq: Status: Active Protocol: Document 02/05/19 08:12 [facility] (Rec: 02/05/19 09:12 [facility] [id number]) OP Gait Assessment Comments Gait Comments Pt amb with lat leaning side to side B with amb and amb with slow gait. PT-OP-J Posture/Palpation/Skin Start: 02/05/19 08:10 Freq: Status: Active Protocol: Document 08/29/19 13:05 [facility] (Rec: 08/29/19 13:46 [facility] [id number]) Posture Evaluation Jeri Postural Classification System Vertebral Compression Test 1 Elbow Flexion Test 1 Lumbar Protective Mechanism Left AP 1 Lumbar Protective Mechanism Right AP 1 Lumbar Protective Mechanism Left PA 3 Lumbar Protective Mechanism Right PA 3 PT-OP-K Range of Motion Start: 02/05/19 08:10 Freq: Status: Active Protocol: Document 08/29/19 13:05 [facility] (Rec: 08/29/19 13:46 [facility] [id number]) Lumbar Spine Range of Motion Lumbar Spine Active Degrees Flexion 62 Extension 20 Lateral Flexion Left 25 Lateral Flexion Right 24 Knee Goniometric Range of Motion Knee Right Flexion Active (degrees) 103 Extension Active (degrees) 3 Left Flexion Active (degrees) 97 Extension Active (degrees) 4 PT-OP-L Special Tests Start: 02/05/19 08:10 Freq: Status: Active Protocol: Document 08/29/19 13:05 [facility] (Rec: 08/29/19 13:46 [facility] [id number]) Special Tests Lumbar Spine Special Tests SLR Test Results neg B Slump Test Results mild L tension PT-OP-M Strength Start: 02/05/19 08:10 Freq: Status: Active Protocol: Document 10/01/19 08:15 [facility] (Rec: 10/01/19 08:46 [facility] [id number]) Hip Strength Hip Manual Muscle Testing Left Flexion (L2) 3+ Fair+ Extension (S1) 4- Good- Abduction 4- Good- External Rotation 4- Good- Internal Rotation 4- Good- Right Flexion (L2) 3+ Fair+ Extension (S1) 4- Good- Abduction 4- Good- External Rotation 4 Good Internal Rotation 4 Good Knee Strength Knee Manual Muscle Testing Right Flexion (S2) 4- Good- Extension (L3) 4 Good Left Flexion (S2) 4- Good- Extension (L3) 4 Good Ankle/Foot Strength Ankle and Foot Manual Muscle Testing Right Dorsiflexion (L4) 4 Good Inversion 4 Good Eversion (S1) 4 Good Left Dorsiflexion (L4) 4 Good Inversion 4 Good Eversion (S1) 4 Good PT-OP-Q Treatments Start: 02/05/19 08:10 Freq: Status: Active Protocol: Document 10/01/19 08:15 [facility] (Rec: 10/01/19 13:02 [facility] [id number]) Cardio Equipment Recumbent Elliptical ([employer]) Duration (Minutes) 5 Resistance 10 Seat Position 5 Gym Equipment Cable Column (Body Solid) Hip Abduction Resistance 4 Reps/Time 3x15 Therapeutic Exercises Supine Exercises L/S rotation Supine Exercise Name trunk and LE rotation Side bilateral Reps/Minutes 15 Comments core and segmental spine activation HS & gastroc stretch Supine Exercise Name supine nerve glide & HS & calf stretch Side right Reps/Minutes 10 & 30 sec Comments helps to alleviate pt back stiffness and leg symptoms flex Supine Exercise Name SLR w/core Side bilateral Reps/Minutes 15 bridge Supine Exercise Name bridge w/post pelvic tilt & glute set Side bilateral Resistance none Reps/Minutes 15 reps Sidelying Exercises clamshells Sidelying Exercise Name clamshells Side bilateral Reps/Minutes 15 ea abd Sidelying Exercise Name hip abd Side bilateral Reps/Minutes 15 ea Comments reviewed for (HEP) Sitting Exercises stretch Sitting Exercise Name plantar fascia Side right Reps/Minutes 30 sec Manual Therapy Treatment Soft Tissue Mobilization foot Body Location R plantar fascia Mobilization Type Myofascial Release,Rolling, Strumming,Sustained Pressure Intensity/Depth Moderate Body Position Sidelying PT-OP-R Modalities Start: 02/05/19 08:10 Freq: Status: Active Protocol: Document 09/24/19 10:43 [facility] (Rec: 09/24/19 13:39 [facility] [id number]) Hot Pack/Cold Pack Treatment Cold Pack Location LB & L Knee Patient Position Hooklying Treatment Duration (minutes) 10 PT-OP-S Aquatic Treatment Start: 02/21/19 07:23 Freq: Status: Active Protocol: Document 05/18/19 12:33 [facility] (Rec: 05/18/19 14:18 [facility] [id number]) Aquatics Treatment Pool Entry/Exit Pool Entry/Exit Method Stairs Assistance Independent Lower Extremity Exercises heel raise, toe raise Body Position Standing Reps/Duration 10xea HS curls Body Position Standing Water Level Chest Level Equipment Ankle Weight- 2.5# hip circles Body Position Standing Reps/Duration 10x ea hip ab/ad Body Position Standing Reps/Duration 10x ea hip flex/ext Body Position Standing Reps/Duration 10xea Lower Extremity Stretches HC, HS Details at wall Body Position Standing Water Level Chest Level Equipment Large Noodle Reps/Duration 2x45 nerve flossing HS and glute Details right LE Body Position Standing Water Level Chest Level Equipment Large Noodle Reps/Duration 2 min Comments neutral, AB, AD Upper Extremity Exercises shoulder flex/ext Details radha together, alternating Body Position Sitting Reps/Duration 10x ea Comments braced at wall shoulder hor ab/ad Details radha and unil with emphasis on core stab Body Position Sitting Water Level Chest Level Reps/Duration 10x ea Comments braced at wall [place] Activities [place] Activities Bicycle,[place] Other Activities 10 min Comments no flotation devices required for bicycle and running. Deep water traction with lg blue float and #5 wts. 10 minutes. PT-OP-T Assessment and Plan Start: 02/05/19 08:10 Freq: Status: Active Protocol: Document 10/01/19 08:15 [facility] (Rec: 10/01/19 13:02 [facility] [id number]) Physical Therapy Assessment Goals stairs Grid Trimmer Goal (LTG) pt will be able to ascend and descend 6 in stairs with rail reciprically with no greater than 2/10 pain. LTG Duration pain with decent fucntional activity Grid Trimmer Goal (LTG) Pt will be able to participate in 2-3 hours of yard/ housework without excruciating pain. LTG Duration able to do about 45 min lifting Grid Trimmer Goal (LTG) Pt will have improved lifting mechanics in order to dec strain on LB LTG Duration improved hip hinge but difficulty squatting gait Retirement Goal (LTG) Pt will have improved gait mechanics allowing her to amb without pain during typical daily activties. 04/11/19: improving, pt able to dec trunk lean when focusing on it 06/07- improved w/ cont work and cueing, knees can be limiting towards this LTG Duration improved but requires cueing activity tolerance Retirement Goal (LTG) Pt will be able to sit for an hour without inc pain, allowing her to participate in full tutoring sessions without pain. 04/11/19: progress, pt able to sit 30 minutes w/o inc pain 06/07-Pt able to sit fulll sessions at this time but feels stiff after. Improved LTG Duration achieved strength Short Term Goal (STG) Pt will be indep with HEP & gym program in order to work towards independence with strengthening program. 04/11/19: progressing, pt has been compliant with HEP and going to pool instead of gym STG Duration achieved Retirement Goal (LTG) Pt will have 5/5 LE strength and 3/5 LPM to show improvement in strength in order to allow her to return to typical activities without pain. 04/11/19: improving, pt's ankle and knee strength have improved to nearly 5/5. LPM / . 06/07-significantly improved, toe strength limited. Improved LPM today LTG Duration plateaued Assessment Summary Assessment Pt has made limited progress recently with PT likely partially d/t dec compliance with HEP. She has improved over course of PT and is d/c to HEP at this time. SHe is indep with HEP and knows what she is supposed to be working on at home. Physical Therapy Plan Discharge Physical Therapy Discharge Reasons Plateau in Progress
--- NOTE | 2019-10-01 15:43 | PT.OPDS ---
Current Diagnoses Radiculopathy, lumbosacral region (10/01/19) Other abnormalities of gait and mobility (10/01/19) Abnormal posture (10/01/19) Weakness (10/01/19) Visit Care Team Role Provider Type Kayleigh Magdaleno MD Primary Care Provider Non-Staff Specialty: Medical Address: [address] [place] [address], [place], [address] Email: COLEMAN Joseph Attending Provider Advanced Broach Operator Specialty: Pain Management Address: [address] [place] [address], [id number] Email: [email or web address] Visit Number Visit Number [id number] Discharge Summary PT-OP-B Current Condition Start: 02/05/19 08:10 Freq: Status: Active Protocol: Document 08/29/19 13:05 [facility] (Rec: 08/29/19 13:46 [facility] [id number]) Current Condition History of Current Condition Onset Date chronic Current Complaints LBP & B Knee pain History of Current Condition 08/29/19- L>R knee pain that has gone on for years and has been bad the past decade. Pt reprots has occasional R lower lumbar pain that happens when she does too much outside. Pt has pain in arch and big toe and dorsal surface of toes and also numbness. Back pain has been better since starting initial treatment, unless she tries to do tgoo much then she can exasterbate it. 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 Pt reports when seeing a movie on the tuesday, she had bad back pain and then she had foot numbness. That Tuesday, she saw a chiropractor and that helped. Pt reports foot is numb and first 4 toes. Pt reports she gets shooting pain only through the foot . Pt reports it seems like when knees are bend and in PF. Prior Treatments and Tests Xrays on back and knees, shots in knees-cannot get surgery d /t weight Treatment Goals Patient/Caregiver Goals Dec pain, be able to work in yard/house for 2-3 hours without having incapacitating pain, stairs reciprocally PT-OP-C Subjective Start: 02/05/19 08:10 Freq: Status: Active Protocol: Document 10/01/19 08:15 [facility] (Rec: 10/01/19 13:02 [facility] [id number]) OP-PT Subjective Patient Comments Patient Comments Pt reports noncompliance iwth HEP. THinks she is ready for d /c to try to work on things indep. Patient Reported Progress Same PT-OP-G Mobility & Gait Start: 02/05/19 08:10 Freq: Status: Active Protocol: Document 02/05/19 08:12 [facility] (Rec: 02/05/19 09:12 [facility] [id number]) OP Gait Assessment Comments Gait Comments Pt amb with lat leaning side to side B with amb and amb with slow gait. PT-OP-J Posture/Palpation/Skin Start: 02/05/19 08:10 Freq: Status: Active Protocol: Document 08/29/19 13:05 [facility] (Rec: 08/29/19 13:46 [facility] [id number]) Posture Evaluation Jeri Postural Classification System Vertebral Compression Test 1 Elbow Flexion Test 1 Lumbar Protective Mechanism Left AP 1 Lumbar Protective Mechanism Right AP 1 Lumbar Protective Mechanism Left PA 3 Lumbar Protective Mechanism Right PA 3 PT-OP-K Range of Motion Start: 02/05/19 08:10 Freq: Status: Active Protocol: Document 08/29/19 13:05 [facility] (Rec: 08/29/19 13:46 [facility] [id number]) Lumbar Spine Range of Motion Lumbar Spine Active Degrees Flexion 62 Extension 20 Lateral Flexion Left 25 Lateral Flexion Right 24 Knee Goniometric Range of Motion Knee Right Flexion Active (degrees) 103 Extension Active (degrees) 3 Left Flexion Active (degrees) 97 Extension Active (degrees) 4 PT-OP-L Special Tests Start: 02/05/19 08:10 Freq: Status: Active Protocol: Document 08/29/19 13:05 [facility] (Rec: 08/29/19 13:46 [facility] [id number]) Special Tests Lumbar Spine Special Tests SLR Test Results neg B Slump Test Results mild L tension PT-OP-M Strength Start: 02/05/19 08:10 Freq: Status: Active Protocol: Document 10/01/19 08:15 [facility] (Rec: 10/01/19 08:46 [facility] [id number]) Hip Strength Hip Manual Muscle Testing Left Flexion (L2) 3+ Fair+ Extension (S1) 4- Good- Abduction 4- Good- External Rotation 4- Good- Internal Rotation 4- Good- Right Flexion (L2) 3+ Fair+ Extension (S1) 4- Good- Abduction 4- Good- External Rotation 4 Good Internal Rotation 4 Good Knee Strength Knee Manual Muscle Testing Right Flexion (S2) 4- Good- Extension (L3) 4 Good Left Flexion (S2) 4- Good- Extension (L3) 4 Good Ankle/Foot Strength Ankle and Foot Manual Muscle Testing Right Dorsiflexion (L4) 4 Good Inversion 4 Good Eversion (S1) 4 Good Left Dorsiflexion (L4) 4 Good Inversion 4 Good Eversion (S1) 4 Good PT-OP-T Assessment and Plan Start: 02/05/19 08:10 Freq: Status: Active Protocol: Document 10/01/19 08:15 [facility] (Rec: 10/01/19 13:02 [facility] [id number]) Physical Therapy Assessment Goals stairs Web Site Project Manager Goal (LTG) pt will be able to ascend and descend 6 in stairs with rail reciprically with no greater than 2/10 pain. LTG Duration pain with decent fucntional activity Web Site Project Manager Goal (LTG) Pt will be able to participate in 2-3 hours of yard/ housework without excruciating pain. LTG Duration able to do about 45 min lifting Penitentiary Goal (LTG) Pt will have improved lifting mechanics in order to dec strain on LB LTG Duration improved hip hinge but difficulty squatting gait Penitentiary Goal (LTG) Pt will have improved gait mechanics allowing her to amb without pain during typical daily activties. 04/11/19: improving, pt able to dec trunk lean when focusing on it 06/07- improved w/ cont work and cueing, knees can be limiting towards this LTG Duration improved but requires cueing activity tolerance Web Site Project Manager Goal (LTG) Pt will be able to sit for an hour without inc pain, allowing her to participate in full tutoring sessions without pain. 04/11/19: progress, pt able to sit 30 minutes w/o inc pain 06/07-Pt able to sit fulll sessions at this time but feels stiff after. Improved LTG Duration achieved strength Short Term Goal (STG) Pt will be indep with HEP & gym program in order to work towards independence with strengthening program. 04/11/19: progressing, pt has been compliant with HEP and going to pool instead of gym STG Duration achieved Penitentiary Goal (LTG) Pt will have 5/5 LE strength and 3/5 LPM to show improvement in strength in order to allow her to return to typical activities without pain. 04/11/19: improving, pt's ankle and knee strength have improved to nearly 5/5. LPM 1/ 5. 06/07-significantly improved, toe strength limited. Improved LPM today LTG Duration plateaued Assessment Summary Assessment Pt has made limited progress recently with PT likely partially d/t dec compliance with HEP. She has improved over course of PT and is d/c to HEP at this time. SHe is indep with HEP and knows what she is supposed to be working on at home. Physical Therapy Plan Discharge Physical Therapy Discharge Reasons Plateau in Progress
== END 2019-10-02 13:12 ==
LOC: PHYS 08:15
PROVIDERS: PCP Family Medicine; Visit Provider Registered Nurse
DX: M54.17 Radiculopathy, lumbosacral region (principal); R26.89 Other abnormalities of gait and mobility; R53.1 Weakness; R29.3 Abnormal posture
CPT/HCPCS: 97010; 97110; 97112; 97113; 97116; 97140; 97162; 97164; 97530; 97535